=== PATIENT | female | born 1940 | race Caucasian/White ===

== ENCOUNTER 2017-04-15 11:17 | Outpatient (CLI) ==
[2014-12-30 22:52] VITALS: BMI 25.4
== END 2017-04-15 11:18 | disposition home or self-care (01) ==
LOC: RAD 11:17
PROVIDERS: ATTEND Internal Medicine
DX: Z12.31 Encounter for screening mammogram for malignant neoplasm of breast (principal)
CPT/HCPCS: 77067

== ENCOUNTER 2017-06-10 10:35 | Outpatient (CLI) | payer OTHER ==
[2014-12-30 22:52] VITALS: BMI 25.4
--- NOTE | 2017-06-10 12:27 | DI ---
EXAM: Right elbow, three views, 06/10/2017 HISTORY: Elbow pain COMPARISON: None. FINDINGS / IMPRESSION: Moderate chronic osteoarthritic degenerative change. There is prominent oste ophyte formation. Normal anatomic alignment is maintained. There is evidence of fracture or disloca tion. No joint effusion No acute osseous abnormality.
== END 2017-06-10 10:36 | disposition home or self-care (01) ==
LOC: RAD 10:35
PROVIDERS: ATTEND Internal Medicine
DX: M25.521 Pain in right elbow (principal); W19.XXXA Unspecified fall, initial encounter

== ENCOUNTER 2017-12-11 09:32 | Inpatient (IN) | payer OTHER ==
[2017-12-11] MEDS ORDERED: VISTARIL INJ IM PRN (09:47)
[2017-12-11] MEDS ORDERED: NITROSTAT SL PRN (09:47)
[2017-12-11] MEDS ORDERED: ATROPINE SULFATE PFS IVP PRN (09:47)
[2017-12-11] MEDS ORDERED: MORPHINE 4 MG/ML VIAL IVP PRN (09:47)
[2017-12-11 10:14] VITALS: BMI 25.9
[2017-12-11] MEDS: DEXTROSE 5%-1/2NS IV SOLUTION 1,000 ML IV SCH ×2 (10:16→22:39)
[2017-12-11] MEDS: SOLU-CORTEF 250 MG IVP SCH ×4 (10:22→23:28)
[2017-12-11] MEDS: ROCEPHIN 1 GM in SODIUM CHLORIDE 50 ML IV SCH (10:22)
[2017-12-11] MEDS: MUCINEX PO SCH ×2 (10:23→20:16)
[2017-12-11] MEDS: XOPENEX 1.25 MG NEB SCH ×3 (11:28→22:10)
--- NOTE | 2017-12-11 12:03 | DI ---
EXAM: Single view the chest. History: Short of breath Comparison: Chest radiograph 12/30/2014 Findings: Heart size is normal. No focal consolidation. No appreciable pleural fluid and no pneumo thorax. No acute osseous abnormalities. Impression: No acute cardiopulmonary process
[2017-12-11] MEDS: PULMICORT 0.5 MG/2 ML NEB SCH (17:37)
[2017-12-11] MEDS: PRAVACHOL PO SCH (20:16)
[2017-12-11] MEDS: ULTRAM PO SCH (20:17)
[2017-12-11] MEDS: SINGULAIR PO SCH (20:17)
[2017-12-11] MEDS ORDERED: PRAVACHOL PO SCH (21:00)
[2017-12-11] MEDS ORDERED: GABAPENTIN 1200 MG PO SCH (21:00)
[2017-12-11] MEDS ORDERED: NEURONTIN PO SCH (21:00)
[2017-12-12] MEDS: TYLENOL PO PRN (03:38)
[2017-12-12] MEDS: PULMICORT 0.5 MG/2 ML NEB SCH ×2 (05:06→18:01)
[2017-12-12] MEDS: XOPENEX 1.25 MG NEB SCH ×4 (05:06→22:20)
[2017-12-12] MEDS: SYNTHROID PO SCH (05:41)
[2017-12-12] MEDS: SOLU-CORTEF 250 MG IVP SCH ×4 (06:38→23:32)
[2017-12-12] MEDS: ROCEPHIN 1 GM in SODIUM CHLORIDE 50 ML IV SCH (08:31)
[2017-12-12] MEDS: NON-FORMULARY MEDICATION (Tiotropium Br/Olodaterol Hcl [Stiolto Respimat Inhal Spray] 2 PU IH SCH (08:33)
[2017-12-12] MEDS: HYDROCHLOROTHIAZIDE PO SCH (08:34)
[2017-12-12] MEDS: ASPIRIN EC PO SCH (08:35)
[2017-12-12] MEDS: ZESTRIL PO SCH (08:35)
[2017-12-12] MEDS: MUCINEX PO SCH ×2 (08:35→20:46)
[2017-12-12] MEDS: XANAX PO PRN (08:43)
[2017-12-12] MEDS ORDERED: CYMBALTA PO SCH (09:00)
[2017-12-12] MEDS ORDERED: CALAN SR PO SCH (09:00)
[2017-12-12] MEDS ORDERED: [UNRECOGNIZED DRUG - OTHER] IN SCH (09:00)
[2017-12-12] MEDS: DEXTROSE 5%-1/2NS IV SOLUTION 1,000 ML IV SCH ×2 (11:29→22:44)
[2017-12-12] MEDS: SINGULAIR PO SCH (20:47)
[2017-12-12] MEDS: ULTRAM PO SCH (20:47)
[2017-12-12] MEDS: PRAVACHOL PO SCH (20:48)
[2017-12-12] MEDS ORDERED: NEURONTIN PO SCH (21:00)
[2017-12-13] MEDS: XOPENEX 1.25 MG NEB SCH ×4 (05:07→22:10)
[2017-12-13] MEDS: PULMICORT 0.5 MG/2 ML NEB SCH ×2 (05:07→17:56)
[2017-12-13] MEDS: SYNTHROID PO SCH (06:04)
[2017-12-13] MEDS: SOLU-CORTEF 250 MG IVP SCH ×3 (06:06→17:14)
[2017-12-13] MEDS: ASPIRIN EC PO SCH (10:39)
[2017-12-13] MEDS: HYDROCHLOROTHIAZIDE PO SCH (10:39)
[2017-12-13] MEDS: ZESTRIL PO SCH (10:40)
[2017-12-13] MEDS: MUCINEX PO SCH ×2 (10:40→21:46)
[2017-12-13] MEDS: ROCEPHIN 1 GM in SODIUM CHLORIDE 50 ML IV SCH (10:40)
[2017-12-13] MEDS: VERAPAMIL HCL 240 MG PO SCH (10:42)
[2017-12-13] MEDS: NON-FORMULARY MEDICATION (Duloxetine Hcl [Cymbalta] 60 MG) PO SCH (10:43)
[2017-12-13] MEDS: NON-FORMULARY MEDICATION (Tiotropium Br/Olodaterol Hcl [Stiolto Respimat Inhal Spray] 2 PU IH SCH (10:43)
[2017-12-13] MEDS: XANAX PO PRN (11:56)
[2017-12-13] MEDS: DEXTROSE 5%-1/2NS IV SOLUTION 1,000 ML IV SCH (11:57)
[2017-12-13] MEDS: TYLENOL PO PRN (12:25)
[2017-12-13] MEDS ORDERED: XANAX PO SCH (21:00)
[2017-12-13] MEDS ORDERED: NEURONTIN PO SCH (21:00)
[2017-12-13] MEDS: SINGULAIR PO SCH (21:47)
[2017-12-13] MEDS: ULTRAM PO SCH (21:47)
[2017-12-13] MEDS: PRAVACHOL PO SCH (21:47)
[2017-12-14] MEDS: SOLU-CORTEF 250 MG IVP SCH ×2 (00:23→05:54)
[2017-12-14] MEDS: PULMICORT 0.5 MG/2 ML NEB SCH (04:50)
[2017-12-14] MEDS: XOPENEX 1.25 MG NEB SCH (04:50)
[2017-12-14] MEDS: SYNTHROID PO SCH (05:43)
[2017-12-14] MEDS ORDERED: K-DUR PO STA ×2 (08:25→09:51)
--- NOTE | 2017-12-14 09:41 | CM.DICTOOL ---
ADMISSION: 12/11/17 09:32 DISCHARGE: 12/14/17 FINAL DIAGNOSIS ACUTE BRONCHITIS/COPD BRONCHIAL ASTHMA HYPOKALEMIA HISTORY OF: S/P CATARACT SURGERY 2017 DYSLIPIDEMIA HYPERTENSION S/P CHOLECYSTECTOMY KIDNEY STONES DEPRESSION ANXIETY HYPOTHYROID LAST VITALS Temp Pulse Resp BP Pulse Ox 98.1 F 69 20 119/63 98 12/14/17 05:34 12/14/17 05:34 12/14/17 05:34 12/14/17 05:34 12/14/17 05:34 TAKE THESE MEDICATIONS AT HOME Acetaminophen (Tylenol) 650 mg PO Q4H PRN PRN Reason: Headache Last Admin: 12/13/17 12:25 Dose: 650 mg Alprazolam (Xanax) 0.5 mg PO BID PRN PRN Reason: anxiety restlessness Last Admin: 12/13/17 11:56 Dose: 0.5 mg Gabapentin (Neurontin) 600 mg PO BID [facility] Last Admin: 12/13/17 21:46 Dose: 600 mg Hydrochlorothiazide (Hydrochlorothiazide) 25 mg PO DAILY [facility] Last Admin: 12/13/17 10:39 Dose: 25 mg Levothyroxine Sodium (Synthroid) 88 mcg PO QDAC [facility] Last Admin: 12/14/17 05:43 Dose: 88 mcg Lisinopril (Zestril) 20 mg PO DAILY [facility] Last Admin: 12/13/17 10:40 Dose: 20 mg Montelukast Sodium (Singulair) 10 mg PO BEDTIME [facility] Last Admin: 12/13/17 21:47 Dose: 10 mg Non-Formulary Medication (Verapamil Hcl [Calan Sr]) 240 mg PO DAILY [facility] Last Admin: 12/13/17 10:42 Dose: 240 mg Non-Formulary Medication (Duloxetine Hcl [Cymbalta]) 60 mg PO DAILY [facility] Last Admin: 12/13/17 10:43 Dose: 60 mg Non-Formulary Medication (Tiotropium Br/Olodaterol Hcl [Stiolto Respimat Inhal [place]]) 2 puff IH DAILY [facility] Last Admin: 12/13/17 10:43 Dose: 2 puff Pravastatin Sodium (Pravachol) 40 mg PO BEDTIME [facility] Last Admin: 12/13/17 21:47 Dose: 40 mg Tramadol HCl (Ultram) 50 mg PO BEDTIME [facility] Last Admin: 12/13/17 21:47 Dose: 50 mg ALLERGIES No Known Allergies Allergy (Verified 12/30/14 19:53) DISCONTINUED MEDICATIONS NONE NEW MEDICATIONS: 1. PREDNISONE 10MG TAKE 1 TABLET 3 TIMES A DAY FOR 3 DAYS THEN 1 TABLET 2 TIMES A DAY FOR 3 DAYS, THEN 1 TABLET DAILY FOR 3 DAYS AND THEN 1/2 TABLET DAILY FOR 3 DAYS. 2. KEFLEX 500MG TAKE 1 CAPSULE 2 TIMES A DAY FOR 7 DAY. 3. K-DUR 40MEQ TAKE 1 TABLET THIS EVENING, THEN 2 TIMES A DAY TOMORROW AND THEN 1/2 TABLET ON THURSDAY. NEW PRESCRIPTIONS: NEW MEDICATIONS: 1. PREDNISONE 10MG TAKE 1 TABLET 3 TIMES A DAY FOR 3 DAYS THEN 1 TABLET 2 TIMES A DAY FOR 3 DAYS, THEN 1 TABLET DAILY FOR 3 DAYS AND THEN 1/2 TABLET DAILY FOR 3 DAYS. TAKE WITH FOOD. 2. KEFLEX 500MG TAKE 1 CAPSULE 2 TIMES A DAY FOR 7 DAY. TAKE UNTIL ALL GONE 3. K-DUR 40MEQ TAKE 1 TABLET THIS EVENING, THEN 2 TIMES A DAY TOMORROW AND THEN 1/2 TABLET ON THURSDAY. SMOKING: N/A AVOID SECOND HAND SMOKE DISEASE SPECIFIC EDUCATION: COPD MEDICATIONS - STEROIDS, ABX AVOID HEAT ACTIVITY FOLLOW UP APPOINTMENT LAB REVIEW: 12/14/17 04:15 12/14/17 04:15 12/14/17 04:15: Sodium 143, Potassium 2.8 L, Chloride 103, Carbon Dioxide 29, Anion Gap 13.8, BUN 22 H, Creatinine 0.91, Estimated GFR (MDRD) 60.00, BUN/ Creatinine Ratio 24.17, Glucose 155 H, Calcium 9.1, Total Bilirubin 0.3, AST 10 L, ALT 16, Alkaline Phosphatase 44 L, Total Protein 5.8, Albumin 3.1 L, Globulin 2.7, Albumin/Globulin Ratio 1.15 12/14/17 04:15: WBC 8.45, RBC 3.93 L, Hgb 11.6 L, Hct 34.3 L, MCV 87.3, MCH 29.5 , MCHC 33.8, RDW Coeff of [place] 13.1, Plt Count 237, Immature Gran % (Auto) 1.1, Neut % (Auto) 80.3, Lymph % (Auto) 15.1, [place] % (Auto) 3.4, Eos % (Auto) 0.0, Baso % (Auto) 0.1, Immature Gran # (Auto) 0.1, Neut # (Auto) 6.8, Lymph # (Auto ) 1.3, [place] # (Auto) 0.3 L, Eos # (Auto) 0.0, Baso # (Auto) 0.0 12/13/17 13:00: Puncture Site R brach, O2 Saturation 94.0 L, ABG pH 7.495 H, ABG pCO2 39.5, ABG pO2 63.0 L, ABG HCO3 30.4 H, ABG Total CO2 32 H, ABG Base Excess 7 H, Kb Test +, FiO2 % 21.0 PLAN: DISCHARGE HOME TODAY 12/14/17 CONTINUE HOME MEDICATIONS PER NURSING SHEET. NEW MEDICATIONS: 1. PREDNISONE 10MG TAKE 1 TABLET 3 TIMES A DAY FOR 3 DAYS THEN 1 TABLET 2 TIMES A DAY FOR 3 DAYS, THEN 1 TABLET DAILY FOR 3 DAYS AND THEN 1/2 TABLET DAILY FOR 3 DAYS. TAKE WITH FOOD. 2. KEFLEX 500MG TAKE 1 CAPSULE 2 TIMES A DAY FOR 7 DAY. TAKE UNTIL ALL GONE. 3. K-DUR 40MEQ TAKE 1 TABLET THIS EVENING, THEN 2 TIMES A DAY TOMORROW AND THEN 1/2 TABLET ON THURSDAY. DIET TOLERATED ACTIVITY GRADUALLY RESUME ACTIVITY. REST FREQUENTLY. AVOID HEAT. FOLLOW UP WITH DR. FREDERICK ON ThursdayNovember AT 1030 AM. IF UNABLE TO KEEP APPOINTMENT, PLEASE CALL TO RESCHEDULE. [phone]. PATIENT IS A DO NOT INTUBATE - CPR ONLY. ALERT AND ORIENTED X 4. SEEN BY DR. FREDERICK THIS AM. NEW ORDERS FOR DISCHARGE AND RX RECEIVED. PATIENT AGREEABLE WITH DISCHARGE. APPETITE IS GOOD. VITAL SIGNS ARE STABLE. HAS BEEN AFEBRILE. POX 98% ON O2 AT 2L/C. HEART TONES ARE REGULAR. REFUSED TELEMETRY MONITORING. NO C/O PAIN OR DISCOMFORT. LUNGS CLEAR WITH DIMINISHED BREATH SOUNDS. CONTINUES WITH DYSPNEA WITH ACTIVITY. HAS NON- PRODUCTIVE COUGH. ABDOMEN IS SOFT, NON-TENDER WITH BOWEL SOUNDS POSITIVE IN ALL 4 QUADS. PEDAL PULSES POSITIVE WITHOUT EDEMA. HAS SALINE LOCK IN RIGHT FOREARM SITE IS CLEAR. IS UP AD-SEAN. NO ACUTE DISTRESS NOTED. DR. TESS FREDERICK MD Willian VILLEDA APRN
[2017-12-14] MEDS: MUCINEX PO SCH (10:10)
[2017-12-14] MEDS: ASPIRIN EC PO SCH (10:10)
[2017-12-14] MEDS: ZESTRIL PO SCH (10:10)
[2017-12-14 10:11] VITALS: BP 136/80; TEMP 97.6
[2017-12-14] MEDS: HYDROCHLOROTHIAZIDE PO SCH (10:11)
[2017-12-14] MEDS: VERAPAMIL HCL 240 MG PO SCH (10:11)
[2017-12-14] MEDS: NON-FORMULARY MEDICATION (Duloxetine Hcl [Cymbalta] 60 MG) PO SCH (10:11)
[2017-12-14] MEDS: NON-FORMULARY MEDICATION (Tiotropium Br/Olodaterol Hcl [Stiolto Respimat Inhal Spray] 2 PU IH SCH (10:13)
[2017-12-14] MEDS: ROCEPHIN 1 GM in SODIUM CHLORIDE 50 ML IV SCH (10:21)
--- NOTE | 2017-12-14 13:45 | HP ---
DATE OF SERVICE: 12/11/17 HISTORY OF PRESENT ILLNESS: This is a 77-year-old female with coughing times several days, feeling very tired even with 02. Shortness of breath on exertion. No symptoms of CAD/no PND/ no orthopnea. PAST MEDICAL HISTORY: COPD Bronchial asthma Left sciatica Dyslipidemia History of kidney stone MENSTRUAL HISTORY: Mammogram 04/14 [facility] PAST SURGICAL HISTORY: TKR - bilateral Melanoma times two Colonoscopy 12/11, Dr. Mares Gallbladder REVIEW OF SYSTEMS: CONSTITUTIONAL: Positive for fatigue. No fever. HEENT: No sinus drainage, no sore throat. RESPIRATORY: Cough. No hemoptysis. CARDIOVASCULAR: Positive for shortness of breath. No atypical chest pain for coronary artery disease. No angina, CHF symptoms, palpitations. GASTROINTESTINAL: No melena or abdominal pain. No GERD. GENITOURINARY: No hematuria, no polyuria. CONVEYOR FEEDER OFFBEARER: No blackout, no dizziness, no headache, no double vision. MUSCULOSKELETAL: Osteoarthritis pain. ENDOCRINE: Weight loss of 4 lbs. SKIN: Warm and dry, no rash. PSYCHIATRIC: Not anxious, no depression, no suicidal thoughts, no homicidal thoughts. SOCIAL HISTORY: , nonsmoker. Three children. Positive for alcohol use. FAMILY HISTORY: Father and mother . Two brothers. No sisters. MEDICATIONS: (Home) Synthroid 88 mcg p.o. daily Cymbalta 60 mg p.o. daily Neurontin 1,200 mg two at h.s. Xanax 0.5 mg p.o. b.i.d. p.r.n. Pravachol 40 mg p.o. bedtime Lisinopril/Hydrochlorothiazide one tab p.o. daily Verapamil (Calan SR) 240 mg p.o. daily (a.m.) Singulair 10 mg p.o. daily Tramadol (Ultram) 50 mg p.o. bedtime Stiolto Respimat 2 puff IH daily a.m. Antivert 25 mg one p.r.n. ALLERGIES: CODEINE, ERYTHROMYCIN PHYSICAL EXAMINATION: V/S: Pulse 90, BP 130/60, respiratory rate 15/min, 02 sat 95% on room air, height 5'2", weight 142.2, BMI 26. GENERAL APPEARANCE: Oriented times three. HEENT: Normal. NECK: No JVP, no bruits. RESPIRATORY: Decreased breath sounds. Lungs are clear. CARDIOVASCULAR: S1, S2, no S3, no murmurs. No cyanosis, clubbing. No ascites. GI/ABDOMEN: No tenderness. Bowel sounds are active. EXTREMITIES: No edema, pulses +1, equal. CONVEYOR FEEDER OFFBEARER: Deep tendon reflexes, sensory, motor and gait all normal. RECTAL/PELVIC: Dr. Mares 12/11. Pelvic: Refused. Mammogram 04/14 [facility]. ASSESSMENT: 1. ACUTE BRONCHITIS 2. EXACERBATION OF COPD 3. COPD/COR PULMONALE (4x) 4. BRONCHIAL ASTHMA 5. LEFT SCIATICA 6. HYPERGLYCEMIA 7. BILATERAL TKR 8. HYPERTENSION 9. DYSLIPIDEMIA 10. HISTORY OF KIDNEY STONE 11. OSTEOARTHRITIS, RIGHT ELBOW PLAN: 1. Admit regular. 2. Routine telemetry orders. 3. Diet - Regular. 4. Daily CBC, CMP 5. Solu-Cortef 125 mg IV now and q.6hr 6. Xopenex q.6hr (nebs) 7. Pulmicort nebs b.i.d. 8. 1000 cc's D5 1/2 NS 12 hourly 9. Mucinex one tablet p.o. b.i.d. 10. Continue all home medications 11. Rocephin 1 gm IV p.o. now and 24 hours 12. Sputum for C & S Gram Stain 13. ABGs now 14. Oxygen 2L/cannula/min TIME SPENT: More than 70 minutes. MTDD
--- NOTE | 2017-12-16 13:45 | PN ---
DATE OF SERVICE: 12/12/17 SUBJECTIVE: The patient was hospitalized with respiratory distress, respiratory failure and mild hypercarbia with pCO2 15 with borderline low pH with high carb. The patient had wheezing with very poor air entry. The patient condition has improved remarkably. She is feeling better. She is up and about and is talking full sentences and several of them without interruption. Condition is improved with steroids, antibiotics and NEBS treatment and oxygen. REVIEW OF SYSTEMS: CONSTITUTIONAL: No night sweats. No fatigue, malaise, lethargy. No fever or chills. HEENT: Eyes: No visual changes. No eye pain. No eye discharge. ENT: No runny nose. No epistaxis. No sinus pain. No sore throat. No odynophagia. No congestion. RESPIRATORY: No cough, no congestion. No hemoptysis. No shortness of breath. CARDIOVASCULAR: No angina symptoms. No CHF symptoms. No atypical chest pain for CAD. No palpitations. No orthopnea. GASTROINTESTINAL: No abdominal pain. No nausea or vomiting. No diarrhea or constipation. No hematemesis. No hematochezia. GENITOURINARY: No urgency. No frequency. No dysuria. No hematuria. No obstructive symptoms. No discharge. No pain. No significant abnormal bleeding. MUSCULOSKELETAL: No musculoskeletal pain; no joint swelling. NEUROLOGICAL: No headache. No neck pain. No syncope. No seizures. No dizziness. PSYCHIATRIC: Not anxious. No depression. No suicidal thoughts. No homicidal thoughts. SKIN: No rash. No lesions. No wounds. ENDOCRINE: No unexplained weight loss. No weight gain. HEMATOLOGIC/LYMPHATIC: No anemia. No purpura. No petechiae. No prolonged or excessive bleeding. No palpable lymph nodes. PHYSICAL EXAMINATION: HEENT: Head normocephalic, atraumatic. Eyes: Extraocular muscles are intact. Pupils are equal, round and reactive to light and accommodation. Ears: No lesions. Nose appeared normal. Throat: No exudate or erythema. NECK: Supple. No JVD, no carotid bruit. No lymphadenopathy or thyromegaly. LUNGS: Clear to auscultation. Percussion note normal. Chest symmetrical. HEART: S1, S2, no S3. No murmurs. No cyanosis or clubbing. No ascites. Pulses: Dorsalis pedis and posterior tibial pulses +1 to +2 both sides. ABDOMEN: Soft. Nontender. Bowel sounds active. No CVA tenderness. No mass felt. EXTREMITIES: No edema. Full range of motion of all extremities, equal. NEUROLOGIC: No focal deficit. Cranial nerves II through XII are grossly intact. No headache, no double vision or headache. SKIN: Not dry. Intact. Turgor - normal. LYMPHATIC: No palpable lymph nodes/no lymphedema. MUSCULOSKELETAL: Normal joints with no swelling. Muscle tone is normal. ASSESSMENT: 1. Respiratory distress 2. Respiratory failure 3. Mild hypercarbia PLAN: 1. Continue steroids 2. Antibiotics 3. NEBS treatment 4. Pulmonary rehab advised and discussed in detail. CONDITION: Stable. TIME SPENT: More than 30 minutes. Plan and coordination of the patient's care discussed in the presence of nurse. SERGIO
--- NOTE | 2017-12-16 13:50 | PN ---
DATE OF SERVICE: 12/13/17 SUBJECTIVE: The patient is up and about walking and doing well. She wants to go home. She has decreased breath sounds but very good air entry. REVIEW OF SYSTEMS: CONSTITUTIONAL: No night sweats. No fatigue, malaise, lethargy. No fever or chills. HEENT: Eyes: No visual changes. No eye pain. No eye discharge. ENT: No runny nose. No epistaxis. No sinus pain. No sore throat. No odynophagia. No congestion. RESPIRATORY: No cough, no congestion. No hemoptysis. No shortness of breath. CARDIOVASCULAR: No angina symptoms. No CHF symptoms. No atypical chest pain for CAD. No palpitations. No orthopnea. GASTROINTESTINAL: No abdominal pain. No nausea or vomiting. No diarrhea or constipation. No hematemesis. No hematochezia. GENITOURINARY: No urgency. No frequency. No dysuria. No hematuria. No obstructive symptoms. No discharge. No pain. No significant abnormal bleeding. MUSCULOSKELETAL: No musculoskeletal pain; no joint swelling. NEUROLOGICAL: No headache. No neck pain. No syncope. No seizures. No dizziness. PSYCHIATRIC: Not anxious. No depression. No suicidal thoughts. No homicidal thoughts. SKIN: No rash. No lesions. No wounds. ENDOCRINE: No unexplained weight loss. No weight gain. HEMATOLOGIC/LYMPHATIC: No anemia. No purpura. No petechiae. No prolonged or excessive bleeding. No palpable lymph nodes. PHYSICAL EXAMINATION: HEENT: Head normocephalic, atraumatic. Eyes: Extraocular muscles are intact. Pupils are equal, round and reactive to light and accommodation. Ears: No lesions. Nose appeared normal. Throat: No exudate or erythema. NECK: Supple. No JVD, no carotid bruit. No lymphadenopathy or thyromegaly. LUNGS: Clear to auscultation. Percussion note normal. Chest symmetrical. HEART: S1, S2, no S3. No murmurs. No cyanosis or clubbing. No ascites. Pulses: Dorsalis pedis and posterior tibial pulses +1 to +2 both sides. ABDOMEN: Soft. Nontender. Bowel sounds active. No CVA tenderness. No mass felt. EXTREMITIES: No edema. Full range of motion of all extremities, equal. NEUROLOGIC: No focal deficit. Cranial nerves II through XII are grossly intact. No headache, no double vision or headache. SKIN: Not dry. Intact. Turgor - normal. LYMPHATIC: No palpable lymph nodes/no lymphedema. MUSCULOSKELETAL: Normal joints with no swelling. Muscle tone is normal. ASSESSMENT: 1. Acute bronchial asthma, improving with steroids, NEBS treatment and antibiotics. PLAN: 1. Again pulmonary rehab discussed with the patient 2. Atrial blood gasses on room air also 3. PFT today 4. Side effects of steroids including avascular necrosis of the femoral head, cataracts, osteoporosis etc discussed with the patient in detail. 5. She works outside and works with the pain. Advised to avoid all allergens. CONDITION: Improving. TIME SPENT: More than 30 minutes. Plan and coordination of the patient's care discussed in the presence of nurse. SERGIO
--- NOTE | 2017-12-16 14:48 | PN ---
DATE OF SERVICE: 12/14/17 DISCHARGE NOTE SUBJECTIVE: The patient was seen and examined with Nurse Practitioner. She is feeling a lot better. During the hospital stay the patient was treated with steroids, IV antibiotics, NEBS treatment and IV fluids. PHYSICAL EXAMINATION: HEENT: Head normocephalic, atraumatic. Eyes: Extraocular muscles are intact. Pupils are equal, round and reactive to light and accommodation. Ears: No lesions. Nose appeared normal. Throat: No exudate or erythema. NECK: Supple. No JVD, no carotid bruit. No lymphadenopathy or thyromegaly. LUNGS:Decreased breath sounds but clear to auscultation, good air entry and no cough. Percussion note normal. Chest symmetrical. HEART: S1, S2, no S3. No murmurs. No cyanosis or clubbing. No ascites. Pulses: Dorsalis pedis and posterior tibial pulses +1 to +2 both sides. ABDOMEN: Soft. Nontender. Bowel sounds active. No CVA tenderness. No mass felt. EXTREMITIES: No edema. Full range of motion of all extremities, equal. NEUROLOGIC: No focal deficit. Cranial nerves II through XII are grossly intact. No headache, no double vision or headache. SKIN: Not dry. Intact. Turgor - normal. LYMPHATIC: No palpable lymph nodes/no lymphedema. MUSCULOSKELETAL: Normal joints with no swelling. Muscle tone is normal. PLAN: 1. Explained about steroid side effects including avascular necrosis of the femoral heads, cataract and osteoporosis. 2. Advised bone density test 3. The patient is be discharged on Keflex and steroid tapering dose. 4. The patient has hypokalemia, today the patient will be given 120meq Potassium 80 of them will be given in the hospital and 40 she is supposed to take in the evening. Tomorrow she is going to take 80 and then she will be taking 20. 5. We are going to check her as an outpatient on morning and will check Potassium again. CONDITION: Stable. Improved TIME SPENT: More than 30 minutes. Plan and coordination of the patient's care discussed in the presence of nurse. SERGIO
--- NOTE | 2017-12-17 10:57 | PN ---
CODING FOR BILLING 12/11/17 LEVEL 5 12/12/17 INTERMEDIATE 12/13/17 INTERMEDIATE 12/14/17 DISCHARGE MTDD
--- NOTE | 2017-12-17 11:02 | DS ---
DATE OF SERVICE: 12/14/17 FINAL DIAGNOSIS: 1. Acute bronchitis/COPD 2. Bronchial asthma 3. Hypokalemia 4. History of status post Cataract surgery 2016 5. Dyslipidemia 6. Hypertension 7. Status post cholecystectomy 8. Kidney stones 9. Depression 10.Anxiety 11.Hypothyroidism LAST VITALS: Temperature 98.1, pulse 69, respiratory rate 20, blood pressure 119/63 and pulse ox 98%. DISCHARGE INSTRUCTIONS: Discharge home today. Continue home medications per nursing sheet. Followup with Dr. Ontiveros on December 17 at 10:30am. Patient is a DO NOT INTUBATE- CPR only. MEDICATIONS AT DISCHARGE: Tylenol 650mg PO Q 4 hours PRN Xanax 0.5mg PO twice a day PRN Neurontin 600mg PO twice a day Hydrochlorothiazide 25mg PO daily Synthroid 88mcg PO QDAC Zestril 20mg PO daily Singulair 10mg PO bedtime Verapamil 240mg PO daily Cymbalta 60mg PO daily Stiolto Respimat 2 puffs daily Pravachol 40mgt PO bedtime Ultram 50mg PO bedtime ALLERGIES: No known allergies NEW PRESCRIPTIONS: Prednisone 10mg take one tablet three times a day for 3 days then one tablet two times a day for 3 days, then one tablet daily for 3 days then 1/2 tablet daily for 3 days. Take with food. Keflex 500mg take one capsule two times a day for 7 days. Take until all gone K-Dur 40meq take one tablet this evening, then two times a day tomorrow and then 1/2 tablet on Thursday. DIET INSTRUCTIONS: As tolerated ACTIVITY: Gradually resume activity, Rest frequently. Avoid heat. SMOKING: N/A Avoid second hand smoke DISEASE SPECIFIC EDUCATION: COPD MEDICATIONS-Steroids, ABX Avoid heat Activity Followup appointment HOSPITAL COURSE: 77 year old white female with history of severe COPD. She presented to the office with worsening shortness of breath and productive cough. Her oxygen saturation was low and she was mild respiratory distress. Her oxygen saturation showed 92% in the office. She was directly admitted, this was on 2 liters of oxygen. ABG showed compensated respiratory. On examination she had very little air movement to no air movement. She was not able to wheeze. Again she was visible short of breath despite her oxygen. Chest x-ray was done which showed no acute process, no pneumonia just changes associated with severe COPD and acute bronchitis. She was started on normal saline at 75cc an hour. Solu-Cortef 125mg IV Q 8 hours as well as Xopenex NEB treatment Q 6 hours. Over the course of several days with IV steroids and NEBS treatments. Her breathing improved. She had already been doing nebulizer treatments and PO Prednisone and oxygen at home and again she was still in mild respiratory distress. Of the course of several days with IV steroids we also put her on IV Rocephin once daily her condition steadily improved. Repeat ABG's yesterday morning showed significant improvement, CO2 level was down. She did develop some hypokalemia likely due to hemodilution and IV fluids. Today her Potassium is 2.8. We will send her home with 40meq of Potassium twice a day today and tomorrow and then daily until we see her on . We will recheck the CMP in the office. She is discharged in stable condition today. She has been up and about with her oxygen on. She has been instructed to stay inside and continue her NEBS treatments at least 4 times a day. She will go home on Keflex as well as Prednisone 20mg three times a day for the next 2 days then twice a day for 3 days and then daily. We will see her in the office on . TIME SPENT: More than 60 minutes. SERGIO
== END 2017-12-14 11:15 | disposition home or self-care (01) | DRG 202 ==
LOC: MEDSURG A 09:32
PROVIDERS: ADMIT Internal Medicine; ATTEND Internal Medicine
DX: J20.9 Acute bronchitis, unspecified (principal); J96.92 Respiratory failure, unspecified with hypercapnia; J44.1 Chronic obstructive pulmonary disease with (acute) exacerbation; J44.0 Chronic obstructive pulmonary disease with (acute) lower respiratory infection; E87.6 Hypokalemia; J45.998 Other asthma; E78.5 Hyperlipidemia, unspecified; I10 Essential (primary) hypertension; F41.8 Other specified anxiety disorders; E03.9 Hypothyroidism, unspecified; Z87.442 Personal history of urinary calculi; R73.9 Hyperglycemia, unspecified; M54.32 Sciatica, left side; M19.021 Primary osteoarthritis, right elbow; R06.03 Acute respiratory distress
CPT/HCPCS: 36415; 80053; 81001; 82550; 82803; 84484; 85025; 93005; 93010; 94640

== ENCOUNTER 2018-04-15 07:54 | Outpatient (CLI) ==
--- NOTE | 2018-04-16 09:52 | MAMMO ---
EXAM: Digital screening mammogram with tomosynthesis HISTORY: Screening COMPARISON: 04/15/2017 FINDINGS: Digital MLO and CC views of the right and left breast were performed. Tomosynthesis was performed. Computer aided detection utilized. There are scattered fibroglandular densities. There is no evidence for mass, asymmetry, distortion, or suspicious calcifications in either breast. IMPRESSION: 1. No evidence of malignancy in the right or left breast. 2. Annual screening mammogram is recommended in one year. BIRADS category 1, negative examination
== END 2018-04-15 07:55 | disposition home or self-care (01) ==
LOC: RAD 07:54
PROVIDERS: ATTEND Internal Medicine
DX: Z12.31 Encounter for screening mammogram for malignant neoplasm of breast (principal)
CPT/HCPCS: 77067

== ENCOUNTER 2018-11-06 08:27 | Emergency (ER) | payer OTHER ==
[2018-11-06 08:41] VITALS: BP 147/82; TEMP 96.7; BMI 28.5
[2018-11-06] MEDS ORDERED: MORPHINE 4 MG/ML SYRINGE IM STA ×2 (08:58→09:48)
[2018-11-06] MEDS ORDERED: ZOFRAN 4 MG/2 ML IM STA (08:58)
--- NOTE | 2018-11-06 09:24 | CT ---
EXAM: CT of the lumbar spine. HISTORY: Back pain. Right sided sciatica. COMPARISON: 12/02/2012 TECHNIQUE: Contiguous axial images at 3 mm intervals were obtained through the lumbar spine. Sagitt al and coronal reformats were reviewed. No contrast. FINDINGS: There are 5 lumbar type vertebral bodies. There is curvature spine to the left measuring 8 degrees. There is anterolisthesis of four L5, measuring up to 6.7 mm. This is increased in compari son to the prior study. There is no pars defect. The vertebral heights are well maintained. There are no acute or healing fractures. Bone mineralization is normal. There are no lytic or blastic les ions. The soft tissues are unremarkable. There is no retroperitoneal fluid collection. The aorta i s calcified.. Segmental analysis: L1-2: Disc narrowing. No spinal canal or neural foraminal narrowing. L2-3: Disc narrowing. Post osteophytes. No spinal canal or neural foraminal narrowing.. L3-4: Disc narrowing. Facet hypertrophy. Minimal bilateral neural foramen narrowing.. L4-5: Disc narrowing. Large broad-based disc bulge. Facet hypertrophy. Bilateral neural foraminal narrowing and spinal canal narrowing.. L5-S1: Disc narrowing. Facet hypertrophy. Mild bilateral neural foraminal narrowing. IMPRESSION: 1. No acute fractures. 2. Degenerative disc disease and degenerative joint disease, most pronounced at L4-5. There is bila teral neural foraminal narrowing and spinal canal narrowing. Anterolisthesis of L4 on L5 is seen at this level as well. This is increased in comparison to the prior study.
[2018-11-06] MEDS ORDERED: VALIUM PO STA (09:48)
[2018-11-06] MEDS ORDERED: TORADOL IM STA (09:48)
--- NOTE | 2018-11-06 09:55 | ED.PDOC ---
General ED Provider: Dr. VENESSA PERES Chief Complaint: Back Pain Stated Complaint: low back pain after a car travel Time Seen by Physician: 08:33 Information Source: Patient Exam Limitations: No limitations Primary Care Provider: TESS FREDERICK Nursing and Triage Documentation Reviewed and Agree: Yes Does patient meet sepsis criteria?: No System Inflammatory Response Syndrome: Not Applicable Sepsis Protocol: For patient's 13 years and over: Temp is 96.8 and below OR 101 and greater Pulse >90 BPM Resp >20/minute Acutely Altered Mental Status Are patient's symptoms suggestive of a new infection, such as: -Pneumonia -Skin, Soft Tissue -Endocarditis -UTI -Bone, Joint Infection -Implantable Device -Acute Abdominal Infection -Wound Infection -Meningitis -Blood Stream Catheter Infection -Unknown Musculoskeletal Complaint Exam - Back Pain Complaint/Exam Mechanism of Injury: Reports: No known trauma Onset/Duration: 1 day Symptoms Are: Still present Timing: Constant Episodes Lasting: Hours Initial Severity: Moderate Current Severity: Moderate Location: Reports: Discrete (lumbar ) Character: Reports: Aching, Spasmodic Aggravating: Reports: Movements, Lifting, Bending, Walking Alleviating: Reports: Rest Associated Signs and Symptoms: Reports: Flank pain (right). Denies: Swelling, Redness, Bruising, Fever, Weakness, Numbness, Tingling, Abdominal pain, Bladder incontinence, Bowel incontinence, Weight loss, Pain with weight bearing TAD Risk Factors: Reports: Hypertension AAA Risk Factors: Reports: Hypertension Cauda Equina Risk Factors: Reports: None Epidural Abcess Risk Factors: Reports: None Related Surgical History: Reports: None Focal Tenderness: No Paraspinal Muscle Tenderness: Yes Paraspinal Muscle Spasm: Yes Scoliosis: No Lordosis: No Kyphosis: No SLR Test: Right Positive Hip Motion Testing Pain: Right Negative, Left Negative Focal Weakness: Present: None Focal Sensory Loss: Present: None Gait: Present: Normal Differential Diagnoses: Strain, Sprain Review of Systems - Review Of Systems Constitutional: Reports: No symptoms Eyes: Reports: No symptoms Ears, Nose, Mouth, Throat: Reports: No symptoms Respiratory: Reports: No symptoms Cardiac: Reports: No symptoms GI: Reports: No symptoms : Reports: No symptoms Musculoskeletal: Reports: Back pain Skin: Reports: No symptoms Neurological: Reports: No symptoms Endocrine: Reports: No symptoms Hematologic/Lymphatic: Reports: No symptoms All Other Systems: Reviewed and Negative Past Medical History - Past Medical History Previously Healthy: No Endocrine: Reports: Hypothyroid Cardiovascular: Reports: Hypertension Respiratory: Reports: None Hematological: Reports: None Gastrointestinal: Reports: GERD Genitourinary: Reports: None Neuro/Psych: Reports: Anxiety, Depression Musculoskeletal: Reports: None Cancer: Reports: None Last Menstrual Period: unknown - Surgical History General Surgical History: Reports: Orthopedic (Bilateral knee replacement) - Family History Family History: Reports: None - Social History Smoking Status: Former smoker Hx Substance Use: No Alcohol Screening: None Physical Exam - Physical Exam Appearance: Well-appearing, No pain distress, Well-nourished Eyes: SANDI, EOMI, Conjunctiva clear ENT: Ears normal, Nose normal, Oropharynx normal Respiratory: Airway patent, Breath sounds clear, Breath sounds equal, Respirations nonlabored Cardiovascular: RRR, Pulses normal, No rub, No murmur GI/: Soft, Nontender, No masses, Bowel sounds normal, No Organomegaly Musculoskeletal: Limited ROM (lumbar) Skin: Warm, Dry, Normal color Neurological: Sensation intact, Motor intact, Reflexes intact, Cranial nerves intact, Alert, Oriented Psychiatric: Affect appropriate, Mood appropriate Interpretation - Radiology Interpretation Radiology Interpretation By: Radiologist Radiology Results: No acute changes Critical Care Note - Critical Care Note Total Time (mins): 0 Course - Course Orders, Labs, Meds: Orders Category Date Time Status Diazepam [Valium] MEDS 11/06/18 09:48 Stat 5 mg PO ONCE STA Ketorolac Tromethamine [Toradol] MEDS 11/06/18 09:48 Stat 30 mg IM ONCE STA Morphine Sulfate [Morphine 4 mg/ml Syringe] MEDS 11/06/18 08:58 Stat 4 mg IM ONCE STA Morphine Sulfate [Morphine 4 mg/ml Syringe] MEDS 11/06/18 09:48 Stat 4 mg IM ONCE STA Ondansetron HCl/Pf [Zofran 4 mg/2 ml] MEDS 11/06/18 08:58 Stat 4 mg IM ONCE STA CT LUMBAR SPINE W/O CONTRAST Stat RADS 11/06/18 08:58 Ordered Medications Discontinued Medications Generic Name Dose Route Start Last Admin Trade Name Freq PRN Reason Stop Dose Admin Diazepam 5 mg 11/06/18 09:48 Valium PO 11/06/18 09:49 ONCE STA Ketorolac Tromethamine 30 mg 11/06/18 09:48 Toradol IM 11/06/18 09:49 ONCE STA Morphine Sulfate 4 mg 11/06/18 08:58 11/06/18 09:14 Morphine 4 Mg/Ml Syringe IM 11/06/18 08:59 4 mg ONCE STA Administration Morphine Sulfate 4 mg 11/06/18 09:48 Morphine 4 Mg/Ml Syringe IM 11/06/18 09:49 ONCE STA Ondansetron HCl 4 mg 11/06/18 08:58 11/06/18 09:16 Zofran 4 Mg/2 Ml IM 11/06/18 08:59 4 mg ONCE STA Administration Vital Signs: Temp Pulse Resp BP Pulse Ox 11/06/18 08:28 96.7 F L 82 20 147/82 H 94 L Departure - Departure Time of Disposition: 09:54 Disposition: HOME SELF-CARE Discharge Problem: Lumbar back pain Instructions: Acute Low Back Pain (ED), Back Pain (ED) Condition: Good Pt referred to PMD for follow-up: Yes IPMP verified?: No Additional Instructions: Please call your Family Physician as soon as possible to schedule a follow-up appointment. Allergies/Adverse Reactions: Allergies codeine Adverse Reaction (Mild, Verified 11/06/18 08:41) Unknown erythromycin base Adverse Reaction (Mild, Verified 11/06/18 08:41) Vomiting Home Medications: Ambulatory Orders Alprazolam [Xanax] 0.5 mg PO BID PRN 11/28/14 Duloxetine HCl [Cymbalta] 60 mg PO DAILY 11/28/14 Lisinopril/Hydrochlorothiazide [Lisinopril-Hctz 20-25 mg Tab] 1 tab PO DAILY 08/13 Montelukast Sodium [Singulair] 10 mg PO DAILY 11/28/14 Pravastatin Sodium [Pravachol] 40 mg PO EVERY OTHER DAY 11/28/14 Verapamil HCl [Calan Sr] 240 mg PO DAILY 11/28/14 Tiotropium Br/Olodaterol HCl [Stiolto Respimat Inhal Healy] 2 puff IH DAILY PRN 12/11/17 Tramadol HCl [Ultram] 50 mg PO BEDTIME PRN 12/11/17 Gabapentin [Neurontin] 1,200 mg PO BEDTIME 06/02/18 Levothyroxine Sodium [Synthroid] 100 mcg PO DAILY 06/02/18 Meclizine HCl [Antivert] 25 mg PO BID PRN 06/02/18 Pantoprazole Sodium [Protonix] 40 mg PO DAILY 06/02/18 Prednisone 20 mg PO DIRECTED PRN 11/06/18
== END 2018-11-06 10:47 | disposition home or self-care (01) ==
LOC: ED 08:27
DX: M54.5 Low back pain (principal); I10 Essential (primary) hypertension; E03.9 Hypothyroidism, unspecified; Z79.899 Other long term (current) drug therapy
CPT/HCPCS: 96372; 99283

== ENCOUNTER 2018-11-10 12:21 | Outpatient (CLI) ==
--- NOTE | 2018-11-10 13:16 | US ---
EXAM: ULTRASOUND LOWER EXTREMITY VENOUS DOPPLER EXAM HISTORY: Leg pain. FINDINGS: Right lower extremity venous Doppler exam. Real time sherman-scale, Doppler spectral analysi s and color-flow Doppler imaging performed. The veins targeted for evaluation include the common fem oral, greater saphenous, profundus, femoral, popliteal, peroneal, anterior tibial and posterior tibia l. The evaluated veins demonstrated normal spontaneous flow and compression without evidence of th rombosis. IMPRESSION: No venous thrombosis identified within the areas evaluated.
== END 2018-11-10 12:22 | disposition home or self-care (01) ==
LOC: RAD 12:21
PROVIDERS: ATTEND Internal Medicine
DX: M79.604 Pain in right leg (principal)

== ENCOUNTER 2019-05-30 14:59 | Inpatient (IN) ==
[2019-05-30 15:26] VITALS: BMI 26.3
[2019-05-30] MEDS ORDERED: NITROSTAT SL PRN (15:30)
[2019-05-30] MEDS ORDERED: TYLENOL PO PRN (15:30)
[2019-05-30] MEDS ORDERED: ATROPINE SULFATE PFS IVP PRN (15:30)
[2019-05-30] MEDS ORDERED: VISTARIL INJ IM PRN (15:30)
[2019-05-30] MEDS ORDERED: ULTRAM PO PRN (15:43)
[2019-05-30] MEDS ORDERED: ANTIVERT PO PRN (15:43)
[2019-05-30] MEDS ORDERED: PROAIR HFA IH PRN (15:43)
[2019-05-30] MEDS: SODIUM CHLORIDE 1,000 ML IV SCH (15:44)
[2019-05-30] MEDS ORDERED: SOLU-MEDROL 125 MG IVP SCH (16:00)
[2019-05-30] MEDS: ROCEPHIN 1 GM/50 ML D5W 1 GM/50 ML BAG IV SCH (16:23)
[2019-05-30] MEDS: SOLU-CORTEF 250 MG IVP SCH ×2 (16:23→21:32)
--- NOTE | 2019-05-30 16:37 | DI ---
EXAM: Chest two views HISTORY: Cough COMPARISON: 06/02/2018 TECHNIQUE: Two views of the chest were performed FINDINGS: The lungs are clear. There is no pleural effusion or pneumothorax. The heart is normal i n size. The mediastinal contour is normal, noting atherosclerosis. There are no acute abnormalities of the bones. IMPRESSION: No acute cardiopulmonary process.
[2019-05-30] MEDS: XOPENEX 1.25 MG NEB SCH ×2 (16:50→23:40)
[2019-05-30] MEDS: PULMICORT 1 MG/2 ML NEB SCH (16:50)
[2019-05-30] MEDS: ZITHROMAX 500 MG in SODIUM CHLORIDE 250 ML IV SCH (17:14)
[2019-05-30] MEDS: CALAN SR PO SCH (21:31)
[2019-05-30] MEDS: NEURONTIN PO SCH (21:31)
[2019-05-30] MEDS: PRAVACHOL PO SCH (21:32)
[2019-05-31] MEDS: XOPENEX 1.25 MG NEB SCH ×4 (05:05→23:05)
[2019-05-31] MEDS: PULMICORT 1 MG/2 ML NEB SCH ×2 (05:05→16:50)
[2019-05-31] MEDS: PROTONIX PO SCH (05:42)
[2019-05-31] MEDS: SYNTHROID PO SCH (05:42)
[2019-05-31] MEDS: SOLU-CORTEF 250 MG IVP SCH ×3 (05:42→17:22)
--- NOTE | 2019-05-31 07:44 | PN ---
DATE OF SERVICE: 05/30/19 SUBJECTIVE: The patient was seen and examined in the office and was hospitalized with acute bronchitis. She is going to be on steroids, NEBS treatment and antibiotics. The patient was seen with the Nurse Practitioner. CONDITION: STABLE TIME SPENT: More than 30 minutes. Plan and coordination of the patient's care discussed in the presence of nurse. SERGIO
[2019-05-31] MEDS: SODIUM CHLORIDE 1,000 ML IV SCH (08:00)
[2019-05-31] MEDS: ZITHROMAX 500 MG in SODIUM CHLORIDE 250 ML IV SCH (08:42)
[2019-05-31] MEDS: ROCEPHIN 1 GM/50 ML D5W 1 GM/50 ML BAG IV SCH (08:42)
[2019-05-31] MEDS: SINGULAIR PO SCH (08:43)
[2019-05-31] MEDS: ZESTRIL PO SCH (08:43)
[2019-05-31] MEDS: CYMBALTA PO SCH (08:44)
[2019-05-31] MEDS: ASPIRIN EC PO SCH (08:44)
[2019-05-31] MEDS: HYDROCHLOROTHIAZIDE PO SCH (08:44)
--- NOTE | 2019-05-31 08:53 | PCM.PROG ---
Attending Provider: ATTENDING PROVIDER: Dr. TESS FREDERICK This patient is seen with Mary Merritt, Nurse Practitioner. DATE OF SERVICE: 05/31/19 SUBJECTIVE: This 79 year old /WHITE F was hospitalized 05/30/19. The patient is resting comfortably. She is still with considerable amount of wheezing and shortness of breath with any type of exertion. REVIEW OF SYSTEMS: CONSTITUTIONAL: No night sweats. No fatigue, malaise, lethargy. No fever or chills. HEENT: Eyes: No visual changes. No eye pain. No eye discharge. ENT: No runny nose. No epistaxis. No sinus pain. No odynophagia. No congestion. RESPIRATORY: Positive for cough and shortness of breath. No congestion. No he moptysis. CARDIOVASCULAR: No angina symptoms. No CHF symptoms. No atypical chest pain for CAD. No palpitations. No orthopnea.. GASTROINTESTINAL: No abdominal pain. No nausea or vomiting. No diarrhea or constipation. No hematemesis. No hematochezia. GENITOURINARY: No urgency. No frequency. No dysuria. No hematuria. No obstructive symptoms. No discharge. No pain. No significant abnormal bleeding. MUSCULOSKELETAL: No musculoskeletal pain; no joint swelling. NEUROLOGICAL: Awake, alert, oriented to time, place and person. No headache. No neck pain. No syncope. No seizures. No dizziness. PSYCHIATRIC: Not anxious. No depression. No suicidal thoughts. No homicidal thoughts. SKIN: No rash. No lesions. No wounds. ENDOCRINE: No unexplained weight loss. No weight gain. HEMATOLOGIC/LYMPHATIC: No anemia. No purpura. No petechiae. No prolonged or excessive bleeding. No palpable lymph nodes. PHYSICAL EXAMINATION: GENERAL: The patient is awake, alert and oriented, lying/sitting in bed in no distress. VITAL SIGNS: Temperature 97.8 F, Pulse 54, Respiratory Rate 20, BP 107/59, Pulse Ox 99% HEENT: Head normocephalic, atraumatic. Eyes: Extraocular muscles are intact. Pupils are equal, round and reactive to light and accommodation. Ears: No lesions. Nose appeared normal. Throat: No exudate or erythema. NECK: Supple. No JVD, no carotid bruit. No lymphadenopathy or thyromegaly. LUNGS: Diminished breath sounds with bilateral inspiratory and expiratory wheezing and rhonchi. Percussion note normal. Chest symmetrical. HEART: S1, S2, no S3. No murmurs. No cyanosis or clubbing. No ascites. Pulses: Dorsalis pedis and posterior tibial pulses +1 to +2 both sides. ABDOMEN: Soft. Non-tender. Bowel sounds active. No CVA tenderness. No mass felt. EXTREMITIES: No edema. Full range of motion of all extremities, equal. NEUROLOGIC: No focal deficit. Cranial nerves II through XII are grossly intact. No headache, no double vision or headache. SKIN: Not dry. Intact. Turgor-normal. LYMPHATIC: No palpable lymph nodes/no lymphedema. MUSCULOSKELETAL: Normal joints with no swelling. Muscle tone is normal. LAB REVIEW: 05/31/19 04:59 05/31/19 04:59 05/31/19 04:59: Sodium 139.9, Potassium 3.91, Chloride 98.3, Carbon Dioxide 37.8 H, Anion Gap 7.71, BUN 19.7 H, Creatinine 0.80, Estimated GFR (MDRD) 70.00, BUN/Creatinine Ratio 24.62, Glucose 162.9 H D, Calcium 9.26, Total Bilirubin 0.40, AST 17.1, ALT 18.9, Alkaline Phosphatase 67.7, Total Protein 7.24, Albumin 4.05, Globulin 3.19, Albumin/Globulin Ratio 1.26 05/31/19 04:59: WBC 9.75, RBC 4.47, Hgb 12.6, Hct 40.0, MCV 89.5, MCH 28.2, MCHC 31.5 L, RDW Coeff of [place] 12.5, Plt Count 272, Immature Gran % (Auto) 0.8, Neut % (Auto) 79.7, Lymph % (Auto) 16.0, [place] % (Auto) 3.3, Eos % (Auto) 0.0, Baso % (Auto) 0.2, Immature Gran # (Auto) 0.1, Neut # (Auto) 7.8 H, Lymph # (Auto) 1.6, [place] # (Auto) 0.3 L, Eos # (Auto) 0.0, Baso # (Auto) 0.0 05/30/19 15:55: Sodium 138.9, Potassium 3.41 L, Chloride 95.2 L, Carbon Dioxide 38.2 H, Anion Gap 8.91, BUN 20.4 H, Creatinine 0.84, Estimated GFR (MDRD) 66.00, BUN/Creatinine Ratio 24.28, Glucose 87.9, Calcium 9.47, Total Bilirubin 0.53, AST 22.8, ALT 20.9, Alkaline Phosphatase 79.3, Total Protein 7.74, Albumin 4.37, Globulin 3.37, Albumin/Globulin Ratio 1.29 05/30/19 15:55: WBC 14.50 H, RBC 4.66, Hgb 13.2, Hct 42.4, MCV 91.0, MCH 28.3, MCHC 31.1 L, RDW Coeff of [place] 12.9, Plt Count 274, Immature Gran % (Auto) 0.6, Neut % (Auto) 57.7, Lymph % (Auto) 32.7, [place] % (Auto) 7.9, Eos % (Auto) 0.8, Ba so % (Auto) 0.3, Immature Gran # (Auto) 0.1, Neut # (Auto) 8.4 H, Lymph # (Auto) 4.7 H, [place] # (Auto) 1.1, Eos # (Auto) 0.1, Baso # (Auto) 0.0 ASSESSMENT: Please see below. 1. SHORTNESS OF BREATH. 2. ACUTE PNEUMONITIS. 3. ACUTE COPD EXACERBATION. 4. COPD. PLAN: 1. Increase Solu-Cortef to q.6hr. Plan and coordination of the patient's care discussed in the presence of Creeler and nurse. CONDITION: Stable SCRIBED BY: MENG GOEL [employer] Processing Supervisor scribed while in presence of service performed by Dr. Frederick/Mary Merritt APRN on 05/31/19 ([id number])
[2019-05-31] MEDS ORDERED: NON-FORMULARY MEDICATION (Tiotropium-Olodaterol [Stiolto Respimat] 2 PUFF) IH SCH (09:00)
[2019-05-31] MEDS ORDERED: LISINOPRIL HYDROCHLOROTHIAZIDE PO SCH (09:00)
[2019-05-31] MEDS: PRAVACHOL PO SCH (20:18)
[2019-05-31] MEDS: NEURONTIN PO SCH (20:18)
[2019-05-31] MEDS: CALAN SR PO SCH (20:18)
[2019-05-31] MEDS: XANAX PO PRN (22:57)
[2019-06-01] MEDS: SODIUM CHLORIDE 1,000 ML IV SCH ×2 (00:07→02:23)
[2019-06-01] MEDS: PULMICORT 1 MG/2 ML NEB SCH ×2 (04:50→17:46)
[2019-06-01] MEDS: XOPENEX 1.25 MG NEB SCH ×4 (04:50→23:01)
[2019-06-01] MEDS: PROTONIX PO SCH (05:52)
[2019-06-01] MEDS: SOLU-CORTEF 250 MG IVP SCH ×5 (05:55→23:59)
[2019-06-01] MEDS: SYNTHROID PO SCH (05:55)
[2019-06-01] MEDS ORDERED: K-DUR PO STA (08:28)
--- NOTE | 2019-06-01 08:41 | PCM.PROG ---
Attending Provider: ATTENDING PROVIDER: Dr. TESS FREDERICK This patient is seen with Mary Merritt, Nurse Practitioner. DATE OF SERVICE: 06/01/19 SUBJECTIVE: This 79 year old /WHITE F was hospitalized 05/30/19. The patient is sitting in bed resting comfortably. She had an episode of extreme shortness of breath yesterday without oxygen. She feels like coughing is worse. REVIEW OF SYSTEMS: CONSTITUTIONAL: No night sweats. No fatigue, malaise, lethargy. No fever or chil ls. HEENT: Eyes: No visual changes. No eye pain. No eye discharge. ENT: No runny nose. No epistaxis. No sinus pain. No odynophagia. No congestion. RESPIRATORY: Positive for cough, shortness of breath and wheezing. No hemoptysis. CARDIOVASCULAR: No angina symptoms. No CHF symptoms. No atypical chest pain for CAD. No palpitations. No orthopnea.. GASTROINTESTINAL: No abdominal pain. No nausea or vomiting. No diarrhea or constipation. No hematemesis. No hematochezia. GENITOURINARY: No urgency. No frequency. No dysuria. No hematuria. No obstructive symptoms. No discharge. No pain. No significant abnormal bleeding. MUSCULOSKELETAL: No musculoskeletal pain; no joint swelling. NEUROLOGICAL: Awake, alert, oriented to time, place and person. No headache. No neck pain. No syncope. No seizures. No dizziness. PSYCHIATRIC: Not anxious. No depression. No suicidal thoughts. No homicidal thoughts. SKIN: No rash. No lesions. No wounds. ENDOCRINE: No unexplained weight loss. No weight gain. HEMATOLOGIC/LYMPHATIC: No anemia. No purpura. No petechiae. No prolonged or excessive bleeding. No palpable lymph nodes. PHYSICAL EXAMINATION: GENERAL: The patient is awake, alert and oriented, lying/sitting in bed in no distress. VITAL SIGNS: Temperature 97.7 F, Pulse 70, Respiratory Rate 20, BP 109/63, Pulse Ox 100% HEENT: Head normocephalic, atraumatic. Eyes: Extraocular muscles are intact. Pupils are equal, round and reactive to light and accommodation. Ears: No le sions. Nose appeared normal. Throat: No exudate or erythema. NECK: Supple. No JVD, no carotid bruit. No lymphadenopathy or thyromegaly. LUNGS: Severely diminished breath sounds with bilateral inspiratory and expiratory wheezing with rhonchi on the right. Clear to auscultation. Percussion note normal. Chest symmetrical. HEART: S1, S2, no S3. No murmurs. No cyanosis or clubbing. No ascites. Pulses: Dorsalis pedis and posterior tibial pulses +1 to +2 both sides. ABDOMEN: Soft. Non-tender. Bowel sounds active. No CVA tenderness. No mass felt. EXTREMITIES: No edema. Full range of motion of all extremities, equal. NEUROLOGIC: No focal deficit. Cranial nerves II through XII are grossly intact. No headache, no double vision or headache. SKIN: Not dry. Intact. Turgor-normal. LYMPHATIC: No palpable lymph nodes/no lymphedema. MUSCULOSKELETAL: Normal joints with no swelling. Muscle tone is normal. LAB REVIEW: 06/01/19 05:17 06/01/19 05:17 06/01/19 05:17: Sodium 141.1, Potassium 3.26 L, Chloride 101.7, Carbon Dioxide 33.4 H, Anion Gap 9.26, BUN 23.3 H, Creatinine 0.78, Estimated GFR (MDRD) 72.00, BUN/Creatinine Ratio 29.87, Glucose 171.3 H, Calcium 9.06, Total Bilirubin 0.34, AST 19.1, ALT 18.1, Alkaline Phosphatase 60.4, Total Protein 6.85, Albumin 3.83, Globulin 3.02, Albumin/Globulin Ratio 1.26 06/01/19 05:17: WBC 12.97 H, RBC 4.26, Hgb 12.1, Hct 37.9, MCV 89.0, MCH 28.4, MCHC 31.9, RDW Coeff of [place] 12.6, Plt Count 259, Immature Gran % (Auto) 3.6, Neut % (Auto) 81.1, Lymph % (Auto) 12.1, [place] % (Auto) 2.8, Eos % (Auto) 0.0, Baso % (Auto) 0.4, Immature Gran # (Auto) 0.5, Neut # (Auto) 10.5 H, Lymph # (Auto) 1.6, [place] # (Auto) 0.4, Eos # (Auto) 0.0, Baso # (Auto) 0.1 05/31/19 11:34: Urine Color Yellow, Urine Clarity Clear, Urine pH 6.5, Ur Specific [place] 1.020, Urine Protein Negative, Urine Glucose (UA) 2+, Urine Ketones Negative, Urine Blood 1+, Urine Nitrite Negative, Urine Bilirubin Negative, Urine Urobilinogen 0.2, Ur Leukocyte Esterase Negative, Urine Microsc opic RBC 2-5, Ur Squamous Epith Cells Not present, Urine Bacteria Trace ASSESSMENT: Please see below. 1. SHORTNESS OF BREATH. 2. ACUTE PNEUMONITIS. 3. HYPOKALEMIA SECONDARY TO HEMODILUTION. 4. ACUTE COPD EXACERBATION. 5. COPD. PLAN: 1. 40 mEq potassium times one dose. 2. Stop IV fluids. 3. CT of chest with and without contrast. 4. Tussinex 1-2 teaspoon b.i.d. Plan and coordination of the patient's care discussed in the presence of Recovery Coach and nurse. CONDITION: Stable SCRIBED BY: MENG GOEL Engineer Sergeant scribed while in presence of service performed by Dr. Frederick/Mary Merritt APRN on 06/01/19 ([id number])
[2019-06-01] MEDS ORDERED: TUSSIONEX PO SCH ×2 (09:00)
[2019-06-01] MEDS: ROCEPHIN 1 GM/50 ML D5W 1 GM/50 ML BAG IV SCH (09:24)
[2019-06-01] MEDS: ZITHROMAX 500 MG in SODIUM CHLORIDE 250 ML IV SCH (09:24)
[2019-06-01] MEDS: ZESTRIL PO SCH (09:25)
[2019-06-01] MEDS: CYMBALTA PO SCH (09:25)
[2019-06-01] MEDS: ASPIRIN EC PO SCH (09:26)
[2019-06-01] MEDS: SINGULAIR PO SCH (09:26)
[2019-06-01] MEDS: HYDROCHLOROTHIAZIDE PO SCH (09:26)
[2019-06-01] MEDS: TUSSIONEX PO SCH ×2 (09:37→20:23)
--- NOTE | 2019-06-01 10:39 | PN ---
DATE OF SERVICE: 06/01/19 SUBJECTIVE: The patient was seen and examined with the Nurse Practitioner. Her condition is improving some. Last night she had some difficulty with wheezing. The patient is going to be continued on steroids, NEB and antibiotics. Pulmicort is going to be added. This morning she feeling better, appetites has improved. She is able to talk sentences without stopping. CONDITION: Stable. TIME SPENT: More than 30 minutes. Plan and coordination of the patient's care discussed in the presence of nurse. SERGIO
[2019-06-01] MEDS: MUCOMYST 20% NEB NEB SCH ×2 (11:00→23:01)
--- NOTE | 2019-06-01 11:08 | PN ---
DATE OF SERVICE: 05/31/19 SUBJECTIVE: The patient was seen and examined with the Nurse Practitioner. The patient's condition seems to have improved. Still has wheezing but she is able to talk and complete the sentences. REVIEW OF SYSTEMS: CONSTITUTIONAL: No night sweats. No fatigue, malaise, lethargy. No fever or chills. HEENT: Eyes: No visual changes. No eye pain. No eye discharge. ENT: No runny nose. No epistaxis. No sinus pain. No sore throat. No odynophagia. No congestion. RESPIRATORY: Cough with congestion. No hemoptysis. No shortness of breath. CARDIOVASCULAR: No angina symptoms. No CHF symptoms. No atypical chest pain for CAD. No palpitations. No PND. No orthopnea. GASTROINTESTINAL: No abdominal pain. No nausea or vomiting. No diarrhea or constipation. No hematemesis. No hematochezia. GENITOURINARY: No urgency. No frequency. No dysuria. No hematuria. No obstructive symptoms. No discharge. No pain. No significant abnormal bleeding. MUSCULOSKELETAL: No musculoskeletal pain; no joint swelling. NEUROLOGICAL: No headache. No neck pain. No syncope. No seizures. No dizziness. PSYCHIATRIC: Not anxious. No depression. No suicidal thoughts. No homicidal thoughts. SKIN: No rash. No lesions. No wounds. ENDOCRINE: No unexplained weight loss. No weight gain. HEMATOLOGIC/LYMPHATIC: No anemia. No purpura. No petechiae. No prolonged or excessive bleeding. No palpable lymph nodes. PHYSICAL EXAMINATION: HEENT: Head normocephalic, atraumatic. Eyes: Extraocular muscles are intact. Pupils are equal, round and reactive to light and accommodation. Ears: No lesions. Nose appeared normal. Throat: No exudate or erythema. NECK: Supple. No JVD, no carotid bruit. No lymphadenopathy or thyromegaly. LUNGS: Decreased breath sounds with mild wheeze. Clear to auscultation. Percussion note normal. Chest symmetrical. HEART: S1, S2, no S3. No murmurs. No cyanosis or clubbing. No ascites. Pulses: Dorsalis pedis and posterior tibial pulses +1 to +2 bilaterally. ABDOMEN: Soft. Nontender. Bowel sounds active. No CVA tenderness. No mass felt. EXTREMITIES: No edema. Full range of motion of all extremities, equal. NEUROLOGIC: No focal deficit. Cranial nerves II through XII are grossly intact. No headache, no double vision or headache. SKIN: Not dry. Intact. Turgor - normal. LYMPHATIC: No palpable lymph nodes/no lymphedema. MUSCULOSKELETAL: Normal joints with no swelling. Muscle tone is normal. ASSESSMENT: 1. Acute asthmatic bronchitis, resolving with NEBS treatment, steroids and antibiotics. TIME SPENT: More than 30 minutes. Plan and coordination of the patient's care discussed in the presence of nurse. SERGIO
--- NOTE | 2019-06-01 15:18 | CT ---
EXAM: CT of the chest without and with IV contrast HISTORY: Acute bronchitis, acute chronic obstructive pulmonary disease exacerbation, shortness of linda ath COMPARISON: 05/30/2019 chest x-ray TECHNIQUE: Axial CT of the chest without and with IV contrast. Sagittal and coronal reformats were o btained. FINDINGS: Mild centrilobular emphysematous changes are identified. A probable fissural lymph node is seen in t he region of the right minor fissure on axial noncontrast image 35 measuring 0.3 cm. A few calcified granulomas are seen. Minimal left lower lobe focal linear opacity is seen. Minimal right lower lob e dependent atelectasis is noted. No focal consolidation, pleural effusion or pneumothorax is seen. Heart size is normal. Atherosclerotic calcifications are present including coronary arteries. No me diastinal or hilar lymphadenopathy is seen. Mild to moderate multilevel thoracic degenerative disc disease is seen. IMPRESSION: Mild emphysematous changes. Minimal left lower lobe linear opacity could represent atelectasis or inflammation. 3 mm right lung probable fissural lymph node versus less likely pulmonary nodule. Follow-up CT in 12 months could be considered to document stability. Atherosclerosis including coronary arteries. Evidence of prior granulomatous infection.
[2019-06-01] MEDS: NEURONTIN PO SCH (20:23)
[2019-06-01] MEDS: XANAX PO PRN (20:24)
[2019-06-01] MEDS: PRAVACHOL PO SCH (20:24)
[2019-06-01] MEDS: CALAN SR PO SCH (20:24)
[2019-06-02] MEDS: XOPENEX 1.25 MG NEB SCH ×4 (05:10→22:49)
[2019-06-02] MEDS: PULMICORT 1 MG/2 ML NEB SCH ×2 (05:10→17:35)
[2019-06-02] MEDS: SOLU-CORTEF 250 MG IVP SCH ×3 (05:39→17:48)
[2019-06-02] MEDS: SYNTHROID PO SCH (05:39)
[2019-06-02] MEDS: PROTONIX PO SCH (05:39)
--- NOTE | 2019-06-02 08:29 | PCM.PROG ---
Attending Provider: ATTENDING PROVIDER: Dr. TESS FREDERICK This patient is seen with Mary Merritt, Nurse Practitioner. DATE OF SERVICE: 06/02/19 SUBJECTIVE: This 79 year old /WHITE F was hospitalized 05/30/19. The patient is resting comfortably. Wheezing has slightly improved. The patient said that the addition of Mucomyst had helped. Still short of breath with exertion. REVIEW OF SYSTEMS: CONSTITUTIONAL: No night sweats. No fatigue, malaise, lethargy. No fever or c hills. Weakness. HEENT: Eyes: No visual changes. No eye pain. No eye discharge. ENT: No runny nose. No epistaxis. No sinus pain. No odynophagia. No congestion. RESPIRATORY: Cough, no congestion. No hemoptysis. Shortness of breath. CARDIOVASCULAR: No angina symptoms. No CHF symptoms. No atypical chest pain for CAD. No palpitations. No orthopnea.. GASTROINTESTINAL: No abdominal pain. No nausea or vomiting. No diarrhea or constipation. No hematemesis. No hematochezia. GENITOURINARY: No urgency. No frequency. No dysuria. No hematuria. No obstructive symptoms. No discharge. No pain. No significant abnormal bleeding. MUSCULOSKELETAL: No musculoskeletal pain; no joint swelling. NEUROLOGICAL: Awake, alert, oriented to time, place and person. No headache. No neck pain. No syncope. No seizures. No dizziness. PSYCHIATRIC: Not anxious. No depression. No suicidal thoughts. No homicidal thoughts. SKIN: No rash. No lesions. No wounds. ENDOCRINE: No unexplained weight loss. No weight gain. HEMATOLOGIC/LYMPHATIC: No anemia. No purpura. No petechiae. No prolonged or excessive bleeding. No palpable lymph nodes. PHYSICAL EXAMINATION: GENERAL: The patient is awake, alert and oriented, lying in bed in no distress. VITAL SIGNS: Temperature 98.7 F, Pulse 61, Respiratory Rate 22, BP 128/65, Pulse Ox 100% HEENT: Head normocephalic, atraumatic. Eyes: Extraocular muscles are intact. Pupils are equal, round and reactive to light and accommodation. Ears: No lesions. Nose appeared normal. Throat: No exudate or erythema. NECK: Supple. No JVD, no carotid bruit. No lymphadenopathy or thyromegaly. LUNGS: Diminished breath sounds. Bilateral expiratory wheezing. Clear to auscultation. Percussion note normal. Chest symmetrical. HEART: S1, S2, no S3. No murmurs. No cyanosis or clubbing. No ascites. Pulses: Dorsalis pedis and posterior tibial pulses +1 to +2 both sides. ABDOMEN: Soft. Non-tender. Bowel sounds active. No CVA tenderness. No mass felt. EXTREMITIES: No edema. Full range of motion of all extremities, equal. NEUROLOGIC: No focal deficit. Cranial nerves II through XII are grossly intact. No headache, no double vision or headache. SKIN: Not dry. Intact. Turgor-normal. LYMPHATIC: No palpable lymph nodes/no lymphedema. MUSCULOSKELETAL: Normal joints with no swelling. Muscle tone is normal. LAB REVIEW: 06/02/19 04:40 06/02/19 04:40 06/02/19 04:40: Sodium 142.2, Potassium 3.21 L, Chloride 101.7, Carbon Dioxide 35.3 H, Anion Gap 8.41, BUN 24.6 H, Creatinine 0.74, Estimated GFR (MDRD) 76.00, BUN/Creatinine Ratio 33.24, Glucose 187.6 H, Calcium 9.06, Total Bilirubin 0.31, AST 17.3, ALT 17.9, Alkaline Phosphatase 56.5, Total Protein 6.98, Albumin 3.82, Globulin 3.16, Albumin/Globulin Ratio 1.20 06/02/19 04:40: WBC 13.57 H, RBC 4.28, Hgb 11.9 L, Hct 38.3, MCV 89.5, MCH 27.8, MCHC 31.1 L, RDW Coeff of Flaquito 12.9, Plt Count 273, Immature Gran % (Auto) 4.2, Neut % (Auto) 81.2, Lymph % (Auto) 11.2, [place] % (Auto) 3.1, Eos % (Auto) 0.0, Baso % (Auto) 0.3, Immature Gran # (Auto) 0.6, Neut # (Auto) 11.0 H, Lymph # (Auto) 1.5, [place] # (Auto) 0.4, Eos # (Auto) 0.0, Baso # (Auto) 0.0 ASSESSMENT: Please see below. 1. SHORTNESS OF BREATH. 2. ACUTE PNEUMONITIS. 3. HYPOKALEMIA SECONDARY TO HEMODILUTION. 4. ACUTE COPD EXACERBATION. 5. COPD. PLAN: 1. 40mg BID Potassium today 2. Continue IV steroids. Plan and coordination of the patient's care discussed in the presence of Roving Inspector and nurse. SCRIBED BY: Zack GRIFFIN scribed while in presence of service performed by Dr. Frederick/Mary Merritt APRN on 06/02/19 ([id number])
[2019-06-02] MEDS: ROCEPHIN 1 GM/50 ML D5W 1 GM/50 ML BAG IV SCH (08:50)
[2019-06-02] MEDS: TUSSIONEX PO SCH ×2 (08:54→20:31)
[2019-06-02] MEDS: ASPIRIN EC PO SCH (08:55)
[2019-06-02] MEDS: HYDROCHLOROTHIAZIDE PO SCH (08:55)
[2019-06-02] MEDS: K-DUR PO SCH ×2 (08:55→20:30)
[2019-06-02] MEDS: CYMBALTA PO SCH (08:56)
[2019-06-02] MEDS: SINGULAIR PO SCH (08:56)
[2019-06-02] MEDS: ZESTRIL PO SCH (08:56)
--- NOTE | 2019-06-02 10:49 | HP ---
DATE OF SERVICE: 04/30/19 HISTORY OF PRESENT ILLNESS: 79-year-old White/ female presented with cough and congestion. She is short of breath and cannot walk to restroom. She had Decadron on Thursday and has been on Keflex and Prednisone times 7 days. PAST MEDICAL HISTORY: Right elbow osteoarthritis Chronic bronchitis COPD - Dr. Garay Bronchial asthma Left sciatica Hyperglycemia Bilateral TKR Hypertension Dyslipidemia History of kidney stone Osteoarthritis Hypokalemia MENSTRUAL HISTORY: 26 years ago PAST SURGICAL HISTORY: Gallbladder Skin cancer both arms Thyroidectomy Bilateral total knee REVIEW OF SYSTEMS: CONSTITUTIONAL: Positive for fatigue. No fever. HEENT: Sinus drainage. No sore throat. RESPIRATORY: Positive for cough. No hemoptysis. CARDIOVASCULAR: Pleuritic chest pain. Shortness of breath. No angina, CHF symptoms, or palpitations. GASTROINTESTINAL: No melena or abdominal pain. No GERD. GENITOURINARY: No hematuria, no prostatism, no polyuria. SORTER/ASSAY TECH: No blackout, no dizziness, no headache, no double vision. MUSCULOSKELETAL: Positive for osteoarthritic pain. No joint swelling. ENDOCRINE: No weight loss, no weight gain. SKIN: Not dry, no rash. PSYCHIATRIC: Not anxious, no depression, no suicidal thoughts, no homicidal thoughts. SOCIAL HISTORY: Nonsmoker. . No alcohol use. FAMILY HISTORY: Father - TIA. Mother - colon cancer. Brother(s)- two - pancreatic cancer, mesothelioma. No sisters. MEDICATIONS: (Current Home) Duloxetine (Cymbalta) 60 mg p.o. daily Alprazolam (Xanax) 0.5 mg p.o. b.i.d. p.r.n. Pravastatin 40 mg p.o. bedtime Lisinopril-Hydrochlorothiazide 20-25 mg one tab p.o. daily Verapamil (Calan SR) 240 mg p.o. bedtime Montelukast 10 mg p.o. daily Tramadol 50 mg p.o. bedtime p.r.n. Tiotropium-olodaterol (Stiolto Respimat) two puff inhalation daily p.r.n. Levothyroxine (Synthroid) 100 mcg p.o. daily Gabapentin 1,200 mg p.o. bedtime Meclizine 25 mg p.o. b.i.d. p.r.n. Pantoprazole (Protonix) 40 mg p.o. daily Albuterol Two puff INH b.i.d. p.r.n. ALLERGIES: CODEINE, ERYTHROMYCIN BASE PHYSICAL EXAMINATION: V/S: Pulse 66, BP 118/64, temperature 97.9, 02 sat 99%. Height 5'2", BMI 26.4, weight 144.4. GENERAL APPEARANCE: Oriented times three. HEENT: Yellow-green sputum. NECK: No JVP, no bruits. RESPIRATORY: Lungs have bilateral inspiratory and expiratory wheeze. Bilateral rhonchi. CARDIOVASCULAR: S1, S2, no S3, no murmur. No cyanosis, clubbing. No ascites. GI/ABDOMEN: No tenderness. Bowel sounds are active. EXTREMITIES: No edema, pulses +1, equal. SORTER/ASSAY TECH: Deep tendon reflexes, sensory, motor and gait all normal. RECTAL/PELVIC: Colonoscopy Dr. Mares 12/11. Pelvic: Advised yearly. Mammogram 04-19-19. ASSESSMENT: 1. SHORTNESS OF BREATH. 2. ACUTE BRONCHITIS (ASTHMATIC). 3. ACUTE COPD EXACERBATION. 4. DYSLIPIDEMIA. 5. ACUTE ASTHMATIC BRONCHITIS. 6. SCIATIC PAIN (RIGHT). 7. RIGHT ELBOW OSTEOARTHRITIS. 8. CHRONIC BRONCHITIS. 9. COPD - DR. GARAY. 10. HYPERGLYCEMIA. 11. BILATERAL TKR. 12. HYPERTENSION. PLAN: 1. Routine telemetry orders, no cardiac markers. 2. CBC/CMP now and daily. 3. Sputum culture. 4. 02 @ 1-2L/NC. 5. Chest x-ray. 6. Rocephin 1 gm IV daily times 5 days. 7. Zithromax 500 mg IV daily times three days. 8. Solu-Cortef 125 mg IV q.8hr. 9. Xopenex nebs 1.25 mg q.6hr MANN. 10. Pulmicort neb 1 mg b.i.d. MANN. 11. NS IV 75 cc/hr. 12. Regular diet. 13. Continue home medications. TIME SPENT: More than 70 minutes. MTDD
[2019-06-02] MEDS: MUCOMYST 20% NEB NEB SCH ×2 (11:03→22:49)
[2019-06-02] MEDS: NEURONTIN PO SCH (20:30)
[2019-06-02] MEDS: CALAN SR PO SCH (20:30)
[2019-06-02] MEDS: XANAX PO PRN (20:31)
[2019-06-02] MEDS: PRAVACHOL PO SCH (20:31)
[2019-06-03] MEDS: SOLU-CORTEF 250 MG IVP SCH ×4 (00:04→17:02)
[2019-06-03] MEDS: XOPENEX 1.25 MG NEB SCH ×4 (05:13→23:15)
[2019-06-03] MEDS: PULMICORT 1 MG/2 ML NEB SCH ×2 (05:13→16:55)
[2019-06-03] MEDS: PROTONIX PO SCH (05:41)
[2019-06-03] MEDS: SYNTHROID PO SCH (05:41)
[2019-06-03] MEDS: SINGULAIR PO SCH (08:32)
[2019-06-03] MEDS: CYMBALTA PO SCH (08:32)
[2019-06-03] MEDS: HYDROCHLOROTHIAZIDE PO SCH (08:32)
[2019-06-03] MEDS: TUSSIONEX PO SCH ×2 (08:33→20:30)
[2019-06-03] MEDS: ROCEPHIN 1 GM/50 ML D5W 1 GM/50 ML BAG IV SCH (08:33)
[2019-06-03] MEDS: ZESTRIL PO SCH (08:33)
[2019-06-03] MEDS: ASPIRIN EC PO SCH (08:33)
[2019-06-03] MEDS: MUCOMYST 20% NEB NEB SCH ×2 (11:05→23:15)
[2019-06-03] MEDS: NEURONTIN PO SCH (20:31)
[2019-06-03] MEDS: PRAVACHOL PO SCH (20:31)
[2019-06-03] MEDS: CALAN SR PO SCH (20:31)
[2019-06-03] MEDS: XANAX PO PRN (20:31)
[2019-06-04] MEDS: PULMICORT 1 MG/2 ML NEB SCH ×2 (04:50→16:54)
[2019-06-04] MEDS: XOPENEX 1.25 MG NEB SCH ×2 (04:50→11:15)
[2019-06-04] MEDS: KEFLEX PO SCH ×3 (05:32→20:17)
[2019-06-04] MEDS: SYNTHROID PO SCH (05:32)
[2019-06-04] MEDS: PROTONIX PO SCH (05:33)
[2019-06-04] MEDS: PREDNISONE PO SCH (08:08)
[2019-06-04] MEDS: HYDROCHLOROTHIAZIDE PO SCH (08:09)
[2019-06-04] MEDS: CYMBALTA PO SCH (08:09)
[2019-06-04] MEDS: COZAAR PO SCH (08:09)
[2019-06-04] MEDS: ASPIRIN EC PO SCH (08:09)
[2019-06-04] MEDS: SINGULAIR PO SCH (08:09)
[2019-06-04] MEDS: TUSSIONEX PO SCH ×2 (08:10→20:17)
[2019-06-04] MEDS: MUCOMYST 20% NEB NEB SCH ×2 (11:15→23:05)
[2019-06-04] MEDS ORDERED: LASIX IVP STA (12:38)
[2019-06-04] MEDS: K-DUR PO SCH (16:37)
[2019-06-04] MEDS: DUONEB NEB SCH ×2 (16:54→23:05)
[2019-06-04] MEDS: NEURONTIN PO SCH (20:17)
[2019-06-04] MEDS: CALAN SR PO SCH (20:17)
[2019-06-04] MEDS: PRAVACHOL PO SCH (20:18)
[2019-06-04] MEDS: XANAX PO PRN (20:18)
[2019-06-05] MEDS: DUONEB NEB SCH ×4 (04:55→23:00)
[2019-06-05] MEDS: PULMICORT 1 MG/2 ML NEB SCH ×2 (04:55→17:00)
[2019-06-05] MEDS: PROTONIX PO SCH (05:35)
[2019-06-05] MEDS: SYNTHROID PO SCH (05:35)
[2019-06-05] MEDS: KEFLEX PO SCH ×3 (05:35→20:37)
[2019-06-05] MEDS: CYMBALTA PO SCH (08:41)
[2019-06-05] MEDS: K-DUR PO SCH ×3 (08:41→16:34)
[2019-06-05] MEDS: COZAAR PO SCH (08:41)
[2019-06-05] MEDS: TUSSIONEX PO SCH ×2 (08:41→20:36)
[2019-06-05] MEDS: PREDNISONE PO SCH (08:41)
[2019-06-05] MEDS: HYDROCHLOROTHIAZIDE PO SCH (08:42)
[2019-06-05] MEDS: SINGULAIR PO SCH (08:42)
[2019-06-05] MEDS: ASPIRIN EC PO SCH (08:42)
[2019-06-05] MEDS: MUCOMYST 20% NEB NEB SCH ×2 (11:00→23:00)
[2019-06-05] MEDS: PRAVACHOL PO SCH (20:36)
[2019-06-05] MEDS: XANAX PO PRN (20:36)
[2019-06-05] MEDS: NEURONTIN PO SCH (20:36)
[2019-06-05] MEDS: CALAN SR PO SCH (20:37)
[2019-06-06 04:03] VITALS: BP 136/79; TEMP 97.7
[2019-06-06] MEDS: DUONEB NEB SCH ×2 (05:05→11:39)
[2019-06-06] MEDS: PULMICORT 1 MG/2 ML NEB SCH (05:05)
[2019-06-06] MEDS: KEFLEX PO SCH ×2 (05:35→13:28)
[2019-06-06] MEDS: PROTONIX PO SCH (05:36)
[2019-06-06] MEDS: SYNTHROID PO SCH (05:36)
[2019-06-06] MEDS: TUSSIONEX PO SCH (08:58)
[2019-06-06] MEDS: HYDROCHLOROTHIAZIDE PO SCH (08:58)
[2019-06-06] MEDS: PREDNISONE PO SCH (08:58)
[2019-06-06] MEDS: COZAAR PO SCH (08:59)
[2019-06-06] MEDS: ASPIRIN EC PO SCH (08:59)
[2019-06-06] MEDS: SINGULAIR PO SCH (08:59)
[2019-06-06] MEDS: CYMBALTA PO SCH (09:00)
[2019-06-06] MEDS: K-DUR PO SCH ×3 (09:00→13:29)
--- NOTE | 2019-06-06 09:02 | PCM.PROG ---
Attending Provider: ATTENDING PROVIDER: Dr. TESS ONTIVEROS This patient is seen with Mary Merritt, Nurse Practitioner. DATE OF SERVICE: 06/06/19 SUBJECTIVE: This 79 year old /WHITE F was hospitalized 05/30/19. The patient is resting comfortably. Still short of breath with exertion but significantly improved and ready to go home. REVIEW OF SYSTEMS: CONSTITUTIONAL: No night sweats. No fatigue, malaise, lethargy. No fever or chills. HEENT: Eyes: No visual changes. No eye pain. No eye discharge. ENT: No runny nose. No epistaxis. No sinus pain. No odynophagia. No congestion. RESPIRATORY: Cough, no congestion. No hemoptysis. Shortness of breath. CARDIOVASCULAR: No angina symptoms. No CHF symptoms. No atypical chest pain for CAD. No palpitations. No orthopnea.. GASTROINTESTINAL: No abdominal pain. No nausea or vomiting. No diarrhea or constipation. No hematemesis. No hematochezia. GENITOURINARY: No urgency. No frequency. No dysuria. No hematuria. No obstructive symptoms. No discharge. No pain. No significant abnormal bleeding. MUSCULOSKELETAL: No musculoskeletal pain; no joint swelling. NEUROLOGICAL: Awake, alert, oriented to time, place and person. No headache. No neck pain. No syncope. No seizures. No dizziness. PSYCHIATRIC: Not anxious. No depression. No suicidal thoughts. No homicidal thoughts. SKIN: No rash. No lesions. No wounds. ENDOCRINE: No unexplained weight loss. No weight gain. HEMATOLOGIC/LYMPHATIC: No anemia. No purpura. No petechiae. No prolonged or excessive bleeding. No palpable lymph nodes. PHYSICAL EXAMINATION: GENERAL: The patient is awake, alert and oriented, lying in bed in no distress. VITAL SIGNS: Temperature 97.7 F, Pulse 72, Respiratory Rate 22, BP 136/79, Pulse Ox 96% HEENT: Head normocephalic, atraumatic. Eyes: Extraocular muscles are intact. Pupils are equal, round and reactive to light and accommodation. Ears: No lesions. Nose appeared normal. Throat: No exudate or erythema. NECK: Supple. No JVD, no carotid bruit. No lymphadenopathy or thyromegaly. LUNGS: Diminished breath sounds with improved bilateral expiratory wheezing. Clear to auscultation. Percussion note normal. Chest symmetrical. HEART: S1, S2, no S3. No murmurs. No cyanosis or clubbing. No ascites. Pul ses: Dorsalis pedis and posterior tibial pulses +1 to +2 both sides. ABDOMEN: Soft. Non-tender. Bowel sounds active. No CVA tenderness. No mass felt. EXTREMITIES: No edema. Full range of motion of all extremities, equal. NEUROLOGIC: No focal deficit. Cranial nerves II through XII are grossly intact. No headache, no double vision or headache. SKIN: Not dry. Intact. Turgor-normal. LYMPHATIC: No palpable lymph nodes/no lymphedema. MUSCULOSKELETAL: Normal joints with no swelling. Muscle tone is normal. LAB REVIEW: 06/06/19 04:55 06/06/19 04:55 06/06/19 04:55: Sodium 139.3, Potassium 3.56, Chloride 97.2 L, Carbon Dioxide 39.0 H, Anion Gap 6.66, BUN 30.4 H, Creatinine 0.80, Estimated GFR (MDRD) 70.00, BUN/Creatinine Ratio 38.00, Glucose 118.3 H, Calcium 8.71, Total Bilirubin 0.33, AST 15.8, ALT 19.2, Alkaline Phosphatase 55.2, Total Protein 6.16 L, Albumin 3.55, Globulin 2.61, Albumin/Globulin Ratio 1.36 06/06/19 04:55: WBC 15.57 H, RBC 4.29, Hgb 12.3, Hct 38.4, MCV 89.5, MCH 28.7, MCHC 32.0, RDW Coeff of Flaquito 12.8, Plt Count 248, Immature Gran % (Auto) 4.4, Neut % (Auto) 65.7, Lymph % (Auto) 22.7, [place] % (Auto) 6.4, Eos % (Auto) 0.3, Baso % (Auto) 0.5, Immature Gran # (Auto) 0.7, Neut # (Auto) 10.2 H, Lymph # (Auto) 3.5 H, [place] # (Auto) 1.0, Eos # (Auto) 0.1, Baso # (Auto) 0.1 06/05/19 10:46: Puncture Site Rbrach, O2 Saturation 31.0 L, ABG pH 7.425, ABG pCO2 57.9 H, ABG pO2 20.0 L*, ABG HCO3 39.7 H, ABG Total CO2 41 H, ABG Base Excess 15 H, O2 Delivery Device Nc, Oxygen Liter Flow 2.00 ASSESSMENT: Please see below. 1. SHORTNESS OF BREATH. 2. ACUTE PNEUMONITIS. 3. HYPOKALEMIA SECONDARY TO HEMODILUTION. 4. ACUTE COPD EXACERBATION. 5. COPD. PLAN: 1. Discharge home 2. Continue DUO NEBS Q 6 hours 3. Pulmicort at night 4. Continue Mucomyst 20% BID 5. Prednisone 10mg three tablets daily for next 3 days, two tablets daily for three days and then daily for 3 days. 6. Keflex 500mg TID for 5 days 7. Keep scheduled appointment with Dr. Fagan 8. Stay inside 9. Continue O2dc home Plan and coordination of the patient's care discussed in the presence of Box Truck Washer and nurse. SCRIBED BY: GOPAL [place] Credit Assistant scribed while in presence of service performed by Dr. Ontiveros/Mary Merritt APRN on 06/06/19 ([id number])
[2019-06-06] MEDS: MUCOMYST 20% NEB NEB SCH (11:38)
--- NOTE | 2019-06-06 12:59 | CM.DICTOOL ---
ADMISSION: 05/30/19 14:59 DISCHARGE: JUNE 06, 2019 DATE OF SERVICE: 06/06/19 FINAL DIAGNOSIS SHORTNESS OF BREATH ACUTE PNEUMONITIS HYPOKALEMIA SECONDARY TO HEMODILUTION ACUTE COPD EXACERBATION COPD HX: DYSLIPIDEMIA ACUTE ASTHMATIC BRONCHITIS RT SCIATICA RT ELBOW OA CHRONIC BRONCHITIS COPD BRONCHIAL ASTHMA HYPERGLYCEMIA HTN KIDNEY STONE SURGICAL HX: CHOLECYSTECTOMY THYROIDECTOMY BILATERAL TKR SKIN CA ARM LAST VITALS Temp Pulse Resp BP Pulse Ox 97.7 F 72 22 136/79 99 06/06/19 04:02 06/06/19 04:02 06/06/19 04:02 06/06/19 04:02 06/06/19 10:00 TAKE THESE MEDICATIONS AT HOME Albuterol Sulfate (Proair Hfa) 2 puff IH BID PRN PRN Reason: Wheezing Alprazolam (Xanax) 0.5 mg PO BID PRN PRN Reason: Anxiety Last Admin: 06/05/19 20:36 Dose: 0.5 mg Duloxetine HCl (Cymbalta) 60 mg PO DAILY [facility] Last Admin: 06/06/19 09:00 Dose: 60 mg Gabapentin (Neurontin) 1,200 mg PO BEDTIME [facility] Last Admin: 06/05/19 20:36 Dose: 1,200 mg Hydrochlorothiazide (Hydrochlorothiazide) 25 mg PO DAILY [facility] Last Admin: 06/06/19 08:58 Dose: 25 mg Levothyroxine Sodium (Synthroid) 100 mcg PO QDAC [facility] Last Admin: 06/06/19 05:36 Dose: 100 mcg Losartan Potassium (Cozaar) 50 mg PO DAILY [facility] Last Admin: 06/06/19 08:59 Dose: 50 mg Meclizine HCl (Antivert) 25 mg PO BID PRN PRN Reason: Dizziness Montelukast Sodium (Singulair) 10 mg PO DAILY [facility] Last Admin: 06/06/19 08:59 Dose: 10 mg Pantoprazole Sodium (Protonix) 40 mg PO QDAC [facility] Last Admin: 06/06/19 05:36 Dose: 40 mg Potassium Chloride (K-Dur) 20 meq PO TIDWM [facility] Last Admin: 06/06/19 09:00 Dose: 20 meq Pravastatin Sodium (Pravachol) 40 mg PO BEDTIME [facility] Last Admin: 06/05/19 20:36 Dose: 40 mg Tramadol HCl (Ultram) 50 mg PO BEDTIME PRN PRN Reason: Pain Verapamil HCl (Calan Sr) 240 mg PO BEDTIME MANN Last Admin: 06/05/19 20:37 Dose: 240 mg Documented by: MUCOMYST 20% NEBULIZER 200 MG EVERY 12 HOURS DUONEB 3 ML EVERY 6 HOURS PULMICORT 1 MG/2 ML PER NEBULIZER AT BEDTIME, USE UNTIL MD STATES TO STOP KEFLEX 500 MG PO EVERY 8 HOURS X 5 DAYS PREDNISONE 10 MG PO 3 TABS DAILY X 3 DAYS, 2 TABS DAILY X 3 DAYS, 1 TAB DAILY X 3 DAYS THEN DISCONTINUE ALLERGIES codeine Adverse Reaction (Mild, Verified 11/06/18 08:41) Unknown erythromycin base Adverse Reaction (Mild, Verified 11/06/18 08:41) Vomiting DISCONTINUED MEDICATIONS ALBUTEROL NEBULIZER NEW PRESCRIPTIONS: MUCOMYST 20% NEBULIZER 200 MG EVERY 12 HOURS DUONEB 3 ML EVERY 6 HOURS PULMICORT 1 MG/2 ML PER NEBULIZER AT BEDTIME, USE UNTIL MD STATES TO STOP KEFLEX 500 MG PO EVERY 8 HOURS X 5 DAYS PREDNISONE 10 MG PO 3 TABS DAILY X 3 DAYS, 2 TABS DAILY X 3 DAYS, 1 TAB DAILY X 3 DAYS THEN DISCONTINUE SMOKING: NON-APPLICABLE DISEASE SPECIFIC EDUCATION: SHORTNESS OF BREATH PNEUMONITIS HYPOKALEMIA COPD LAB REVIEW: 06/06/19 04:55 06/06/19 04:55 06/06/19 04:55: Sodium 139.3, Potassium 3.56, Chloride 97.2 L, Carbon Dioxide 39.0 H, Anion Gap 6.66, BUN 30.4 H, Creatinine 0.80, Estimated GFR (MDRD) 70.00, BUN/Creatinine Ratio 38.00, Glucose 118.3 H, Calcium 8.71, Total Bilirubin 0.33, AST 15.8, ALT 19.2, Alkaline Phosphatase 55.2, Total Protein 6.16 L, Albumin 3.55, Globulin 2.61, Albumin/Globulin Ratio 1.36 06/06/19 04:55: WBC 15.57 H, RBC 4.29, Hgb 12.3, Hct 38.4, MCV 89.5, MCH 28.7, MCHC 32.0, RDW Coeff of Flaquito 12.8, Plt Count 248, Immature Gran % (Auto) 4.4, Neut % (Auto) 65.7, Lymph % (Auto) 22.7, [place] % (Auto) 6.4, Eos % (Auto) 0.3, Baso % (Auto) 0.5, Immature Gran # (Auto) 0.7, Neut # (Auto) 10.2 H, Lymph # (Auto) 3.5 H, [place] # (Auto) 1.0, Eos # (Auto) 0.1, Baso # (Auto) 0.1 PLAN: DISCHARGE HOME DIET: REGULAR ACTIVITY: NO STRENIOUS ACTIVITY, FREQUENT REST PERIODS. STAY IN DOORS MUCH POSSIBLE UNTIL RELEASED PER MD. USE OXYGEN 2 L/M PER N/C CONTINUOS, WITH ACTIVITY AND WHEN RESTED CONTINUE KEFLEX AND PREDNISONE UNTIL COMPLETED. TAKE PREDNISONE WITH FOOD CONTINUE PULMICORT NEBS AT BEDTIME UNTIL MD STATES TO STOP AVOID PUBLIC AREAS AND CROWDS. WEIGH DAILY AND REPORT 2-3 LB GAINS IN 24 HOUR PERIOD AND/OR 5-7 LBS IN A WEEK CODE STATUS: DO NOT RESUSCITATE FOLLOW UP WITH DR. FREDERICK/ KYLE[facility] VILLED[facility] 830 AM PFT RESULTS PENDING 2 -D ECHO RESULTS PENDING MRS. PIRES IS ALERT AND ORIENTED X 4. TALKATIVE, HOWEVER HAS DYSPNEA WITH MINIMAL EXERTION, EVEN WHEN TALKING. AUDIBLE UPPER RESP WHEEZING AND LUNGS WITH RHONCHI AND COURSENESS. MRS. PIRES VERBALIZES FEELING BETTER AND WANTS TO GO HOME. VERBALIZES THAT SHE WILL TAKE THINGS EASY AND REST FREQUENTLY. ORAL INTAKE IS FAIR AND MEAL INTAKE 50- 100%. UP TOLERATED.NO ACUTE DISTRESS. PLEASANT AND VERY TALKATIVE. MD KYLEE LUKE APRN
--- NOTE | 2019-06-07 13:18 | ECHO2D ---
Date of Exam: 06/06/19 Ordering Physician: DR. TESS FREDERICK Room #: 120 Reason for Echo: SOA WITH EXERTION, HTN, CHRONIC RESPIRATORY FAILURE M-Mode Normal Adult Results LV Dimensions Normal Adult Results AoV Opening excursions >1.6 >1.6 LVEDD-base- 3.5-5.8 3.9 Ao root dimensions 2.0-3.7 3.0 LVESD-base- 3.1-4.6 L. Atrium dimensions 1.9-3.8 4.1 Post. Wall thickness 0.8-1.1 1.0 IV septum (thickness) 0.7-1.2 1.0 Post. Wall excursion 0.72-1.3 NORMAL Septal motion NORMAL Systolic motion R. Ventricular cavity 1.5-2.0 4.3 LVEF 60% 60% Paradoxical septal wall motion NORMAL 2-D : 2-D M Mode Echocardiogram was performed using apical four chamber and left parasternal long and short axis views. Mitral, tricuspid and aortic valves appear to be normal. Contractility of the left ventricle seems to be normal, so is the cavity size. Left atrial cavity size and aortic root appear to be normal. There is no pericardial effusion. There is no thrombus noted in the left ventricle or left atrial cavity. No mitral valve prolapse noted. RIGHT VENTRICLE CAVITY ENLARGEMENT--SUBCOSTAL APPROACH USED M-MODE: MV: NORMAL AV: NORMAL TV: NORMAL PV: CHAMBER SIZE: ENLARGED RIGHT VENTRICLE CAVITY WALL MOTION: NORMAL PERICARDIUM: NORMAL INTERPRETATION: 1. ENLARGED RIGHT VENTRICLE CAVITY 2. NORMAL VALVES 3. NORMAL LEFT VENTRICULAR CONTRACTILITY 4. DIFFICULT ECHO BECAUSE OF COPD MTDD
--- NOTE | 2019-06-10 10:00 | PN ---
DATE OF SERVICE: 06/03/19 SUBJECTIVE: 79-year-old white female hospitalized with acute asthmatic bronchitis. The patient's condition seems to be improving but again the patient had a bad night last night with more wheezing. This morning she is able to talk sentences but still has more congestion with cough. REVIEW OF SYSTEMS: CONSTITUTIONAL: No night sweats. No fatigue, malaise, lethargy. No fever or chills. HEENT: Eyes: No visual changes. No eye pain. No eye discharge. ENT: No runny nose. No epistaxis. No sinus pain. No sore throat. No odynophagia. No congestion. RESPIRATORY: Congestion with cough. No hemoptysis. No shortness of breath. CARDIOVASCULAR: No angina symptoms. No CHF symptoms. No atypical chest pain for CAD. No palpitations. No PND. No orthopnea. GASTROINTESTINAL: Appetite is normal. No abdominal pain. No nausea or vomiting. No diarrhea or constipation. No hematemesis. No hematochezia. GENITOURINARY: No urgency. No frequency. No dysuria. No hematuria. No obstructive symptoms. No discharge. No pain. No significant abnormal bleeding. MUSCULOSKELETAL: No musculoskeletal pain; no joint swelling. NEUROLOGICAL: No headache. No neck pain. No syncope. No seizures. No dizziness. PSYCHIATRIC: Not anxious. No depression. No suicidal thoughts. No homicidal thoughts. SKIN: No rash. No lesions. No wounds. ENDOCRINE: No unexplained weight loss. No weight gain. HEMATOLOGIC/LYMPHATIC: No anemia. No purpura. No petechiae. No prolonged or excessive bleeding. No palpable lymph nodes. PHYSICAL EXAMINATION: VITAL SIGNS: Temperature 98.4, pulse 65, respiratory rate 20, blood pressure 115/68, pulse ox 98% on 2L. HEENT: Head normocephalic, atraumatic. Eyes: Extraocular muscles are intact. Pupils are equal, round and reactive to light and accommodation. Ears: No lesions. Nose appeared normal. Throat: No exudate or erythema. NECK: Supple. No JVD, no carotid bruit. No lymphadenopathy or thyromegaly. LUNGS: Decreased breath sounds with mild wheeze. Percussion note normal. Chest symmetrical. HEART: S1, S2, no S3. No murmurs. No cyanosis or clubbing. No ascites. Pulses: Dorsalis pedis and posterior tibial pulses +1 to +2 bilaterally. ABDOMEN: Soft. Nontender. Bowel sounds active. No CVA tenderness. No mass felt. EXTREMITIES: No edema. Full range of motion of all extremities, equal. NEUROLOGIC: No focal deficit. Cranial nerves II through XII are grossly intact. No headache, no double vision or headache. SKIN: Not dry. Intact. Turgor - normal. LYMPHATIC: No palpable lymph nodes/no lymphedema. MUSCULOSKELETAL: Normal joints with no swelling. Muscle tone is normal. LABS: Hemoglobin 12.3, hematocrit 38, WBC 15,000, normal differential. Creatinine 0.7, BUN 24, potassium 3.6, glucose 218. ASSESSMENT: 1. ACUTE ASTHMATIC BRONCHITIS SEEMS TO BE IMPROVING SLOWLY. 2. CARDIOVASCULAR STATUS STABLE. NO EVIDENCE OF FLUID RETENTION. 3. HYPERGLYCEMIA NOTED BECAUSE OF STEROIDS. PLAN: 1. Discontinue IV steroids, put her on Prednisone 30 mg p.o. daily. 2. Discontinue IV antibiotics. The patient's sputum didn't grow out any organisms. 3. The patient was treated with antibiotics prior to her hospitalization. CONDITION: Stable; still needs to be improved prior to discharge. TIME SPENT: More than 30 minutes. Plan and coordination of the patient's care discussed in the presence of nurse. SERGIO
--- NOTE | 2019-06-10 10:40 | DS ---
DATE OF SERVICE: 06/06/19 FINAL DIAGNOSIS: 1. SHORTNESS OF BREATH 2. ACUTE PNEUMONITIS 3. HYPOKALEMIA SECONDARY TO HEMODILUTION 4. ACUTE COPD EXACERBATION 5. COPD 6. DYSLIPIDEMIA 7. ACUTE ASTHMATIC BRONCHITIS 8. RT SCIATICA 9. RT ELBOW OA 10. CHRONIC BRONCHITIS 11. COPD 12. BRONCHIAL ASTHMA 13. HYPERGLYCEMIA 14. HYPERTENSION 15. KIDNEY STONE 16. CHOLECYSTECTOMY 17. THYROIDECTOMY 18. BILATERAL TKR 19. SKIN CA ARM LAST VITALS: Temp Pulse Resp BP Pulse Ox 97.7 F 72 22 136/79 99 06/06/19 04:02 06/06/19 04:02 06/06/19 04:02 06/06/19 04:02 06/06/19 10:00 DISCHARGE INSTRUCTIONS: DISCHARGE HOME. CONTINUE KEFLEX AND PREDNISONE UNTIL COMPLETED. TAKE PREDNISONE WITH FOOD. CONTINUE PULMICORT NEBS AT BEDTIME UNTIL MD STATES TO STOP. AVOID PUBLIC AREAS AND CROWDS. WEIGH DAILY AND REPORT 2-3 LB GAINS IN 24 HOUR PERIOD AND/OR 5-7 LBS IN A WEEK. CODE STATUS: DO NOT RESUSCITATE. FOLLOW UP WITH DR. FREDERICK/ KYLEE VILLEDA APRN IN THE OFFICE ON JUNE 13, 2019 @ 830 AM. PFT RESULTS PENDING. 2 -D ECHO RESULTS PENDING. TAKE THESE MEDICATIONS AT HOME: Albuterol Sulfate (Proair Hfa) 2 puff IH BID PRN PRN Reason: Wheezing Alprazolam (Xanax) 0.5 mg PO BID PRN PRN Reason: Anxiety Last Admin: 06/05/19 20:36 Dose: 0.5 mg Duloxetine HCl (Cymbalta) 60 mg PO DAILY [facility] Last Admin: 06/06/19 09:00 Dose: 60 mg Gabapentin (Neurontin) 1,200 mg PO BEDTIME MANN Last Admin: 06/05/19 20:36 Dose: 1,200 mg Hydrochlorothiazide (Hydrochlorothiazide) 25 mg PO DAILY [facility] Last Admin: 06/06/19 08:58 Dose: 25 mg Levothyroxine Sodium (Synthroid) 100 mcg PO QDAC [facility] Last Admin: 06/06/19 05:36 Dose: 100 mcg Losartan Potassium (Cozaar) 50 mg PO DAILY [facility] Last Admin: 06/06/19 08:59 Dose: 50 mg Meclizine HCl (Antivert) 25 mg PO BID PRN PRN Reason: Dizziness Montelukast Sodium (Singulair) 10 mg PO DAILY [facility] Last Admin: 06/06/19 08:59 Dose: 10 mg Pantoprazole Sodium (Protonix) 40 mg PO QDAC [facility] Last Admin: 06/06/19 05:36 Dose: 40 mg Potassium Chloride (K-Dur) 20 meq PO TIDWM [facility] Last Admin: 06/06/19 09:00 Dose: 20 meq Pravastatin Sodium (Pravachol) 40 mg PO BEDTIME [facility] Last Admin: 06/05/19 20:36 Dose: 40 mg Tramadol HCl (Ultram) 50 mg PO BEDTIME PRN PRN Reason: Pain Verapamil HCl (Calan Sr) 240 mg PO BEDTIME [facility] Last Admin: 06/05/19 20:37 Dose: 240 mg Documented by: MUCOMYST 20% NEBULIZER 200 MG EVERY 12 HOURS DUONEB 3 ML EVERY 6 HOURS PULMICORT 1 MG/2 ML PER NEBULIZER AT BEDTIME, USE UNTIL MD STATES TO STOP KEFLEX 500 MG PO EVERY 8 HOURS X 5 DAYS PREDNISONE 10 MG PO 3 TABS DAILY X 3 DAYS, 2 TABS DAILY X 3 DAYS, 1 TAB DAILY X 3 DAYS THEN DISCONTINUE ALLERGIES: codeine Adverse Reaction (Mild, Verified 11/06/18 08:41) erythromycin base Adverse Reaction (Mild, Verified 11/06/18 08:41) DISCONTINUED MEDICATIONS: ALBUTEROL NEBULIZER NEW PRESCRIPTIONS: MUCOMYST 20% NEBULIZER 200 MG EVERY 12 HOURS DUONEB 3 ML EVERY 6 HOURS PULMICORT 1 MG/2 ML PER NEBULIZER AT BEDTIME, USE UNTIL MD STATES TO STOP KEFLEX 500 MG PO EVERY 8 HOURS X 5 DAYS PREDNISONE 10 MG PO 3 TABS DAILY X 3 DAYS, 2 TABS DAILY X 3 DAYS, 1 TAB DAILY X 3 DAYS THEN DISCONTINUE SMOKING: NON-APPLICABLE DISEASE SPECIFIC EDUCATION: SHORTNESS OF BREATH PNEUMONITIS HYPOKALEMIA COPD DIET: REGULAR ACTIVITY: NO STRENIOUS ACTIVITY, FREQUENT REST PERIODS. STAY IN DOORS MUCH POSSIBLE UNTIL RELEASED PER MD. USE OXYGEN 2 L/M PER N/C CONTINUOS, WITH ACTIVITY AND WHEN RESTED HOSPITAL COURSE: This is a white female a direct admit from our office on 05/30/19 with shortness of breath, COPD exacerbation and acute pneumonitis. Chest x-ray was normal. CT of the chest showed underling severe COPD. She did experience some hypokalemia approximately 24-36 hours after admission secondary to hemodilution. She was placed on Solu-Cortef 125 Q 6 hours as well as Xopenex and Pulmicort NEBS. We added Mucomyst on the third day and it did not seem to be drying her secretions. She was also started on Rocephin 1 gram IV daily. She does have some element of CO2 retention however seems to be very well compensated. Over the course of several days she has slowly began to improved. 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 Fagan on a regular basis. She also has underlining asthma which contributes to her shortness of breath with exertion. She has been up and about walking around is 99% on oxygen at 2 liters. She has been walking around the hospital which is a significant improvement. She was getting very winded just going to the bathroom at one point so she has slowly improved. She will be discharged home with Mucomyst NEBS to do twice a day, DUO NEBS to do every 6 hours PRN and Pulmicort NEB 1mg to do at night along with Prednisone 30mg daily for 3 days and 20mg daily for 3 days and then 10mg daily for 3 days with a slow wean. She had an echo done today by Dr. Frederick, slight increase in left atrial cavity, ejection fraction was normal. PFT showed moderate COPD. We will discharge her in stable condition and followup with her in the office next week. TIME SPENT: More than 60 minutes. MTDD
--- NOTE | 2019-06-10 11:37 | PN ---
DATE OF SERVICE: 06/04/19 SUBJECTIVE: 79-year-old white female hospitalized with acute asthmatic bronchitis, some COPD exacerbation. The patient's condition seems to have stabilized with little improvement. She is talking full sentences. She says that she is somewhat better. Wheezing is less than yesterday according to the . The patient's condition had improved and I talked to the cardiopulmonary department on the phone. REVIEW OF SYSTEMS: CONSTITUTIONAL: No night sweats. No fatigue, malaise, lethargy. No fever or chills. HEENT: Eyes: No visual changes. No eye pain. No eye discharge. ENT: No runny nose. No epistaxis. No sinus pain. No sore throat. No odynophagia. No congestion. RESPIRATORY: No cough, no congestion. No hemoptysis. Mild shortness of breath on exertion. The patient had walked nearly 150 feet this morning with shortness of breath. CARDIOVASCULAR: No angina symptoms. No CHF symptoms. No atypical chest pain for CAD. No palpitations. No PND. No orthopnea. GASTROINTESTINAL: No abdominal pain. No nausea or vomiting. No diarrhea or constipation. No hematemesis. No hematochezia. GENITOURINARY: No urgency. No frequency. No dysuria. No hematuria. No obstructive symptoms. No discharge. No pain. No significant abnormal bleeding. MUSCULOSKELETAL: No musculoskeletal pain; no joint swelling. NEUROLOGICAL: No headache. No neck pain. No syncope. No seizures. No dizziness. PSYCHIATRIC: Not anxious. No depression. No suicidal thoughts. No homicidal thoughts. SKIN: No rash. No lesions. No wounds. ENDOCRINE: No unexplained weight loss. No weight gain. HEMATOLOGIC/LYMPHATIC: No anemia. No purpura. No petechiae. No prolonged or excessive bleeding. No palpable lymph nodes. PHYSICAL EXAMINATION: VITAL SIGNS: Temperature 98.3, pulse 60, respiratory rate 18, BP 130/70, pulse ox 100% on 2L. HEENT: Head normocephalic, atraumatic. Eyes: Extraocular muscles are intact. Pupils are equal, round and reactive to light and accommodation. Ears: No lesions. Nose appeared normal. Throat: No exudate or erythema. NECK: Supple. No JVD, no carotid bruit. No lymphadenopathy or thyromegaly. LUNGS: Decreased breath sounds with expiratory wheeze. Percussion note normal. Chest symmetrical. HEART: S1, S2, no S3. No murmurs. No cyanosis or clubbing. No ascites. Pulses: Dorsalis pedis and posterior tibial pulses +1 to +2 bilaterally. ABDOMEN: Soft. Nontender. Bowel sounds active. No CVA tenderness. No mass felt. EXTREMITIES: No pedal edema. Full range of motion of all extremities, equal. NEUROLOGIC: No focal deficit. Cranial nerves II through XII are grossly intact. No headache, no double vision or headache. SKIN: Not dry. Intact. Turgor - normal. LYMPHATIC: No palpable lymph nodes/no lymphedema. MUSCULOSKELETAL: Normal joints with no swelling. Muscle tone is normal. LABS: Hemoglobin 12.4, hematocrit 38, WBC 18,000, normal differential. Creatinine 0.7, BUN 24, potassium 2.8. ASSESSMENT: 1. ACUTE ASTHMATIC BRONCHITIS SEEMS TO BE RESOLVING VERY SLOWLY. 2. RESPIRATORY ACIDOSIS WHICH IS COMPENSATED WITH PH OF 7.43, P02 OF 75, PC02 57. THE PATIENT HAS C02 OF 40. THE PATIENT HAS COMPENSATED RESPIRATORY ACIDOSIS. 3. HYPOKALEMIA. PLAN: 1. Change nebs from discontinuation of Xopenex and put her on Duonebs. 2. IV Lasix for possible some fluid retention. 3. The patient is already on p.o. antibiotics and steroids. The patient's sputum is sherman to clear color now. 4. The patient may end up on 1L of high flow oxygen to open up her alveoli if the condition stabilizes and doesn't improve by tomorrow. 5. The patient now is in no distress. Appetite is acceptable. TIME SPENT: More than 30 minutes. Plan and coordination of the patient's care discussed in the presence of nurse. SERGIO
--- NOTE | 2019-06-15 13:29 | PN ---
DATE OF SERVICE: 06/05/19 SUBJECTIVE: 79 year old white female hospitalized with acute asthmatic bronchitis. The patient's condition definitely has improved. She is more stable and less anxious. She is talking sentences without stopping. REVIEW OF SYSTEMS: CONSTITUTIONAL: No night sweats. No fatigue, malaise, lethargy. No fever or chills. HEENT: Eyes: No visual changes. No eye pain. No eye discharge. ENT: No runny nose. No epistaxis. No sinus pain. No sore throat. No odynophagia. No congestion. RESPIRATORY: No cough, no congestion. No hemoptysis. Shortness of breath on exertion. No wheezing audible without stethoscope. CARDIOVASCULAR: No angina symptoms. No CHF symptoms. No atypical chest pain for CAD. No palpitations. No PND. No orthopnea. GASTROINTESTINAL: No abdominal pain. No nausea or vomiting. No diarrhea or constipation. No hematemesis. No hematochezia. GENITOURINARY: No urgency. No frequency. No dysuria. No hematuria. No obstructive symptoms. No discharge. No pain. No significant abnormal bleeding. MUSCULOSKELETAL: No musculoskeletal pain; no joint swelling. NEUROLOGICAL: No headache. No neck pain. No syncope. No seizures. No dizziness. PSYCHIATRIC: Not anxious. No depression. No suicidal thoughts. No homicidal thoughts. SKIN: No rash. No lesions. No wounds. ENDOCRINE: No unexplained weight loss. No weight gain. HEMATOLOGIC/LYMPHATIC: No anemia. No purpura. No petechiae. No prolonged or excessive bleeding. No palpable lymph nodes. PHYSICAL EXAMINATION: VITAL SIGNS: Temperature 97.8, pulse 59, respiratory rate 18, blood pressure 140/68 and pulse ox 99% with 2 liters. HEENT: Head normocephalic, atraumatic. Eyes: Extraocular muscles are intact. Pupils are equal, round and reactive to light and accommodation. Ears: No lesions. Nose appeared normal. Throat: No exudate or erythema. NECK: Supple. No JVD, no carotid bruit. No lymphadenopathy or thyromegaly. LUNGS: Decreased breaths. Mild expiratory wheeze. Percussion note normal. Chest symmetrical. HEART: S1, S2, no S3. No murmurs. No cyanosis or clubbing. No ascites. Pulses: Dorsalis pedis and posterior tibial pulses +1 to +2 bilaterally. ABDOMEN: Soft. Nontender. Bowel sounds active. No CVA tenderness. No mass felt. EXTREMITIES: No edema. Full range of motion of all extremities, equal. NEUROLOGIC: No focal deficit. Cranial nerves II through XII are grossly intact. No headache, no double vision or headache. SKIN: Not dry. Intact. Turgor - normal. LYMPHATIC: No palpable lymph nodes/no lymphedema. MUSCULOSKELETAL: Normal joints with no swelling. Muscle tone is normal. LABS: Hgb 11.9, hct 37, WBC 15,000 normal differential, creatinine 0.7, BUN 26, potassium 3.1. Glucose 129 ASSESSMENT: 1. Acute asthmatic bronchitis seems to be resolving slowly. The patient is clinically a lot better. Appetite seems to be improving. 2. Hypokalemia seems to be somewhat better with Potassium of 3.1. She is on K- Dur 20meq QID PLAN: 1. We will monitor CBC and CMP daily 2. The patient likely to be discharged tomorrow. 3. DUO NEBS were started instead of Xopenex seems to be helping more 4. The patient's BNP was 305, we will do echocardiogram to evaluate LV function and RV function tomorrow. TIME SPENT: More than 30 minutes. Plan and coordination of the patient's care discussed in the presence of nurse. SERGIO
--- NOTE | 2019-06-15 13:31 | PN ---
DATE OF SERVICE: 06/06/19 SUBJECTIVE: The patient was seen and examined with the Nurse Practitioner. The patient's condition has improved. She is going to be discharged home on steroids, antibiotics, NEBS treatment and she is also advised to join Pulmonary Rehab which she declined. Echo showed normal LV contractility and enlarged RV cavity. The patient is going to be seen by Dr. Fagan. CONDITION: Stable TIME SPENT: More than 30 minutes. Plan and coordination of the patient's care discussed in the presence of nurse. SERGIO
--- NOTE | 2019-06-15 13:32 | PN ---
05/30/19: Level 5 05/31/19: Intermediate 06/01/19: Intermediate 06/02/19: Intermediate 06/03/19: Intermediate 06/04/19: Intermediate 06/05/19: Intermediate 06/06/19: D as in discharge MTDD
== END 2019-06-06 14:10 | disposition home or self-care (01) | DRG 194 ==
LOC: MEDSURG B 14:59
PROVIDERS: ADMIT Internal Medicine; ATTEND Internal Medicine
DX: E78.5 Hyperlipidemia, unspecified; J44.0 Chronic obstructive pulmonary disease with (acute) lower respiratory infection; R73.9 Hyperglycemia, unspecified; E87.6 Hypokalemia; J18.9 Pneumonia, unspecified organism; I10 Essential (primary) hypertension; J42 Unspecified chronic bronchitis; J44.1 Chronic obstructive pulmonary disease with (acute) exacerbation; M54.41 Lumbago with sciatica, right side

== ENCOUNTER 2020-01-17 19:35 | Inpatient (IN) ==
[2020-01-17] MEDS ORDERED: COMBIVENT RESPIMAT INHALER IH STA (19:46)
[2020-01-17] MEDS ORDERED: SOLU-MEDROL 125 MG IVP STA (19:46)
--- NOTE | 2020-01-17 19:52 | ED.PDOC ---
General ED Provider: Dr. DONNA FRIAS Chief Complaint: Shortness of Air Stated Complaint: comes to the Er with complaints of chills mild fever with Rigors. Went to a 9 days ago. Also complains of abdominal pain. was seen by PCP and diagnosed with a UTi and started on Macrobid. Has a history of Renal stones. Time Seen by Physician: 19:51 Mode of Arrival: Wheelchair Information Source: Patient Primary Care Provider: TESS FREDERICK Nursing and Triage Documentation Reviewed and Agree: Yes Does patient meet sepsis criteria?: Yes If yes, has appropriate treatment been initiated?: Yes System Inflammatory Response Syndrome: Temp 101F or Greater Sepsis Protocol: For patient's 13 years and over: Temp is 96.8 and below OR 101 and greater Pulse >90 BPM Resp >20/minute Acutely Altered Mental Status Are patient's symptoms suggestive of a new infection, such as: -Pneumonia -Skin, Soft Tissue -Endocarditis -UTI -Bone, Joint Infection -Implantable Device -Acute Abdominal Infection -Wound Infection -Meningitis -Blood Stream Catheter Infection -Unknown Review of Systems Review Of Systems Constitutional: Reports Fever (102 F @ home ) Eyes: Reports No symptoms Ears, Nose, Mouth, Throat: Reports No symptoms Respiratory: Reports Cough (some sputum production) and Short of air (more than Usual ) GI: Reports No symptoms : Reports No symptoms Musculoskeletal: Reports No symptoms Skin: Reports No symptoms Neurological: Reports Anxiety Endocrine: Reports No symptoms All Other Systems: Reviewed and Negative [facility] Medical History (Updated 01/17/20 @ 20:58 by DONNA FRIAS MD) Asthma Bronchitis COPD (chronic obstructive pulmonary disease) Dyslipidemia H/O knee surgery History of appendectomy History of cholecystectomy Hypertension Laryngitis, acute Melanocarcinoma Osteoarthritis Oxygen dependent Sciatic leg pain Family History (Updated 05/30/19 @ 15:21 by TAMY WATSON, RN) Mother Cancer Brother Cancer FATHER Stroke Social History (Updated 07/22/19 @ 15:28 by JACKELYN ARMENTA) Smoking and tobacco status: Former smoker Second hand smoke exposure: No Substance use type: does not use Marni/yarsanism: PENTECOSTALISM Female Reproductive History Menstrual Hx Hysterectomy: No Hx Tubal Ligation: No Physical Exam Physical Exam Appearance: Reports Ill-appearing Ill-appearing: Severe Eyes: Reports Conjunctiva clear Respiratory: Reports Breath sounds diminished and Wheezes Cardiovascular: Reports RRR and Pulses normal Musculoskeletal: Reports Normal strength and ROM intact Skin: Reports Warm and Dry Neurological: Reports Motor intact, Alert and Oriented Psychiatric: Reports Anxious Interpretation Radiology Interpretation Radiology Interpretation By: Radiologist Radiology Results: No acute changes Exam Interpreted: CT Scan (chest ct ) Radiology Interpretation By: Radiologist Radiology Results: Positive (3 mm calculus near right UVJ, Mild admacent fat stranding on the right renal pelvis suggesting inflamation) Exam Interpreted: CT Scan (Abdomen ) Filler Wiper Rate: Normal Rhythm: Sinus Ectopy: None EKG Interpretation Time of EKG #1: 20:38 Rate: Normal Rhythm: Sinus Ectopy: None [place]: NL ST Segment: Normal Interpretation: Normal EKG Critical Care Note Critical Care Note Total Time (mins): 45 Course Course Hematology/Chemistry: 01/17/20 20:13 01/17/20 20:13 Orders, Labs, Meds: Lab Review 01/17/20 01/17/20 01/17/20 19:50 20:13 20:13 WBC 8.50 RBC 4.09 L Hgb 12.0 Hct 36.6 L MCV 89.5 MCH 29.3 MCHC 32.8 RDW Coeff of Flaquito 12.4 Plt Count 234 Neutrophils % (Manual) 88.0 H Lymphocytes % (Manual) 5.0 L Monocytes % (Manual) 6.0 Eosinophils % (Manual) 1.0 Anisocytosis Not present Sodium 134.5 Potassium 3.84 Chloride 95.1 L Carbon Dioxide 32.1 H Anion Gap 11.14 BUN 19.7 H Creatinine 1.27 Estimated GFR (MDRD) 41.00 BUN/Creatinine Ratio 15.51 Glucose 128.8 H Lactic Acid Calcium 10.07 Total Bilirubin 0.41 AST 23.8 ALT 18.0 Alkaline Phosphatase 67.3 Total Protein 7.17 Albumin 4.24 Globulin 2.93 Albumin/Globulin Ratio 1.44 Procalcitonin Urine Color Yellow Urine Clarity Cloudy Urine pH 6.0 Ur Specific Vergas 1.020 Urine Protein 1+ H Urine Glucose (UA) Negative Urine Ketones Negative Urine Blood 3+ H Urine Nitrite Negative Urine Bilirubin Negative Urine Urobilinogen 1.0 H Ur Leukocyte Esterase 1+ H Urine Microscopic RBC 50-100 Urine Microscopic WBC 2-5 Ur Squamous Epith Cells 2-5 SARS-CoV-2 RNA (RT-PCR) 01/17/20 01/17/20 01/17/20 20:13 20:13 20:30 WBC RBC Hgb Hct MCV MCH MCHC RDW Coeff of [place] Plt Count Neutrophils % (Manual) Lymphocytes % (Manual) Monocytes % (Manual) Eosinophils % (Manual) Anisocytosis Sodium Potassium Chloride Carbon Dioxide Anion Gap BUN Creatinine Estimated GFR (MDRD) BUN/Creatinine Ratio Glucose Lactic Acid 1.27 Calcium Total Bilirubin AST ALT Alkaline Phosphatase Total Protein Albumin Globulin Albumin/Globulin Ratio Procalcitonin 0.06 Urine Color Urine Clarity Urine pH Ur Specific [place]as Urine Protein Urine Glucose (UA) Urine Ketones Urine Blood Urine Nitrite Urine Bilirubin Urine Urobilinogen Ur Leukocyte Esterase Urine Microscopic RBC Urine Microscopic WBC Ur Squamous Epith Cells SARS-CoV-2 RNA (RT-PCR) Orders Category Date Time Status ABG DRAW REQUEST Stat CARDIO 01/17/20 19:42 Ordered EKG-(ED ONLY) Stat CARDIO 01/17/20 19:46 Ordered METERED DOSE INHALATION Routine CARDIO 01/17/20 20:24 Ordered ED APPLY O2 .ONCE EMERGENCY 01/17/20 19:40 Active ED DIFFUSION OPERATOR APPLIED .ONCE EMERGENCY 01/17/20 19:40 Active ED IV/MEDIPORT/POWERPORT .ONCE EMERGENCY 01/17/20 19:40 Active ED VITAL SIGNS Q1HR EMERGENCY 01/17/20 19:40 Active ABG Stat LAB 01/17/20 19:42 Ordered BLOOD CULTURE (ED ONLY) Stat LAB 01/17/20 20:13 Received CBC W/ AUTO DIFF Stat LAB 01/17/20 20:13 Completed COMPREHENSIVE METABOLIC PANEL Stat LAB 01/17/20 20:13 Completed COVID19, PCR IDPH Stat LAB 01/17/20 Ordered FERRITIN Stat LAB 01/17/20 Ordered LACTIC ACID Stat LAB 01/17/20 20:13 Completed MANUAL DIFFERENTIAL Stat LAB 01/17/20 20:13 Completed PROCALCITONIN Stat LAB 01/17/20 20:13 Received URINALYSIS C & S IF INDICATED Stat LAB 01/17/20 19:50 Completed 0.9 % Sodium Chloride [Saline Flush] MEDS 01/17/20 19:39 Active 1 syr IVF PRN PRN Acetaminophen [Tylenol] MEDS 01/17/20 20:33 Discontinued 325 mg .ROUTE .STK-MED ONE Acetaminophen [Tylenol] MEDS 01/17/20 20:26 Discontinued 650 mg PO ONCE STA Albuterol Inhaler(with Spacer) [Ventolin Hfa (Per Puff- MEDS 01/17/20 20:23 Discontinued with Spacer)] 2 puff IH ONCE STA Ipratropium Inhaler(Spacer) [Atrovent Hfa Inhaler (Per MEDS 01/17/20 20:23 Discontinued Puff-with Spacer)] 2 puff IH ONCE STA Methylprednisolone Sod Succ/Pf [Solu-Medrol 125 mg] MEDS 01/17/20 19:46 Discontinued 125 [address]P ONCE [address] ABD/PEL WO RENAL STONE PROT Stat RADS 01/17/20 19:[address] CHEST W/O CONTRAST Stat RADS 01/17/20 19:39 Taken Medications Generic Name Dose Route Start Last Admin Trade Name Freq PRN Reason Stop Dose Admin Sodium Chloride 1 syr 01/17/20 19:39 Saline Flush IVF PRN PRN To flush IV Discontinued Medications Generic Name Dose Route Start Last Admin Trade Name Freq PRN Reason Stop Dose Admin Acetaminophen 650 mg 01/17/20 20:26 Tylenol PO 01/17/20 20:27 ONCE STA Albuterol Sulfate 2 puff 01/17/20 20:23 Ventolin Hfa (Per Puff-With Spacer) IH 01/17/20 20:24 ONCE STA Ipratropium [place] 2 puff 01/17/20 20:23 Atrovent Hfa Inhaler (Per Puff-With Spacer) IH 01/17/20 20:24 ONCE STA Methylprednisolone Sodium Succinate 125 mg 01/17/20 19:46 Solu-Medrol 125 Mg IVP 01/17/20 19:47 ONCE STA Vital Signs: Temp Pulse Resp BP Pulse Ox 01/17/20 19:36 102.0 F H 95 H 18 150/63 H 98 Discharge Plan Discharge Patient Disposition: ADMITTED INPATIENT Discharge Problem: Acute pyelonephritis, Bilateral renal stones, COPD exacerbation, Shortness of breath Prescriptions: No Action alprazolam [Xanax] 0.5 MG tablet 0.5 mg PO BID PRN (Reason: anxiety/restlessness) RF: 0 lisinopril-hydrochlorothiazide 1 EACH tablet 1 tab PO DAILY RF: 0 verapamil [Calan SR] 240 MG tablet extended release 240 mg PO BEDTIME RF: 0 montelukast [Singulair] 10 MG tablet 10 mg PO DAILY RF: 0 pravastatin 20 MG tablet 40 mg PO BEDTIME RF: 0 duloxetine [Cymbalta] 60 MG capsule,delayed release(DR/EC) 60 mg PO DAILY RF: 0 tramadol [Ultram] 50 MG tablet 50 mg PO BEDTIME PRN (Reason: arthritis pain) RF: 0 Stiolto Respimat 4 GM mist 2 puff inhalation DAILY PRN (Reason: SOA) RF: 0 nitrofurantoin monohyd/m-cryst [Macrobid] 100 mg Capsule 100 mg PO BID RF: 0 gabapentin [Neurontin] 600 MG tablet 1,200 mg PO BEDTIME RF: 0 levothyroxine [Synthroid] 100 MCG tablet 100 mcg PO DAILY RF: 0 meclizine 25 MG tablet 25 mg PO BID PRN (Reason: Dizziness) RF: 0 pantoprazole [Protonix] 40 MG tablet,delayed release (DR/EC) 40 mg PO DAILY RF: 0 albuterol sulfate [ProAir HFA] 90 mcg/actuation Hfa Aerosol Inhaler 2 puff INHALATION BID PRN (Reason: Wheezing) RF: 0 ipratropium-albuterol 0.5 mg-3 mg(2.5 mg base)/3 mL Solution For Nebulization 3 ml INHALATION Q6H Qty: 30 RF: 0 budesonide [Pulmicort] 1 mg/2 mL Suspension For Nebulization 1 mg INHALATION BEDTIME Qty: 30 RF: 0 prednisone 10 mg Tablet 10 mg PO DAILY Qty: 100 RF: 0 acetylcysteine 200 mg/mL (20 %) Solution 1 ml INHALATION Q12HR Qty: 60 RF: 0 hydrocodone-chlorpheniramine 10-8 mg/5 mL suspension,extended rel 12 hr 5 ml PO Q12H PRN (Reason: Pain) RF: 0 acetylcysteine 200 mg/mL (20 %) solution 1 ml IH ONCE RF: 0 alprazolam [Xanax] 0.5 mg tablet 0.5 mg PO QDAY RF: 0 diclofenac sodium 75 mg tablet,delayed release (DR/EC) 75 mg PO ONCE RF: 0 levothyroxine [Synthroid] 100 mcg tablet 100 mcg PO QDAY RF: 0 lisinopril-hydrochlorothiazide 20-25 mg tablet 1 tab PO QDAY RF: 0 ED Provider: DONNA FRIAS Condition: Stable
[2020-01-17 20:15] LABS: HEMATOCRIT 36.6 % (37.0-47.0)
[2020-01-17] MEDS ORDERED: ATROVENT HFA INHALER (PER PUFF-WITH SPACER) IH STA (20:23)
[2020-01-17] MEDS ORDERED: VENTOLIN HFA (PER PUFF-WITH SPACER) IH STA (20:23)
[2020-01-17] MEDS ORDERED: TYLENOL PO STA (20:26)
[2020-01-17] MEDS ORDERED: TYLENOL ONE (20:33)
--- NOTE | 2020-01-17 20:34 | CT ---
EXAM: Noncontrast CT of the abdomen and pelvis HISTORY: Flank pain with history of stones COMPARISON: None available TECHNIQUE: Axial noncontrast CT of the abdomen and pelvis with sagittal and coronal reformats. FINDINGS: A calculus is seen within the right renal pelvis measuring 1.1 x 1.7 x 1.1 cm. There is mild right h ydronephrosis. Mild fat stranding is seen adjacent to the right renal collecting system. A 0.3 cm c alcification is seen near the right UVJ which appears to be within the bladder. No left renal calcul i are identified. There is a left UVJ calculus measuring 0.3 cm. No left hydroureter or hydronephro sis is seen. There is a right lower lobe nodular density measuring 2.1 cm. Noncontrast technique limits evaluation of abdominal viscera. The unenhanced liver appears unremarka ble. The gallbladder has been removed. Splenic calcified granulomas are noted. The unenhanced adre nals and right kidney appear unremarkable. There are a few coarse pancreatic calcifications which ca n be seen with chronic pancreatitis. The stomach is underdistended. No abnormal bowel dilation is seen. Mild to moderate colonic stool i s noted. The cecum is located within the mid lower abdomen suggesting mobile cecum. The appendix is not abnormally enlarged. Calcified atherosclerotic plaque of the aorta and some of its branches is seen. No free air or free fluid is identified. Degenerative changes of the spine are noted. IMPRESSION: 1.1 x 1.7 x 1.1 cm right renal pelvis calculus with mild hydronephrosis. Mild adjacent fat stranding suggesting inflammation. 3 mm calculus near the right UVJ which appears to be in the bladder. 3 mm left UVJ calculus without hydroureter or hydronephrosis. 2.1 cm right lower lobe nodular density, not well evaluated due to motion artifact. Although this co uld represent atelectasis or consolidation, a pulmonary nodule cannot be excluded and follow-up CT in 3 months is recommended. Other chronic and incidental findings as described above.
--- NOTE | 2020-01-17 20:46 | CT ---
EXAM: CT chest without intravenous contrast 01/17/2020. Sagittal and coronal reformatted images obt ained HISTORY: Shortness of breath. Fever COMPARISON: 06/01/2019 FINDINGS: The heart size appears within normal limits. There is no pericardial effusion. Pulmonary hyperinflation consistent with emphysematous change. Right lower lobe atelectasis. The le ft lung appears well aerated. No pleural effusion. No pneumothorax Limited views of the upper abdomen shows surgical changes of cholecystectomy. Partially visualized s tone at the level of the right renal pelvis. No acute osseous abnormality IMPRESSION: 1. Right lower lobe atelectasis. 2. No acute superimposed cardiopulmonary process within the limitation of a noncontrast enhanced exa mination. 3. Partially visualized stone at the level of the right renal pelvis. Mild dilatation of the visual ized portion of the renal pelvis. Further imaging of the abdomen and pelvis may be obtained as clini lai indicated.
[2020-01-17] MEDS ORDERED: ROCEPHIN 1 GM/50 ML D5W 1 GM/50 ML BAG IV STA (21:24)
[2020-01-17] MEDS ORDERED: ZOFRAN 4 MG/2 ML IVP PRN (21:26)
[2020-01-17] MEDS ORDERED: MORPHINE 2 MG/ML SYRINGE IVP STA (21:26)
[2020-01-17] MEDS ORDERED: ZOFRAN 4 MG/2 ML IVP STA (21:26)
[2020-01-17] MEDS ORDERED: TUSSIONEX PO PRN (21:34)
[2020-01-17] MEDS ORDERED: ANTIVERT PO PRN (21:34)
[2020-01-17] MEDS ORDERED: PROAIR HFA (SINGLE PATIENT USE) IH SCH (22:00)
[2020-01-17] MEDS ORDERED: ATROVENT HFA INHALER (SINGLE PATIENT USE) IH SCH (22:00)
[2020-01-17] MEDS ORDERED: XANAX PO SCH (22:00)
[2020-01-17] MEDS ORDERED: SYNTHROID PO SCH (22:00)
[2020-01-17 22:28] VITALS: BMI 31.6
[2020-01-17] MEDS: SODIUM CHLORIDE 1,000 ML IV SCH (22:37)
[2020-01-17] MEDS ORDERED: MYLANTA SUSP PO STA (23:03)
[2020-01-17] MEDS ORDERED: AZACTAM ONE (23:15)
[2020-01-17] MEDS: AZACTAM 1 GM in SODIUM CHLORIDE 50 ML IV SCH (23:23)
[2020-01-18] MEDS ORDERED: ATROVENT HFA INHALER (PER PUFF-WITH SPACER) IH SCH
[2020-01-18] MEDS: SOLU-CORTEF 250 MG IVP SCH ×4 (00:33→17:41)
[2020-01-18] MEDS: VENTOLIN HFA (PER PUFF-WITH SPACER) IH SCH ×4 (04:27→20:16)
[2020-01-18] MEDS: XANAX PO PRN ×2 (05:52→22:28)
[2020-01-18] MEDS: SYNTHROID PO SCH (05:52)
[2020-01-18] MEDS ORDERED: PROTONIX PO SCH (06:30)
[2020-01-18] MEDS ORDERED: DICLOFENAC SODIUM PO SCH (08:30)
[2020-01-18] MEDS: HYDROCHLOROTHIAZIDE PO SCH (08:56)
[2020-01-18] MEDS: SINGULAIR PO SCH (08:56)
[2020-01-18] MEDS: ZESTRIL PO SCH (08:56)
[2020-01-18] MEDS: AZACTAM 1 GM in SODIUM CHLORIDE 50 ML IV SCH ×2 (08:56→22:28)
[2020-01-18] MEDS: LOVENOX SUBCUT SCH (08:57)
[2020-01-18] MEDS ORDERED: LISINOPRIL HYDROCHLOROTHIAZIDE PO SCH (09:00)
[2020-01-18] MEDS: ATROVENT HFA INHALER (PER PUFF-WITH SPACER) IH SCH ×3 (09:40→20:16)
[2020-01-18] MEDS: SODIUM CHLORIDE 1,000 ML IV SCH (12:36)
[2020-01-18] MEDS: CYMBALTA PO SCH (17:42)
[2020-01-18] MEDS: PROTONIX PO SCH (17:42)
[2020-01-18] MEDS: HUMULIN R SUBCUT PRN ×2 (17:42→21:16)
[2020-01-18] MEDS: SYMBICORT 160-4.5 MCG INHALER IH SCH (21:14)
[2020-01-18] MEDS: PRAVACHOL PO SCH (21:15)
[2020-01-18] MEDS: NEURONTIN PO SCH (21:15)
[2020-01-18] MEDS: CALAN SR PO SCH (21:15)
[2020-01-18] MEDS: ROCEPHIN 1 GM/50 ML D5W 1 GM/50 ML BAG IV SCH (21:16)
[2020-01-19] MEDS: SOLU-CORTEF 250 MG IVP SCH ×2 (00:18→05:58)
[2020-01-19] MEDS: ULTRAM PO PRN ×2 (00:22→20:33)
[2020-01-19] MEDS: VENTOLIN HFA (PER PUFF-WITH SPACER) IH SCH ×4 (05:05→20:02)
[2020-01-19 05:16] LABS: HEMATOCRIT 34.8 % (37.0-47.0)
[2020-01-19] MEDS: PROTONIX PO SCH ×2 (05:59→16:52)
[2020-01-19] MEDS: SYNTHROID PO SCH (05:59)
[2020-01-19] MEDS: HUMULIN R SUBCUT PRN ×4 (05:59→20:34)
[2020-01-19] MEDS: XANAX PO PRN (06:07)
[2020-01-19] MEDS: ATROVENT HFA INHALER (PER PUFF-WITH SPACER) IH SCH ×4 (07:31→20:01)
[2020-01-19] MEDS: AZACTAM 1 GM in SODIUM CHLORIDE 50 ML IV SCH ×2 (09:12→20:33)
[2020-01-19] MEDS: HYDROCHLOROTHIAZIDE PO SCH (09:12)
[2020-01-19] MEDS: SODIUM CHLORIDE 1,000 ML IV SCH (09:12)
[2020-01-19] MEDS: LOVENOX SUBCUT SCH (09:12)
[2020-01-19] MEDS: SINGULAIR PO SCH (09:12)
[2020-01-19] MEDS: ZESTRIL PO SCH (09:13)
[2020-01-19] MEDS: CYMBALTA PO SCH (09:13)
[2020-01-19] MEDS: FLOMAX PO SCH (09:13)
[2020-01-19] MEDS: SYMBICORT 160-4.5 MCG INHALER IH SCH ×2 (09:21→20:32)
[2020-01-19] MEDS: SOLU-CORTEF 100 MG IVP SCH ×2 (12:14→20:33)
[2020-01-19] MEDS ORDERED: SOLU-CORTEF 250 MG IVP SCH (13:00)
[2020-01-19] MEDS: PRAVACHOL PO SCH (20:33)
[2020-01-19] MEDS: CALAN SR PO SCH (20:33)
[2020-01-19] MEDS: NEURONTIN PO SCH (20:34)
[2020-01-19] MEDS: ROCEPHIN 1 GM/50 ML D5W 1 GM/50 ML BAG IV SCH (21:29)
[2020-01-20] MEDS: SODIUM CHLORIDE 1,000 ML IV SCH (03:39)
[2020-01-20] MEDS: VENTOLIN HFA (PER PUFF-WITH SPACER) IH SCH ×4 (04:31→19:59)
[2020-01-20] MEDS: ATROVENT HFA INHALER (PER PUFF-WITH SPACER) IH SCH ×4 (04:32→20:00)
[2020-01-20] MEDS: SOLU-CORTEF 100 MG IVP SCH ×3 (05:51→20:49)
[2020-01-20] MEDS: PROTONIX PO SCH ×2 (05:51→17:17)
[2020-01-20] MEDS: SYNTHROID PO SCH (05:51)
[2020-01-20] MEDS: XANAX PO PRN (05:51)
[2020-01-20 05:56] LABS: HEMATOCRIT 32.2 % (37.0-47.0)
[2020-01-20] MEDS: HUMULIN R SUBCUT PRN ×4 (06:22→20:50)
[2020-01-20] MEDS ORDERED: K-DUR PO SCH (08:30)
--- NOTE | 2020-01-20 08:32 | HP ---
DATE OF SERVICE: 01/17/20 HISTORY OF PRESENT ILLNESS: 79-year-old white female who presented to our office on Thursday. She walked in with a urine sample and stated she had had some burning and irritation. Urine was nitrite positive along with multiple leuks, blood and very dark. She was placed on Macrobid 100 b.i.d. for 7 days. Temperature was 98.8 in our office. She stated she had had no fever or chills at home. She was not nauseated. She did state to me that she had some right lower quadrant pain. She said that she has a history of constipation. We had set her up for an outpatient CT scan to be done on Thursday and I instructed her if any fever, nausea or vomiting began or worsening pain that she was to go to the emergency room. On the day of admission, she presented to the emergency room with fever, worsening shortness of breath, generalized weakness and abdominal pain. 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 Weakness. No night sweats. No fatigue, malaise, lethargy. No chills. HEENT: Eyes: No visual changes. No eye pain. No eye discharge. ENT: No runny nose. No epistaxis. No sinus pain. No sore throat. No odynophagia. No ear pain. No congestion. RESPIRATORY: Cough. Shortness of breath as usual. No congestion. No hemoptysis. CARDIOVASCULAR: No angina symptoms. No CHF symptoms. No atypical chest pain for CAD. No palpitations. No PND. No orthopnea. GASTROINTESTINAL: No abdominal pain. No nausea or vomiting. No diarrhea or constipation. No hematemesis. No hematochezia. GENITOURINARY: Positive for dysuria, urinary frequency. MUSCULOSKELETAL: No musculoskeletal pain. No joint swelling. No arthritis. NEUROLOGICAL: No headache. No neck pain. No syncope. No seizures. No dizziness. PSYCHIATRIC: Not anxious. No depression. No suicidal thoughts. No homicidal thoughts. SKIN: No rash. No lesions. No wounds. ENDOCRINE: No unexplained weight loss. No weight gain. HEMATOLOGIC/LYMPHATIC: No anemia. No purpura. No petechiae. No prolonged or excessive bleeding. No palpable lymph nodes. PERSONAL/FAMILY/SOCIAL HISTORY: She lives at home with her . She is a former smoker. No alcohol or ilicit drug use. MEDICATIONS: Duloxetine 60 mg p.o. daily Alprazolam 0.5 mg p.o. b.i.d. p.r.n. Pravastatin 40 mg p.o. bedtime Verapamil 240 mg p.o. bedtime Montelukast 10 mg p.o. daily Tramadol 50 mg p.o. bedtime p.r.n. Stiolto Respimat two puff INH daily daily p.r.n. Gabapentin 1,200 mg p.o. bedtime Meclizine 25 mg p.o. b.i.d. p.r.n. Pantoprazole 40 mg p.o. daily Albuterol Sulfate two puff INH b.i.d. p.r.n. Budesonide 1 mg INH bedtime #30 ml Prednisone 10 mg p.o. daily Acetylcysteine 200 mg/mL INH q.12hr Ipratropium-Albuterol 0.5 mg - 3 mg 3 mL INH q.6h Hydrocodone 10 mg -Chlorpheniramine 8 mg/5 mL oral susp extended release 12 hr, 5 mL p.o. q.12h p.r.n. Levothyroxine 100 mcg p.o. q.day Diclofenac 75 mg p.o. q.day Lisinopril 20 mg-Hydrochlorothiazide 25 mg one tab p.o. q.day Nitrofurantoin Monohyd/m-cryst (Macrobid) 100 mg p.o. b.i.d. ALLERGIES: CODEINE, ERYTHROMYCIN PHYSICAL EXAMINATION: VITAL SIGNS: Temperature 102, heart rate 95, respirations 18, blood pressure 150/63, pulse ox 98%. HEENT: Head normocephalic, atraumatic. Eyes: Extraocular muscles are intact. Pupils are equal, round and reactive to light and accommodation. Ears: No lesions. Nose appeared normal. Throat: No exudate or erythema. NECK: Supple. No JVD, no carotid bruit. No lymphadenopathy or thyromegaly. LUNGS: Diminished breath sounds bilaterally with expiratory bilateral wheezes. Percussion note normal. Chest symmetrical. HEART: S1, S2, no S3. No murmur. No cyanosis or clubbing. No ascites. Pulses: Dorsalis pedis and posterior tibial pulses +1 to +2 bilaterally. ABDOMEN: Right flank pain. Mild suprapubic tenderness. Bowel sounds active. No CVA tenderness. No mass felt. EXTREMITIES: No edema. Full range of motion of all extremities, equal. NEUROLOGIC: No focal deficit. Cranial nerves II through XII are grossly intact. No headache, no double vision or headache. SKIN: Not dry. Intact. Turgor - normal. LYMPHATIC: No palpable lymph nodes/no lymphedema. MUSCULOSKELETAL: Normal joints with no swelling. Muscle tone is normal. LABS/IMAGING: White count 8.5, hemoglobin 12, hematocrit 36.6, platelets 234. Sodium 134, potassium 3.8, BUN 19, creatinine 1.27, glucose 128. AST 23, ALT 18. Urine pH 6.0, 1+ protein, negative glucose, negative ketones, 3+ blood, negative nitrites, 1+ leuks, 2 to 5 microscopic, lactic acid 1.27, procalcitonin 0.06. Covid test was done in the emergency room, results are still pending. CT of the chest shows right lower lobe atelectasis, no superimposed cardiopulmonary process. Partially visualized stone at the level of the right renal pelvis, mild dilatation of the visualized portion of the pelvis. CT of the abdomen and pelvis showed that she had a 1.1 x 1.7 x 1.1 cm right renal pelvis calculus with mild hydronephrosis with mild adajcent fat stranding suggesting inflammation. 3 mm calculus near the right UVJ which appears to be in the bladder 3 mm left UVJ calculus without hydroureter or hydronephrosis. 2.1 cm right lower lobe nodular density which is not well evaluated although this could represent atelectasis. ASSESSMENT: 1. ACUTE PYELONEPHRITIS, BILATERAL NEPHROLITHIASIS 2. COPD WITH ACUTE EXACERBATION 3. SHORTNESS OF BREATH 4. HYPERTENSION PLAN: 1. We will admit. 2. Routine telemetry orders. 3. CBC, CMP daily. 4. Oxygen at 1 to 3L nasal cannula as needed. 5. Regular diet. 6. NS IV at 75 cc/hr. 7. Continue home medications. 8. Start Rocephin 1 gm IV daily along with Azactam IV q.12hr. 9. Urine for culture and sensitivity. 10. Reading 5/325 p.o. b.i.d. for pain. 11. Start Solu-Cortef 125 mg IV q.6hr. 12. Ventolin inhaler 1 to 2 puffs q.4hr p.r.n. 13. Symbicort 160/4.5 two puffs b.i.d. 14. Hold Diclofenac. 15. Again Covid test is pending. The patient is to be in isolation until Covid test results return. I do believe fever is likely due to pyelonephritis and not Covid. She has no known Covid exposure. 16. Will follow closely. TIME SPENT: More than 70 minutes. MTDD
--- NOTE | 2020-01-20 08:46 | PN ---
DATE OF SERVICE: 01/19/20 SUBJECTIVE: The patient has been afebrile. She has had no nausea or vomiting. She is stilling weak. Breathing seems to be a little better. She has been able to eat some. Covid test is still pending. She is still in isolation. Urine culture is still pending as well. She states her pain is better. She has had to take some pain medicine. Slight dysuria but it has improved. The patient states that her urine is still very dark and has some sediment when she goes to the bathroom. REVIEW OF SYSTEMS: CONSTITUTIONAL: Weakness. No night sweats. No fatigue, malaise, lethargy. No fever or chills. HEENT: Eyes: No visual changes. No eye pain. No eye discharge. ENT: No runny nose. No epistaxis. No sinus pain. No sore throat. No odynophagia. No congestion. RESPIRATORY: Shortness of breath. No cough, no congestion. No hemoptysis. CARDIOVASCULAR: No angina symptoms. No CHF symptoms. No atypical chest pain for CAD. No palpitations. No PND. No orthopnea. GASTROINTESTINAL: No abdominal pain. No nausea or vomiting. No diarrhea or constipation. No hematemesis. No hematochezia. GENITOURINARY: Dysuria. No urgency. No frequency. No hematuria. No obstructive symptoms. No discharge. No pain. No significant abnormal bleeding. MUSCULOSKELETAL: No musculoskeletal pain; no joint swelling. NEUROLOGICAL: No headache. No neck pain. No syncope. No seizures. No dizziness. PSYCHIATRIC: Not anxious. No depression. No suicidal thoughts. No homicidal thoughts. SKIN: No rash. No lesions. No wounds. ENDOCRINE: No unexplained weight loss. No weight gain. HEMATOLOGIC/LYMPHATIC: No anemia. No purpura. No petechiae. No prolonged or excessive bleeding. No palpable lymph nodes. PHYSICAL EXAMINATION: HEENT: Head normocephalic, atraumatic. Eyes: Extraocular muscles are intact. Pupils are equal, round and reactive to light and accommodation. Ears: No lesions. Nose appeared normal. Throat: No exudate or erythema. NECK: Supple. No JVD, no carotid bruit. No lymphadenopathy or thyromegaly. LUNGS: Diminished breath sounds with faint expiratory wheezes bilaterally. Percussion note normal. Chest symmetrical. HEART: S1, S2, no S3. No murmurs. No cyanosis or clubbing. No ascites. Pulses: Dorsalis pedis and posterior tibial pulses +1 to +2 bilaterally. ABDOMEN: Soft. Nontender. Bowel sounds active. Jerome mild right CVA tenderness. No mass felt. EXTREMITIES: No edema. Full range of motion of all extremities, equal. NEUROLOGIC: No focal deficit. Cranial nerves II through XII are grossly intact. No headache, no double vision or headache. SKIN: Not dry. Intact. Turgor - normal. LYMPHATIC: No palpable lymph nodes/no lymphedema. MUSCULOSKELETAL: Normal joints with no swelling. Muscle tone is normal. ASSESSMENT: 1. Acute right pyelonephritis. 2. Bilateral renal stones likely moving. 3. COPD exacerbation - improving. 4. Shortness of breath - improved. 5. Hypertension. PLAN: 1. Restart IV fluids as kidney function has slightly increased, creatinine 1.38 and BUN increased by about 18 points so will restart NS at 75 cc/hr. 2. Will start on Flomax 0.4 mg p.o. daily. 3. Continue IV antibiotics. 4. Will monitor urine output. 5. Also her Diclofenac should also be on hold. Since her breathing has improved, will decrease the Solu-Cortef to 100 mg IV q.8. TIME SPENT: More than 30 minutes. Plan and coordination of the patient's care discussed in the presence of nurse. SERGIO
[2020-01-20] MEDS: PYRIDIUM PO SCH ×3 (08:49→20:49)
[2020-01-20] MEDS: FLOMAX PO SCH (08:50)
[2020-01-20] MEDS: CYMBALTA PO SCH (08:50)
[2020-01-20] MEDS: ZESTRIL PO SCH (08:50)
[2020-01-20] MEDS: SINGULAIR PO SCH (08:50)
[2020-01-20] MEDS: HYDROCHLOROTHIAZIDE PO SCH (08:51)
[2020-01-20] MEDS ORDERED: K-DUR PO STA (08:52)
[2020-01-20] MEDS: LOVENOX SUBCUT SCH (08:57)
[2020-01-20] MEDS: SYMBICORT 160-4.5 MCG INHALER IH SCH ×2 (08:59→20:52)
[2020-01-20] MEDS: AZACTAM 1 GM in SODIUM CHLORIDE 50 ML IV SCH ×2 (09:00→20:50)
--- NOTE | 2020-01-20 10:29 | PCM.PROG ---
Attending Provider: ATTENDING PROVIDER: Dr. TESS FREDERICK DATE OF SERVICE: 01/20/20 SUBJECTIVE: This 79 year old /WHITE F was hospitalized 01/17/20 with acute pyelonephritis. The patient had fever and chills. The patient's COVID test is still pending. Condition has improved. REVIEW OF SYSTEMS: CONSTITUTIONAL: No night sweats. No fatigue, malaise, lethargy. No fever or chills. HEENT: Eyes: No visual changes. No eye pain. No eye discharge. ENT: No runny nose. No epistaxis. No sinus pain. No odynophagia. No congestion. RESPIRATORY: No cough, no congestion. No hemoptysis. No shortness of breath. CARDIOVASCULAR: No angina symptoms. No CHF symptoms. No atypical chest pain for CAD. No palpitations. No orthopnea.. GASTROINTESTINAL: No abdominal pain. No nausea or vomiting. No diarrhea or constipation. No hematemesis. No hematochezia. GENITOURINARY: No urgency. No frequency. No dysuria. No hematuria. No obstructive symptoms. No discharge. No pain. No significant abnormal bleeding. MUSCULOSKELETAL: No musculoskeletal pain; no joint swelling. NEUROLOGICAL: Awake, alert, oriented to time, place and person. No headache. No neck pain. No syncope. No seizures. No dizziness. PSYCHIATRIC: Not anxious. No depression. No suicidal thoughts. No homicidal thoughts. SKIN: No rash. No lesions. No wounds. ENDOCRINE: No unexplained weight loss. No weight gain. HEMATOLOGIC/LYMPHATIC: No anemia. No purpura. No petechiae. No prolonged or excessive bleeding. No palpable lymph nodes. PHYSICAL EXAMINATION: GENERAL: The patient is awake, alert and oriented, lying in bed in no distress. VITAL SIGNS: Temperature 97.8 F, Pulse 71, Respiratory Rate 16, BP 117/60, Pulse Ox 99% HEENT: Head normocephalic, atraumatic. Eyes: Extraocular muscles are intact. Pupils are equal, round and reactive to light and accommodation. Ears: No lesions. Nose appeared normal. Throat: No exudate or erythema. NECK: Supple. No JVD, no carotid bruit. No lymphadenopathy or thyromegaly. LUNGS: Decreased breath sounds. Clear to auscultation. Percussion note normal. Chest symmetrical. HEART: S1, S2, no S3. No murmurs. No cyanosis or clubbing. No ascites. Pulses: Dorsalis pedis and posterior tibial pulses +1 to +2 both sides. ABDOMEN: Soft. Non-tender. Bowel sounds active. No CVA tenderness. No mass felt. EXTREMITIES: No edema. Full range of motion of all extremities, equal. NEUROLOGIC: No focal deficit. Cranial nerves II through XII are grossly intact. No headache, no double vision or headache. SKIN: Warm and dry. Intact. Turgor-normal. LYMPHATIC: No palpable lymph nodes/no lymphedema. MUSCULOSKELETAL: Normal joints with no swelling. Muscle tone is normal. LAB REVIEW: 01/20/20 05:40 01/20/20 05:40 01/20/20 05:40: Sodium 139.5, Potassium 3.19 L, Chloride 101.8, Carbon Dioxide 3 5.1 H, Anion Gap 5.79, BUN 33.1 H, Creatinine 1.07, Estimated GFR (MDRD) 50.00, BUN/Creatinine Ratio 30.93, Glucose 173.3 H, Calcium 8.98, Total Bilirubin 0.12 L, AST 19.8, ALT 16.7, Alkaline Phosphatase 46.8 L, Total Protein 5.89 L, Albumin 3.39 L, Globulin 2.50, Albumin/Globulin Ratio 1.35 01/20/20 05:40: WBC 8.70, RBC 3.53 L, Hgb 10.3 L, Hct 32.2 L, MCV 91.2, MCH 29.2, MCHC 32.0, RDW Coeff of [place] 12.7, Plt Count 232, Immature Gran % (Auto) 0.8, Neut % (Auto) 79.6 H, Lymph % (Auto) 14.3, [place] % (Auto) 5.2, Eos % (Auto) 0.0, Baso % (Auto) 0.1, Neut # (Auto) 6.9, Lymph # (Auto) 1.2, [place] # (Auto) 0.5, Eos # (Auto) 0.0, Baso # (Auto) 0.0, Immature Gran # (Auto) 0.1 01/19/20 10:25: Urine Color Yellow, Urine Clarity Cloudy, Urine pH 6.0, Ur Specific [place] 1.025, Urine Protein Trace H, Urine Glucose (UA) Negative, Urine Ketones Negative, Urine Blood 3+ H, Urine Nitrite Negative, Urine Bilirubin Negative, Urine Urobilinogen 0.2, Ur Leukocyte Esterase Negative, Urine Microscopic RBC 50-100, Ur Squamous Epith Cells 2-5 ASSESSMENT: Please see below. 1. Acute Pyelonephritis under control with IV Rocephin and Azactam 2. Kidney stones, one in the bladder and one in the kidney right side 3. Hypokalemia treated with potassium supplements 4. Acute Asthmatic bronchitis with steroids 5. COVID pending 6. Hyperglycemia from steroids being covered with Accu-checks and sliding scale. PLAN: 1. Cardiovascular status stable 2. No evidence of fluid retention Plan and coordination of the patient's care discussed in the presence of Retail Commission Sales Associate and nurse. CONDITION: STABLE SCRIBED BY: Zack GRIFFIN scribed while in presence of service performed by Dr. TESS FREDERICK on 01/20/20 ([id number])
--- NOTE | 2020-01-20 11:07 | PN ---
DATE OF SERVICE: 01/19/2020 SUBJECTIVE: 79 year old white female hospitalized with acute pyelonephritis, renal stone and renal insufficiency, asthmatic bronchitis. The patient's condition has improved. She is on Rocephin, Azactam and steroids. COVID test still pending. The patient was seen and examined with Nurse Practitioner. PHYSICAL EXAMINATION: HEENT: Head normocephalic, atraumatic. Eyes: Extraocular muscles are intact. Pupils are equal, round and reactive to light and accommodation. Ears: No lesions. Nose appeared normal. Throat: No exudate or erythema. NECK: Supple. No JVD, no carotid bruit. No lymphadenopathy or thyromegaly. LUNGS: Clear to auscultation. Percussion note normal. Chest symmetrical. HEART: S1, S2, no S3. No murmurs. No cyanosis or clubbing. No ascites. Pulses: Dorsalis pedis and posterior tibial pulses +1 to +2 bilaterally. ABDOMEN: Soft. Nontender. Bowel sounds active. No CVA tenderness. No mass felt. EXTREMITIES: No edema. Full range of motion of all extremities, equal. NEUROLOGIC: No focal deficit. Cranial nerves II through XII are grossly intact. No headache, no double vision or headache. SKIN: Not dry. Intact. Turgor - normal. LYMPHATIC: No palpable lymph nodes/no lymphedema. MUSCULOSKELETAL: Normal joints with no swelling. Muscle tone is normal. PLAN: 1. Continue the same treatment. TIME SPENT: More than 30 minutes. Plan and coordination of the patient's care discussed in the presence of nurse. SERGIO
--- NOTE | 2020-01-20 11:15 | PN ---
% DATE OF SERVICE: 01/18/2020 SUBJECTIVE: 79 year old white female hospitalized with acute pyelonephritis, renal stone, cough and congestion with bronchitis. The patient has improved remarkably. COVID is pending so she is in isolation. REVIEW OF SYSTEMS: CONSTITUTIONAL: No night sweats. No fatigue, malaise, lethargy. No fever or chills. HEENT: Eyes: No visual changes. No eye pain. No eye discharge. ENT: No runny nose. No epistaxis. No sinus pain. No sore throat. No odynophagia. No congestion. RESPIRATORY: No cough, no congestion. No hemoptysis. No shortness of breath. CARDIOVASCULAR: No angina symptoms. No CHF symptoms. No atypical chest pain for CAD. No palpitations. No PND. No orthopnea. GASTROINTESTINAL: No abdominal pain. No nausea or vomiting. No diarrhea or constipation. No hematemesis. No hematochezia. GENITOURINARY: No urgency. No frequency. No dysuria. No hematuria. No obstructive symptoms. No discharge. No pain. No significant abnormal bleeding. MUSCULOSKELETAL: No musculoskeletal pain; no joint swelling. NEUROLOGICAL: No headache. No neck pain. No syncope. No seizures. No dizziness. PSYCHIATRIC: Not anxious. No depression. No suicidal thoughts. No homicidal thoughts. SKIN: No rash. No lesions. No wounds. ENDOCRINE: No unexplained weight loss. No weight gain. HEMATOLOGIC/LYMPHATIC: No anemia. No purpura. No petechiae. No prolonged or excessive bleeding. No palpable lymph nodes. PHYSICAL EXAMINATION: VITAL SIGNS: Temperature 97.7, pulse 83, respiratory rate 16, blood pressure 125/70 and pulse ox 99% with 2 liters. HEENT: Head normocephalic, atraumatic. Eyes: Extraocular muscles are intact. Pupils are equal, round and reactive to light and accommodation. Ears: No lesions. Nose appeared normal. Throat: No exudate or erythema. NECK: Supple. No JVD, no carotid bruit. No lymphadenopathy or thyromegaly. LUNGS: Decreased breath sounds. Good air entry. Clear to auscultation. Percussion note normal. Chest symmetrical. HEART: S1, S2, no S3. No murmurs. No cyanosis or clubbing. No ascites. Pulses: Dorsalis pedis and posterior tibial pulses +1 to +2 bilaterally. ABDOMEN: Soft. Nontender. Bowel sounds active. No CVA tenderness. No mass felt. EXTREMITIES: No edema. Full range of motion of all extremities, equal. NEUROLOGIC: No focal deficit. Cranial nerves II through XII are grossly intact. No headache, no double vision or headache. SKIN: Not dry. Intact. Turgor - normal. LYMPHATIC: No palpable lymph nodes/no lymphedema. MUSCULOSKELETAL: Normal joints with no swelling. Muscle tone is normal. LABS: Hgb 12.1, hct 37, WBC 5,000 normal differential, creatinine 1.2, BUN 20, potassium 3.8, GFR 40cc per minute. ASSESSMENT: 1. Acute pyelonephritis seems to be under control with IV antibiotics 2. COPD with asthmatic bronchitis, under control 3. Kidney stones doesn't seem to be symptomatic now PLAN: 1. Continue Rocephin and Azactam 2. COVID test pending 3. Continue steroids 4. Continue to monitor accu-checks with coverage CONDITION: Stable. TIME SPENT: More than 30 minutes. Plan and coordination of the patient's care discussed in the presence of nurse. SERGIO
[2020-01-20] MEDS: K-DUR PO SCH ×2 (12:00→17:17)
[2020-01-20] MEDS: NEURONTIN PO SCH (20:49)
[2020-01-20] MEDS: PRAVACHOL PO SCH (20:49)
[2020-01-20] MEDS: CALAN SR PO SCH (20:50)
[2020-01-20] MEDS: ULTRAM PO PRN (20:50)
[2020-01-20] MEDS: ROCEPHIN 1 GM/50 ML D5W 1 GM/50 ML BAG IV SCH (21:48)
[2020-01-21] MEDS: SODIUM CHLORIDE 1,000 ML IV SCH (03:03)
[2020-01-21] MEDS: VENTOLIN HFA (PER PUFF-WITH SPACER) IH SCH ×4 (04:38→20:44)
[2020-01-21] MEDS: ATROVENT HFA INHALER (PER PUFF-WITH SPACER) IH SCH ×4 (04:38→20:45)
[2020-01-21 05:11] LABS: HEMATOCRIT 31.2 % (37.0-47.0)
[2020-01-21] MEDS: XANAX PO PRN (05:37)
[2020-01-21] MEDS: SOLU-CORTEF 100 MG IVP SCH ×2 (05:37→13:13)
[2020-01-21] MEDS: PROTONIX PO SCH ×2 (05:37→17:10)
[2020-01-21] MEDS: SYNTHROID PO SCH (05:37)
[2020-01-21] MEDS: HUMULIN R SUBCUT PRN ×3 (06:17→21:13)
[2020-01-21] MEDS: CYMBALTA PO SCH (09:26)
[2020-01-21] MEDS: FLOMAX PO SCH (09:27)
[2020-01-21] MEDS: K-DUR PO SCH ×3 (09:27→17:10)
[2020-01-21] MEDS: SINGULAIR PO SCH (09:27)
[2020-01-21] MEDS: PYRIDIUM PO SCH ×3 (09:27→21:14)
[2020-01-21] MEDS: ZESTRIL PO SCH (09:28)
[2020-01-21] MEDS: HYDROCHLOROTHIAZIDE PO SCH (09:29)
[2020-01-21] MEDS: AZACTAM 1 GM in SODIUM CHLORIDE 50 ML IV SCH ×2 (09:29→22:43)
[2020-01-21] MEDS: SYMBICORT 160-4.5 MCG INHALER IH SCH ×2 (09:30→21:16)
[2020-01-21] MEDS: LOVENOX SUBCUT SCH (09:31)
[2020-01-21] MEDS: PREDNISONE PO SCH (12:32)
[2020-01-21] MEDS: ROCEPHIN 1 GM/50 ML D5W 1 GM/50 ML BAG IV SCH (21:13)
[2020-01-21] MEDS: NEURONTIN PO SCH (21:14)
[2020-01-21] MEDS: PRAVACHOL PO SCH (21:15)
[2020-01-21] MEDS: CALAN SR PO SCH (21:15)
[2020-01-22 04:42] LABS: HEMATOCRIT 33.2 % (37.0-47.0)
[2020-01-22] MEDS: VENTOLIN HFA (PER PUFF-WITH SPACER) IH SCH ×2 (05:48→09:53)
[2020-01-22] MEDS: ATROVENT HFA INHALER (PER PUFF-WITH SPACER) IH SCH ×2 (05:49→09:55)
[2020-01-22 05:50] VITALS: BP 136/83; TEMP 97.8
[2020-01-22] MEDS: SYNTHROID PO SCH (05:57)
[2020-01-22] MEDS: PROTONIX PO SCH (05:58)
[2020-01-22] MEDS: XANAX PO PRN (06:01)
[2020-01-22] MEDS: HUMULIN R SUBCUT PRN ×2 (06:04→11:29)
[2020-01-22] MEDS: K-DUR PO SCH ×2 (08:48→12:11)
[2020-01-22] MEDS: SYMBICORT 160-4.5 MCG INHALER IH SCH (08:48)
[2020-01-22] MEDS: CYMBALTA PO SCH (08:49)
[2020-01-22] MEDS: FLOMAX PO SCH (08:49)
[2020-01-22] MEDS: PREDNISONE PO SCH (08:49)
[2020-01-22] MEDS: ZESTRIL PO SCH (08:49)
[2020-01-22] MEDS: LOVENOX SUBCUT SCH (08:50)
[2020-01-22] MEDS: AZACTAM 1 GM in SODIUM CHLORIDE 50 ML IV SCH (08:50)
[2020-01-22] MEDS: HYDROCHLOROTHIAZIDE PO SCH (08:50)
[2020-01-22] MEDS: SINGULAIR PO SCH (08:53)
--- NOTE | 2020-01-23 11:42 | PN ---
DATE OF SERVICE: 01/22/2020 DISCHARGE NOTE SUBJECTIVE: 79 year old white female hospitalized on 01/17/2020 with acute pyelonephritis also right uteric colic along with asthmatic bronchitis. Pyelonephritis and acute asthmatic bronchitis both have resolved. Treated with Rocephin and Azactam. The Uteric colic has subsided. The patient has still stone in one of the kidneys, right sided. The patient's overall status has improved remarkably. REVIEW OF SYSTEMS: CONSTITUTIONAL: No night sweats. No fatigue, malaise, lethargy. No fever or chills. HEENT: Eyes: No visual changes. No eye pain. No eye discharge. ENT: No runny nose. No epistaxis. No sinus pain. No sore throat. No odynophagia. No congestion. RESPIRATORY: No cough, no congestion. No hemoptysis. MIld shortness of breath as usual with exertion. CARDIOVASCULAR: No angina symptoms. No CHF symptoms. No atypical chest pain for CAD. No palpitations. No PND. No orthopnea. GASTROINTESTINAL: No abdominal pain. No flank pain. No nausea or vomiting. No diarrhea or constipation. No hematemesis. No hematochezia. Appetite has improved. GENITOURINARY: No urgency. No frequency. No dysuria. No hematuria. No obstructive symptoms. No discharge. No pain. No significant abnormal bleeding. MUSCULOSKELETAL: No musculoskeletal pain; no joint swelling. NEUROLOGICAL: No headache. No neck pain. No syncope. No seizures. No dizziness. PSYCHIATRIC: Not anxious. No depression. No suicidal thoughts. No homicidal thoughts. SKIN: No rash. No lesions. No wounds. ENDOCRINE: No unexplained weight loss. No weight gain. HEMATOLOGIC/LYMPHATIC: No anemia. No purpura. No petechiae. No prolonged or excessive bleeding. No palpable lymph nodes. PHYSICAL EXAMINATION: VITAL SIGNS: Temperature 97.8, pulse 60, respiratory rate 16, blood rpessure 136/80 and pulse ox 99% on 2 liters. HEENT: Head normocephalic, atraumatic. Eyes: Extraocular muscles are intact. Pupils are equal, round and reactive to light and accommodation. Ears: No lesions. Nose appeared normal. Throat: No exudate or erythema. NECK: Supple. No JVD, no carotid bruit. No lymphadenopathy or thyromegaly. LUNGS: Decreased breath sounds but clear to auscultation. Percussion note normal. Chest symmetrical. HEART: S1, S2, no S3. No murmurs. No cyanosis or clubbing. No ascites. Pulses: Dorsalis pedis and posterior tibial pulses +1 to +2 bilaterally. ABDOMEN: Soft. Nontender. Bowel sounds active. No CVA tenderness. No mass felt. EXTREMITIES: No edema. Full range of motion of all extremities, equal. NEUROLOGIC: No focal deficit. Cranial nerves II through XII are grossly intact. No headache, no double vision or headache. SKIN: Not dry. Intact. Turgor - normal. LYMPHATIC: No palpable lymph nodes/no lymphedema. MUSCULOSKELETAL: Normal joints with no swelling. Muscle tone is normal. LABS: Hgb 10.9, hct 33, WBC 7,500 normal differential, creatinine 0.9, BUN 31, potassium 4.4 ASSESSMENT: 1. Acute pyelonephritis seems to have resolved 2. Uteric colic right sided has resolved 3. Acute asthmatic bronchitis has resolved PLAN: 1. The patient is being followed by Dr. Fagan earlier I mentioned it. The patient was followed Dr. Jarrett that was wrong. The patient hasn't been given any Prednisone either by me or by pulmonary physician on regular basis. 2. She is going to be discharged on 5 more days of Antibiotics and steroids. 3. Diclofenac discussed with chronic kidney disease coming from non-steroidal anti-inflammatory and possibility of peptic ulcer disease 4. In the medication list is was mentioned that the patient has Prednisone 10mg 100 tablet on 06/06/2019 which was questioned and the patient states that she does not have more than 10 at a time given by Nurse Practitioner from my office. It could be error by someone who entered this in the computer for [facility]. In any case the patient's condition is stable. Up and about and she is going to be seen back in 7 days. 2DM Mode echo was done on 01/22/2020 which showed enlarged RV cavity and enlarged LA cavity otherwise normal LV contractility and normal valves. CONDITION: Stable. TIME SPENT: More than 30 minutes. Plan and coordination of the patient's care discussed in the presence of nurse. SERGIO
--- NOTE | 2020-01-23 14:45 | PN ---
%.DATE OF SERVICE: 01/21/2020 SUBJECTIVE: 79 year old white female hospitalized with acute pyelonephritis and acute asthmatic bronchitis. Both of the conditions have practically resolved. The patient is afebrile and feeling a lot better. Her COVID test was negative. REVIEW OF SYSTEMS: CONSTITUTIONAL: No night sweats. No fatigue, malaise, lethargy. No fever or chills. HEENT: Eyes: No visual changes. No eye pain. No eye discharge. ENT: No runny nose. No epistaxis. No sinus pain. No sore throat. No odynophagia. No congestion. RESPIRATORY: No cough, no congestion. No hemoptysis. No shortness of breath. CARDIOVASCULAR: No angina symptoms. No CHF symptoms. No atypical chest pain for CAD. No palpitations. No PND. No orthopnea. GASTROINTESTINAL: No abdominal pain. No nausea or vomiting. No diarrhea or constipation. No hematemesis. No hematochezia. GENITOURINARY: No urgency. No frequency. No dysuria. No hematuria. No obstructive symptoms. No discharge. No pain. No significant abnormal bleeding. MUSCULOSKELETAL: No musculoskeletal pain; no joint swelling. NEUROLOGICAL: No headache. No neck pain. No syncope. No seizures. No dizziness. PSYCHIATRIC: Not anxious. No depression. No suicidal thoughts. No homicidal thoughts. SKIN: No rash. No lesions. No wounds. ENDOCRINE: No unexplained weight loss. No weight gain. HEMATOLOGIC/LYMPHATIC: No anemia. No purpura. No petechiae. No prolonged or excessive bleeding. No palpable lymph nodes. PHYSICAL EXAMINATION: VITAL SIGNS: Temperature 98.3, pulse 68, respiratory rate 16, blood pressure 125/68 and pulse ox 9 HEENT: Head normocephalic, atraumatic. Eyes: Extraocular muscles are intact. Pupils are equal, round and reactive to light and accommodation. Ears: No lesions. Nose appeared normal. Throat: No exudate or erythema. NECK: Supple. No JVD, no carotid bruit. No lymphadenopathy or thyromegaly. LUNGS: Decreased breath sounds but clear with mild wheeze. Percussion note normal. Chest symmetrical. HEART: S1, S2, no S3. No murmurs. No cyanosis or clubbing. No ascites. Pulses: Dorsalis pedis and posterior tibial pulses +1 to +2 bilaterally. ABDOMEN: Soft. Nontender. Bowel sounds active. No CVA tenderness. No mass felt. EXTREMITIES: No edema. Full range of motion of all extremities, equal. NEUROLOGIC: No focal deficit. Cranial nerves II through XII are grossly intact. No headache, no double vision or headache. SKIN: Not dry. Intact. Turgor - normal. LYMPHATIC: No palpable lymph nodes/no lymphedema. MUSCULOSKELETAL: Normal joints with no swelling. Muscle tone is normal. LABS: Hgb 10, hct 31, WBC 6,700 normal differential, creatinine 1, BUN 31, potassium 3.5. ASSESSMENT: 1. Acute pyelonephritis, right sided seems to have resolved 2. Nephrolithiasis stable 3. Acute asthmatic bronchitis, resolved 4. Chronic bronchial asthma 5. Hypertension 6. Dyslipidemia 7. Hypothyroidism PLAN: 1. Continue steroids, antibiotics 2. COVID negative 3. Advised pulmonary rehab, declined. Discussed in detail 4. Continue the rest of the medications 5. Maybe discharged tomorrow. CONDITION: Stable, improved TIME SPENT: More than 30 minutes. Plan and coordination of the patient's care discussed in the presence of nurse. SERGIO
--- NOTE | 2020-01-24 08:15 | ECHO2D ---
Date of Exam: 01/22/2020 Ordering Physician: DR. TESS FREDERICK Room #: [id number] Reason for Echo: SOB, RESPIRATORY FAILURE, SEVERE COPD M-Mode Normal Adult Results LV Dimensions Normal Adult Results AoV Opening excursions >1.6 >1.6 LVEDD-base- 3.5-5.8 4.5 Ao root dimensions 2.0-3.7 3.3 LVESD-base- 3.1-4.6 L. Atrium dimensions 1.9-3.8 4.2 Post. Wall thickness 0.8-1.1 0.9 IV septum (thickness) 0.7-1.2 1.9 Post. Wall excursion 0.72-1.3 NORMAL Septal motion NORMAL Systolic motion R. Ventricular cavity 1.5-2.0 3.5 LVEF 60% 68% Paradoxical septal wall motion NORMAL 2-D : 2-D M Mode Echocardiogram was performed using apical four chamber and left parasternal long and short axis views. Mitral, tricuspid and aortic valves appear to be normal. Contractility of the left ventricle seems to be normal, so is the cavity size. ENLARGED LEFT ATRIAL CAVITY. Aortic root appears to be normal. ENLARGED RIGHT VENTRICLE. There is no pericardial effusion. There is no thrombus noted in the left ventricle or left atrial cavity. No mitral valve prolapse noted. M-MODE: MV: NORMAL AV: NORMAL TV: NORMAL PV: NORMAL CHAMBER SIZE: ENLARGED RIGHT VENTRICLE AND LEFT ATRIAL CAVITIES WALL MOTION: NORMAL PERICARDIUM: NORMAL INTERPRETATION: 1. ENLARGED LEFT ATRIAL AND RIGHT VENTRICLE CAVITIES 2. NORMAL VALVES 3. NORMAL LEFT VENTRICULAR CONTRACTILITY 4. DIFFICULT STUDY MTDD
--- NOTE | 2020-01-24 09:01 | PN ---
DATE OF SERVICE: 01/17/20 SUBJECTIVE: The patient was seen and examined in the emergency room. The patient was brought to the emergency room with fever of 102 for a couple of days. The patient is being treated with Macrobid for urinary tract infection. The patient's urine is abnormal. CT scan of the abdomen showed stone has already been through and in the bladder now. The patient had right lower quadrant pain, also in the right pelvis of the kidney seems to be inflamed. The patient's fever is coming very likely from acute pyelonephritis. The patient will be treated with Rocephin and Azactam. The patient is mildly short of breath, rule out Covid. She has chronic bronchitis and will check her for Covid. The patient's CT scan of the chest is practically negative. Blood gases are acceptable with mild c02 retention, pc02 52, p02 62, pH with 89% saturation. The patient will be treated also with steroids. Creatinine 1.2, BUN 18. Will give slow IV hydration. For pain will give 2 mg Morphine Sulfate q.4hr. I talked to the patient and she is oriented to time, place and person, not at all in distress. The was in the room. Covid swab was done. CONDITION: Stable. TIME SPENT: More than 30 minutes. Plan and coordination of the patient's care discussed in the presence of nurse. SERGIO
--- NOTE | 2020-01-24 13:23 | PN ---
DATE OF SERVICE: 01/23/2020 SUBJECTIVE: 2DM Mode echo was done on 01/22/2020 which showed enlarged RV cavity and enlarged LA cavity otherwise normal LV contractility and normal valves. TIME SPENT: More than 30 minutes. Plan and coordination of the patient's care discussed in the presence of nurse. SERGIO
--- NOTE | 2020-01-25 10:24 | DS ---
DATE OF SERVICE: 01/22/2020 FINAL DIAGNOSIS: 1. Acute pyelonephritis, right sided 2. Nephrolithiasis, right 3. Asthmatic bronchitis 4. Severe chronic lung disease with asthma followed by Dr. Eason 5. Dyslipidemia 6. Right sciatica 7. Right elbow arthritis 8. Hyperglycemia mainly with steroids treatments 9. 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 Advised to continue her home medications. Instructed to come back in 7 days for followup. Followup with Dr. Jarrett. 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 The patient is steroid dependant. MEDICATIONS AT DISCHARGE: Xanax Cymbalta Singulair Pravastatin Calan Stiolto Tramadol Gabapentin Pantoprazole Albuterol inhalations Pulmicort Ipratropium-albuterol NEBS Prednisone Hydrocodone Diclofenac three days a week Levothyroxine Lisinopril-Hydrochlorothiazide Nitrofurantoin NEW PRESCRIPTIONS: Keflex 500mg PO TID for 7 days Prednisone two tablets daily for 5 days after that go back on 10mg DIET INSTRUCTIONS: Resume as tolerated ACTIVITY: Resume as tolerated HOSPITAL COURSE: 79 year old white female came to the emergency room with multiple complaints of cough, shortness of breath, right sided pain right lower quadrant along with fever and chills. The patient had acute pyelonephritis right sided with right nephrolithiasis. The patient dropped her ureteric stone into the bladder and the other one is still in the right pelvis of the kidney. The patient was treated with Rocephin and Azactam. Her condition improved. Her asthma also resolved with IV steroids and antibiotics. The patient's COVID test was negative which was done during the stay in the hospital. At the time of discharge the patient's condition was stable. She was up and about in no distress. Sugar was running high which was covered with accu-checks with sliding scale. Hyperglycemia with steroid treatment especially IV. The patient's prognosis guarded. She is strongly advised to followup with Dr. Jarrett. Advised pulmonary rehab which she declined. She is supposed to have an echo before discharge. CONDITION: Stable. TIME SPENT: More than 60 minutes. [facility]
--- NOTE | 2020-01-25 10:25 | PN ---
01/17/2020: Level 5 01/18/2020: Extensive 01/19/2020: Intermediate 01/20/2020: Intermediate 01/21/2020: Intermediate 01/22/2020: D as in discharge MTDD
== END 2020-01-22 12:35 | disposition home or self-care (01) | DRG 191 ==
LOC: ED 19:35 → SCU 21:34
PROVIDERS: ADMIT Internal Medicine; ATTEND Internal Medicine
DX: Z79.899 Other long term (current) drug therapy; E03.9 Hypothyroidism, unspecified; N20.0 Calculus of kidney; R73.9 Hyperglycemia, unspecified; R53.1 Weakness; T38.0X5A Adverse effect of glucocorticoids and synthetic analogues, initial encounter; Z87.442 Personal history of urinary calculi; Z99.81 Dependence on supplemental oxygen; R06.02 Shortness of breath; J45.901 Unspecified asthma with (acute) exacerbation; M15.0 Primary generalized (osteo)arthritis; G62.9 Polyneuropathy, unspecified; M54.31 Sciatica, right side; Z51.81 Encounter for therapeutic drug level monitoring; I10 Essential (primary) hypertension; E87.6 Hypokalemia; J44.1 Chronic obstructive pulmonary disease with (acute) exacerbation; Z03.818 Encounter for observation for suspected exposure to other biological agents ruled out; E78.5 Hyperlipidemia, unspecified; I27.81 Cor pulmonale (chronic); N10 Acute pyelonephritis

== ENCOUNTER 2021-07-26 10:19 | Inpatient (IN) ==
[2021-07-26 10:35] LABS: BORDETELLA PARAPERTUSSIS (PCR) NOT DETECTED (NOT DETECT); BORDETELLA PERTUSSIS (PCR) NOT DETECTED (NOT DETECT); CHLAMYDIA PNEUMONIAE (PCR) NOT DETECTED (NOT DETECT); CORONAVIRUS 229E (PCR) NOT DETECTED (NOT DETECT); CORONAVIRUS HKU1 (PCR) NOT DETECTED (NOT DETECT); CORONAVIRUS NL63 (PCR) NOT DETECTED (NOT DETECT); CORONAVIRUS OC43 (PCR) NOT DETECTED (NOT DETECT); HUMAN METAPNEUMOVIRUS (PCR) NOT DETECTED (NOT DETECT); HUMAN RHINOVIRUS/ENTEROV (PCR) NOT DETECTED (NOT DETECT); INFLUENZA B (PCR) NOT DETECTED (NOT DETECT); MYCOPLASMA PNEUMONIAE (PCR) NOT DETECTED (NOT DETECT); PARAINFLUENZA VIRUS 1 (PCR) NOT DETECTED (NOT DETECT); PARAINFLUENZA VIRUS 2 (PCR) NOT DETECTED (NOT DETECT); PARAINFLUENZA VIRUS 3 (PCR) NOT DETECTED (NOT DETECT); PARAINFLUENZA VIRUS 4 (PCR) NOT DETECTED (NOT DETECT); RESPIRATORY SYNCYTIAL V (PCR) NOT DETECTED (NOT DETECT); SARS_COV_2 (PCR) NOT DETECTED (NOT DETECT)
[2021-07-26 11:23] LABS: ADENOVIRUS (PCR) NOT DETECTED (NOT DETECT)
[2021-07-26] MEDS ORDERED: NITROSTAT SL PRN (13:14)
[2021-07-26] MEDS ORDERED: TYLENOL PO PRN (13:14)
[2021-07-26] MEDS ORDERED: ATROPINE SULFATE PFS IVP PRN (13:14)
[2021-07-26] MEDS ORDERED: LASIX IVP ONE (13:20)
[2021-07-26 13:23] LABS: ABG O2 HGB 95.4 % (95-100); ABG PH 7.43 (7.35-7.45); BEecf 12.2 (-2.0-3.0); COHb 2.4 (0.5-1.5); HCO3 36.5 (21-28); MetHb 0.9 (0-1.5); TCO2 38.2 (19-24); tHb 11.5 g/dl (11.7-17.4)
[2021-07-26 13:36] LABS: BASOPHILS # (AUTO) 0.1 K/uL (0-0.2); BASOPHILS % (AUTO) 0.9 % (0.0-3.0); EOSINOPHILS # (AUTO) 0.4 K/ul (0.0-0.7); EOSINOPHILS % (AUTO) 5.1 % (0.0-7.0); HEMATOCRIT 36.5 % (37.0-47.0); HEMOGLOBIN 11.7 g/dl (12.0-16.0); IMMATURE GRANULOCYTE % (AUTO) 0.2 % (0.0-5.0); LYMPHOCYTES # (AUTO) 2.8 K/uL (0.60-3.4); LYMPHOCYTES % (AUTO) 34.1 (10.0-50.0); MEAN CORPUSCULAR HEMOGLOBIN 28.8 pg (27.0-31.0); MEAN CORPUSCULAR HGB CONC 32.1 (31.8-35.4); MEAN CORPUSCULAR VOLUME 89.9 fl (81.0-99.0); MONOCYTES # (AUTO) 0.6 K/uL (0.4-2.0); MONOCYTES % (AUTO) 6.8 (0-10); NEUTROPHILS # (AUTO) 4.3 K/ul (2.0-6.9); NEUTROPHILS % (AUTO) 52.9 % (42.2-75.2); PLATELET COUNT 260 10^3/uL (140-440); RDW COEFFICIENT OF VARIATION 13.8 % (11.6-14.8); RED BLOOD COUNT 4.06 10^6/ul (4.20-5.40); WHITE BLOOD COUNT 8.19 K/ul (4.6-10.2)
[2021-07-26 13:51] VITALS: BMI 29.9
[2021-07-26 13:53] LABS: ALBUMIN 4.63 g/dL (3.5-5.0); ALKALINE PHOSPHATASE 64.3 U/L (53-141); ASPARTATE AMINO TRANSFERASE 24.8 U/L (14-36); BILIRUBIN,TOTAL 0.52 mg/dL (0.2-1.3); BLOOD UREA NITROGEN 22.2 mg/dL (7-17); CALCIUM 9.71 mg/dL (8.4-10.2); CARBON DIOXIDE 38.3 mmol/L (22-30.0); CHLORIDE 97.8 mmol/L (98-107); CREATINE KINASE 79.8 U/L (30-135); GLUCOSE 161.7 mg/dL (74-106); POTASSIUM 3.71 mmol/L (3.5-5.1); SODIUM 140.8 mmol/L (134.5-145)
[2021-07-26] MEDS: DUONEB NEB SCH ×2 (13:56→21:01)
[2021-07-26 14:32] LABS: TROPONIN I < 0.012 ng/ml (0.0000-0.120)
[2021-07-26] MEDS: ROCEPHIN 1 GM/50 ML D5W 1 GM/50 ML BAG IV SCH (15:06)
[2021-07-26] MEDS: DOXYCYCLINE HYCLATE PO SCH ×2 (15:07→20:31)
[2021-07-26] MEDS: SOLU-CORTEF 250 MG IVP SCH ×2 (15:11→20:31)
--- NOTE | 2021-07-26 15:25 | DI ---
EXAM: One-view chest HISTORY: Cough, shortness of breath TECHNIQUE: Single frontal view the chest was obtained. FINDINGS: The heart is normal size. Lungs are clear. The pulmonary vasculature appears normal. Th e costophrenic angles are sharp. The osseous structures are normal. IMPRESSION: No active cardiopulmonary disease.
[2021-07-26] MEDS ORDERED: VENTOLIN HFA (PER PUFF-WITH SPACER) IH PRN (15:54)
[2021-07-26 16:12] LABS: BILIRUBIN,URINE Negative (NEGATIVE); CLARITY,URINE Clear (CLEAR); COLOR,URINE Yellow (YELLOW); GLUCOSE, URINE (UA) Negative (NEGATIVE); KETONES,URINE Negative (NEGATIVE); LEUKOCYTE ESTERASE ,URINE Negative (NEGATIVE); NITRITE,URINE Negative (NEGATIVE); PH,URINE 6.5 (5-9); PROTEIN,URINE Negative (NEGATIVE); URINE, BLOOD Negative (NEGATIVE); UROBILINOGEN,URINE 0.2 (0.2)
[2021-07-26] MEDS: NEURONTIN PO SCH (20:30)
[2021-07-26] MEDS: PRAVACHOL PO SCH (20:30)
[2021-07-26] MEDS: ULTRAM PO SCH (20:31)
[2021-07-26] MEDS: SINGULAIR PO SCH (20:31)
[2021-07-26 21:37] LABS: CREATINE KINASE 74.1 U/L (30-135)
[2021-07-26 21:54] LABS: TROPONIN I < 0.012 ng/ml (0.0000-0.120)
[2021-07-27] MEDS: DUONEB NEB SCH ×4 (04:50→19:40)
[2021-07-27 05:34] LABS: BASOPHILS # (AUTO) 0.1 K/uL (0-0.2); BASOPHILS % (AUTO) 0.6 % (0.0-3.0); HEMATOCRIT 36.9 % (37.0-47.0); HEMOGLOBIN 11.8 g/dl (12.0-16.0); IMMATURE GRANULOCYTE # (AUTO) 0.1 (0.0-1.0); IMMATURE GRANULOCYTE % (AUTO) 0.6 % (0.0-5.0); LYMPHOCYTES # (AUTO) 1.2 K/uL (0.60-3.4); LYMPHOCYTES % (AUTO) 13.2 (10.0-50.0); MEAN CORPUSCULAR HEMOGLOBIN 28.5 pg (27.0-31.0); MEAN CORPUSCULAR VOLUME 89.1 fl (81.0-99.0); MONOCYTES # (AUTO) 0.3 K/uL (0.4-2.0); MONOCYTES % (AUTO) 3.7 (0-10); NEUTROPHILS # (AUTO) 7.4 K/ul (2.0-6.9); NEUTROPHILS % (AUTO) 81.9 % (42.2-75.2); PLATELET COUNT 267 10^3/uL (140-440); RDW COEFFICIENT OF VARIATION 13.8 % (11.6-14.8); RED BLOOD COUNT 4.14 10^6/ul (4.20-5.40); WHITE BLOOD COUNT 9.03 K/ul (4.6-10.2)
[2021-07-27] MEDS: PROTONIX PO SCH (05:40)
[2021-07-27] MEDS: SYNTHROID PO SCH (05:40)
[2021-07-27 05:51] LABS: ALANINE AMINOTRANSFERASE 20.7 U/L (0-35); ALBUMIN 4.77 g/dL (3.5-5.0); ALKALINE PHOSPHATASE 60.1 U/L (53-141); ASPARTATE AMINO TRANSFERASE 22.2 U/L (14-36); BILIRUBIN,TOTAL 0.44 mg/dL (0.2-1.3); CALCIUM 10.23 mg/dL (8.4-10.2); CARBON DIOXIDE 35.8 mmol/L (22-30.0); CHLORIDE 96.8 mmol/L (98-107); CREATININE 1.35 mg/dL (0.60-1.30); POTASSIUM 3.92 mmol/L (3.5-5.1); SODIUM 139.7 mmol/L (134.5-145); TOTAL PROTEIN 7.43 g/dL (6.3-8.2)
[2021-07-27] MEDS: DOXYCYCLINE HYCLATE PO SCH ×2 (08:54→20:31)
[2021-07-27] MEDS: ZESTRIL PO SCH (08:55)
[2021-07-27] MEDS: NON-FORMULARY MEDICATION (Tiotropium-Olodaterol [Stiolto Respimat] 4 GM mist) IH SCH (08:55)
[2021-07-27] MEDS: CALAN SR PO SCH (08:55)
[2021-07-27] MEDS: CYMBALTA PO SCH (08:55)
[2021-07-27] MEDS: HYDROCHLOROTHIAZIDE PO SCH (08:55)
[2021-07-27] MEDS: ANTIVERT PO SCH (08:55)
[2021-07-27] MEDS: ROCEPHIN 1 GM/50 ML D5W 1 GM/50 ML BAG IV SCH (08:56)
[2021-07-27] MEDS ORDERED: LISINOPRIL HYDROCHLOROTHIAZIDE PO SCH (09:00)
[2021-07-27] MEDS: SOLU-CORTEF 250 MG IVP SCH ×2 (09:25→20:29)
[2021-07-27] MEDS: NEURONTIN PO SCH (20:30)
[2021-07-27] MEDS: PRAVACHOL PO SCH (20:30)
[2021-07-27] MEDS: SINGULAIR PO SCH (20:31)
[2021-07-27] MEDS: ULTRAM PO SCH (20:31)
[2021-07-27] MEDS: XANAX PO PRN (22:41)
[2021-07-28] MEDS: DUONEB NEB SCH ×4 (04:55→19:45)
[2021-07-28 05:37] LABS: BASOPHILS % (AUTO) 0.3 % (0.0-3.0); EOSINOPHILS % (AUTO) 0.1 % (0.0-7.0); IMMATURE GRANULOCYTE # (AUTO) 0.1 (0.0-1.0); IMMATURE GRANULOCYTE % (AUTO) 0.7 % (0.0-5.0); LYMPHOCYTES # (AUTO) 1.5 K/uL (0.60-3.4); LYMPHOCYTES % (AUTO) 16.2 (10.0-50.0); MEAN CORPUSCULAR HEMOGLOBIN 29.1 pg (27.0-31.0); MEAN CORPUSCULAR HGB CONC 32.4 (31.8-35.4); MEAN CORPUSCULAR VOLUME 89.9 fl (81.0-99.0); MONOCYTES # (AUTO) 0.4 K/uL (0.4-2.0); MONOCYTES % (AUTO) 4.3 (0-10); NEUTROPHILS # (AUTO) 7.3 K/ul (2.0-6.9); NEUTROPHILS % (AUTO) 78.4 % (42.2-75.2); PLATELET COUNT 258 10^3/uL (140-440); RDW COEFFICIENT OF VARIATION 14.4 % (11.6-14.8); RED BLOOD COUNT 3.78 10^6/ul (4.20-5.40); WHITE BLOOD COUNT 9.34 K/ul (4.6-10.2)
[2021-07-28 05:53] LABS: ALANINE AMINOTRANSFERASE 18.5 U/L (0-35); ALBUMIN 4.26 g/dL (3.5-5.0); ALKALINE PHOSPHATASE 51.9 U/L (53-141); ASPARTATE AMINO TRANSFERASE 19.8 U/L (14-36); BILIRUBIN,TOTAL 0.36 mg/dL (0.2-1.3); CALCIUM 9.98 mg/dL (8.4-10.2); CARBON DIOXIDE 36.3 mmol/L (22-30.0); CHLORIDE 99.8 mmol/L (98-107); CREATININE 1.33 mg/dL (0.60-1.30); POTASSIUM 3.79 mmol/L (3.5-5.1); SODIUM 140.1 mmol/L (134.5-145); TOTAL PROTEIN 6.77 g/dL (6.3-8.2)
[2021-07-28] MEDS: PROTONIX PO SCH (06:01)
[2021-07-28] MEDS: SYNTHROID PO SCH (06:01)
[2021-07-28] MEDS: CYMBALTA PO SCH (08:42)
[2021-07-28] MEDS: DOXYCYCLINE HYCLATE PO SCH ×2 (08:42→20:45)
[2021-07-28] MEDS: ANTIVERT PO SCH (08:42)
[2021-07-28] MEDS: CALAN SR PO SCH (08:42)
[2021-07-28] MEDS: HYDROCHLOROTHIAZIDE PO SCH (08:42)
[2021-07-28] MEDS: ROCEPHIN 1 GM/50 ML D5W 1 GM/50 ML BAG IV SCH (08:43)
[2021-07-28] MEDS: NON-FORMULARY MEDICATION (Tiotropium-Olodaterol [Stiolto Respimat] 4 GM mist) IH SCH (08:43)
[2021-07-28] MEDS: ZESTRIL PO SCH (08:43)
[2021-07-28] MEDS: SOLU-CORTEF 250 MG IVP SCH ×2 (09:02→20:45)
[2021-07-28] MEDS ORDERED: TUSSIONEX PO STA (18:20)
[2021-07-28] MEDS ORDERED: TUSSIONEX PO PRN (18:20)
[2021-07-28] MEDS: PRAVACHOL PO SCH (20:44)
[2021-07-28] MEDS: ULTRAM PO SCH (20:44)
[2021-07-28] MEDS: NEURONTIN PO SCH (20:45)
[2021-07-28] MEDS: XANAX PO PRN (20:45)
[2021-07-28] MEDS: SINGULAIR PO SCH (20:45)
[2021-07-29] MEDS: DUONEB NEB SCH ×4 (04:50→19:15)
[2021-07-29] MEDS: SYNTHROID PO SCH (05:44)
[2021-07-29] MEDS: PROTONIX PO SCH (05:44)
[2021-07-29 05:52] LABS: BASOPHILS # (AUTO) 0.1 K/uL (0-0.2); BASOPHILS % (AUTO) 0.6 % (0.0-3.0); EOSINOPHILS % (AUTO) 0.1 % (0.0-7.0); HEMATOCRIT 32.3 % (37.0-47.0); HEMOGLOBIN 10.5 g/dl (12.0-16.0); IMMATURE GRANULOCYTE # (AUTO) 0.1 (0.0-1.0); LYMPHOCYTES # (AUTO) 1.7 K/uL (0.60-3.4); LYMPHOCYTES % (AUTO) 19.2 (10.0-50.0); MEAN CORPUSCULAR HEMOGLOBIN 29.6 pg (27.0-31.0); MEAN CORPUSCULAR HGB CONC 32.5 (31.8-35.4); MONOCYTES # (AUTO) 0.4 K/uL (0.4-2.0); MONOCYTES % (AUTO) 4.1 (0-10); NEUTROPHILS # (AUTO) 6.4 K/ul (2.0-6.9); PLATELET COUNT 248 10^3/uL (140-440); RDW COEFFICIENT OF VARIATION 14.2 % (11.6-14.8); RED BLOOD COUNT 3.55 10^6/ul (4.20-5.40); WHITE BLOOD COUNT 8.59 K/ul (4.6-10.2)
[2021-07-29 06:00] LABS: ALANINE AMINOTRANSFERASE 18.5 U/L (0-35); ALBUMIN 4.39 g/dL (3.5-5.0); ALKALINE PHOSPHATASE 51.1 U/L (53-141); ASPARTATE AMINO TRANSFERASE 23.6 U/L (14-36); BILIRUBIN,TOTAL 0.35 mg/dL (0.2-1.3); BLOOD UREA NITROGEN 28.7 mg/dL (7-17); CALCIUM 9.95 mg/dL (8.4-10.2); CHLORIDE 97.4 mmol/L (98-107); CREATININE 1.24 mg/dL (0.60-1.30); GLUCOSE 211.1 mg/dL (74-106); POTASSIUM 3.6 mmol/L (3.5-5.1); TOTAL PROTEIN 6.64 g/dL (6.3-8.2)
--- NOTE | 2021-07-29 09:06 | PCM.PROG ---
Attending Provider: ATTENDING PROVIDER: Dr. TESS FREDERICK This patient is seen with Mary Merritt, Nurse Practitioner. DATE OF SERVICE: 07/29/21 SUBJECTIVE: This 81 year old /WHITE F was hospitalized 07/26/21. The patient is still with shortness of breath and reports feeling a little better. REVIEW OF SYSTEMS: CONSTITUTIONAL: No night sweats. No fatigue, malaise, lethargy. No fever or chills. Weakness. HEENT: Eyes: No visual changes. No eye pain. No eye discharge. ENT: No runny nose. No epistaxis. No sinus pain. No odynophagia. No congestion. RESPIRATORY: Cough, no congestion. No hemoptysis. Shortness of breath. CARDIOVASCULAR: No angina symptoms. No CHF symptoms. No atypical chest pain for CAD. No palpitations. No orthopnea.Wheezing. GASTROINTESTINAL: No abdominal pain. No nausea or vomiting. No diarrhea or constipation. No hematemesis. No hematochezia. GENITOURINARY: No urgency. No frequency. No dysuria. No hematuria. No obstructive symptoms. No discharge. No pain. No significant abnormal bleeding. MUSCULOSKELETAL: No musculoskeletal pain; no joint swelling. NEUROLOGICAL: Awake, alert, oriented to time, place and person. No headache. No neck pain. No syncope. No seizures. No dizziness. PSYCHIATRIC: Not anxious. No depression. No suicidal thoughts. No homicidal thoughts. SKIN: No rash. No lesions. No wounds. ENDOCRINE: No unexplained weight loss. No weight gain. HEMATOLOGIC/LYMPHATIC: No anemia. No purpura. No petechiae. No prolonged or e xcessive bleeding. No palpable lymph nodes. PHYSICAL EXAMINATION: GENERAL: The patient is awake, alert and oriented, sitting in bed in no distress. VITAL SIGNS: Temperature 98.0 F, Pulse 85, Respiratory Rate 18, BP 112/71, Pulse Ox 96% HEENT: Head normocephalic, atraumatic. Eyes: Extraocular muscles are intact. Pupils are equal, round and reactive to light and accommodation. Ears: No lesions. Nose appeared normal. Throat: No exudate or erythema. NECK: Supple. No JVD, no carotid bruit. No lymphadenopathy or thyromegaly. LUNGS: Diminished breath sounds. Clear to auscultation. Percussion note normal. Chest symmetrical. Bilateral wheezing. HEART: S1, S2, no S3. No murmurs. No cyanosis or clubbing. No ascites. Pulses: Dorsalis pedis and posterior tibial pulses +1 to +2 both sides. ABDOMEN: Soft. Non-tender. Bowel sounds active. No CVA tenderness. No mass felt. EXTREMITIES: No edema. Full range of motion of all extremities, equal. NEUROLOGIC: No focal deficit. Cranial nerves II through XII are grossly intact. No headache. No double vision. SKIN: Not dry. Intact. Turgor-normal. LYMPHATIC: No palpable lymph nodes/no lymphedema. MUSCULOSKELETAL: Normal joints with no swelling. Muscle tone is normal. LAB REVIEW: 07/29/21 05:12 07/29/21 05:12 07/29/21 05:12: Sodium 139.0, Potassium 3.60, Chloride 97.4 L, Carbon Dioxide 36.0 H, Anion Gap 9.20, BUN 28.7 H, Creatinine 1.24, Estimated GFR (MDRD) 42.00, BUN/Creatinine Ratio 23.14, Glucose 211.1 H, Calcium 9.95, Total Bilirubin 0.35, AST 23.6, ALT 18.5, Alkaline Phosphatase 51.1 L, Total Protein 6.64, Albumin 4.39, Globulin 2.25, Albumin/Globulin Ratio 1.95 07/29/21 05:12: WBC 8.59, RBC 3.55 L, Hgb 10.5 L, Hct 32.3 L, MCV 91.0, MCH 29.6, MCHC 32.5, RDW Coeff of [place] 14.2, Plt Count 248, Immature Gran % (Auto) 1.0, Neut % (Auto) 75.0, Lymph % (Auto) 19.2, [place] % (Auto) 4.1, Eos % (Auto) 0.1, Baso % (Auto) 0.6, Neut # (Auto) 6.4, Lymph # (Auto) 1.7, Mer[place]ether # (Auto) 0.4, Eos # (Auto) 0.0, Baso # (Auto) 0.1, Immature Gran # (Auto) 0.1 ASSESSMENT: Please see below. 1. Acute COPD exacerbation 2. Asthmatic bronchitis 2. Chronic respiratory failure PLAN: 1. Increased Solu-Cortef 125mg Q 8 hours 2. continues NEBS Plan and coordination of the patient's care discussed in the presence of Pot[employer] Packaging Machine Operator and nurse. SCRIBED BY: GOPAL [employer]ye Bath Operator scribed while in presence of service performed by Dr. Frederick/Mary Merritt APRN on 07/29/21 ([id number])
[2021-07-29] MEDS: CALAN SR PO SCH (09:34)
[2021-07-29] MEDS: ANTIVERT PO SCH (09:35)
[2021-07-29] MEDS: ROCEPHIN 1 GM/50 ML D5W 1 GM/50 ML BAG IV SCH (09:35)
[2021-07-29] MEDS: HYDROCHLOROTHIAZIDE PO SCH (09:35)
[2021-07-29] MEDS: DOXYCYCLINE HYCLATE PO SCH ×2 (09:35→20:43)
[2021-07-29] MEDS: ZESTRIL PO SCH (09:35)
[2021-07-29] MEDS: CYMBALTA PO SCH (09:35)
[2021-07-29] MEDS: NON-FORMULARY MEDICATION (Tiotropium-Olodaterol [Stiolto Respimat] 4 GM mist) IH SCH (09:36)
[2021-07-29] MEDS: SOLU-CORTEF 250 MG IVP SCH ×3 (10:36→21:08)
--- NOTE | 2021-07-29 12:48 | HP ---
DATE OF SERVICE: 07/26/21 REASON FOR HOSPITALIZATION/HISTORY OF PRESENT ILLNESS: The patient complains of shortness of breath with little exertion with cough. The patient had Levaquin and statins times 4 weeks, no change. No symptoms of CHF/CAD. Reviewed all medications. PAST MEDICAL HISTORY: Bronchial asthma COPD Left sciatica Dyslipidemia Hypertension History of kidney stone PAST SURGICAL HISTORY: Total knee replacement bilateral Melanoma times two Colonoscopy 12/11 Dr. Mares Gallbladder REVIEW OF SYSTEMS: CONSTITUTIONAL: No fever, Fatigue. HEENT: No sinus drainage, no sore throat. RESPIRATORY: Cough, no congestion. CARDIOVASCULAR: No atypical chest pain for coronary artery disease. No angina, CHF symptoms, palpitations. Shortness of breath. GASTROINTESTINAL: No melena or abdominal pain. No GERD. GENITOURINARY: No hematuria, no prostatism, no polyuria. CREAM BEATER: No blackout, no dizziness, no headache, no double vision. MUSCULOSKELETAL: Osteoarthritis pain, no joint swelling. ENDOCRINE: No weight loss, Weight gain of 5 pounds. SKIN: Not dry, no rash. PSYCHIATRIC: Not anxious, no depression, no suicidal thoughts, no homicidal thoughts. SOCIAL HISTORY: Marital Status: . Alcohol Usage: No. Tobacco Usage: No. FAMILY HISTORY: Father Mother Brother 2 MEDICATIONS: Albuterol 0.63/3ml PRN Neurontin 600mg PO Xanax 0.5mg BID Synthroid 100mcg daily Tramadol 50mg Pravachol 40mg at HS Singulair 10mg daily HS Lisinopril HCTZ 20/25 daily Cymbalta 60mg daily Verapamil 240mg AM Proair inhaler 2 puffs BID Stiolto two puffs WAM Meclizine daily 25mg Tylenol 650mg PRN Protonix 40mg QAM ALLERGIES: Codeine Erythromycin PHYSICAL EXAMINATION: V/S: Pulse 88, blood pressure 112/58, Temperature 98.4, O2 97% patient on O2 2 liters nasal canula. BMI 30.2, height 5'2 and weight 165.2. GENERAL APPEARANCE: Oriented times three. HEENT: Normal. NECK: No JVP, no bruits. RESPIRATORY: Decreased breath sounds. CARDIOVASCULAR: S1, S2, no S3, no murmur. No cyanosis, clubbing. No ascites. GI/ABDOMEN: No tenderness. Bowel sounds are active. EXTREMITIES: edema, pulses +1, equal. CREAM BEATER: Deep tendon reflexes, sensory, motor and gait all normal. RECTAL: Colonoscopy Dr. Mares 01/04/2021 /PELVIC: Advised yearly. Mammogram 04/16 [facility]. ASSESSMENT: 1. Acute asthmatic bronchitis 2. Chronic respiratory failure 3. COPD, Dr. Fagan on oxygen 4. Status post right hydronephrosis 5. Cor Pulmonale 6. Dyslipidemia 7. Status post right sciatica 8. Chronic kidney disease stage 2-3 9. Bilateral total knee replacement 10.Hypertension 11.Right renal pelvis staghorn calculus status post surgery, right 12.Nephrolithotomy 02/16 13.Bilateral total knee replacement 14.History of nephrolithiasis 15.History of pyelonephritis 16.Hypothyroidism PLAN: 1. Routine telemetry orders- Fully Vaccinated 2. Continue all medications 3. Oxygen 2 liters cannula 4. 1gram Rocephin now and Q 24 hours 5. DUO NEBS QID 6. T4 and TSH 7. ABG now with oxygen 8. Lasix 20mg IV today 9. Echocardiogram 10.Elevate legs 11.Solu-Cortef 125mg IV now and 12 hourly 12.Sputum for culture and sensitivity 13.Doxycycline 100mg PO BID 14.Admit TIME SPENT: More than 70 minutes. MTDD
--- NOTE | 2021-07-29 13:35 | ECHO2D ---
Date of Exam: 07/27/2021 Ordering Physician: DR. TESS FREDERICK Room #: [id number] Reason for Echo: SOB, HX CORPULMONALE M-Mode Normal Adult Results LV Dimensions Normal Adult Results AoV Opening excursions >1.6 >1.6 LVEDD-base- 3.5-5.8 4.0 Ao root dimensions 2.0-3.7 3.1 LVESD-base- 3.1-4.6 L. Atrium dimensions 1.9-3.8 3.9 Post. Wall thickness 0.8-1.1 0.9 IV septum (thickness) 0.7-1.2 0.9 Post. Wall excursion 0.72-1.3 NORMAL Septal motion NORMAL Systolic motion R. Ventricular cavity 1.5-2.0 4.0 LVEF 60% 71% Paradoxical septal wall motion 2-D : 2-D M Mode Echocardiogram was performed using apical four chamber and left parasternal long and short axis views. Mitral, tricuspid and aortic valves appear to be normal. HYPERDYNAMIC SEPTAL WALL. ENLARGED LEFT ATRIAL CAVITY Aortic root appears to be normal. There is no pericardial effusion. There is no thrombus noted in the left ventricle or left atrial cavity. M-MODE: MV: NORMAL AV: NORMAL TV: NORMAL PV: CHAMBER SIZE: ENLARGED RIGHT VENTRICLE CAVITY WALL MOTION: NORMAL PERICARDIUM: NORMAL INTERPRETATION: 1. NORMAL LEFT VENTRICLE SIZE AND CONTRACTILITY 2. ENLARGED RIGHT VENTRICLE SIZE AND HYPERDYNAMIC RIGHT VENTRICLE 3. NORMAL VALVES MTDD
[2021-07-29] MEDS: PRAVACHOL PO SCH (20:43)
[2021-07-29] MEDS: ULTRAM PO SCH (20:43)
[2021-07-29] MEDS: NEURONTIN PO SCH (20:43)
[2021-07-29] MEDS: XANAX PO PRN (20:52)
[2021-07-29] MEDS: SINGULAIR PO SCH (20:52)
[2021-07-29 21:15] VITALS: TEMP 97.9
[2021-07-30] MEDS: DUONEB NEB SCH ×2 (04:50→10:15)
[2021-07-30 05:10] LABS: BASOPHILS % (AUTO) 0.2 % (0.0-3.0); EOSINOPHILS % (AUTO) 0.1 % (0.0-7.0); HEMATOCRIT 33.3 % (37.0-47.0); HEMOGLOBIN 10.9 g/dl (12.0-16.0); IMMATURE GRANULOCYTE # (AUTO) 0.1 (0.0-1.0); IMMATURE GRANULOCYTE % (AUTO) 1.5 % (0.0-5.0); LYMPHOCYTES # (AUTO) 1.5 K/uL (0.60-3.4); LYMPHOCYTES % (AUTO) 15.3 (10.0-50.0); MEAN CORPUSCULAR HEMOGLOBIN 29.7 pg (27.0-31.0); MEAN CORPUSCULAR HGB CONC 32.7 (31.8-35.4); MEAN CORPUSCULAR VOLUME 90.7 fl (81.0-99.0); MONOCYTES # (AUTO) 0.4 K/uL (0.4-2.0); MONOCYTES % (AUTO) 4.6 (0-10); NEUTROPHILS # (AUTO) 7.5 K/ul (2.0-6.9); NEUTROPHILS % (AUTO) 78.3 % (42.2-75.2); PLATELET COUNT 249 10^3/uL (140-440); RDW COEFFICIENT OF VARIATION 14.2 % (11.6-14.8); RED BLOOD COUNT 3.67 10^6/ul (4.20-5.40); WHITE BLOOD COUNT 9.55 K/ul (4.6-10.2)
[2021-07-30 05:21] VITALS: BP 127/82
[2021-07-30 05:22] LABS: ALANINE AMINOTRANSFERASE 19.6 U/L (0-35); ALBUMIN 4.21 g/dL (3.5-5.0); ALKALINE PHOSPHATASE 53.7 U/L (53-141); ASPARTATE AMINO TRANSFERASE 20.4 U/L (14-36); BILIRUBIN,TOTAL 0.34 mg/dL (0.2-1.3); CALCIUM 9.78 mg/dL (8.4-10.2); CARBON DIOXIDE 36.8 mmol/L (22-30.0); CHLORIDE 98.9 mmol/L (98-107); CREATININE 1.4 mg/dL (0.60-1.30); GLUCOSE 218.9 mg/dL (74-106); POTASSIUM 3.35 mmol/L (3.5-5.1); SODIUM 140.4 mmol/L (134.5-145); TOTAL PROTEIN 6.55 g/dL (6.3-8.2)
[2021-07-30] MEDS: SYNTHROID PO SCH (05:51)
[2021-07-30] MEDS: PROTONIX PO SCH (05:51)
[2021-07-30] MEDS: SOLU-CORTEF 250 MG IVP SCH ×2 (05:52→12:03)
--- NOTE | 2021-07-30 08:43 | PCM.PROG ---
Attending Provider: ATTENDING PROVIDER: Dr. TESS ONTIVEROS This patient is seen with Mary Merritt, Nurse Practitioner. DATE OF SERVICE: 07/30/21 SUBJECTIVE: This 81 year old /WHITE F was hospitalized 07/26/21. Shortness of breath has improved. She is ready to discharge home today. Eating well. REVIEW OF SYSTEMS: CONSTITUTIONAL: No night sweats. No fatigue, malaise, lethargy. No fever or chills. HEENT: Eyes: No visual changes. No eye pain. No eye discharge. ENT: No runny nose. No epistaxis. No sinus pain. No odynophagia. No congestion. RESPIRATORY: Cough, no congestion. No hemoptysis. Shortness of breath. Wheezing. CARDIOVASCULAR: No angina symptoms. No CHF symptoms. No atypical chest pain for CAD. No palpitations. No orthopnea.. GASTROINTESTINAL: No abdominal pain. No nausea or vomiting. No diarrhea or constipation. No hematemesis. No hematochezia. GENITOURINARY: No urgency. No frequency. No dysuria. No hematuria. No obstructive symptoms. No discharge. No pain. No significant abnormal bleeding. MUSCULOSKELETAL: No musculoskeletal pain; no joint swelling. NEUROLOGICAL: Awake, alert, oriented to time, place and person. No headache. No neck pain. No syncope. No seizures. No dizziness. PSYCHIATRIC: Not anxious. No depression. No suicidal thoughts. No homicidal thoughts. SKIN: No rash. No lesions. No wounds. ENDOCRINE: No unexplained weight loss. No weight gain. HEMATOLOGIC/LYMPHATIC: No anemia. No purpura. No petechiae. No prolonged or excessive bleeding. No palpable lymph nodes. PHYSICAL EXAMINATION: GENERAL: The patient is awake, alert and oriented, sitting in bed in no distress. VITAL SIGNS: Temperature 97.9 F, Pulse 87, Respiratory Rate 18, BP 127/82, Pulse Ox 98% HEENT: Head normocephalic, atraumatic. Eyes: Extraocular muscles are intact. Pupils are equal, round and reactive to light and accommodation. Ears: No lesions. Nose appeared normal. Throat: No exudate or erythema. NECK: Supple. No JVD, no carotid bruit. No lymphadenopathy or thyromegaly. LUNGS: Diminished breath sounds. Bilateral expiratory wheezing. Clear to auscultation. Percussion note normal. Chest symmetrical. HEART: S1, S2, no S3. No murmurs. No cyanosis or clubbing. No ascites. Pulses: Dorsalis pedis and posterior tibial pulses +1 to +2 both sides. ABDOMEN: Soft. Non-tender. Bowel sounds active. No CVA tenderness. No mass felt. EXTREMITIES: No edema. Full range of motion of all extremities, equal. NEUROLOGIC: No focal deficit. Cranial nerves II through XII are grossly intact. No headache. No double vision. SKIN: Not dry. Intact. Turgor-normal. LYMPHATIC: No palpable lymph nodes/no lymphedema. MUSCULOSKELETAL: Normal joints with no swelling. Muscle tone is normal. LAB REVIEW: 07/30/21 04:46 07/30/21 04:46 07/30/21 04:46: Sodium 140.4, Potassium 3.35 L, Chloride 98.9, Carbon Dioxide 36.8 H, Anion Gap 8.05, BUN 31.0 H, Creatinine 1.40 H, Estimated GFR (MDRD) 36.00, BUN/Creatinine Ratio 22.14, Glucose 218.9 H, Calcium 9.78, Total Bilirubin 0.34, AST 20.4, ALT 19.6, Alkaline Phosphatase 53.7, Total Protein 6.55, Albumin 4.21, Globulin 2.34, Albumin/Globulin Ratio 1.79 07/30/21 04:46: WBC 9.55, RBC 3.67 L, Hgb 10.9 L, Hct 33.3 L, MCV 90.7, MCH 29.7, MCHC 32.7, RDW Coeff of [place] 14.2, Plt Count 249, Immature Gran % (Auto) 1.5, Neut % (Auto) 78.3 H, Lymph % (Auto) 15.3, Dixie % (Auto) 4.6, Eos % (Auto) 0.1, Baso % (Auto) 0.2, Neut # (Auto) 7.5 H, Lymph # (Auto) 1.5, Dixie # (Auto) 0.4, Eos # (Auto) 0.0, Baso # (Auto) 0.0, Immature Gran # (Auto) 0.1 ASSESSMENT: Please see below. 1. Chronic respiratory failure 2. Acute COPD exacerbation 3. Asthmatic bronchitis PLAN: 1. Prednisone 20mg TID times two days and BID times three days and daily for days. 2. Refill Albuterol NEBS 3. Discharge home 4. Omnicef 300mg BID for 7 days 5. Tussionex one teaspoon BID PRN 6. 40meq Potassium prior to discharge 7. The patient has followup with Dr. lyon later this month Plan and coordination of the patient's care discussed in the presence of Overweaver and nurse. SCRIBED BY: Zack GRIFFIN scribed while in presence of service performed by Dr. Ontiveros/Mary Merritt APRN on 07/30/21 ([id number])
[2021-07-30] MEDS ORDERED: K-DUR PO ONE (09:00)
[2021-07-30] MEDS: DOXYCYCLINE HYCLATE PO SCH (09:17)
[2021-07-30] MEDS: NON-FORMULARY MEDICATION (Tiotropium-Olodaterol [Stiolto Respimat] 4 GM mist) IH SCH (09:18)
[2021-07-30] MEDS: ZESTRIL PO SCH (09:18)
[2021-07-30] MEDS: CALAN SR PO SCH (09:18)
[2021-07-30] MEDS: HYDROCHLOROTHIAZIDE PO SCH (09:18)
[2021-07-30] MEDS: CYMBALTA PO SCH (09:18)
[2021-07-30] MEDS: ANTIVERT PO SCH (09:18)
[2021-07-30] MEDS ORDERED: ULTRAM PO SCH (21:00)
--- NOTE | 2021-07-31 09:54 | PN ---
DATE OF SERVICE: 07/29/21 SUBJECTIVE: The patient was seen and examined with the Nurse Practitioner. Her condition has improved. Breathing is somewhat better still has expiratory wheeze. The patient was put on Tussionex. She has tolerated it okay. TIME SPENT: More than 30 minutes. Plan and coordination of the patient's care discussed in the presence of nurse. SERGIO
--- NOTE | 2021-07-31 09:57 | PN ---
DATE OF SERVICE: 07/30/21 SUBJECTIVE: The patient was seen and examined with the Nurse Practitioner. The patient is stable. Her chronic respiratory failure is stable. She has chronic asthmatic bronchitis end stage. She is going to be discharged home on higher dose of steroids, tapering for 15 days. Side effects of steroids discussed including avascular necrosis of the hip bones. We will do PFT before discharge. The patient's discharge summary tool, medications reviewed. CONDITION: Stable PROGNOSIS: Not good TIME SPENT: More than 30 minutes. Plan and coordination of the patient's care discussed in the presence of nurse. SERGIO
--- NOTE | 2021-07-31 09:58 | PN ---
07/26/21: Level 5 07/27/21: Intermediate 07/28/21: Intermediate 07/29/21: Intermediate 07/30/21: D as in discharge MTDD
--- NOTE | 2021-07-31 11:38 | PN ---
DATE OF SERVICE: 07/27/21 SUBJECTIVE: 81 year old white female hospitalized with asthmatic bronchitis, chronic respiratory failure and COPD. She has noticed some improvement, still short of breath on minimal exertion. The is present in the room. REVIEW OF SYSTEMS: CONSTITUTIONAL: No night sweats. No fatigue, malaise, lethargy. No fever or chills. HEENT: Eyes: No visual changes. No eye pain. No eye discharge. ENT: No runny nose. No epistaxis. No sinus pain. No sore throat. No odynophagia. No congestion. RESPIRATORY: No cough, no congestion. No hemoptysis. Shortness of breath on minimal exertion. CARDIOVASCULAR: No angina symptoms. No CHF symptoms. No atypical chest pain for CAD. No palpitations. No PND. No orthopnea. GASTROINTESTINAL: No abdominal pain. No nausea or vomiting. No diarrhea or constipation. No hematemesis. No hematochezia. GENITOURINARY: No urgency. No frequency. No dysuria. No hematuria. No obstructive symptoms. No discharge. No pain. No significant abnormal bleeding. MUSCULOSKELETAL: No musculoskeletal pain; no joint swelling. NEUROLOGICAL: No headache. No neck pain. No syncope. No seizures. No dizziness. PSYCHIATRIC: Not anxious. No depression. No suicidal thoughts. No homicidal thoughts. SKIN: No rash. No lesions. No wounds. ENDOCRINE: No unexplained weight loss. No weight gain. HEMATOLOGIC/LYMPHATIC: No anemia. No purpura. No petechiae. No prolonged or excessive bleeding. No palpable lymph nodes. PHYSICAL EXAMINATION: VITAL SIGNS: Temperature 98, pulse 100, respiratory rate 18, blood pressure 124/76 and pulse ox 99% on 2 liters of oxygen per cannula per minute. HEENT: Head normocephalic, atraumatic. Eyes: Extraocular muscles are intact. Pupils are equal, round and reactive to light and accommodation. Ears: No lesions. Nose appeared normal. Throat: No exudate or erythema. NECK: Supple. No JVD, no carotid bruit. No lymphadenopathy or thyromegaly. LUNGS: Decreased breath sounds. Good air entry. Mild expiratory wheeze. Clear to auscultation. Percussion note normal. Chest symmetrical. HEART: S1, S2, no S3. No murmurs. No cyanosis or clubbing. No ascites. Pulses: Dorsalis pedis and posterior tibial pulses +1 to +2 bilaterally. ABDOMEN: Soft. Nontender. Bowel sounds active. No CVA tenderness. No mass felt. Decreased AP diameter of the chest more or less like a barrel chest from emphysema. EXTREMITIES: No edema. Full range of motion of all extremities, equal. NEUROLOGIC: No focal deficit. Cranial nerves II through XII are grossly intact. No headache. No double vision. SKIN: Not dry. Intact. Turgor - normal. LYMPHATIC: No palpable lymph nodes/no lymphedema. MUSCULOSKELETAL: Normal joints with no swelling. Muscle tone is normal. LABS: Hgb 11.8, hct 36, WBC 9,000 normal differential, creatinine 1.3, BUN 27, potassium 3.9. glucose 222 ASSESSMENT: 1. Respiratory failure 2. Acute asthmatic bronchitis 3. Hypothyroidism 4. Hypertension 5. Dyslipidemia 6. Generalized anxiety disorder 7. Neuropathy 8. Hyperglycemia from steroids PLAN: 1. Continue all the medication as before 2. Continue IV steroids Solu-Cortef 3. Continue Rocephin and Doxycycline 4. DUO NEBS to be continued 5. The patient had echocardiogram done which showed hyperdynamic right ventricle, normal LV contractility, enlarged RV cavity. Discussed with the patient that the contribution to heart and shortness of breath is minimal. Right ventricular cavity enlargement is from here severe chronic lung disease, chronic bronchitis and I told her that BMI of 30, if she loses 20-25 pounds that would help. Also pulmonary rehab should help. TIME SPENT: More than 30 minutes. Plan and coordination of the patient's care discussed in the presence of nurse. SERGIO
--- NOTE | 2021-07-31 11:51 | PN ---
DATE OF SERVICE: 07/28/21 SUBJECTIVE: 81 year old white female hospitalized with asthmatic bronchitis. The patient's condition is more or less stable with chronic respiratory failure. Still gets cough with congestion. Cough is nonproductive. in the room explained about the echo findings that were done yesterday with enlarged right ventricular cavity with right ventricular dysfunction based on lung disease. REVIEW OF SYSTEMS: CONSTITUTIONAL: No night sweats. No fatigue, malaise, lethargy. No fever or chills. HEENT: Eyes: No visual changes. No eye pain. No eye discharge. ENT: No runny nose. No epistaxis. No sinus pain. No sore throat. No odynophagia. No congestion. RESPIRATORY: No cough, no congestion. No hemoptysis. Shortness of breath on minimal exertion. CARDIOVASCULAR: No angina symptoms. No CHF symptoms. No atypical chest pain for CAD. No palpitations. No PND. No orthopnea. GASTROINTESTINAL: No abdominal pain. No nausea or vomiting. No diarrhea or constipation. No hematemesis. No hematochezia. GENITOURINARY: No urgency. No frequency. No dysuria. No hematuria. No obstructive symptoms. No discharge. No pain. No significant abnormal bleeding. MUSCULOSKELETAL: No musculoskeletal pain; no joint swelling. NEUROLOGICAL: No headache. No neck pain. No syncope. No seizures. No dizziness. PSYCHIATRIC: Not anxious. No depression. No suicidal thoughts. No homicidal thoughts. SKIN: No rash. No lesions. No wounds. ENDOCRINE: No unexplained weight loss. No weight gain. HEMATOLOGIC/LYMPHATIC: No anemia. No purpura. No petechiae. No prolonged or excessive bleeding. No palpable lymph nodes. PHYSICAL EXAMINATION: VITAL SIGNS: Temperature 98.7, pulse 96, respiratory rate 18, blood pressure 138/74 and pulse ox 97%. HEENT: Head normocephalic, atraumatic. Eyes: Extraocular muscles are intact. Pupils are equal, round and reactive to light and accommodation. Ears: No lesions. Nose appeared normal. Throat: No exudate or erythema. NECK: Supple. No JVD, no carotid bruit. No lymphadenopathy or thyromegaly. LUNGS: Decreased breath sounds with expiratory wheeze. Clear to auscultation. Percussion note normal. Chest symmetrical. HEART: S1, S2, no S3. No murmurs. No cyanosis or clubbing. No ascites. Pulses: Dorsalis pedis and posterior tibial pulses +1 to +2 bilaterally. ABDOMEN: Soft. Nontender. Bowel sounds active. No CVA tenderness. No mass felt. EXTREMITIES: No edema. Full range of motion of all extremities, equal. NEUROLOGIC: No focal deficit. Cranial nerves II through XII are grossly intact. No headache. No double vision. SKIN: Not dry. Intact. Turgor - normal. LYMPHATIC: No palpable lymph nodes/no lymphedema. MUSCULOSKELETAL: Normal joints with no swelling. Muscle tone is normal. LABS: Hgb 11, hct 34, WBC 9,300 normal differential, creatinine 1.3, BUN 28, potassium 3.7 ASSESSMENT: 1. Acute asthmatic bronchitis, improving very slowly PLAN: 1. Continue antibiotics, steroids and NEBS 2. Tussionex. The patient's codeine allergy she says is questionable. One time she had Flu along time ago and she was given Codeine and Azithromycin and the Flu didn't get better so listed Codeine as an allergy. She did not have any rash or any other problems happened with codeine. Put the patient on Daliresp. 3. Pulmonary rehab discussed with the patient. The patient is also being followed by pulmonary physician. CONDITION: Stable. TIME SPENT: More than 30 minutes. Plan and coordination of the patient's care discussed in the presence of nurse. SERGIO
--- NOTE | 2021-08-20 11:17 | DS ---
DATE OF SERVICE: 07/30/21 FINAL DIAGNOSIS: 1. Chronic respiratory failure 2. Acute COPD exacerbation 3. Asthmatic bronchitis DISCHARGE INSTRUCTIONS: Discharge home today. Followup to see Dr. Ontiveros/Mary Merritt APRN/Armida Luna APRN in office ThursdayAugust 06 at 10:30. MEDICATIONS AT DISCHARGE: Cymbalta 60mg PO QAM Xanax 0.5mg PO BID PRN Pravastatin 40mg PO BEDTIME Calan SE 340mg PO QAM Singulair 10mg PO BEDTIME Ultram 50mg PO BEDTIME Stiolto Respimat two puffs QAM Neurontin 1200mg PO BEDTIME Meclizine 25mg PO QAM Protonix 40mg PO QDAC ProAir 2 puffs inhalation BID PRN Levothyroxine 100mcg PO QDAC Lisinopril 20mg Hydrochlorothiazide 25mg one tablet PO QAM NEW PRESCRIPTIONS: Albuterol sulfate 2.5mg inhalation QID Cefdinir 300mg PO BID Hydrocodone-Chlorpheniramine 5ml PO Q 12 hours Prednisone 20mg PO Per PKG DISCONTINUED MEDICATIONS: Ipratropium Albuterol Albuterol Sulfate DIET INSTRUCTIONS: Resume your normal diet as tolerated. ACTIVITY: Please resume your normal activity as tolerated. Be sure to wear nasal oxygen cannula at home. HOSPITAL COURSE: 81 year old white female who presented to our office with shortness with little exertion and cough. She has had Levaquin and steroids at home with no change. Oxygen saturation is 97% in the office on 2 liters. She has chronic respiratory failure. She was admitted and placed on Rocephin 1 gram IV daily along with DUO NEBS QID and Sanna-Cortef 125mg IV Q 12 hours. Lasix 20mg IV was given. ABGs were drawn with oxygen. Over the course of the next couple of days her shortness of breath with slightly improve. She is followed by a deckhand engineer Dr. Fagan. She does have end stage COPD. Dr. Ontiveros performed an Echo which showed an enlarged left ventricle cavity, normal left ventricle size and hyperdynamic right ventricle all due to respiratory status. Chest x-ray was normal and showed no acute process likely pneumonia so this was an acute COPD exacerbation. Vital signs remained stable while she was here. ABGs were normal for her. She does have chronic CO2 retention. Again she did slightly improve with antibiotics and IV steroids. We will send her home on a high tapering dose on steroids. She will have Prednisone 20mg three times a day for 3 and then 20mg BID for three days and then daily for 3 days. She will start Omnicef 300mg BID for the next 7 days. She has an nebulizer machine at home which is to continue albuterol NEBS four times a day. She has Pulmicort at home which I have instructed her to do twice daily for the next couple weeks then she can go back down to once daily. We are going to give her some Tussionex 5ml at night. She has an appointment with Dr. Fagan within the next month, we told her that she needs to followup with him however I do believe that this is just an exacerbation of her chronic COPD which is unfortunately is not going to improve as time goes one. She understand this. We are discharging her in stable condition. We will followup with her next week. TIME SPENT: More than 60 minutes. SERGIO
== END 2021-07-30 12:15 | disposition home or self-care (01) | DRG 202 ==
LOC: LAB 10:19 → MEDSURG A 12:28
PROVIDERS: ADMIT Internal Medicine; ATTEND Internal Medicine
DX: F41.9 Anxiety disorder, unspecified; Z79.899 Other long term (current) drug therapy; J45.901 Unspecified asthma with (acute) exacerbation; E03.9 Hypothyroidism, unspecified; I10 Essential (primary) hypertension; J44.1 Chronic obstructive pulmonary disease with (acute) exacerbation; E78.5 Hyperlipidemia, unspecified; Z51.81 Encounter for therapeutic drug level monitoring; G62.9 Polyneuropathy, unspecified; J96.10 Chronic respiratory failure, unspecified whether with hypoxia or hypercapnia; I27.81 Cor pulmonale (chronic); Z20.822 Contact with and (suspected) exposure to COVID-19; Z99.81 Dependence on supplemental oxygen; R73.9 Hyperglycemia, unspecified; I51.7 Cardiomegaly

== ENCOUNTER 2021-10-07 09:44 | Inpatient (IN) ==
[2021-10-07] MEDS ORDERED: DUONEB NEB STA (09:52)
[2021-10-07] MEDS: SOLU-MEDROL 125 MG IVP STA ×2 (09:58→11:56)
[2021-10-07 10:05] LABS: BORDETELLA PARAPERTUSSIS (PCR) NOT DETECTED (NOT DETECT); BORDETELLA PERTUSSIS (PCR) NOT DETECTED (NOT DETECT); CHLAMYDIA PNEUMONIAE (PCR) NOT DETECTED (NOT DETECT); HUMAN RHINOVIRUS/ENTEROV (PCR) NOT DETECTED (NOT DETECT); INFLUENZA B (PCR) NOT DETECTED (NOT DETECT); MYCOPLASMA PNEUMONIAE (PCR) NOT DETECTED (NOT DETECT); PARAINFLUENZA VIRUS 1 (PCR) NOT DETECTED (NOT DETECT); PARAINFLUENZA VIRUS 2 (PCR) NOT DETECTED (NOT DETECT); PARAINFLUENZA VIRUS 3 (PCR) NOT DETECTED (NOT DETECT); PARAINFLUENZA VIRUS 4 (PCR) NOT DETECTED (NOT DETECT); RESPIRATORY SYNCYTIAL V (PCR) NOT DETECTED (NOT DETECT)
[2021-10-07 10:07] LABS: CORONAVIRUS 229E (PCR) NOT DETECTED (NOT DETECT); CORONAVIRUS HKU1 (PCR) NOT DETECTED (NOT DETECT); CORONAVIRUS NL63 (PCR) NOT DETECTED (NOT DETECT); CORONAVIRUS OC43 (PCR) NOT DETECTED (NOT DETECT); HUMAN METAPNEUMOVIRUS (PCR) NOT DETECTED (NOT DETECT); SARS_COV_2 (PCR) NOT DETECTED (NOT DETECT)
[2021-10-07 10:08] LABS: ABG O2 HGB 91.6 % (95-100); ABG PH 7.42 (7.35-7.45); BEecf 12.5 (-2.0-3.0); MetHb 1.3 (0-1.5); TCO2 38.7 (19-24); sO2 91.5 % (94-98); tHb 11.5 g/dl (11.7-17.4)
[2021-10-07 10:09] LABS: BASOPHILS % (AUTO) 0.3 % (0.0-3.0); EOSINOPHILS % (AUTO) 0.1 % (0.0-7.0); HEMATOCRIT 37.2 % (37.0-47.0); HEMOGLOBIN 11.9 g/dl (12.0-16.0); IMMATURE GRANULOCYTE # (AUTO) 0.1 (0.0-1.0); IMMATURE GRANULOCYTE % (AUTO) 0.6 % (0.0-5.0); LYMPHOCYTES # (AUTO) 1.2 K/uL (0.60-3.4); LYMPHOCYTES % (AUTO) 11.1 (10.0-50.0); MEAN CORPUSCULAR HEMOGLOBIN 29.2 pg (27.0-31.0); MEAN CORPUSCULAR VOLUME 91.2 fl (81.0-99.0); MONOCYTES % (AUTO) 9.6 (0-10); NEUTROPHILS # (AUTO) 8.1 K/ul (2.0-6.9); NEUTROPHILS % (AUTO) 78.3 % (42.2-75.2); PLATELET COUNT 247 10^3/uL (140-440); RDW COEFFICIENT OF VARIATION 12.7 % (11.6-14.8); RED BLOOD COUNT 4.08 10^6/ul (4.20-5.40); WHITE BLOOD COUNT 10.33 K/ul (4.6-10.2)
--- NOTE | 2021-10-07 10:23 | DI ---
EXAM: Chest one-view. HISTORY: Short of breath. COMPARISON: 07/26/2021 chest x-ray. FINDINGS: The lungs are clear. The cardiac silhouette is normal in size. There is no pulmonary ed adri present. There is no pleural effusion identified. There is no acute osseous abnormality. IMPRESSION: No acute cardiopulmonary process.
[2021-10-07 10:26] LABS: ALANINE AMINOTRANSFERASE 17.7 U/L (0-35); ALBUMIN 4.59 g/dL (3.5-5.0); ALKALINE PHOSPHATASE 78.2 U/L (53-141); ASPARTATE AMINO TRANSFERASE 28.7 U/L (14-36); BILIRUBIN,TOTAL 0.44 mg/dL (0.2-1.3); BLOOD UREA NITROGEN 16.6 mg/dL (7-17); CALCIUM 9.32 mg/dL (8.4-10.2); CARBON DIOXIDE 36.1 mmol/L (22-30.0); CHLORIDE 94.3 mmol/L (98-107); CREATININE 1.35 mg/dL (0.60-1.30); GLUCOSE 162.2 mg/dL (74-106); POTASSIUM 3.73 mmol/L (3.5-5.1); SODIUM 137.6 mmol/L (134.5-145); TOTAL PROTEIN 7.49 g/dL (6.3-8.2)
--- NOTE | 2021-10-07 10:51 | ED.PDOC ---
General <DONNA FRIAS MD - Last Filed: 10/09/21 09:09> ED Provider: Dr. DONNA FRIAS Chief Complaint: Respiratory Complaint Stated Complaint: patient is a 81 year old female who has a history of COPD comes to the ER with increased shortness of breath and hard to arouse by family. She is A DNR. Fell few weeks ago and had fractured ribs on the right chest and has been taking pain medications. Time Seen by Provider: 10/07/21 09:48 Mode of Arrival: Stretcher Information Source: Patient, Family and EMT Primary Care Provider: TESS FREDERICK Nursing and Triage Documentation Reviewed and Agree: Yes Does patient meet sepsis criteria?: No System Inflammatory Response Syndrome: Pulse >90 BPM and Resp >20/Minute Sepsis Protocol: For patient's 13 years and over: Temp is 96.8 and below OR 101 and greater Pulse >90 BPM Resp >20/minute Acutely Altered Mental Status Are patient's symptoms suggestive of a new infection, such as: -Pneumonia -Skin, Soft Tissue -Endocarditis -UTI -Bone, Joint Infection -Implantable Device -Acute Abdominal Infection -Wound Infection -Meningitis -Blood Stream Catheter Infection -Unknown Respiratory Complaint Exam <DONNA FRIAS MD - Last Filed: 10/09/21 09:09> Shortness of Air Complaint/Exam Onset/Duration: 1 day Symptoms Are: Still present Timing: Constant Initial Severity: Moderate Current Severity: Severe Review of Systems <DONNA FRIAS MD - Last Filed: 10/09/21 09:09> Review Of Systems Constitutional: Reports No symptoms Ears, Nose, Mouth, Throat: Reports No symptoms Respiratory: Reports Cough and Short of air Cardiac: Reports Chest pain (right chest wall area ) GI: Reports No symptoms : Reports No symptoms Musculoskeletal: Reports No symptoms Neurological: Reports Anxiety and Other (increased solmnolance ) All Other Systems: Reviewed and Negative PFSH <DONNA FRIAS MD - Last Filed: 10/09/21 09:09> Medical History Asthma Bronchitis COPD (chronic obstructive pulmonary disease) Dyslipidemia Hypertension Laryngitis, acute Melanocarcinoma Osteoarthritis Oxygen dependent Sciatic leg pain Family History Mother Cancer Brother Cancer FATHER Stroke Social History (Updated 10/07/21 @ 14:43 by DEV MORALES RN) Smoking and tobacco status: Former smoker Second hand smoke exposure: No Substance use type: does not use Marni/roman catholic: [employer] Surgical History H/O knee surgery History of appendectomy History of bilateral knee replacement History of cholecystectomy Female Reproductive History Menstrual Hx Hysterectomy: No Hx Tubal Ligation: No Physical Exam <DONNA FRIAS MD - Last Filed: 10/09/21 09:09> Physical Exam Appearance: Reports Ill-appearing Ill-appearing: Moderate Pain Distress: Mild Eyes: Reports SANDI, EOMI and Conjunctiva clear ENT: Reports Nose normal and Oropharynx normal Neck: Not Examined Respiratory: Reports Wheezes Cardiovascular: Reports Pulses normal, No rub and Tachycardia GI/: Reports Soft Musculoskeletal: Reports Normal strength, ROM intact and No edema Skin: Reports Warm and Dry Neurological: Reports Alert, Oriented and Other (occasionally takes long to answer questions. ) Psychiatric: Reports Anxious <CLEMENT MAX MD - Last Filed: 10/07/21 11:14> Radiology Interpretation Radiology Interpretation By: Radiologist Xray Comments: No acute cardiopulmonary change. EKG Interpretation Time of EKG #1: 09:57 Ectopy: None Interpretation: Sinus tachycardia with rate of 117bpm. 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 No acute changes Physician Notification <DONNA FRIAS MD - Last Filed: 10/09/21 09:09> Case Discussed Endorsed To/Discussed With: Briseida Time of Discussion: 11:03 Critical Care Note <DONNA FRIAS MD - Last Filed: 10/09/21 09:09> Critical Care Note Total Critical Care Time (mins): 45 Course <DONNA FRIAS MD - Last Filed: 10/09/21 09:09> Course Hematology/Chemistry: 10/09/21 04:50 10/09/21 04:50 Orders, Labs, Meds: Lab Review 10/07/21 10/07/21 10/07/21 10:00 10:03 10:03 WBC 10.33 H RBC 4.08 L Hgb 11.9 L Hct 37.2 MCV 91.2 MCH 29.2 MCHC 32.0 RDW Coeff of Flaquito 12.7 Plt Count 247 Immature Gran % (Auto) 0.6 Neut % (Auto) 78.3 H Lymph % (Auto) 11.1 Sevier % (Auto) 9.6 Eos % (Auto) 0.1 Baso % (Auto) 0.3 Neut # (Auto) 8.1 H Lymph # (Auto) 1.2 Sevier # (Auto) 1.0 Eos # (Auto) 0.0 Baso # (Auto) 0.0 Immature Gran # (Auto) 0.1 Puncture Site Base Excess O2 Saturation ABG pH ABG pCO2 ABG pO2 ABG HCO3 ABG Total CO2 Kb Test Hemoglobin Oxyhemoglobin Carboxyhemoglobin Total Hemoglobin O2 Delivery Device Oxygen Liter Flow FiO2 % Sodium 137.6 Potassium 3.73 Chloride 94.3 L Carbon Dioxide 36.1 H Anion Gap 10.93 BUN 16.6 Creatinine 1.35 H Estimated GFR (MDRD) 38.00 BUN/Creatinine Ratio 12.29 Glucose 162.2 H Lactic Acid Calcium 9.32 Total Bilirubin 0.44 AST 28.7 ALT 17.7 Alkaline Phosphatase 78.2 NT-Pro-B Natriuret Pep 283.000 Total Protein 7.49 Albumin 4.59 Globulin 2.90 Albumin/Globulin Ratio 1.58 Procalcitonin Adenovirus (PCR) Not detected B. pertussis DNA (PCR) Not detected B.parapertussis DNA PCR Not detected C. pneumoniae DNA (PCR) Not detected Coronavirus OC43 (PCR) Not detected Coronavirus HKU1 (PCR) Not detected Coronavirus 229E (PCR) Not detected Coronavirus NL63 (PCR) Not detected Human Metapneumovir PCR Not detected Influenza A (H3) PCR Detected H Influenza B (RT-PCR) Not detected M. pneumoniae (PCR) Not detected Parainfluenza 1 (PCR) Not detected Parainfluenza 2 (PCR) Not detected Parainfluenza 3 (PCR) Not detected Parainfluenza 4 (PCR) Not detected RSV (PCR) Not detected Entero/Rhino (PCR) Not detected SARS-CoV-2 (PCR) Not detected 10/07/21 10/07/21 10/07/21 10:03 10:03 10:04 WBC RBC Hgb Hct MCV MCH MCHC RDW Coeff of [place]quito Plt Count Immature Gran % (Auto) Neut % (Auto) Lymph % (Auto) Sevier % (Auto) Eos % (Auto) Baso % (Auto) Neut # (Auto) Lymph # (Auto) [place]vier # (Auto) Eos # (Auto) Baso # (Auto) Immature Gran # (Auto) Puncture Site Rbrach Base Excess 12.5 H O2 Saturation 91.5 L ABG pH 7.42 ABG pCO2 57.0 H ABG pO2 61.0 L ABG HCO3 37.0 H ABG Total CO2 38.7 H Kb Test + Hemoglobin 1.3 Oxyhemoglobin 91.6 L Carboxyhemoglobin 2.0 H Total Hemoglobin 11.5 L O2 Delivery Device Cannula Oxygen Liter Flow 4.00 FiO2 % Sodium Potassium Chloride Carbon Dioxide Anion Gap BUN Creatinine Estimated GFR (MDRD) BUN/Creatinine Ratio Glucose Lactic Acid 1.03 Calcium Total Bilirubin AST ALT Alkaline Phosphatase NT-Pro-B Natriuret Pep Total Protein Albumin Globulin Albumin/Globulin Ratio Procalcitonin 0.09 Adenovirus (PCR) B. pertussis DNA (PCR) B.parapertussis DNA PCR C. pneumoniae DNA (PCR) Coronavirus OC43 (PCR) Coronavirus HKU1 (PCR) Coronavirus 229E (PCR) Coronavirus NL63 (PCR) Human Metapneumovir PCR Influenza A (H3) PCR Influenza B (RT-PCR) M. pneumoniae (PCR) Parainfluenza 1 (PCR) Parainfluenza 2 (PCR) Parainfluenza 3 (PCR) Parainfluenza 4 (PCR) RSV (PCR) Entero/Rhino (PCR) SARS-CoV-2 (PCR) 10/07/21 11:27 WBC RBC Hgb Hct MCV MCH MCHC RDW Coeff of [place]quito Plt Count Immature Gran % (Auto) Neut % (Auto) Lymph % (Auto) Sevier % (Auto) Eos % (Auto) Baso % (Auto) Neut # (Auto) Lymph # (Auto) [place]vier # (Auto) Eos # (Auto) Baso # (Auto) Immature Gran # (Auto) Puncture Site Rrad Base Excess 12.1 H O2 Saturation 97.1 ABG pH 7.45 ABG pCO2 52.0 H ABG pO2 87.0 ABG HCO3 36.1 H ABG Total CO2 37.7 H Kb Test + Hemoglobin 1.0 Oxyhemoglobin 95.9 Carboxyhemoglobin 1.9 H Total Hemoglobin 11.2 L O2 Delivery Device Vapotherm Oxygen Liter Flow FiO2 % 40.0 Sodium Potassium Chloride Carbon Dioxide Anion Gap BUN Creatinine Estimated GFR (MDRD) BUN/Creatinine Ratio Glucose Lactic Acid Calcium Total Bilirubin AST ALT Alkaline Phosphatase NT-Pro-B Natriuret Pep Total Protein Albumin Globulin Albumin/Globulin Ratio Procalcitonin Adenovirus (PCR) B. pertussis DNA (PCR) B.parapertussis DNA PCR C. pneumoniae DNA (PCR) Coronavirus OC43 (PCR) Coronavirus HKU1 (PCR) Coronavirus 229E (PCR) Coronavirus NL63 (PCR) Human Metapneumovir PCR Influenza A (H3) PCR Influenza B (RT-PCR) M. pneumoniae (PCR) Parainfluenza 1 (PCR) Parainfluenza 2 (PCR) Parainfluenza 3 (PCR) Parainfluenza 4 (PCR) RSV (PCR) Entero/Rhino (PCR) SARS-CoV-2 (PCR) Orders Category Date Time Status ADMIT PATIENT INPATIENT .TO [facility] (MONITORED BED) ADMISSION 10/07/21 12:41 Active ABG DRAW REQUEST DAILY@0600 CARDIO 10/08/21 06:00 Completed ABG DRAW REQUEST DAILY@0600 CARDIO 10/09/21 06:00 Completed ABG DRAW REQUEST DAILY@0600 CARDIO 10/10/21 06:00 Ordered ABG DRAW REQUEST DAILY@0600 CARDIO 10/11/21 06:00 Ordered ABG DRAW REQUEST Stat CARDIO 10/07/21 09:51 Completed ABG DRAW REQUEST Stat CARD[facility] 10/07/21 11:30 Completed EKG-(ED ONLY) Stat CARDIO 10/07/21 09:52 Completed NEBULIZER TREATMENT Stat CARDIO 10/07/21 09:52 Completed VAPOTHERM Routine CARDIO 10/07/21 10:40 Active TELEMETRY MONITORING TELE CARE 10/07/21 12:42 Active ED APPLY O2 .ONCE EMERGENCY 10/07/21 09:50 Active ED DATA PROCESSING MANAGER APPLIED .ONCE EMERGENCY 10/07/21 09:50 Active ED VITAL SIGNS Q1HR EMERGENCY 10/07/21 09:50 Completed ABG COOX DAILY@0600 LAB 10/08/21 04:50 Completed ABG COOX DAILY@0600 LAB 10/09/21 05:25 Completed ABG COOX Stat LAB 10/07/21 10:04 Completed ARTERIAL BLOOD GAS [ABG COOX] Stat LAB 10/07/21 11:27 Completed BLOOD CULTURE (ED ONLY) Stat LAB 10/07/21 10:03 Results CBC W/ AUTO DIFF Stat LAB 10/07/21 10:03 Completed COMPREHENSIVE METABOLIC PANEL Stat LAB 10/07/21 10:03 Completed LACTIC ACID Stat LAB 10/07/21 10:03 Completed NT-PROBNP Stat LAB 10/07/21 10:03 Completed PROCALCITONIN Stat LAB 10/07/21 10:03 Completed RESPIRATORY PANEL 2.1 (PCR) Stat LAB 10/07/21 10:00 Completed Ipratropium/Albuterol Neb [Duoneb] MEDS 10/07/21 09:52 Discontinued 3 ml NEB ONCE STA Methylprednisolone Sod Succ/Pf [Solu-Medrol 125 mg] MEDS 10/07/21 09:52 Discontinued 125 mg IVP ONCE STA CHEST, 1V AP ONLY Stat RADS 10/07/21 09:50 Completed Medications Generic Name Dose Route Start Last Admin Trade Name Freq PRN Reason Stop Dose Admin Acetaminophen 650 mg 10/07/21 18:10 Acetaminophen 325 Mg Tablet PO Q4H PRN Headache Albuterol/Ipratropium 3 ml 10/07/21 14:00 10/09/21 05:30 Ipratropium/Albuterol Vial.Neb NEB 3 ml RTQID MANN Administration Alprazolam 0.5 mg 10/07/21 13:35 10/09/21 06:37 Alprazolam 0.5 Mg Tablet PO 0.5 mg BID PRN Administration Anxiety Atropine Sulfate 0.5 mg 10/07/21 18:10 Atropine Sulfate Inj 1 Mg/10 Ml Disp.Syrin IVP ONCE PRN Symptomatic Bradycardia Duloxetine HCl 60 mg 10/08/21 09:00 10/09/21 08:14 Duloxetine Hcl 30 Mg Capsule.Dr PO 60 mg QAM MANN Administration Gabapentin 1,200 mg 10/07/21 21:00 10/08/21 20:30 Gabapentin 300 Mg Capsule PO 1,200 mg BEDTIME MANN Administration Hydrochlorothiazide 12.5 mg 10/08/21 09:00 10/09/21 08:14 Hydrochlorothiazide 25 Mg Tablet PO 12.5 mg DAILY MANN Administration Azithromycin 500 mg/ Sodium 250 mls @ 125 mls/hr 10/07/21 14:00 10/09/21 08:13 Chloride IV 10/09/21 13:59 125 mls/hr DAILY MANN Administration Levothyroxine Sodium 100 mcg 10/08/21 06:30 10/09/21 05:34 Levothyroxine Sodium 100 Mcg Tablet PO 100 mcg QDAC MANN Administration Lisinopril 20 mg 10/08/21 09:00 10/09/21 08:16 Lisinopril 10 Mg Tablet PO 20 mg DAILY MANN Administration Meclizine HCl 25 mg 10/08/21 09:00 10/09/21 08:13 Meclizine Hcl 25 Mg Tablet PO 25 mg QAM MANN Administration Methylprednisolone Sodium Succinate 125 mg 10/07/21 21:00 10/09/21 05:36 Methylprednisolone Sod Succ/Pf 125 Mg/2 Ml Vial IVP 125 mg Q8HR MANN Administration Montelukast Sodium 10 mg 10/07/21 21:00 10/08/21 20:30 Montelukast Sodium 10 Mg Tablet PO 10 mg BEDTIME MANN Administration Nitroglycerin 0.4 mg 10/07/21 18:10 Nitroglycerin 0.4 Mg Tab.Subl SL Q5MIN X 3 DOSES PRN Chest Pain Oseltamivir Phosphate 30 mg 10/08/21 09:00 10/09/21 08:13 Oseltamivir Phosphate 30 Mg Cap PO 10/12/21 10:59 30 mg BID MANN Administration Pantoprazole Sodium 40 mg 10/08/21 06:30 10/09/21 05:34 Pantoprazole Sodium 40 Mg Tablet.Dr PO 40 mg QDAC MANN Administration Pravastatin Sodium 40 mg 10/07/21 21:00 10/08/21 20:29 Pravastatin Sodium 20 Mg Tablet PO 40 mg BEDTIME MANN Administration Roflumilast 500 mcg 10/08/21 09:00 10/09/21 08:13 Roflumilast 500 Mcg Tablet PO 500 mcg DAILY MANN Administration Sodium Chloride 1 syr 10/07/21 21:00 10/09/21 05:34 0.9% Sodium Chloride 10 Ml Disp.Syrin IVF 1 syr Q8HR MANN Administration Tramadol HCl 50 mg 10/07/21 21:00 10/08/21 20:30 Tramadol Hcl 50 Mg Tablet PO 50 mg BEDTIME MANN Administration Umeclidinium/Vilanterol 1 inh 10/08/21 09:00 10/09/21 08:17 Umeclidinium Brm/Vilanterol 1 Each Blst.W.Dev IH 1 inh DAILY MANN Administration Verapamil HCl 240 mg 10/08/21 09:00 10/09/21 08:13 Verapamil Hcl 120 Mg Tablet.Er PO 240 mg QAM MANN Administration Discontinued Medications Generic Name Dose Route Start Last Admin Trade Name Armin PRN Reason Stop Dose Admin Albuterol/Ipratropium 3 ml 10/07/21 09:52 10/07/21 10:06 Ipratropium/Albuterol Vial.Neb NEB 10/07/21 09:53 3 ml ONCE STA Administration Hydrochlorothiazide 25 mg 10/08/21 09:00 Hydrochlorothiazide 25 Mg Tablet PO DAILY MANN Methylprednisolone Sodium Succinate 125 mg 10/07/21 09:52 10/07/21 11:56 Methylprednisolone Sod Succ/Pf 125 Mg/2 Ml Vial IVP 10/07/21 09:53 Not Given ONCE STA Non-Formulary Medication 1 tab 10/08/21 09:00 Lisinopril-Hydrochlorothiazide PO QAM MANN Oseltamivir Phosphate 75 mg 10/07/21 21:00 10/07/21 20:12 Oseltamivir Phosphate 75 Mg Capsule PO 10/07/21 21:01 75 mg ONCE ONE Administration Vital Signs: Temp Pulse Resp BP Pulse Ox 10/07/21 12:52 100.9 F H 114 H 24 92 L 10/07/21 10:45 97 10/07/21 09:45 103.3 F H 118 H 36 H 146/78 H 97 <CLEMENT MAX MD - Last Filed: 10/07/21 11:14> Course Orders, Labs, Meds: Lab Review 10/07/21 10/07/21 10/07/21 10:00 10:03 10:03 WBC 10.33 H RBC 4.08 L Hgb 11.9 L Hct 37.2 MCV 91.2 MCH 29.2 MCHC 32.0 RDW Coeff of Flaquito 12.7 Plt Count 247 Immature Gran % (Auto) 0.6 Neut % (Auto) 78.3 H Lymph % (Auto) 11.1 [place]vier % (Auto) 9.6 Eos % (Auto) 0.1 Baso % (Auto) 0.3 Neut # (Auto) 8.1 H Lymph # (Auto) 1.2 [place]vier # (Auto) 1.0 Eos # (Auto) 0.0 Baso # (Auto) 0.0 Immature Gran # (Auto) 0.1 Puncture Site Base Excess O2 Saturation ABG pH ABG pCO2 ABG pO2 ABG HCO3 ABG Total CO2 Kb Test Hemoglobin Oxyhemoglobin Carboxyhemoglobin Total Hemoglobin O2 Delivery Device Oxygen Liter Flow FiO2 % Sodium 137.6 Potassium 3.73 Chloride 94.3 L Carbon Dioxide 36.1 H Anion Gap 10.93 BUN 16.6 Creatinine 1.35 H Estimated GFR (MDRD) 38.00 BUN/Creatinine Ratio 12.29 Glucose 162.2 H Lactic Acid Calcium 9.32 Total Bilirubin 0.44 AST 28.7 ALT 17.7 Alkaline Phosphatase 78.2 NT-Pro-B Natriuret Pep 283.000 Total Protein 7.49 Albumin 4.59 Globulin 2.90 Albumin/Globulin Ratio 1.58 Procalcitonin Adenovirus (PCR) Not detected B. pertussis DNA (PCR) Not detected B.parapertussis DNA PCR Not detected C. pneumoniae DNA (PCR) Not detected Coronavirus OC43 (PCR) Not detected Coronavirus HKU1 (PCR) Not detected Coronavirus 229E (PCR) Not detected Coronavirus NL63 (PCR) Not detected Human Metapneumovir PCR Not detected Influenza A (H3) PCR Detected H Influenza B (RT-PCR) Not detected M. pneumoniae (PCR) Not detected Parainfluenza 1 (PCR) Not detected Parainfluenza 2 (PCR) Not detected Parainfluenza 3 (PCR) Not detected Parainfluenza 4 (PCR) Not detected RSV (PCR) Not detected Entero/Rhino (PCR) Not detected SARS-CoV-2 (PCR) Not detected 10/07/21 10/07/21 10/07/21 10:03 10:03 10:04 WBC RBC Hgb Hct MCV MCH MCHC RDW Coeff of [place]quito Plt Count Immature Gran % (Auto) Neut % (Auto) Lymph % (Auto) [place]vier % (Auto) Eos % (Auto) Baso % (Auto) Neut # (Auto) Lymph # (Auto) [place] # (Auto) Eos # (Auto) Baso # (Auto) Immature Gran # (Auto) Puncture Site Rbrach Base Excess 12.5 H O2 Saturation 91.5 L ABG pH 7.42 ABG pCO2 57.0 H ABG pO2 61.0 L ABG HCO3 37.0 H ABG Total CO2 38.7 H Kb Test + Hemoglobin 1.3 Oxyhemoglobin 91.6 L Carboxyhemoglobin 2.0 H Total Hemoglobin 11.5 L O2 Delivery Device Cannula Oxygen Liter Flow 4.00 FiO2 % Sodium Potassium Chloride Carbon Dioxide Anion Gap BUN Creatinine Estimated GFR (MDRD) BUN/Creatinine Ratio Glucose Lactic Acid 1.03 Calcium Total Bilirubin AST ALT Alkaline Phosphatase NT-Pro-B Natriuret Pep Total Protein Albumin Globulin Albumin/Globulin Ratio Procalcitonin 0.09 Adenovirus (PCR) B. pertussis DNA (PCR) B.parapertussis DNA PCR C. pneumoniae DNA (PCR) Coronavirus OC43 (PCR) Coronavirus HKU1 (PCR) Coronavirus 229E (PCR) Coronavirus NL63 (PCR) Human Metapneumovir PCR Influenza A (H3) PCR Influenza B (RT-PCR) M. pneumoniae (PCR) Parainfluenza 1 (PCR) Parainfluenza 2 (PCR) Parainfluenza 3 (PCR) Parainfluenza 4 (PCR) RSV (PCR) Entero/Rhino (PCR) SARS-CoV-2 (PCR) 10/07/21 11:27 WBC RBC Hgb Hct MCV MCH MCHC RDW Coeff of [place]quito Plt Count Immature Gran % (Auto) Neut % (Auto) Lymph % (Auto) Sevier % (Auto) Eos % (Auto) Baso % (Auto) Neut # (Auto) Lymph # (Auto) [place] # (Auto) Eos # (Auto) Baso # (Auto) Immature Gran # (Auto) Puncture Site Rrad Base Excess 12.1 H O2 Saturation 97.1 ABG pH 7.45 ABG pCO2 52.0 H ABG pO2 87.0 ABG HCO3 36.1 H ABG Total CO2 37.7 H Kb Test + Hemoglobin 1.0 Oxyhemoglobin 95.9 Carboxyhemoglobin 1.9 H Total Hemoglobin 11.2 L O2 Delivery Device Vapotherm Oxygen Liter Flow FiO2 % 40.0 Sodium Potassium Chloride Carbon Dioxide Anion Gap BUN Creatinine Estimated GFR (MDRD) BUN/Creatinine Ratio Glucose Lactic Acid Calcium Total Bilirubin AST ALT Alkaline Phosphatase NT-Pro-B Natriuret Pep Total Protein Albumin Globulin Albumin/Globulin Ratio Procalcitonin Adenovirus (PCR) B. pertussis DNA (PCR) B.parapertussis DNA PCR C. pneumoniae DNA (PCR) Coronavirus OC43 (PCR) Coronavirus HKU1 (PCR) Coronavirus 229E (PCR) Coronavirus NL63 (PCR) Human Metapneumovir PCR Influenza A (H3) PCR Influenza B (RT-PCR) M. pneumoniae (PCR) Parainfluenza 1 (PCR) Parainfluenza 2 (PCR) Parainfluenza 3 (PCR) Parainfluenza 4 (PCR) RSV (PCR) Entero/Rhino (PCR) SARS-CoV-2 (PCR) Orders Category Date Time Status ADMIT PATIENT INPATIENT .TO [facility] (MONITORED BED) ADMISSION 10/07/21 12:41 Active ABG DRAW REQUEST DAILY@0600 CARDIO 10/08/21 06:00 Completed ABG DRAW REQUEST DAILY@0600 CARDIO 10/09/21 06:00 Completed ABG DRAW REQUEST DAILY@0600 CARDIO 10/10/21 06:00 Ordered ABG DRAW REQUEST DAILY@0600 CARDIO 10/11/21 06:00 Ordered ABG DRAW REQUEST Stat CARDIO 10/07/21 09:51 Completed ABG DRAW REQUEST Stat CARDIO 10/07/21 11:30 Completed EKG-(ED ONLY) Stat CARDIO 10/07/21 09:52 Completed NEBULIZER TREATMENT Stat CARDIO 10/07/21 09:52 Completed VAPOTHERM Routine CARDIO 10/07/21 10:40 Active TELEMETRY MONITORING TELE CARE 10/07/21 12:42 Active ED APPLY O2 .ONCE EMERGENCY 10/07/21 09:50 Active ED DATA PROCESSING MANAGER APPLIED .ONCE EMERGENCY 10/07/21 09:50 Active ED VITAL SIGNS Q1HR EMERGENCY 10/07/21 09:50 Completed ABG COOX DAILY@0600 LAB 10/08/21 04:50 Completed ABG COOX DAILY@0600 LAB 10/09/21 05:25 Completed ABG COOX Stat LAB 10/07/21 10:04 Completed ARTERIAL BLOOD GAS [ABG COOX] Stat LAB 10/07/21 11:27 Completed BLOOD CULTURE (ED ONLY) Stat LAB 10/07/21 10:03 Results CBC W/ AUTO DIFF Stat LAB 10/07/21 10:03 Completed COMPREHENSIVE METABOLIC PANEL Stat LAB 10/07/21 10:03 Completed LACTIC ACID Stat LAB 10/07/21 10:03 Completed NT-PROBNP Stat LAB 10/07/21 10:03 Completed PROCALCITONIN Stat LAB 10/07/21 10:03 Completed RESPIRATORY PANEL 2.1 (PCR) Stat LAB 10/07/21 10:00 Completed Ipratropium/Albuterol Neb [Duoneb] MEDS 10/07/21 09:52 Discontinued 3 ml NEB ONCE STA Methylprednisolone Sod Succ/Pf [Solu-Medrol 125 mg] MEDS 10/07/21 09:52 Discontinued 125 mg IVP ONCE STA CHEST, 1V AP ONLY Stat RADS 10/07/21 09:50 Completed Medications Generic Name Dose Route Start Last Admin Trade Name Armin PRN Reason Stop Dose Admin Acetaminophen 650 mg 10/07/21 18:10 Acetaminophen 325 Mg Tablet PO Q4H PRN Headache Albuterol/Ipratropium 3 ml 10/07/21 14:00 10/09/21 05:30 Ipratropium/Albuterol Vial.Neb NEB 3 ml RTQID MANN Administration Alprazolam 0.5 mg 10/07/21 13:35 10/09/21 06:37 Alprazolam 0.5 Mg Tablet PO 0.5 mg BID PRN Administration Anxiety Atropine Sulfate 0.5 mg 10/07/21 18:10 Atropine Sulfate Inj 1 Mg/10 Ml Disp.Syrin IVP ONCE PRN Symptomatic Bradycardia Duloxetine HCl 60 mg 10/08/21 09:00 10/09/21 08:14 Duloxetine Hcl 30 Mg Capsule. PO 60 mg QAM MANN Administration Gabapentin 1,200 mg 10/07/21 21:00 10/08/21 20:30 Gabapentin 300 Mg Capsule PO 1,200 mg BEDTIME MANN Administration Hydrochlorothiazide 12.5 mg 10/08/21 09:00 10/09/21 08:14 Hydrochlorothiazide 25 Mg Tablet PO 12.5 mg DAILY MANN Administration Azithromycin 500 mg/ Sodium 250 mls @ 125 mls/hr 10/07/21 14:00 10/09/21 08:13 Chloride IV 10/09/21 13:59 125 mls/hr DAILY MANN Administration Levothyroxine Sodium 100 mcg 10/08/21 06:30 10/09/21 05:34 Levothyroxine Sodium 100 Mcg Tablet PO 100 mcg QDAC MANN Administration Lisinopril 20 mg 10/08/21 09:00 10/09/21 08:16 Lisinopril 10 Mg Tablet PO 20 mg DAILY MANN Administration Meclizine HCl 25 mg 10/08/21 09:00 10/09/21 08:13 Meclizine Hcl 25 Mg Tablet PO 25 mg QAM MANN Administration Methylprednisolone Sodium Succinate 125 mg 10/07/21 21:00 10/09/21 05:36 Methylprednisolone Sod Succ/Pf 125 Mg/2 Ml Vial IVP 125 mg Q8HR MANN Administration Montelukast Sodium 10 mg 10/07/21 21:00 10/08/21 20:30 Montelukast Sodium 10 Mg Tablet PO 10 mg BEDTIME MANN Administration Nitroglycerin 0.4 mg 10/07/21 18:10 Nitroglycerin 0.4 Mg Tab.Subl SL Q5MIN X 3 DOSES PRN Chest Pain Oseltamivir Phosphate 30 mg 10/08/21 09:00 10/09/21 08:13 Oseltamivir Phosphate 30 Mg Cap PO 10/12/21 10:59 30 mg BID MANN Administration Pantoprazole Sodium 40 mg 10/08/21 06:30 10/09/21 05:34 Pantoprazole Sodium 40 Mg Tablet.Dr PO 40 mg QDAC MANN Administration Pravastatin Sodium 40 mg 10/07/21 21:00 10/08/21 20:29 Pravastatin Sodium 20 Mg Tablet PO 40 mg BEDTIME MANN Administration Roflumilast 500 mcg 10/08/21 09:00 10/09/21 08:13 Roflumilast 500 Mcg Tablet PO 500 mcg DAILY MANN Administration Sodium Chloride 1 syr 10/07/21 21:00 10/09/21 05:34 0.9% Sodium Chloride 10 Ml Disp.Syrin IVF 1 syr Q8HR MANN Administration Tramadol HCl 50 mg 10/07/21 21:00 10/08/21 20:30 Tramadol Hcl 50 Mg Tablet PO 50 mg BEDTIME MANN Administration Umeclidinium/Vilanterol 1 inh 10/08/21 09:00 10/09/21 08:17 Umeclidinium Brm/Vilanterol 1 Each Blst.W.Dev IH 1 inh DAILY MANN Administration Verapamil HCl 240 mg 10/08/21 09:00 10/09/21 08:13 Verapamil Hcl 120 Mg Tablet.Er PO 240 mg QAM MANN Administration Discontinued Medications Generic Name Dose Route Start Last Admin Trade Name Freq PRN Reason Stop Dose Admin Albuterol/Ipratropium 3 ml 10/07/21 09:52 10/07/21 10:06 Ipratropium/Albuterol Vial.Neb NEB 10/07/21 09:53 3 ml ONCE STA Administration Hydrochlorothiazide 25 mg 10/08/21 09:00 Hydrochlorothiazide 25 Mg Tablet PO DAILY MANN Methylprednisolone Sodium Succinate 125 mg 10/07/21 09:52 10/07/21 11:56 Methylprednisolone Sod Succ/Pf 125 Mg/2 Ml Vial IVP 10/07/21 09:53 Not Given ONCE STA Non-Formulary Medication 1 tab 10/08/21 09:00 Lisinopril-Hydrochlorothiazide PO QAM MANN Oseltamivir Phosphate 75 mg 10/07/21 21:00 10/07/21 20:12 Oseltamivir Phosphate 75 Mg Capsule PO 10/07/21 21:01 75 mg ONCE ONE Administration Vital Signs: Temp Pulse Resp BP Pulse Ox 10/07/21 12:52 100.9 F H 114 H 24 92 L 10/07/21 10:45 97 10/07/21 09:45 103.3 F H 118 H 36 H 146/78 H 97 Discharge Plan Discharge Patient Disposition: ADMITTED INPATIENT Discharge Problem: COPD exacerbation, Influenza A ED Provider: CLEMENT MAX Condition: Fair <DONNA FRIAS MD - Last Filed: 10/09/21 09:09> Physician Progress Note: []
[2021-10-07 10:58] LABS: ADENOVIRUS (PCR) NOT DETECTED (NOT DETECT); INFLUENZA A H3 (PCR) DETECTED (NOT DETECT)
[2021-10-07 11:52] LABS: ABG O2 HGB 95.9 % (95-100); ABG PH 7.45 (7.35-7.45); BEecf 12.1 (-2.0-3.0); COHb 1.9 (0.5-1.5); HCO3 36.1 (21-28); TCO2 37.7 (19-24); sO2 97.1 % (94-98); tHb 11.2 g/dl (11.7-17.4)
--- NOTE | 2021-10-07 13:46 | PCM ---
Chief Complaint Chief Complaint: increasing dyspnea History of Present Illness History of Present Illness: Patient with COPD and presents with increasing dyspnea. Denies fever, chills. Did suffer recent fall with several broken ribs. Denies productive cough, chest pain. Review of Systems Constitutional: Reports Weakness Eyes: Reports No symptoms Ears: Reports No symptoms Nose: Reports No symptoms Throat: Reports No symptoms Mouth: Reports No symptoms Respiratory: Reports Cough, Shortness of air and Other (chest wall pain) Cardiovascular: Reports No symptoms Gastrointestinal: Reports No symptoms Genitourinary: Reports No symptoms Neurological: Reports No symptoms Musculoskeletal: Reports No symptoms Skin: Reports No symptoms Immunology: Reports No symptoms Hematology: Reports No symptoms Endocrine: Reports No symptoms Psychiatric: Reports Depression and Anxiety Habits: Denies Tobacco use, Substance use, Alcohol use or Other Allergies Allergies Allergy/AdvReac Type Severity Reaction Status Date / Time codeine AdvReac Mild Unknown Verified 10/07/21 10:08 erythromycin base AdvReac Mild Vomiting Verified 10/07/21 10:08 PFSH Medical History Asthma Bronchitis COPD (chronic obstructive pulmonary disease) Dyslipidemia Hypertension Laryngitis, acute Melanocarcinoma Osteoarthritis Oxygen dependent Sciatic leg pain Surgical History H/O knee surgery History of appendectomy History of bilateral knee replacement History of cholecystectomy Family History Mother Cancer Brother Cancer FATHER Stroke Social History Smoking and tobacco status: Former smoker Second hand smoke exposure: No Substance use type: does not use Marni/voodoo: SIKH Medications Medications: Medications Generic Name Dose Route Start Last Admin Trade Name Freq PRN Reason Stop Dose Admin Albuterol/Ipratropium 3 ml 10/07/21 14:00 Ipratropium/Albuterol Vial.Neb NEB RTQID MANN Alprazolam 0.5 mg 10/07/21 13:35 Alprazolam 0.5 Mg Tablet PO BID PRN Anxiety Duloxetine HCl 60 mg 10/08/21 09:00 Duloxetine Hcl 30 Mg Capsule.Dr YVONNE PERRY MANN Gabapentin 1,200 mg 10/07/21 21:00 Gabapentin 300 Mg Capsule PO BEDTIME MANN Levothyroxine Sodium 100 mcg 10/08/21 06:30 Levothyroxine Sodium 100 Mcg Tablet PO QDAC [facility] Meclizine HCl 25 mg 10/08/21 09:00 Meclizine Hcl 25 Mg Tablet PO QAM [facility] Methylprednisolone Sodium Succinate 125 mg 10/07/21 21:00 Methylprednisolone Sod Succ/Pf 125 Mg/2 Ml Vial IVP Q8HR [facility] Montelukast Sodium 10 mg 10/07/21 21:00 Montelukast Sodium 10 Mg Tablet PO BEDTIME [facility] Non-Formulary Medication 2 puff 10/08/21 09:00 Tiotropium-Olodaterol [Stiolto Respimat] IH QAM [facility] Non-Formulary Medication 1 tab 10/08/21 09:00 Lisinopril-Hydrochlorothiazide PO QAM [facility] Pantoprazole Sodium 40 mg 10/08/21 06:30 Pantoprazole Sodium 40 Mg Tablet. PO QDAC [facility] Pravastatin Sodium 40 mg 10/07/21 21:00 Pravastatin Sodium 20 Mg Tablet PO BEDTIME MANN Verapamil HCl 240 mg 10/08/21 09:00 Verapamil Hcl 120 Mg Tablet.Er PO QAM [facility] Body Composition Height: 5 ft 1 in Weight: 76.6 kg Body Mass Index (BMI): 31.8 Vital Signs Temperature: 100.9 F Pulse Rate: 114 Respiratory Rate: 24 Blood Pressure: 146/78 O2 Sat by Pulse Oximetry: 92 Physical Examination Appearance: Reports Ill-appearing, No pain distress and Well-nourished Ill-appearing: Moderate Pain Distress: None Eyes: Reports SANDI, EOMI and Conjunctiva clear ENT: Reports Nose normal and Oropharynx normal Neck: Supple Respiratory: Reports Airway patent, Breath sounds clear, Breath sounds equal and Breath sounds diminished Cardiovascular: Reports RRR, No rub and No murmur GI/: Reports Soft, Nontender, No masses and Bowel sounds normal Musculoskeletal: Reports Normal strength, ROM intact and No edema Skin: Reports Warm, Dry and Normal color Neurological: Reports Sensation intact, Motor intact, Cranial nerves intact, Alert and Oriented Psychiatric: Reports Affect appropriate and Mood appropriate Lab/Tests/Diagnostic Imaging Lab/Tests/Diagnostic Imaging: Lab Review 10/07/21 10/07/21 10/07/21 10:00 10:03 10:03 WBC 10.33 H RBC 4.08 L Hgb 11.9 L Hct 37.2 MCV 91.2 MCH 29.2 MCHC 32.0 RDW Coeff of [place] 12.7 Plt Count 247 Immature Gran % (Auto) 0.6 Neut % (Auto) 78.3 H Lymph % (Auto) 11.1 [place] % (Auto) 9.6 Eos % (Auto) 0.1 Baso % (Auto) 0.3 Neut # (Auto) 8.1 H Lymph # (Auto) 1.2 [place] # (Auto) 1.0 Eos # (Auto) 0.0 Baso # (Auto) 0.0 Immature Gran # (Auto) 0.1 Puncture Site Base Excess O2 Saturation ABG pH ABG pCO2 ABG pO2 ABG HCO3 ABG Total CO2 Kb Test Hemoglobin Oxyhemoglobin Carboxyhemoglobin Total Hemoglobin O2 Delivery Device Oxygen Liter Flow FiO2 % Sodium 137.6 Potassium 3.73 Chloride 94.3 L Carbon Dioxide 36.1 H Anion Gap 10.93 BUN 16.6 Creatinine 1.35 H Estimated GFR (MDRD) 38.00 BUN/Creatinine Ratio 12.29 Glucose 162.2 H Lactic Acid Calcium 9.32 Total Bilirubin 0.44 AST 28.7 ALT 17.7 Alkaline Phosphatase 78.2 NT-Pro-B Natriuret Pep 283.000 Total Protein 7.49 Albumin 4.59 Globulin 2.90 Albumin/Globulin Ratio 1.58 Procalcitonin Adenovirus (PCR) Not detected B. pertussis DNA (PCR) Not detected B.parapertussis DNA PCR Not detected C. pneumoniae DNA (PCR) Not detected Coronavirus OC43 (PCR) Not detected Coronavirus HKU1 (PCR) Not detected Coronavirus 229E (PCR) Not detected Coronavirus NL63 (PCR) Not detected Human Metapneumovir PCR Not detected Influenza A (H3) PCR Detected H Influenza B (RT-PCR) Not detected M. pneumoniae (PCR) Not detected Parainfluenza 1 (PCR) Not detected Parainfluenza 2 (PCR) Not detected Parainfluenza 3 (PCR) Not detected Parainfluenza 4 (PCR) Not detected RSV (PCR) Not detected Entero/Rhino (PCR) Not detected SARS-CoV-2 (PCR) Not detected 10/07/21 10/07/21 10/07/21 10:03 10:03 10:04 WBC RBC Hgb Hct MCV MCH MCHC RDW Coeff of [place] Plt Count Immature Gran % (Auto) Neut % (Auto) Lymph % (Auto) [place] % (Auto) Eos % (Auto) Baso % (Auto) Neut # (Auto) Lymph # (Auto) [place] # (Auto) Eos # (Auto) Baso # (Auto) Immature Gran # (Auto) Puncture Site Rbrach Base Excess 12.5 H O2 Saturation 91.5 L ABG pH 7.42 ABG pCO2 57.0 H ABG pO2 61.0 L ABG HCO3 37.0 H ABG Total CO2 38.7 H Bk Test + Hemoglobin 1.3 Oxyhemoglobin 91.6 L Carboxyhemoglobin 2.0 H Total Hemoglobin 11.5 L O2 Delivery Device Cannula Oxygen Liter Flow 4.00 FiO2 % Sodium Potassium Chloride Carbon Dioxide Anion Gap BUN Creatinine Estimated GFR (MDRD) BUN/Creatinine Ratio Glucose Lactic Acid 1.03 Calcium Total Bilirubin AST ALT Alkaline Phosphatase NT-Pro-B Natriuret Pep Total Protein Albumin Globulin Albumin/Globulin Ratio Procalcitonin 0.09 Adenovirus (PCR) B. pertussis DNA (PCR) B.parapertussis DNA PCR C. pneumoniae DNA (PCR) Coronavirus OC43 (PCR) Coronavirus HKU1 (PCR) Coronavirus 229E (PCR) Coronavirus NL63 (PCR) Human Metapneumovir PCR Influenza A (H3) PCR Influenza B (RT-PCR) M. pneumoniae (PCR) Parainfluenza 1 (PCR) Parainfluenza 2 (PCR) Parainfluenza 3 (PCR) Parainfluenza 4 (PCR) RSV (PCR) Entero/Rhino (PCR) SARS-CoV-2 (PCR) 10/07/21 11:27 WBC RBC Hgb Hct MCV MCH MCHC RDW Coeff of [place] Plt Count Immature Gran % (Auto) Neut % (Auto) Lymph % (Auto) [place] % (Auto) Eos % (Auto) Baso % (Auto) Neut # (Auto) Lymph # (Auto) [place] # (Auto) Eos # (Auto) Baso # (Auto) Immature Gran # (Auto) Puncture Site Rrad Base Excess 12.1 H O2 Saturation 97.1 ABG pH 7.45 ABG pCO2 52.0 H ABG pO2 87.0 ABG HCO3 36.1 H ABG Total CO2 37.7 H Kb Test + Hemoglobin 1.0 Oxyhemoglobin 95.9 Carboxyhemoglobin 1.9 H Total Hemoglobin 11.2 L O2 Delivery Device Vapotherm Oxygen Liter Flow FiO2 % 40.0 Sodium Potassium Chloride Carbon Dioxide Anion Gap BUN Creatinine Estimated GFR (MDRD) BUN/Creatinine Ratio Glucose Lactic Acid Calcium Total Bilirubin AST ALT Alkaline Phosphatase NT-Pro-B Natriuret Pep Total Protein Albumin Globulin Albumin/Globulin Ratio Procalcitonin Adenovirus (PCR) B. pertussis DNA (PCR) B.parapertussis DNA PCR C. pneumoniae DNA (PCR) Coronavirus OC43 (PCR) Coronavirus HKU1 (PCR) Coronavirus 229E (PCR) Coronavirus NL63 (PCR) Human Metapneumovir PCR Influenza A (H3) PCR Influenza B (RT-PCR) M. pneumoniae (PCR) Parainfluenza 1 (PCR) Parainfluenza 2 (PCR) Parainfluenza 3 (PCR) Parainfluenza 4 (PCR) RSV (PCR) Entero/Rhino (PCR) SARS-CoV-2 (PCR) Orders Category Date Time Status ADMIT PATIENT INPATIENT .TO [facility] (MONITORED BED) ADMISSION 10/07/21 12:41 Active ADMIT PATIENT INPATIENT .TO [facility] (NON-MONITORED ADMISSION 10/07/21 13:26 Active BED) ADMIT PATIENT INPATIENT .TO [facility] (NON-MONITORED ADMISSION 10/07/21 13:26 Active BED) ABG DRAW REQUEST DAILY@0600 CARDIO 10/08/21 06:00 Ordered ABG DRAW REQUEST DAILY@0600 CARDIO 10/09/21 06:00 Ordered ABG DRAW REQUEST DAILY@0600 CARDIO 10/10/21 06:00 Ordered ABG DRAW REQUEST DAILY@0600 CARDIO 10/11/21 06:00 Ordered ABG DRAW REQUEST Stat CARDIO 10/07/21 09:51 Completed ABG DRAW REQUEST Stat CARDIO 10/07/21 11:30 Completed EKG-(ED ONLY) Stat CARDIO 10/07/21 09:52 Completed NEBULIZER TREATMENT Routine CARDIO 10/07/21 13:31 Ordered NEBULIZER TREATMENT Stat CARDIO 10/07/21 09:52 Completed OXYGEN Routine CARDIO 10/07/21 13:28 Ordered VAPOTHERM Routine CARDIO 10/07/21 10:40 Active ACTIVITY .Up With Assistance CARE 10/07/21 13:26 Active ACTIVITY .Up With Assistance CARE 10/07/21 13:26 Active INTAKE & OUTPUT Q8HR CARE 10/07/21 13:26 Active INTAKE & OUTPUT Q8HR CARE 10/07/21 13:30 Active IP: INSERT SALINE LOCK ONCE CARE 10/07/21 13:26 Active Notify RT of Treatment ONCE CARE 10/07/21 13:31 Active TELEMETRY MONITORING TELE CARE 10/07/21 12:42 Active VITAL SIGNS Q4HR CARE 10/07/21 13:26 Active VITAL SIGNS Q8HR CARE 10/07/21 13:26 Active VITAL SIGNS Q8HR CARE 10/07/21 13:30 Active REGULAR DIET DIETARY 10/07/21 Lunch Ordered REGULAR DIET DIETARY 10/07/21 Lunch Ordered ED APPLY O2 .ONCE EMERGENCY 10/07/21 09:50 Active ED FLUORESCENT SOLUTION MIXER APPLIED .ONCE EMERGENCY 10/07/21 09:50 Active ED VITAL SIGNS Q1HR EMERGENCY 10/07/21 09:50 Active ABG COOX DAILY@0600 LAB 10/08/21 06:00 Ordered ABG COOX DAILY@0600 LAB 10/09/21 06:00 Ordered ABG COOX Stat LAB 10/07/21 10:04 Completed ARTERIAL BLOOD GAS [ABG COOX] Stat LAB 10/07/21 11:27 Completed BLOOD CULTURE (ED ONLY) Stat LAB 10/07/21 10:03 Received CBC W/ AUTO DIFF DAILY@0600 LAB 10/08/21 06:00 Ordered CBC W/ AUTO DIFF DAILY@0600 LAB 10/09/21 06:00 Ordered CBC W/ AUTO DIFF Stat LAB 10/07/21 10:03 Completed COMPREHENSIVE METABOLIC PANEL DAILY@0600 LAB 10/08/21 06:00 Ordered COMPREHENSIVE METABOLIC PANEL DAILY@0600 LAB 10/09/21 06:00 Ordered COMPREHENSIVE METABOLIC PANEL Stat LAB 10/07/21 10:03 Completed LACTIC ACID Stat LAB 10/07/21 10:03 Completed NT-PROBNP Stat LAB 10/07/21 10:03 Completed PROCALCITONIN Stat LAB 10/07/21 10:03 Completed RESPIRATORY PANEL 2.1 (PCR) Stat LAB 10/07/21 10:00 Completed Alprazolam [Xanax] MEDS 10/07/21 13:35 Ordered 0.5 mg PO BID PRN Duloxetine HCl [Cymbalta] MEDS 10/08/21 09:00 Ordered 60 mg PO QAM Gabapentin [Neurontin] MEDS 10/07/21 21:00 Ordered 1,200 mg PO BEDTIME Ipratropium/Albuterol Neb [Duoneb] MEDS 10/07/21 09:52 Discontinued 3 ml NEB ONCE STA Ipratropium/Albuterol Neb [Duoneb] MEDS 10/07/21 14:00 Ordered 3 ml NEB RTQID Levothyroxine Sodium [Synthroid] MEDS 10/08/21 06:30 Ordered 100 mcg PO QDAC Meclizine HCl [Antivert] MEDS 10/08/21 09:00 Ordered 25 mg PO QAM Methylprednisolone Sod Succ/Pf [Solu-Medrol 125 mg] MEDS 10/07/21 09:52 Discontinued 125 mg IVP ONCE STA Methylprednisolone Sod Succ/Pf [Solu-Medrol 125 mg] MEDS 10/07/21 21:00 Ordered 125 mg IVP Q8HR Montelukast Sodium [Singulair] MEDS 10/07/21 21:00 Ordered 10 mg PO BEDTIME Pantoprazole Sodium [Protonix] MEDS 10/08/21 06:30 Ordered 40 mg PO QDAC Pravastatin Sodium [Pravachol] MEDS 10/07/21 21:00 Ordered 40 mg PO BEDTIME Verapamil HCl [Calan Sr] MEDS 10/08/21 09:00 Ordered 240 mg PO QAM lisinopril-hydrochlorothiazide MEDS 10/08/21 09:00 Ordered 1 tab PO QAM tiotropium-olodaterol [Stiolto Respimat] MEDS 10/08/21 09:00 Ordered 2 puff IH QAM RESUSCITATION STATUS Routine OTHERS 10/07/21 13:26 Ordered CHEST, 1V AP ONLY Stat RADS 10/07/21 09:50 Completed Medications Generic Name Dose Route Start Last Admin Trade Name Freq PRN Reason Stop Dose Admin Albuterol/Ipratropium 3 ml 10/07/21 14:00 Ipratropium/Albuterol Vial.Neb NEB RTQID MANN Alprazolam 0.5 mg 10/07/21 13:35 Alprazolam 0.5 Mg Tablet PO BID PRN Anxiety Duloxetine HCl 60 mg 10/08/21 09:00 Duloxetine Hcl 30 Mg Capsule. PO QAM MANN Gabapentin 1,200 mg 10/07/21 21:00 Gabapentin 300 Mg Capsule PO BEDTIME MANN Levothyroxine Sodium 100 mcg 10/08/21 06:30 Levothyroxine Sodium 100 Mcg Tablet PO QDAC MANN Meclizine HCl 25 mg 10/08/21 09:00 Meclizine Hcl 25 Mg Tablet PO QAM MANN Methylprednisolone Sodium Succinate 125 mg 10/07/21 21:00 Methylprednisolone Sod Succ/Pf 125 Mg/2 Ml Vial IVP Q8HR MANN Montelukast Sodium 10 mg 10/07/21 21:00 Montelukast Sodium 10 Mg Tablet PO BEDTIME MANN Non-Formulary Medication 2 puff 10/08/21 09:00 Tiotropium-Olodaterol [Stiolto Respimat] IH QAM [facility] Non-Formulary Medication 1 tab 10/08/21 09:00 Lisinopril-Hydrochlorothiazide PO QAM MANN Pantoprazole Sodium 40 mg 10/08/21 06:30 Pantoprazole Sodium 40 Mg Tablet. PO QDAC MANN Pravastatin Sodium 40 mg 10/07/21 21:00 Pravastatin Sodium 20 Mg Tablet PO BEDTIME MANN Verapamil HCl 240 mg 10/08/21 09:00 Verapamil Hcl 120 Mg Tablet.Er PO QAM MANN Discontinued Medications Generic Name Dose Route Start Last Admin Trade Name Freq PRN Reason Stop Dose Admin Albuterol/Ipratropium 3 ml 10/07/21 09:52 10/07/21 10:06 Ipratropium/Albuterol Vial.Neb NEB 10/07/21 09:53 3 ml ONCE STA Administration Methylprednisolone Sodium Succinate 125 mg 10/07/21 09:52 10/07/21 11:56 Methylprednisolone Sod Succ/Pf 125 Mg/2 Ml Vial IVP 10/07/21 09:53 Not Given ONCE STA Assessment (1) Influenza A: Status: Acute Code(s): J10.1 - Influenza due to other identified influenza virus with other respiratory manifestations SNOMED Code(s): 064741964 (2) COPD exacerbation: Status: Acute Code(s): J44.1 - Chronic obstructive pulmonary disease with (acute) exacerbation SNOMED Code(s): 313483256 Plan Plan: Patient to receive IV steroids, tamiflu and azithromycin. Continue present COPD medications and will be on vapotherm.
[2021-10-07 14:17] VITALS: BMI 31.4
[2021-10-07] MEDS: DUONEB NEB SCH ×2 (14:19→19:45)
[2021-10-07] MEDS: ZITHROMAX 500 MG in SODIUM CHLORIDE 250 ML IV SCH (15:11)
[2021-10-07] MEDS ORDERED: NITROSTAT SL PRN (18:10)
[2021-10-07] MEDS ORDERED: TYLENOL PO PRN (18:10)
[2021-10-07] MEDS ORDERED: ATROPINE SULFATE PFS IVP PRN (18:10)
[2021-10-07 18:53] LABS: BILIRUBIN,URINE Negative (NEGATIVE); CLARITY,URINE Clear (CLEAR); COLOR,URINE Yellow (YELLOW); GLUCOSE, URINE (UA) 1+ (NEGATIVE); KETONES,URINE Negative (NEGATIVE); LEUKOCYTE ESTERASE ,URINE Negative (NEGATIVE); NITRITE,URINE Negative (NEGATIVE); PROTEIN,URINE Trace (NEGATIVE); URINE, BLOOD Negative (NEGATIVE); UROBILINOGEN,URINE 0.2 (0.2)
[2021-10-07 19:00] LABS: CALCIUM OXALATE CRYSTALS,UR TRACE (NOT PRESENT); SQUAMOUS EPITHELIAL CELL,UR NOT PRESENT (0-5); URINE WBC, MICROSCOPIC 0-2 (0-2)
[2021-10-07 19:01] LABS: MUCUS,URINE TRACE (NOT PRESENT)
[2021-10-07] MEDS: ULTRAM PO SCH (20:11)
[2021-10-07] MEDS: NEURONTIN PO SCH (20:11)
[2021-10-07] MEDS: SINGULAIR PO SCH (20:12)
[2021-10-07] MEDS: PRAVACHOL PO SCH (20:12)
[2021-10-07] MEDS: SOLU-MEDROL 125 MG IVP SCH (20:15)
[2021-10-07] MEDS ORDERED: TAMIFLU PO ONE (21:00)
[2021-10-08] MEDS: SOLU-MEDROL 125 MG IVP SCH ×3 (04:44→20:43)
[2021-10-08] MEDS: DUONEB NEB SCH ×4 (04:50→20:07)
[2021-10-08 04:59] LABS: ABG O2 HGB 96.3 % (95-100); ABG PH 7.41 (7.35-7.45); BEecf 9.6 (-2.0-3.0); COHb 1.7 (0.5-1.5); HCO3 34.2 (21-28); TCO2 35.9 (19-24); sO2 97.5 % (94-98); tHb 11.1 g/dl (11.7-17.4)
[2021-10-08 05:31] LABS: HEMATOCRIT 36.5 % (37.0-47.0); HEMOGLOBIN 11.6 g/dl (12.0-16.0); IMMATURE GRANULOCYTE # (AUTO) 0.1 (0.0-1.0); IMMATURE GRANULOCYTE % (AUTO) 0.8 % (0.0-5.0); LYMPHOCYTES # (AUTO) 0.9 K/uL (0.60-3.4); LYMPHOCYTES % (AUTO) 10.3 (10.0-50.0); MEAN CORPUSCULAR HEMOGLOBIN 29.1 pg (27.0-31.0); MEAN CORPUSCULAR HGB CONC 31.8 (31.8-35.4); MEAN CORPUSCULAR VOLUME 91.5 fl (81.0-99.0); MONOCYTES # (AUTO) 0.3 K/uL (0.4-2.0); MONOCYTES % (AUTO) 3.1 (0-10); NEUTROPHILS # (AUTO) 7.1 K/ul (2.0-6.9); NEUTROPHILS % (AUTO) 85.8 % (42.2-75.2); PLATELET COUNT 265 10^3/uL (140-440); RDW COEFFICIENT OF VARIATION 12.7 % (11.6-14.8); RED BLOOD COUNT 3.99 10^6/ul (4.20-5.40); WHITE BLOOD COUNT 8.32 K/ul (4.6-10.2)
[2021-10-08] MEDS: SYNTHROID PO SCH (05:40)
[2021-10-08] MEDS: PROTONIX PO SCH (05:40)
[2021-10-08] MEDS: XANAX PO PRN ×2 (05:44→20:35)
[2021-10-08 05:48] LABS: ALANINE AMINOTRANSFERASE 21.8 U/L (0-35); ALBUMIN 4.59 g/dL (3.5-5.0); ASPARTATE AMINO TRANSFERASE 28.9 U/L (14-36); BILIRUBIN,TOTAL 0.34 mg/dL (0.2-1.3); BLOOD UREA NITROGEN 31.5 mg/dL (7-17); CALCIUM 9.61 mg/dL (8.4-10.2); CARBON DIOXIDE 34.2 mmol/L (22-30.0); CHLORIDE 94.9 mmol/L (98-107); CREATININE 1.47 mg/dL (0.60-1.30); GLUCOSE 255.9 mg/dL (74-106); POTASSIUM 3.8 mmol/L (3.5-5.1); SODIUM 137.5 mmol/L (134.5-145); TOTAL PROTEIN 7.44 g/dL (6.3-8.2)
--- NOTE | 2021-10-08 08:56 | PCM.PROG ---
Attending Provider: ATTENDING PROVIDER: Dr. TESS FREDERICK DATE OF SERVICE: 10/08/21 SUBJECTIVE: This 81 year old /WHITE F was hospitalized 10/07/21 with Influenza A, fever, chills, COPD and asthmatic exacerbation. The patient's condition has improved remarkably. She is talking and in no distress. Appetite seems to have improved. REVIEW OF SYSTEMS: CONSTITUTIONAL: No night sweats. No fatigue, malaise, lethargy. No fever or chills. HEENT: Eyes: No visual changes. No eye pain. No eye discharge. ENT: No runny nose. No epistaxis. No sinus pain. No odynophagia. No congestion. RESPIRATORY: No cough, no congestion. No hemoptysis. Shortness of breath with exertion. CARDIOVASCULAR: No angina symptoms. No CHF symptoms. No atypical chest pain for CAD. No palpitations. No orthopnea.. GASTROINTESTINAL: No abdominal pain. No nausea or vomiting. No diarrhea or constipation. No hematemesis. No hematochezia. GENITOURINARY: No urgency. No frequency. No dysuria. No hematuria. No obstructive symptoms. No discharge. No pain. No significant abnormal bleeding. MUSCULOSKELETAL: No musculoskeletal pain; no joint swelling. NEUROLOGICAL: Awake, alert, oriented to time, place and person. No headache. No neck pain. No syncope. No seizures. No dizziness. PSYCHIATRIC: Not anxious. No depression. No suicidal thoughts. No homicidal thoughts. SKIN: No rash. No lesions. No wounds. ENDOCRINE: No unexplained weight loss. No weight gain. HEMATOLOGIC/LYMPHATIC: No anemia. No purpura. No petechiae. No prolonged or excessive bleeding. No palpable lymph nodes. PHYSICAL EXAMINATION: GENERAL: The patient is awake, alert and oriented, lying in bed in no distress. VITAL SIGNS: Temperature 97.5 F, Pulse 76, Respiratory Rate 20, BP 133/81, Pulse Ox 98% HEENT: Head normocephalic, atraumatic. Eyes: Extraocular muscles are intact. Pupils are equal, round and reactive to light and accommodation. Ears: No lesions. Nose appeared normal. Throat: No exudate or erythema. NECK: Supple. No JVD, no carotid bruit. No lymphadenopathy or thyromegaly. LUNGS: Decreased breath sounds with good air entry. Clear to auscultation. Percussion note normal. Chest symmetrical. HEART: S1, S2, no S3. No murmurs. No cyanosis or clubbing. No ascites. Pulses: Dorsalis pedis and posterior tibial pulses +1 to +2 both sides. ABDOMEN: Soft. Non-tender. Bowel sounds active. No CVA tenderness. No mass felt. EXTREMITIES: No edema. Full range of motion of all extremities, equal. NEUROLOGIC: No focal deficit. Cranial nerves II through XII are grossly intact. No headache, no double vision or headache. Tremors. SKIN: Warm and dry. Intact. Turgor-normal. LYMPHATIC: No palpable lymph nodes/no lymphedema. MUSCULOSKELETAL: Normal joints with no swelling. Muscle tone is normal. LAB REVIEW: 10/08/21 04:49 10/08/21 04:49 10/08/21 04:50: Puncture Site Rbrach, Base Excess 9.6 H, O2 Saturation 97.5, ABG pH 7.41, ABG pCO2 54.0 H, ABG pO2 96.0, ABG HCO3 34.2 H, ABG Total CO2 35.9 H, Hemoglobin 1.0, Oxyhemoglobin 96.3, Carboxyhemoglobin 1.7 H, Total Hemoglobin 11.1 L, O2 Delivery Device Vapotherm, FiO2 % 40.0 10/08/21 04:49: Sodium 137.5, Potassium 3.80, Chloride 94.9 L, Carbon Dioxide 34.2 H, Anion Gap 12.20, BUN 31.5 H, Creatinine 1.47 H, Estimated GFR (MDRD) 34.00, BUN/Creatinine Ratio 21.42, Glucose 255.9 H D, Calcium 9.61, Total Bilirubin 0.34, AST 28.9, ALT 21.8, Alkaline Phosphatase 66.0, Total Protein 7.44, Albumin 4.59, Globulin 2.85, Albumin/Globulin Ratio 1.61 10/08/21 04:49: WBC 8.32, RBC 3.99 L, Hgb 11.6 L, Hct 36.5 L, MCV 91.5, MCH 29.1, MCHC 31.8, RDW Coeff of [place] 12.7, Plt Count 265, Immature Gran % (Auto) 0.8, Neut % (Auto) 85.8 H, Lymph % (Auto) 10.3, [place] % (Auto) 3.1, Eos % (Auto) 0.0, Baso % (Auto) 0.0, Neut # (Auto) 7.1 H, Lymph # (Auto) 0.9, [place] # (Auto) 0.3 L, Eos # (Auto) 0.0, Baso # (Auto) 0.0, Immature Gran # (Auto) 0.1 10/07/21 18:41: Urine Color Yellow, Urine Clarity Clear, Urine pH 7.0, Ur Specific [place] 1.020, Urine Protein Trace H, Urine Glucose (UA) 1+ H, Urine Ketones Negative, Urine Blood Negative, Urine Nitrite Negative, Urine Bilirubin Negative, Urine Urobilinogen 0.2, Ur Leukocyte Esterase Negative, Urine Microscopic RBC 2-5, Urine Microscopic WBC 0-2, Ur Squamous Epith Cells Not present, Calcium Oxalate Crystal Trace, Urine Mucus Trace 10/07/21 11:27: Puncture Site Rrad, Base Excess 12.1 H, O2 Saturation 97.1, ABG pH 7.45, ABG pCO2 52.0 H, ABG pO2 87.0, ABG HCO3 36.1 H, ABG Total CO2 37.7 H, Kb Test +, Hemoglobin 1.0, Oxyhemoglobin 95.9, Carboxyhemoglobin 1.9 H, Total Hemoglobin 11.2 L, O2 Delivery Device Vapotherm, FiO2 % 40.0 10/07/21 10:04: Puncture Site Rbrach, Base Excess 12.5 H, O2 Saturation 91.5 L, ABG pH 7.42, ABG pCO2 57.0 H, ABG pO2 61.0 L, ABG HCO3 37.0 H, ABG Total CO2 38.7 H, Kb Test +, Hemoglobin 1.3, Oxyhemoglobin 91.6 L, Carboxyhemoglobin 2.0 H, Total Hemoglobin 11.5 L, O2 Delivery Device Cannula, Oxygen Liter Flow 4.00 10/07/21 10:03: Lactic Acid 1.03 10/07/21 10:03: Procalcitonin 0.09 10/07/21 10:03: Sodium 137.6, Potassium 3.73, Chloride 94.3 L, Carbon Dioxide 36.1 H, Anion Gap 10.93, BUN 16.6, Creatinine 1.35 H, Estimated GFR (MDRD) 38.00, BUN/Creatinine Ratio 12.29, Glucose 162.2 H, Calcium 9.32, Total Bilirubin 0.44, AST 28.7, ALT 17.7, Alkaline Phosphatase 78.2, NT-Pro-B Natriuret Pep 283.000, Total Protein 7.49, Albumin 4.59, Globulin 2.90, Albumin/Globulin Ratio 1.58 10/07/21 10:03: WBC 10.33 H, RBC 4.08 L, Hgb 11.9 L, Hct 37.2, MCV 91.2, MCH 29.2, MCHC 32.0, RDW Coeff of [place] 12.7, Plt Count 247, Immature Gran % (Auto) 0.6, Neut % (Auto) 78.3 H, Lymph % (Auto) 11.1, [place] % (Auto) 9.6, Eos % (Auto) 0.1, Baso % (Auto) 0.3, Neut # (Auto) 8.1 H, Lymph # (Auto) 1.2, [place] # (Auto) 1.0, Eos # (Auto) 0.0, Baso # (Auto) 0.0, Immature Gran # (Auto) 0.1 10/07/21 10:00: Adenovirus (PCR) Not detected, B. pertussis DNA (PCR) Not dete cted, B.parapertussis DNA PCR Not detected, C. pneumoniae DNA (PCR) Not detected, Coronavirus OC43 (PCR) Not detected, Coronavirus HKU1 (PCR) Not detected, Coronavirus 229E (PCR) Not detected, Coronavirus NL63 (PCR) Not detected, Human Metapneumovir PCR Not detected, Influenza A (H3) PCR Detected H, Influenza B (RT-PCR) Not detected, M. pneumoniae (PCR) Not detected, Parai nfluenza 1 (PCR) Not detected, Parainfluenza 2 (PCR) Not detected, Parainfluenza 3 (PCR) Not detected, Parainfluenza 4 (PCR) Not detected, RSV (PCR) Not detected, Entero/Rhino (PCR) Not detected, SARS-CoV-2 (PCR) Not detected ASSESSMENT: Please see below. 1. Fever/chills/COPD exacerbation with history of asthma end stage PLAN: 1. Continue Vapotherm, steroids, antibiotics, NEBS and telemetry Plan and coordination of the patient's care discussed in the presence of Roofing Foreman and nurse. CONDITION: Stabilizing and not running any fever. The patient is a DNR. SCRIBED BY: Zack GRIFFIN scribed while in presence of service performed by Dr. TESS FREDERICK on 10/08/21 ([id number])
[2021-10-08] MEDS ORDERED: HYDROCHLOROTHIAZIDE PO SCH (09:00)
[2021-10-08] MEDS ORDERED: NON-FORMULARY MEDICATION (Tiotropium-Olodaterol [Stiolto Respimat] 4 GM mist) IH SCH (09:00)
[2021-10-08] MEDS ORDERED: LISINOPRIL HYDROCHLOROTHIAZIDE PO SCH (09:00)
[2021-10-08] MEDS: ANORO ELLIPTA 62.5-25 MCG INH IH SCH (09:05)
[2021-10-08] MEDS: ZITHROMAX 500 MG in SODIUM CHLORIDE 250 ML IV SCH (09:05)
[2021-10-08] MEDS: HYDROCHLOROTHIAZIDE PO SCH (09:07)
[2021-10-08] MEDS: CALAN SR PO SCH (09:08)
[2021-10-08] MEDS: TAMIFLU PO SCH ×2 (09:08→20:30)
[2021-10-08] MEDS: CYMBALTA PO SCH (09:08)
[2021-10-08] MEDS: ANTIVERT PO SCH (09:08)
[2021-10-08] MEDS: ZESTRIL PO SCH (09:09)
[2021-10-08] MEDS: DALIRESP PO SCH (09:25)
--- NOTE | 2021-10-08 13:44 | HP ---
DATE OF SERVICE: 10/07/21 REASON FOR HOSPITALIZATION: Patient's weakness and inability to get up. was present in the room HISTORY OF PRESENT ILLNESS: 81 year old female just discharged from the hospital after being hospitalized in July 26. She came to the emergency room with being fatigued, tired and short of breath. Influenza A is positive and she has flu type of symptoms with generalized weakness, shortness of breath, cough and congestion. The patient is on high flow oxygen at present time. Saturation is more than 94%. Feeling better. At the time she came in she was confused with inability to walk, talk but now she has perked up a couple of hours of high flow oxygen. She is going to be hospitalized. PAST MEDICAL HISTORY/PAST SURGICAL HISTORY: COPD exacerbation Chronic asthmatic bronchitic Respiratory failure COPD followed by Dr. 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 Fatigue and weakness. No fever or chills. HEENT: Eyes: No visual changes. No eye pain. No eye discharge. ENT: No runny nose. No epistaxis. No sinus pain. No sore throat. No odynophagia. No ear pain. No congestion. RESPIRATORY: Mild cough, no congestion. No hemoptysis. Shortness of breath on minimal exertion. CARDIOVASCULAR: No angina symptoms. No CHF symptoms. No atypical chest pain for CAD. No palpitations. No PND. No orthopnea. GASTROINTESTINAL: No abdominal pain. No nausea or vomiting. No diarrhea or constipation. No hematemesis. No hematochezia. Poor appetite. GENITOURINARY: No urgency. No frequency. No dysuria. No hematuria. No obstructive symptoms. No discharge. No pain. No significant abnormal bleeding. MUSCULOSKELETAL: No musculoskeletal pain. No joint swelling. No arthritis. NEUROLOGICAL: No headache. No neck pain. No syncope. No seizures. No dizziness. PSYCHIATRIC: Not anxious. No depression. No suicidal thoughts. No homicidal thoughts. SKIN: No rash. No lesions. No wounds. ENDOCRINE: No unexplained weight loss. No weight gain. HEMATOLOGIC/LYMPHATIC: No anemia. No purpura. No petechiae. No prolonged or excessive bleeding. No palpable lymph nodes. MEDICATIONS: Albuterol Neurontin Xanax Synthroid Tramadol Pravachol Singulair Lisinopril Cymbalta Verapamil ProAir HFA Pulmicort Daliresp ALLERGIES: Codeine Erythromycin base PHYSICAL EXAMINATION: GENERAL: The patient is oriented to time, place and person. VITAL SIGNS: Temperature 98, pulse 80, respiratory rate 17, blood pressure 140/70. HEENT: Head normocephalic, atraumatic. Eyes: Extraocular muscles are intact. Pupils are equal, round and reactive to light and accommodation. Ears: No lesions. Nose appeared normal. Throat: No exudate or erythema. NECK: Supple. No JVD, no carotid bruit. No lymphadenopathy or thyromegaly. LUNGS: Decreased breath sounds bilaterally with expiratory wheeze. Clear to auscultation. Percussion note normal. Chest symmetrical. HEART: S1, S2, no S3. No murmur. No cyanosis or clubbing. No ascites. Pulses: Dorsalis pedis and posterior tibial pulses +1 to +2 bilaterally. ABDOMEN: Soft. Nontender. Bowel sounds active. No CVA tenderness. No mass felt. EXTREMITIES: No edema. Full range of motion of all extremities, equal. NEUROLOGIC: No focal deficit. Cranial nerves II through XII are grossly intact. No headache, no double vision or headache. SKIN: Not dry. Intact. Turgor - normal. LYMPHATIC: No palpable lymph nodes/no lymphedema. MUSCULOSKELETAL: Normal joints with no swelling. Muscle tone is normal. LABS: Chest x-ray, congestive heart failure ASSESSMENT: 1. Asthmatic bronchitis 2. Influenza A with generalized symptoms 3. Chronic asthmatic bronchitis 4. Chronic respiratory failure 5. Cor Pulmonale 6. History of hydronephrosis right side 7. History of staghorn calculus 8. Hypertension 9. Bilateral total knee placement 10.Chronic kidney disease stage II 11.Right sciatic 12.Osteoporosis 13.Hypothyroidism 14.History of pyelonephritis 15.Dyslipidemia PLAN: 1. Steroids 2. Antibiotics 3. NEBS 4. IV fluids 5. High flow oxygen 6. Watch oximetry 7. Telemetry 8. The patient is DNR 9. The patient has 6-7 rib fracture on the right side and she is on medication because of that TIME SPENT: More than 70 minutes. [facility] [place]
[2021-10-08] MEDS: PRAVACHOL PO SCH (20:29)
[2021-10-08] MEDS: NEURONTIN PO SCH (20:30)
[2021-10-08] MEDS: ULTRAM PO SCH (20:30)
[2021-10-08] MEDS: SINGULAIR PO SCH (20:30)
[2021-10-09] MEDS: DUONEB NEB SCH ×4 (05:30→20:05)
[2021-10-09] MEDS: PROTONIX PO SCH (05:34)
[2021-10-09] MEDS: SYNTHROID PO SCH (05:34)
[2021-10-09] MEDS: SOLU-MEDROL 125 MG IVP SCH ×3 (05:36→22:35)
[2021-10-09 05:49] LABS: ABG PH 7.42 (7.35-7.45); BEecf 10.5 (-2.0-3.0); HCO3 32.4 (21-28)
[2021-10-09 05:50] LABS: COHb 2.9 (0.5-1.5); MetHb 1.1 (0-1.5); TCO2 33.9 (19-24); sO2 99.6 % (94-98); tHb 10.5 g/dl (11.7-17.4)
[2021-10-09 05:50] LABS: BASOPHILS % (AUTO) 0.1 % (0.0-3.0); HEMATOCRIT 31.6 % (37.0-47.0); HEMOGLOBIN 10.2 g/dl (12.0-16.0); IMMATURE GRANULOCYTE # (AUTO) 0.1 (0.0-1.0); IMMATURE GRANULOCYTE % (AUTO) 0.5 % (0.0-5.0); LYMPHOCYTES # (AUTO) 1.2 K/uL (0.60-3.4); LYMPHOCYTES % (AUTO) 7.9 (10.0-50.0); MEAN CORPUSCULAR HEMOGLOBIN 29.4 pg (27.0-31.0); MEAN CORPUSCULAR HGB CONC 32.3 (31.8-35.4); MEAN CORPUSCULAR VOLUME 91.1 fl (81.0-99.0); MONOCYTES # (AUTO) 0.6 K/uL (0.4-2.0); MONOCYTES % (AUTO) 3.7 (0-10); NEUTROPHILS # (AUTO) 12.9 K/ul (2.0-6.9); NEUTROPHILS % (AUTO) 87.8 % (42.2-75.2); PLATELET COUNT 261 10^3/uL (140-440); RDW COEFFICIENT OF VARIATION 12.7 % (11.6-14.8); RED BLOOD COUNT 3.47 10^6/ul (4.20-5.40); WHITE BLOOD COUNT 14.68 K/ul (4.6-10.2)
[2021-10-09 06:07] LABS: ALBUMIN 3.93 g/dL (3.5-5.0); ALKALINE PHOSPHATASE 53.9 U/L (53-141); ASPARTATE AMINO TRANSFERASE 29.5 U/L (14-36); BILIRUBIN,TOTAL 0.28 mg/dL (0.2-1.3); BLOOD UREA NITROGEN 40.2 mg/dL (7-17); CALCIUM 9.1 mg/dL (8.4-10.2); CARBON DIOXIDE 31.4 mmol/L (22-30.0); CHLORIDE 98.1 mmol/L (98-107); CREATININE 1.34 mg/dL (0.60-1.30); GLUCOSE 283.7 mg/dL (74-106); POTASSIUM 3.82 mmol/L (3.5-5.1); SODIUM 138.6 mmol/L (134.5-145); TOTAL PROTEIN 6.39 g/dL (6.3-8.2)
[2021-10-09] MEDS: XANAX PO PRN ×2 (06:37→22:19)
[2021-10-09] MEDS: ANTIVERT PO SCH (08:13)
[2021-10-09] MEDS: DALIRESP PO SCH (08:13)
[2021-10-09] MEDS: ZITHROMAX 500 MG in SODIUM CHLORIDE 250 ML IV SCH (08:13)
[2021-10-09] MEDS: CALAN SR PO SCH (08:13)
[2021-10-09] MEDS: TAMIFLU PO SCH ×2 (08:13→21:24)
[2021-10-09] MEDS: CYMBALTA PO SCH (08:14)
[2021-10-09] MEDS: HYDROCHLOROTHIAZIDE PO SCH (08:14)
[2021-10-09] MEDS: ZESTRIL PO SCH (08:16)
[2021-10-09] MEDS: ANORO ELLIPTA 62.5-25 MCG INH IH SCH (08:17)
[2021-10-09] MEDS: NEURONTIN PO SCH (21:24)
[2021-10-09] MEDS: SINGULAIR PO SCH (21:24)
[2021-10-09] MEDS: ULTRAM PO SCH (21:24)
[2021-10-09] MEDS: PRAVACHOL PO SCH (21:24)
[2021-10-10] MEDS: DUONEB NEB SCH ×4 (04:50→21:00)
[2021-10-10] MEDS: SOLU-MEDROL 125 MG IVP SCH (05:24)
[2021-10-10 05:40] LABS: BASOPHILS % (AUTO) 0.1 % (0.0-3.0); HEMATOCRIT 32.2 % (37.0-47.0); HEMOGLOBIN 10.5 g/dl (12.0-16.0); IMMATURE GRANULOCYTE # (AUTO) 0.1 (0.0-1.0); IMMATURE GRANULOCYTE % (AUTO) 1.2 % (0.0-5.0); LYMPHOCYTES # (AUTO) 0.9 K/uL (0.60-3.4); LYMPHOCYTES % (AUTO) 8.1 (10.0-50.0); MEAN CORPUSCULAR HEMOGLOBIN 29.6 pg (27.0-31.0); MEAN CORPUSCULAR HGB CONC 32.6 (31.8-35.4); MEAN CORPUSCULAR VOLUME 90.7 fl (81.0-99.0); MONOCYTES # (AUTO) 0.3 K/uL (0.4-2.0); MONOCYTES % (AUTO) 2.6 (0-10); NEUTROPHILS # (AUTO) 10.1 K/ul (2.0-6.9); PLATELET COUNT 250 10^3/uL (140-440); RDW COEFFICIENT OF VARIATION 12.6 % (11.6-14.8); RED BLOOD COUNT 3.55 10^6/ul (4.20-5.40); WHITE BLOOD COUNT 11.51 K/ul (4.6-10.2)
[2021-10-10 05:55] LABS: ALANINE AMINOTRANSFERASE 21.2 U/L (0-35); ALBUMIN 3.91 g/dL (3.5-5.0); ALKALINE PHOSPHATASE 53.3 U/L (53-141); ASPARTATE AMINO TRANSFERASE 26.1 U/L (14-36); BILIRUBIN,TOTAL 0.28 mg/dL (0.2-1.3); CALCIUM 9.1 mg/dL (8.4-10.2); CHLORIDE 98.5 mmol/L (98-107); CREATININE 1.29 mg/dL (0.60-1.30); GLUCOSE 322.9 mg/dL (74-106); POTASSIUM 4.21 mmol/L (3.5-5.1); SODIUM 140.3 mmol/L (134.5-145); TOTAL PROTEIN 6.33 g/dL (6.3-8.2)
[2021-10-10] MEDS: SYNTHROID PO SCH (06:04)
[2021-10-10] MEDS: PROTONIX PO SCH (06:04)
[2021-10-10 06:33] LABS: ABG PH 7.45 (7.35-7.45)
[2021-10-10 06:34] LABS: ABG O2 HGB 93.9 % (95-100); HCO3 34.1 (21-28); MetHb 1.1 (0-1.5); TCO2 35.6 (19-24); sO2 94.1 % (94-98); tHb 10.8 g/dl (11.7-17.4)
[2021-10-10 06:35] LABS: BEecf 10.1 (-2.0-3.0)
[2021-10-10] MEDS: HYDROCHLOROTHIAZIDE PO SCH (09:04)
[2021-10-10] MEDS: ZESTRIL PO SCH (09:05)
[2021-10-10] MEDS: TAMIFLU PO SCH ×2 (09:05→20:01)
[2021-10-10] MEDS: CYMBALTA PO SCH (09:05)
[2021-10-10] MEDS: DALIRESP PO SCH (09:05)
[2021-10-10] MEDS: ANORO ELLIPTA 62.5-25 MCG INH IH SCH (09:05)
[2021-10-10] MEDS: ANTIVERT PO SCH (09:05)
[2021-10-10] MEDS: CALAN SR PO SCH (09:05)
[2021-10-10] MEDS: PREDNISONE PO SCH (10:48)
[2021-10-10] MEDS: NEURONTIN PO SCH (20:00)
[2021-10-10] MEDS: SINGULAIR PO SCH (20:01)
[2021-10-10] MEDS: PRAVACHOL PO SCH (20:01)
[2021-10-10] MEDS: ULTRAM PO SCH (20:01)
[2021-10-10] MEDS: XANAX PO PRN (20:04)
[2021-10-11] MEDS: DUONEB NEB SCH ×2 (05:00→09:57)
[2021-10-11] MEDS: SYNTHROID PO SCH (05:43)
[2021-10-11] MEDS: PROTONIX PO SCH (05:43)
[2021-10-11 05:52] LABS: BASOPHILS % (AUTO) 0.5 % (0.0-3.0); HEMATOCRIT 31.8 % (37.0-47.0); IMMATURE GRANULOCYTE # (AUTO) 0.3 (0.0-1.0); LYMPHOCYTES % (AUTO) 11.6 (10.0-50.0); MEAN CORPUSCULAR HEMOGLOBIN 28.7 pg (27.0-31.0); MEAN CORPUSCULAR HGB CONC 31.4 (31.8-35.4); MEAN CORPUSCULAR VOLUME 91.1 fl (81.0-99.0); MONOCYTES # (AUTO) 0.4 K/uL (0.4-2.0); MONOCYTES % (AUTO) 5.1 (0-10); NEUTROPHILS # (AUTO) 6.6 K/ul (2.0-6.9); NEUTROPHILS % (AUTO) 79.8 % (42.2-75.2); PLATELET COUNT 245 10^3/uL (140-440); RDW COEFFICIENT OF VARIATION 12.7 % (11.6-14.8); RED BLOOD COUNT 3.49 10^6/ul (4.20-5.40); WHITE BLOOD COUNT 8.28 K/ul (4.6-10.2)
[2021-10-11 06:07] VITALS: BP 158/80; TEMP 97
[2021-10-11 06:09] LABS: ALANINE AMINOTRANSFERASE 23.8 U/L (0-35); ALBUMIN 3.81 g/dL (3.5-5.0); ASPARTATE AMINO TRANSFERASE 25.2 U/L (14-36); BILIRUBIN,TOTAL 0.32 mg/dL (0.2-1.3); BLOOD UREA NITROGEN 42.7 mg/dL (7-17); CALCIUM 9.09 mg/dL (8.4-10.2); CARBON DIOXIDE 37.1 mmol/L (22-30.0); CHLORIDE 96.8 mmol/L (98-107); CREATININE 1.29 mg/dL (0.60-1.30); GLUCOSE 321.7 mg/dL (74-106); POTASSIUM 3.76 mmol/L (3.5-5.1); TOTAL PROTEIN 6.29 g/dL (6.3-8.2)
[2021-10-11] MEDS: CALAN SR PO SCH (09:14)
[2021-10-11] MEDS: CYMBALTA PO SCH (09:14)
[2021-10-11] MEDS: ANTIVERT PO SCH (09:14)
[2021-10-11] MEDS: TAMIFLU PO SCH (09:14)
[2021-10-11] MEDS: DALIRESP PO SCH (09:14)
[2021-10-11] MEDS: PREDNISONE PO SCH (09:14)
[2021-10-11] MEDS: HYDROCHLOROTHIAZIDE PO SCH (09:15)
[2021-10-11] MEDS: ZESTRIL PO SCH (09:15)
[2021-10-11] MEDS: ANORO ELLIPTA 62.5-25 MCG INH IH SCH (09:16)
--- NOTE | 2021-10-16 09:57 | PN ---
DATE OF SERVICE: 10/09/21 SUBJECTIVE: 81 year old white female hospitalized with Influenza A, COPD exacerbation. Her condition has improved. Her respiratory status has improve remarkably. Her oxygen saturation on 2 liters is 95%. She is talking, she is able to get up now and going to the bathroom which she was never able to do it. is in the room. He is also impressed with her improvement. The patient was initially on Vapotherm which has been discontinued. REVIEW OF SYSTEMS: CONSTITUTIONAL: No night sweats. No fatigue, malaise, lethargy. No fever or chills. HEENT: Eyes: No visual changes. No eye pain. No eye discharge. ENT: No runny nose. No epistaxis. No sinus pain. No sore throat. No odynophagia. No congestion. RESPIRATORY: No cough, no congestion. No hemoptysis. No shortness of breath. CARDIOVASCULAR: No angina symptoms. No CHF symptoms. No atypical chest pain for CAD. No palpitations. No PND. No orthopnea. GASTROINTESTINAL: No abdominal pain. No nausea or vomiting. No diarrhea or constipation. No hematemesis. No hematochezia. Appetite seems to be improving but not up to par. GENITOURINARY: No urgency. No frequency. No dysuria. No hematuria. No obstructive symptoms. No discharge. No pain. No significant abnormal bleeding. MUSCULOSKELETAL: No musculoskeletal pain; no joint swelling. NEUROLOGICAL: No headache. No neck pain. No syncope. No seizures. No dizziness. PSYCHIATRIC: Not anxious. No depression. No suicidal thoughts. No homicidal thoughts. SKIN: No rash. No lesions. No wounds. ENDOCRINE: No unexplained weight loss. No weight gain. HEMATOLOGIC/LYMPHATIC: No anemia. No purpura. No petechiae. No prolonged or excessive bleeding. No palpable lymph nodes. PHYSICAL EXAMINATION: VITAL SIGNS: Temperature 97.6, pulse 77, respiratory rate 20, blood pressure 135/69 and pulse ox 99% HEENT: Head normocephalic, atraumatic. Eyes: Extraocular muscles are intact. Pupils are equal, round and reactive to light and accommodation. Ears: No lesions. Nose appeared normal. Throat: No exudate or erythema. NECK: Supple. No JVD, no carotid bruit. No lymphadenopathy or thyromegaly. LUNGS: Decreased breath sounds but clear to auscultation. Percussion note normal. Chest symmetrical. HEART: S1, S2, no S3. No murmurs. No cyanosis or clubbing. No ascites. Pulses: Dorsalis pedis and posterior tibial pulses +1 to +2 bilaterally. ABDOMEN: Soft. Nontender. Bowel sounds active. No CVA tenderness. No mass felt. EXTREMITIES: No edema. Full range of motion of all extremities, equal. NEUROLOGIC: No focal deficit. Cranial nerves II through XII are grossly intact. No headache. No double vision. SKIN: Not dry. Intact. Turgor - normal. LYMPHATIC: No palpable lymph nodes/no lymphedema. MUSCULOSKELETAL: Normal joints with no swelling. Muscle tone is normal. ASSESSMENT: 1. Acute exacerbation of COPD seems to be improving with Influenza A still has some fatigue. PLAN: 1. Today the blood gasses pO2 was 179 with pCO2 50 with pH of 7.42 with 99% saturation on 40% Vapotherm which was eventually discontinued and now she is on 2 liters with 95% saturation. 2. Breathing exercises discussed. TIME SPENT: More than 30 minutes. Plan and coordination of the patient's care discussed in the presence of nurse. SERGIO
--- NOTE | 2021-10-16 10:43 | PN ---
DATE OF SERVICE: 10/10/21 SUBJECTIVE: The patient was seen and examined this morning. Her condition has improved remarkably. Her oxygen saturation on 2 liters is 94%. The as usual is present in the room. REVIEW OF SYSTEMS: CONSTITUTIONAL: No night sweats. No fatigue, malaise, lethargy. No fever or chills. HEENT: Eyes: No visual changes. No eye pain. No eye discharge. ENT: No runny nose. No epistaxis. No sinus pain. No sore throat. No odynophagia. No congestion. RESPIRATORY: No cough, no congestion. No hemoptysis. No shortness of breath. CARDIOVASCULAR: No angina symptoms. No CHF symptoms. No atypical chest pain for CAD. No palpitations. No PND. No orthopnea. GASTROINTESTINAL: No abdominal pain. No nausea or vomiting. No diarrhea or constipation. No hematemesis. No hematochezia. Appetite has improved. GENITOURINARY: No urgency. No frequency. No dysuria. No hematuria. No obstructive symptoms. No discharge. No pain. No significant abnormal bleeding. MUSCULOSKELETAL: No musculoskeletal pain; no joint swelling. NEUROLOGICAL: No headache. No neck pain. No syncope. No seizures. No dizziness. PSYCHIATRIC: Not anxious. No depression. No suicidal thoughts. No homicidal thoughts. SKIN: No rash. No lesions. No wounds. ENDOCRINE: No unexplained weight loss. No weight gain. HEMATOLOGIC/LYMPHATIC: No anemia. No purpura. No petechiae. No prolonged or excessive bleeding. No palpable lymph nodes. PHYSICAL EXAMINATION: HEENT: Head normocephalic, atraumatic. Eyes: Extraocular muscles are intact. Pupils are equal, round and reactive to light and accommodation. Ears: No lesions. Nose appeared normal. Throat: No exudate or erythema. NECK: Supple. No JVD, no carotid bruit. No lymphadenopathy or thyromegaly. LUNGS: Good air entry with expiratory wheeze. Clear to auscultation. Percussion note normal. Chest symmetrical. HEART: S1, S2, no S3. No murmurs. No cyanosis or clubbing. No ascites. Pulses: Dorsalis pedis and posterior tibial pulses +1 bilaterally. ABDOMEN: Soft. Nontender. Bowel sounds active. No CVA tenderness. No mass felt. EXTREMITIES: No edema. Full range of motion of all extremities, equal. NEUROLOGIC: No focal deficit. Cranial nerves II through XII are grossly intact. No headache. No double vision. SKIN: Not dry. Intact. Turgor - normal. LYMPHATIC: No palpable lymph nodes/no lymphedema. MUSCULOSKELETAL: Normal joints with no swelling. Muscle tone is normal. ASSESSMENT: 1. Respiratory status has improved with history of Influenza A 2. Bronchitis seems to be under control 3. Chronic respiratory failure, stable PLAN: 1. Continue Antibiotics and Oxygen TIME SPENT: More than 30 minutes. Plan and coordination of the patient's care discussed in the presence of nurse. SERGIO
--- NOTE | 2021-10-22 09:26 | PN ---
DATE OF SERVICE: 10/11/21 SUBJECTIVE: 81 year old white female hospitalized with influenza A and COPD exacerbation. The patient's condition has improved remarkably. She is feeling better and wants to go home. REVIEW OF SYSTEMS: CONSTITUTIONAL: No night sweats. No fatigue, malaise, lethargy. No fever or chills. HEENT: Eyes: No visual changes. No eye pain. No eye discharge. ENT: No runny nose. No epistaxis. No sinus pain. No sore throat. No odynophagia. No congestion. RESPIRATORY: No cough, no congestion. No hemoptysis. No shortness of breath. CARDIOVASCULAR: No angina symptoms. No CHF symptoms. No atypical chest pain for CAD. No palpitations. No PND. No orthopnea. GASTROINTESTINAL: No abdominal pain. No nausea or vomiting. No diarrhea or constipation. No hematemesis. No hematochezia. GENITOURINARY: No urgency. No frequency. No dysuria. No hematuria. No obstructive symptoms. No discharge. No pain. No significant abnormal bleeding. MUSCULOSKELETAL: No musculoskeletal pain; no joint swelling. NEUROLOGICAL: No headache. No neck pain. No syncope. No seizures. No dizziness. PSYCHIATRIC: Not anxious. No depression. No suicidal thoughts. No homicidal thoughts. SKIN: No rash. No lesions. No wounds. ENDOCRINE: No unexplained weight loss. No weight gain. HEMATOLOGIC/LYMPHATIC: No anemia. No purpura. No petechiae. No prolonged or excessive bleeding. No palpable lymph nodes. PHYSICAL EXAMINATION: VITAL SIGNS: Temperature 97, pulse 70, respiratory rate 16, blood pressure 158/80 and pulse ox 96% HEENT: Head normocephalic, atraumatic. Eyes: Extraocular muscles are intact. Pupils are equal, round and reactive to light and accommodation. Ears: No lesions. Nose appeared normal. Throat: No exudate or erythema. NECK: Supple. No JVD, no carotid bruit. No lymphadenopathy or thyromegaly. LUNGS: Decreased breath sounds but clear to auscultation. Percussion note normal. Chest symmetrical. HEART: S1, S2, no S3. No murmurs. No cyanosis or clubbing. No ascites. Pulses: Dorsalis pedis and posterior tibial pulses +1 to +2 bilaterally. ABDOMEN: Soft. Nontender. Bowel sounds active. No CVA tenderness. No mass felt. EXTREMITIES: No edema. Full range of motion of all extremities, equal. NEUROLOGIC: No focal deficit. Cranial nerves II through XII are grossly intact. No headache. No double vision. SKIN: Not dry. Intact. Turgor - normal. LYMPHATIC: No palpable lymph nodes/no lymphedema. MUSCULOSKELETAL: Normal joints with no swelling. Muscle tone is normal. LABS: Hgb 10, hct 31, WBC 8,200 normal differential, creatinine 1.2, BUN 42, potassium 3.7 ASSESSMENT: 1. Acute exacerbation of COPD/Asthma seems to be under control 2. Endstage chronic lung disease PLAN: 1. Discharge the patient on Tamiflu 30mg twice a day for 2 days 2. Prednisone to be given 10mg BID for 5 day and then 10mg once a day for 5 days 3. Already has an appointment with Dr. Fagan in a few days 4. The patient is advised to continue rest of the medications as before 5. The patient is not having Daliresp at home because unable to afford it. 6. Breathing exercises discussed 7. Discussed pulmonary rehab. 8. The patient is to be seen in 5-7 days after discharge 9. The patient is to continue Cymbalta, Gabapentin, Hyzaar, Verapamil, inhalers, Pravastatin, and Pantoprazole CONDITION: Stable. TIME SPENT: More than 30 minutes. Plan and coordination of the patient's care discussed in the presence of nurseReal HILL
--- NOTE | 2021-10-22 11:17 | DS ---
DATE OF SERVICE: 10/11/21 FINAL DIAGNOSIS: 1. Asthmatic bronchitis exacerbation 2. Influenza A likely cause of exacerbation 3. Hyperglycemia from steroid use. 4. Bronchial asthma, chronic 5. Chronic respiratory failure from COPD/asthma 6. Hypertension 7. Hypothyroidism 8. Dyslipidemia 9. Generalized anxiety disorder 10.Chronic kidney disease 11.Chronic anemia CODE STATUS: DNR DISCHARGE INSTRUCTIONS: Discharge the patient home. See me back in 5-7 days on followup. MEDICATIONS AT DISCHARGE: Albuterol Neurontin Xanax Synthroid Tramadol Pravachol Singulair Lisinopril Cymbalta Verapamil ProAir HFA Pulmicort Daliresp NEW PRESCRIPTIONS: Tamiflu 30mg twice a day for 2 days Prednisone 10mg twice a day for 5 days and after that one a day for 5 days. DIET INSTRUCTIONS: Continue regular diet at home ACTIVITY: Gradually resume activity as tolerated. HOSPITAL COURSE: 81 year old white female hospitalized with 10/07/21 with asthmatic bronchitis exacerbation secondary to influenza A. She was put on Tamiflu, Zithromax 500mg PO given for 3 days, Steroids were used. The patient's condition improved on the second day with improvement in her mental status and strength. The patient at that time she was seen in the emergency room was somewhat confused, fatigued according to the she was unable to get up on her own. The patient has remarkable improvement within 24 hours. She required some Vapotherm for a couple of days. She was weaned off and at the time of discharge she was on 2 liters with oxygen saturation 94-96%. She was discharged home to be followed as an outpatient. Usually has hyperglycemia from steroid use. Her blood sugar will be monitored as an outpatient. She was advised to also continue to encourage drinking. CONDITION: Stable PROGNOSIS: Guarded. TIME SPENT: More than 60 minutes. MTDD
--- NOTE | 2021-10-22 11:17 | PN ---
10/07/21: Level 5 10/08/21: Intermediate 10/09/21: Intermediate 10/10/21: Intermediate 10/11/21: D as in discharge MTDD
== END 2021-10-11 12:52 | disposition home or self-care (01) | DRG 202 ==
LOC: ED 09:44 → MEDSURG A 12:58
PROVIDERS: ADMIT Internal Medicine; ATTEND Internal Medicine
DX: Z74.3 Need for continuous supervision; Z51.81 Encounter for therapeutic drug level monitoring; F41.1 Generalized anxiety disorder; J45.901 Unspecified asthma with (acute) exacerbation; N18.2 Chronic kidney disease, stage 2 (mild); R41.0 Disorientation, unspecified; E78.5 Hyperlipidemia, unspecified; J45.909 Unspecified asthma, uncomplicated; J96.10 Chronic respiratory failure, unspecified whether with hypoxia or hypercapnia; J44.1 Chronic obstructive pulmonary disease with (acute) exacerbation; D63.8 Anemia in other chronic diseases classified elsewhere; I27.81 Cor pulmonale (chronic); Z20.822 Contact with and (suspected) exposure to COVID-19; Z99.81 Dependence on supplemental oxygen; R26.9 Unspecified abnormalities of gait and mobility; Z79.899 Other long term (current) drug therapy; I10 Essential (primary) hypertension; E09.65 Drug or chemical induced diabetes mellitus with hyperglycemia; J10.1 Influenza due to other identified influenza virus with other respiratory manifestations; E03.9 Hypothyroidism, unspecified

== ENCOUNTER 2022-07-04 10:02 | Inpatient (IN) ==
[2022-07-04 10:55] LABS: SARS COV-2 RNA RAPID NAAT NEGATIVE (NEGATIVE)
[2022-07-04] MEDS ORDERED: ATROPINE SULFATE PFS IVP PRN (12:29)
[2022-07-04] MEDS ORDERED: NITROSTAT SL PRN (12:29)
[2022-07-04] MEDS ORDERED: TYLENOL PO PRN (12:29)
[2022-07-04 12:55] LABS: BASOPHILS % (AUTO) 0.2 % (0.0-3.0); EOSINOPHILS % (AUTO) 0.2 % (0.0-7.0); HEMATOCRIT 39.3 % (37.0-47.0); IMMATURE GRANULOCYTE % (AUTO) 0.4 % (0.0-5.0); LYMPHOCYTES # (AUTO) 0.8 K/uL (0.60-3.4); LYMPHOCYTES % (AUTO) 9.5 (10.0-50.0); MEAN CORPUSCULAR HEMOGLOBIN 28.6 pg (27.0-31.0); MEAN CORPUSCULAR HGB CONC 30.5 (31.8-35.4); MEAN CORPUSCULAR VOLUME 93.6 fl (81.0-99.0); MONOCYTES # (AUTO) 0.1 K/uL (0.4-2.0); MONOCYTES % (AUTO) 1.2 (0-10); NEUTROPHILS # (AUTO) 7.2 K/ul (2.0-6.9); NEUTROPHILS % (AUTO) 88.5 % (42.2-75.2); PLATELET COUNT 228 10^3/uL (140-440); WHITE BLOOD COUNT 8.17 K/ul (4.6-10.2)
[2022-07-04 13:08] LABS: ALANINE AMINOTRANSFERASE 14.3 U/L (0-35); ALBUMIN 4.44 g/dL (3.5-5.0); ALKALINE PHOSPHATASE 80.6 U/L (53-141); ASPARTATE AMINO TRANSFERASE 22.8 U/L (14-36); BILIRUBIN,TOTAL 0.43 mg/dL (0.2-1.3); BLOOD UREA NITROGEN 21.5 mg/dL (7-17); CALCIUM 9.98 mg/dL (8.4-10.2); CHLORIDE 95.6 mmol/L (98-107); CREATINE KINASE 50.2 U/L (30-135); CREATININE 1.18 mg/dL (0.60-1.30); GLUCOSE 128.6 mg/dL (74-106); POTASSIUM 4.01 mmol/L (3.5-5.1); TOTAL PROTEIN 7.65 g/dL (6.3-8.2)
[2022-07-04 13:09] LABS: ABG O2 HGB 95.8 % (95-100); BEecf 17.1 (-2.0-3.0); COHb 2.3 (0.5-1.5); MetHb 1.4 (0-1.5); TCO2 41.5 (19-24); sO2 99.1 % (94-98); tHb 13.1 g/dl (11.7-17.4)
[2022-07-04 13:11] LABS: ABG PH 7.52 (7.35-7.45)
[2022-07-04 13:21] VITALS: BMI 27.6
[2022-07-04 13:22] LABS: CARBON DIOXIDE 40.1 mmol/L (22-30.0); TROPONIN I < 0.012 ng/ml (0.0000-0.120)
[2022-07-04] MEDS: PULMICORT 0.5 MG/2 ML NEB SCH ×2 (13:30→19:45)
[2022-07-04] MEDS: DUONEB NEB SCH ×2 (14:02→19:45)
[2022-07-04] MEDS ORDERED: VENTOLIN HFA (PER PUFF-WITH SPACER) IH PRN (14:03)
--- NOTE | 2022-07-04 14:48 | DI ---
EXAM: Frontal view of the chest. HISTORY: Shortness of air. COMPARISON: Chest radiograph 10/07/2021. FINDINGS: Atherosclerotic calcifications of the aorta. Normal heart size. No acute consolidation. No visible pleural effusion or pneumothorax. Old healed right rib fractures noted. Multilevel spondylosis. IMPRESSION: No acute process.
[2022-07-04] MEDS: ZITHROMAX PO SCH (16:48)
[2022-07-04] MEDS: ROCEPHIN 1 GM/50 ML D5W 1 GM/50 ML BAG IV SCH (16:49)
[2022-07-04] MEDS: SOLU-CORTEF 250 MG IVP SCH (17:20)
[2022-07-04 17:52] LABS: BILIRUBIN,URINE Negative (NEGATIVE); CLARITY,URINE Clear (CLEAR); COLOR,URINE Yellow (YELLOW); GLUCOSE, URINE (UA) 1+ (NEGATIVE); KETONES,URINE 1+ (NEGATIVE); LEUKOCYTE ESTERASE ,URINE Trace (NEGATIVE); NITRITE,URINE Negative (NEGATIVE); PH,URINE 6.5 (5-9); PROTEIN,URINE Negative (NEGATIVE); URINE, BLOOD Trace-intact (NEGATIVE)
[2022-07-04 17:55] LABS: CALCIUM OXALATE CRYSTALS,UR 3+ (NOT PRESENT); RENAL EPITHELIAL CELLS,URINE 0-2 (NOT PRESENT); SQUAMOUS EPITHELIAL CELL,UR 0-2 (0-5)
[2022-07-04 20:47] LABS: CREATINE KINASE 40.6 U/L (30-135)
[2022-07-04 21:02] LABS: TROPONIN I < 0.012 ng/ml (0.0000-0.120)
[2022-07-04] MEDS: ULTRAM PO SCH (21:02)
[2022-07-04] MEDS: NEURONTIN PO SCH (21:02)
[2022-07-04] MEDS: XANAX PO SCH (21:03)
[2022-07-05] MEDS: SOLU-CORTEF 250 MG IVP SCH ×4 (00:27→17:26)
[2022-07-05 04:22] LABS: ABG O2 HGB 92.6 % (95-100); ABG PH 7.41 (7.35-7.45); BEecf 14.1 (-2.0-3.0); HCO3 38.7 (21-28); MetHb 1.3 (0-1.5); TCO2 40.6 (19-24); tHb 18.6 g/dl (11.7-17.4)
[2022-07-05] MEDS: DUONEB NEB SCH ×4 (04:30→19:52)
[2022-07-05] MEDS: PULMICORT 0.5 MG/2 ML NEB SCH ×2 (04:30→19:52)
[2022-07-05 05:29] LABS: BASOPHILS % (AUTO) 0.2 % (0.0-3.0); IMMATURE GRANULOCYTE % (AUTO) 0.5 % (0.0-5.0); LYMPHOCYTES % (AUTO) 16.3 (10.0-50.0); MEAN CORPUSCULAR HEMOGLOBIN 28.1 pg (27.0-31.0); MEAN CORPUSCULAR HGB CONC 30.8 (31.8-35.4); MEAN CORPUSCULAR VOLUME 91.3 fl (81.0-99.0); MONOCYTES # (AUTO) 0.1 K/uL (0.4-2.0); MONOCYTES % (AUTO) 1.9 (0-10); NEUTROPHILS # (AUTO) 5.2 K/ul (2.0-6.9); NEUTROPHILS % (AUTO) 81.1 % (42.2-75.2); PLATELET COUNT 244 10^3/uL (140-440); RDW COEFFICIENT OF VARIATION 12.9 % (11.6-14.8); RED BLOOD COUNT 4.27 10^6/ul (4.20-5.40); WHITE BLOOD COUNT 6.38 K/ul (4.6-10.2)
[2022-07-05] MEDS: PROTONIX PO SCH (05:38)
[2022-07-05] MEDS: SYNTHROID PO SCH (05:39)
[2022-07-05 05:40] LABS: ALANINE AMINOTRANSFERASE 17.8 U/L (0-35); ALBUMIN 4.49 g/dL (3.5-5.0); ALKALINE PHOSPHATASE 70.1 U/L (53-141); BILIRUBIN,TOTAL 0.36 mg/dL (0.2-1.3); CALCIUM 9.85 mg/dL (8.4-10.2); CARBON DIOXIDE 37.9 mmol/L (22-30.0); CHLORIDE 95.8 mmol/L (98-107); CREATININE 1.14 mg/dL (0.60-1.30); GLUCOSE 179.5 mg/dL (74-106); POTASSIUM 3.55 mmol/L (3.5-5.1); TOTAL PROTEIN 7.59 g/dL (6.3-8.2)
[2022-07-05] MEDS ORDERED: DALIRESP PO SCH (09:00)
[2022-07-05] MEDS ORDERED: NON-FORMULARY MEDICATION (Tiotropium-Olodaterol [Stiolto Respimat] 4 GM mist) IH SCH (09:00)
[2022-07-05] MEDS ORDERED: LISINOPRIL HYDROCHLOROTHIAZIDE PO SCH (09:00)
[2022-07-05] MEDS: XANAX PO SCH ×2 (10:09→20:14)
[2022-07-05] MEDS: SINGULAIR PO SCH (10:10)
[2022-07-05] MEDS: ROCEPHIN 1 GM/50 ML D5W 1 GM/50 ML BAG IV SCH (10:10)
[2022-07-05] MEDS: PRAVACHOL PO SCH (10:14)
[2022-07-05] MEDS: CYMBALTA PO SCH (10:14)
[2022-07-05] MEDS: HYDROCHLOROTHIAZIDE PO SCH (10:16)
[2022-07-05] MEDS: ZESTRIL PO SCH (10:17)
[2022-07-05] MEDS: CALAN SR PO SCH (10:18)
[2022-07-05] MEDS: ANTIVERT PO SCH (11:09)
[2022-07-05] MEDS: ZITHROMAX PO SCH (11:11)
[2022-07-05] MEDS: ANORO ELLIPTA 62.5-25 MCG INH IH SCH (13:34)
[2022-07-05] MEDS: K-DUR PO SCH ×2 (13:50→17:24)
[2022-07-05] MEDS: NEURONTIN PO SCH (20:14)
[2022-07-05] MEDS: DALIRESP PO SCH (20:14)
[2022-07-05] MEDS: ULTRAM PO SCH (20:14)
[2022-07-06] MEDS: SOLU-CORTEF 250 MG IVP SCH ×5 (01:09→23:58)
[2022-07-06] MEDS: DUONEB NEB SCH ×4 (04:30→20:40)
[2022-07-06] MEDS: PULMICORT 0.5 MG/2 ML NEB SCH ×2 (04:30→20:40)
[2022-07-06 04:41] LABS: ABG O2 HGB 95.5 % (95-100); ABG PH 7.46 (7.35-7.45); BEecf 13.9 (-2.0-3.0); HCO3 37.7 (21-28); MetHb 0.9 (0-1.5); TCO2 39.3 (19-24); sO2 96.4 % (94-98); tHb 11.9 g/dl (11.7-17.4)
[2022-07-06 05:27] LABS: BASOPHILS % (AUTO) 0.1 % (0.0-3.0); HEMATOCRIT 35.1 % (37.0-47.0); HEMOGLOBIN 10.9 g/dl (12.0-16.0); IMMATURE GRANULOCYTE # (AUTO) 0.1 (0.0-1.0); IMMATURE GRANULOCYTE % (AUTO) 0.5 % (0.0-5.0); LYMPHOCYTES # (AUTO) 1.1 K/uL (0.60-3.4); LYMPHOCYTES % (AUTO) 8.3 (10.0-50.0); MEAN CORPUSCULAR HEMOGLOBIN 28.5 pg (27.0-31.0); MEAN CORPUSCULAR HGB CONC 31.1 (31.8-35.4); MEAN CORPUSCULAR VOLUME 91.6 fl (81.0-99.0); MONOCYTES # (AUTO) 0.3 K/uL (0.4-2.0); MONOCYTES % (AUTO) 2.7 (0-10); NEUTROPHILS # (AUTO) 11.3 K/ul (2.0-6.9); NEUTROPHILS % (AUTO) 88.4 % (42.2-75.2); PLATELET COUNT 257 10^3/uL (140-440); RDW COEFFICIENT OF VARIATION 13.3 % (11.6-14.8); RED BLOOD COUNT 3.83 10^6/ul (4.20-5.40)
[2022-07-06 05:39] LABS: ALANINE AMINOTRANSFERASE 17.4 U/L (0-35); ALBUMIN 4.19 g/dL (3.5-5.0); ALKALINE PHOSPHATASE 58.8 U/L (53-141); ASPARTATE AMINO TRANSFERASE 18.4 U/L (14-36); BILIRUBIN,TOTAL 0.26 mg/dL (0.2-1.3); BLOOD UREA NITROGEN 42.3 mg/dL (7-17); CALCIUM 9.63 mg/dL (8.4-10.2); CARBON DIOXIDE 35.9 mmol/L (22-30.0); CHLORIDE 100.3 mmol/L (98-107); CREATININE 1.6 mg/dL (0.60-1.30); GLUCOSE 216.8 mg/dL (74-106); POTASSIUM 3.69 mmol/L (3.5-5.1); SODIUM 140.3 mmol/L (134.5-145)
[2022-07-06] MEDS: PROTONIX PO SCH (05:54)
[2022-07-06] MEDS: SYNTHROID PO SCH (06:00)
[2022-07-06] MEDS: CALAN SR PO SCH (08:57)
[2022-07-06] MEDS: ZITHROMAX PO SCH (08:58)
[2022-07-06] MEDS: PRAVACHOL PO SCH (08:58)
[2022-07-06] MEDS: ZESTRIL PO SCH (08:58)
[2022-07-06] MEDS: XANAX PO SCH ×2 (08:58→20:45)
[2022-07-06] MEDS: CYMBALTA PO SCH (08:58)
[2022-07-06] MEDS: K-DUR PO SCH ×2 (08:59→17:29)
[2022-07-06] MEDS: SINGULAIR PO SCH (08:59)
[2022-07-06] MEDS: ROCEPHIN 1 GM/50 ML D5W 1 GM/50 ML BAG IV SCH (08:59)
[2022-07-06] MEDS: HYDROCHLOROTHIAZIDE PO SCH (08:59)
[2022-07-06] MEDS: ANTIVERT PO SCH (08:59)
[2022-07-06] MEDS: ANORO ELLIPTA 62.5-25 MCG INH IH SCH (09:00)
[2022-07-06] MEDS: NEURONTIN PO SCH (20:45)
[2022-07-06] MEDS: DALIRESP PO SCH (20:46)
[2022-07-06] MEDS: ULTRAM PO SCH (20:46)
[2022-07-07 04:24] LABS: BASOPHILS % (AUTO) 0.2 % (0.0-3.0); HEMOGLOBIN 10.5 g/dl (12.0-16.0); IMMATURE GRANULOCYTE # (AUTO) 0.1 (0.0-1.0); IMMATURE GRANULOCYTE % (AUTO) 0.7 % (0.0-5.0); LYMPHOCYTES % (AUTO) 9.2 (10.0-50.0); MEAN CORPUSCULAR HEMOGLOBIN 28.8 pg (27.0-31.0); MEAN CORPUSCULAR VOLUME 95.9 fl (81.0-99.0); MONOCYTES # (AUTO) 0.4 K/uL (0.4-2.0); MONOCYTES % (AUTO) 3.2 (0-10); NEUTROPHILS # (AUTO) 9.6 K/ul (2.0-6.9); NEUTROPHILS % (AUTO) 86.7 % (42.2-75.2); PLATELET COUNT 263 10^3/uL (140-440); RED BLOOD COUNT 3.65 10^6/ul (4.20-5.40); WHITE BLOOD COUNT 11.09 K/ul (4.6-10.2)
[2022-07-07] MEDS: DUONEB NEB SCH ×4 (04:25→19:45)
[2022-07-07] MEDS: PULMICORT 0.5 MG/2 ML NEB SCH ×2 (04:25→19:45)
[2022-07-07 04:37] LABS: ALANINE AMINOTRANSFERASE 15.6 U/L (0-35); ALBUMIN 3.82 g/dL (3.5-5.0); ALKALINE PHOSPHATASE 53.9 U/L (53-141); ASPARTATE AMINO TRANSFERASE 16.7 U/L (14-36); BILIRUBIN,TOTAL 0.25 mg/dL (0.2-1.3); BLOOD UREA NITROGEN 46.1 mg/dL (7-17); CALCIUM 9.43 mg/dL (8.4-10.2); CARBON DIOXIDE 34.2 mmol/L (22-30.0); CHLORIDE 101.4 mmol/L (98-107); CREATININE 1.29 mg/dL (0.60-1.30); GLUCOSE 237.6 mg/dL (74-106); POTASSIUM 3.98 mmol/L (3.5-5.1); SODIUM 137.2 mmol/L (134.5-145); TOTAL PROTEIN 6.44 g/dL (6.3-8.2)
[2022-07-07] MEDS: SYNTHROID PO SCH (05:40)
[2022-07-07] MEDS: PROTONIX PO SCH (05:40)
[2022-07-07] MEDS: SOLU-CORTEF 250 MG IVP SCH ×3 (05:40→20:57)
[2022-07-07] MEDS ORDERED: SODIUM CHLORIDE 1,000 ML IV SCH (08:30)
[2022-07-07] MEDS: ANTIVERT PO SCH (09:29)
[2022-07-07] MEDS: PRAVACHOL PO SCH (09:29)
[2022-07-07] MEDS: XANAX PO SCH ×2 (09:29→20:30)
[2022-07-07] MEDS: K-DUR PO SCH ×2 (09:29→17:34)
[2022-07-07] MEDS: CYMBALTA PO SCH (09:29)
[2022-07-07] MEDS: HYDROCHLOROTHIAZIDE PO SCH (09:29)
[2022-07-07] MEDS: ZESTRIL PO SCH (09:29)
[2022-07-07] MEDS: SINGULAIR PO SCH (09:29)
[2022-07-07] MEDS: CALAN SR PO SCH (09:30)
[2022-07-07] MEDS: ROCEPHIN 1 GM/50 ML D5W 1 GM/50 ML BAG IV SCH (09:30)
[2022-07-07] MEDS: ANORO ELLIPTA 62.5-25 MCG INH IH SCH (09:31)
--- NOTE | 2022-07-07 09:48 | PCM.PROG ---
Attending Provider: ATTENDING PROVIDER: Dr. TESS FREDERICK MD This patient is seen with Mary Merritt, Nurse Practitioner. DATE OF SERVICE: 07/07/22 SUBJECTIVE: This 82 year old /WHITE F was hospitalized 07/04/22. The patient is improving. She has been eating well. She refuses telemetry. Vital signs have been stable. BUN slightly elevated. We will attempt to wean steroids today. REVIEW OF SYSTEMS: CONSTITUTIONAL: Weakness. No night sweats. No fatigue, malaise, lethargy. No fever or chills. HEENT: Eyes: No visual changes. No eye pain. No eye discharge. ENT: No runny nose. No epistaxis. No sinus pain. No odynophagia. No congestion. RESPIRATORY: Cough, shortness of breath with wheezing. No hemoptysis. CARDIOVASCULAR: No angina symptoms. No CHF symptoms. No atypical chest pain for CAD. No palpitations. No orthopnea.. GASTROINTESTINAL: No abdominal pain. No nausea or vomiting. No diarrhea or constipation. No hematemesis. No hematochezia. GENITOURINARY: No urgency. No frequency. No dysuria. No hematuria. No obstructive symptoms. No discharge. No pain. No significant abnormal bleeding. MUSCULOSKELETAL: No musculoskeletal pain; no joint swelling. NEUROLOGICAL: Awake, alert, oriented to time, place and person. No headache. No neck pain. No syncope. No seizures. No dizziness. PSYCHIATRIC: Not anxious. No depression. No suicidal thoughts. No homicidal thoughts. SKIN: No rash. No lesions. No wounds. ENDOCRINE: No unexplained weight loss. No weight gain. HEMATOLOGIC/LYMPHATIC: No anemia. No purpura. No petechiae. No prolonged or excessive bleeding. No palpable lymph nodes. PHYSICAL EXAMINATION: GENERAL: The patient is awake, alert and oriented, lying/sitting in bed in no distress. VITAL SIGNS: Temperature 97.8 F, Pulse 85, Respiratory Rate 20, BP 129/78, Pulse Ox 98% HEENT: Head normocephalic, atraumatic. Eyes: Extraocular muscles are intact. Pupils are equal, round and reactive to light and accommodation. Ears: No lesions. Nose appeared normal. Throat: No exudate or erythema. NECK: Supple. No JVD, no carotid bruit. No lymphadenopathy or thyromegaly. LUNGS: Bilateral inspiratory and expiratory wheezing. Percussion note normal. Chest symmetrical. HEART: S1, S2, no S3. No murmurs. No cyanosis or clubbing. No ascites. Pulses: Dorsalis pedis and posterior tibial pulses +1 to +2 both sides. ABDOMEN: Soft. Non-tender. Bowel sounds active. No CVA tenderness. No mass felt. EXTREMITIES: No edema. Full range of motion of all extremities, equal. NEUROLOGIC: No focal deficit. Cranial nerves II through XII are grossly intact. No headache. No double vision. SKIN: Not dry. Intact. Turgor-normal. LYMPHATIC: No palpable lymph nodes/no lymphedema. MUSCULOSKELETAL: Normal joints with no swelling. Muscle tone is normal. LAB REVIEW: 07/07/22 04:15 07/07/22 04:15 07/07/22 04:15: Sodium 137.2, Potassium 3.98, Chloride 101.4, Carbon Dioxide 34.2 H, Anion Gap 5.58, BUN 46.1 H, Creatinine 1.29, Estimated GFR (MDRD) 40.00, BUN/Creatinine Ratio 35.73, Glucose 237.6 H, Calcium 9.43, Total Bilirubin 0.25, AST 16.7, ALT 15.6, Alkaline Phosphatase 53.9, Total Protein 6.44, Albumin 3.82, Globulin 2.62, Albumin/Globulin Ratio 1.45 07/07/22 04:15: WBC 11.09 H, RBC 3.65 L, Hgb 10.5 L, Hct 35.0 L, MCV 95.9, MCH 28.8, MCHC 30.0 L, RDW Coeff of [place] 14.0, Plt Count 263, Immature Gran % (Auto) 0.7, Neut % (Auto) 86.7 H, Lymph % (Auto) 9.2 L, [place] % (Auto) 3.2, Eos % (Auto) 0.0, Baso % (Auto) 0.2, Neut # (Auto) 9.6 H, Lymph # (Auto) 1.0, [place] # (Auto) 0.4, Eos # (Auto) 0.0, Baso # (Auto) 0.0, Immature Gran # (Auto) 0.1 ASSESSMENT: Please see below. 1. Acute respiratory failure, underlying chronic respiratory failure. 2. Acute COPD exacerbation. PLAN: 1. Decrease Solu-Medrol to 125 mg q.12. 2. A1C. 3. Echocardiogram. 4. IV fluids 1 bag at 75 cc/hr. 5. CT scan today. Plan and coordination of the patient's care discussed in the presence of Pediatric Pathologist and nurse. CONDITION: Stable SCRIBED BY: Zakc VALVERDE scribed while in presence of service performed by Dr. Frederick/Mary Merritt APRN on 07/07/22 ([id number])
--- NOTE | 2022-07-07 10:48 | CT ---
EXAM: CT abdomen pelvis without and with intravenous contrast 07/07/2022. Sagittal and coronal refo rmatted images obtained HISTORY: Right flank pain COMPARISON: 08/16/2021 FINDINGS: Right basilar atelectasis. The liver shows no acute abnormality. Gallbladder has been removed The adrenal glands and left kidney show no acute abnormality. 6 mm diameter stone is present within the right renal pelvis. Stable dilatation of the right renal p adilene distal to the stone which was also described on CT performed 04/15/2022. No ureteral stone. S tone within the right renal pelvis could cause partial intermittent obstruction. The spleen and pancreas show no acute abnormality. There is no bowel obstruction. Unremarkable urinary bladder. No free air. No free fluid. Multilevel chronic degenerative disc disease. No acute osseous abnormality. IMPRESSION: 1. 6 mm diameter stone within the right renal pelvis appears similar to the prior study. There is s table dilatation of the right renal pelvis distal to the stone. Mild surrounding edema. Stone withi n the renal pelvis could potentially cause partial intermittent obstruction. 2. No hydronephrosis or ureteronephrosis. No ureteral stone. All CT scans are performed using dose optimization techniques as appropriate to the performed exam an d include at least one of the following: Automated exposure control, adjustment of the mA and/or kV according t o size, and the use of iterative reconstruction technique.
[2022-07-07] MEDS: MUCINEX PO SCH ×2 (11:43→20:30)
--- NOTE | 2022-07-07 15:17 | HP ---
DATE OF SERVICE: 07/04/22 REASON FOR HOSPITALIZATION/HISTORY OF PRESENT ILLNESS: 82-year-old female who walked in with shortness of breath and cough times 7 days worsening. She is oriented times three. Cough is dry. No fever/chills. Audible wheezing. No symptoms of CHF/CAD/Covid-19. PAST MEDICAL HISTORY: Hypertension Hypothyroidism CKD Anemia Chronic bronchial asthma Dyslipidemia PAST SURGICAL HISTORY: Kidney stones Gallbladder Appendix Melanoma right and left arm Meniscus surgery 2012 Two total knee replacements [id number] REVIEW OF SYSTEMS: CONSTITUTIONAL: Positive for fatigue. HEENT: Sinus drainage. No sore throat. RESPIRATORY: Cough. CARDIOVASCULAR: Shortness of breath. No atypical chest pain for coronary artery disease. No angina, CHF symptoms, palpitations. GASTROINTESTINAL: No melena or abdominal pain. No GERD. GENITOURINARY: No hematuria, no polyuria. MODEL BUILDER DISPLAY: Dizziness. No blackout, no headache, no double vision. MUSCULOSKELETAL: Osteoarthritis pain. No joint swelling. ENDOCRINE: No weight loss, no weight gain. SKIN: Not dry, no rash. PSYCHIATRIC: Not anxious, no depression, no suicidal thoughts, no homicidal thoughts. SOCIAL HISTORY: Marital Status: . Lives with . Three children. Alcohol Usage: No. Tobacco Usage: quit 26 years ago. FAMILY HISTORY: Father . Mother . One brother. MEDICATIONS: Neurontin 600 mg two night Lisinopril 20-25 mg daily Synthroid 100 mcg daily Singulair 10 mg p.o. q.a.m. Tramadol 50 mg daily p.o. bedtime Verapamil 240 mg daily Cymbalta 60 mg P.O. q.a.m. Xanax 0.5 mg p.o. b.i.d. Protonix 40 mg one daily Pravastatin 40 mg p.o. q.a.m. Antivert 25 mg daily Daliresp 600 mcg h.s. ALLERGIES: CODEINE, ERYTHROMYCIN BASE PHYSICAL EXAMINATION: V/S: Pulse 92, BP 178/88, temperature 98.1, 02 sat 88%, Weight 152.6, height 5'2", BMI 27.7. GENERAL APPEARANCE: Oriented times three. HEENT: Normal. NECK: No JVP, no bruits. RESPIRATORY: Lungs - mild wheeze. CARDIOVASCULAR: S1, S2, no S3, no murmur. No cyanosis, clubbing. No ascites. GI/ABDOMEN: No tenderness. Bowel sounds are active. EXTREMITIES: No edema, pulses +1, equal. MODEL BUILDER DISPLAY: Deep tendon reflexes, sensory, motor and gait all normal. RECTAL/PELVIC: Colonoscopy Dr. Mares 01/16. Mammogram 04/16 [facility]. ASSESSMENT: 1. ACUTE ASTHMATIC BRONCHITIS/PNEUMONITIS 2. COR PULMONALE 3. SEVERE COPD/ASTHMA 4. CHRONIC RESPIRATORY FAILURE 5. VACCINATED FOR COVID-19 6. HISTORY OF INFLUENZA A, 10/18 7. HYPERTENSION 8. HYPOTHYROIDISM 9. CHRONIC KIDNEY DISEASE STAGE 3 10. GENERALIZED ANXIETY DISORDER 11. CHRONIC ANEMIA 12. STAGHORN CALCULUS 13. BILATERAL TOTAL KNEE REPLACEMENT 14. HISTORY OF PYELONEPHRITIS 15. DNR PLAN: 1. Routine telemetry orders. 2. 2 cc Decadron IM given in the office. 3. Evaluate her for Vapotherm. 4. ABG STAT/continue all home medications. 5. Solu-Cortef 125 mg IV 6 hourly (no oral Prednisone) 6. ABG every a.m. 7. TSH, T4 8. Oxygen 2L/cannula/hr 9. Rocephin 1 gm IV PB 24 hourly 10. Zithromax 500 mg p.o. daily times 3 days 11. Nebs, Duonebs q.i.d., Pulmicort b.i.d. 12. Sputum for C & S 13. Blood culture times 2. 14. Pro-BNP 15. Septic workup. TIME SPENT: More than 70 minutes. MTDD
[2022-07-07] MEDS: DALIRESP PO SCH (20:30)
[2022-07-07] MEDS: ULTRAM PO SCH (20:31)
[2022-07-07] MEDS: NEURONTIN PO SCH (20:31)
[2022-07-08] MEDS: DUONEB NEB SCH ×4 (04:45→20:25)
[2022-07-08] MEDS: PULMICORT 0.5 MG/2 ML NEB SCH ×2 (04:45→20:25)
[2022-07-08 05:14] LABS: BASOPHILS % (AUTO) 0.3 % (0.0-3.0); HEMATOCRIT 34.9 % (37.0-47.0); HEMOGLOBIN 10.6 g/dl (12.0-16.0); IMMATURE GRANULOCYTE # (AUTO) 0.2 (0.0-1.0); IMMATURE GRANULOCYTE % (AUTO) 2.2 % (0.0-5.0); LYMPHOCYTES # (AUTO) 1.2 K/uL (0.60-3.4); LYMPHOCYTES % (AUTO) 12.6 (10.0-50.0); MEAN CORPUSCULAR HEMOGLOBIN 27.9 pg (27.0-31.0); MEAN CORPUSCULAR HGB CONC 30.4 (31.8-35.4); MEAN CORPUSCULAR VOLUME 91.8 fl (81.0-99.0); MONOCYTES # (AUTO) 0.4 K/uL (0.4-2.0); MONOCYTES % (AUTO) 4.5 (0-10); NEUTROPHILS # (AUTO) 7.5 K/ul (2.0-6.9); NEUTROPHILS % (AUTO) 80.4 % (42.2-75.2); PLATELET COUNT 249 10^3/uL (140-440); RDW COEFFICIENT OF VARIATION 13.8 % (11.6-14.8); WHITE BLOOD COUNT 9.29 K/ul (4.6-10.2)
[2022-07-08 05:30] LABS: ALANINE AMINOTRANSFERASE 16.6 U/L (0-35); ALBUMIN 3.68 g/dL (3.5-5.0); ALKALINE PHOSPHATASE 51.8 U/L (53-141); ASPARTATE AMINO TRANSFERASE 19.5 U/L (14-36); BILIRUBIN,TOTAL 0.3 mg/dL (0.2-1.3); BLOOD UREA NITROGEN 43.6 mg/dL (7-17); CALCIUM 9.05 mg/dL (8.4-10.2); CARBON DIOXIDE 32.1 mmol/L (22-30.0); CHLORIDE 105.2 mmol/L (98-107); CREATININE 1.2 mg/dL (0.60-1.30); GLUCOSE 246.8 mg/dL (74-106); POTASSIUM 3.9 mmol/L (3.5-5.1); SODIUM 139.5 mmol/L (134.5-145); TOTAL PROTEIN 6.12 g/dL (6.3-8.2)
[2022-07-08] MEDS: PROTONIX PO SCH (05:36)
[2022-07-08] MEDS: SYNTHROID PO SCH (05:36)
[2022-07-08] MEDS: CALAN SR PO SCH (08:58)
[2022-07-08] MEDS: HYDROCHLOROTHIAZIDE PO SCH (08:58)
[2022-07-08] MEDS: MUCINEX PO SCH ×2 (08:58→20:15)
[2022-07-08] MEDS: PRAVACHOL PO SCH (08:58)
[2022-07-08] MEDS: XANAX PO SCH ×2 (08:58→20:18)
[2022-07-08] MEDS: CYMBALTA PO SCH (08:58)
[2022-07-08] MEDS: K-DUR PO SCH ×2 (08:58→17:31)
[2022-07-08] MEDS: ZESTRIL PO SCH (08:58)
[2022-07-08] MEDS: SINGULAIR PO SCH (08:58)
[2022-07-08] MEDS: ANORO ELLIPTA 62.5-25 MCG INH IH SCH (08:59)
[2022-07-08] MEDS: ANTIVERT PO SCH (08:59)
[2022-07-08] MEDS: OMNICEF PO SCH ×2 (09:04→20:15)
[2022-07-08] MEDS: SOLU-CORTEF 250 MG IVP SCH ×2 (09:41→20:33)
--- NOTE | 2022-07-08 09:48 | PCM.PROG ---
Attending Provider: ATTENDING PROVIDER: Dr. TESS ONTIVEROS MD This patient is seen with Mary Merritt, Nurse Practitioner. DATE OF SERVICE: 07/08/22 SUBJECTIVE: This 82 year old /WHITE F was hospitalized 07/04/22. The patient is resting comfortably. She tolerated reduction in steroids. Shortness of breath slowly improving. She is encouraged to be up and about. She has been eating well. CT scan of the abdomen showed 6 mm stone right renal pelvis. She had previously seen Dr. Ware and will refer back to him. REVIEW OF SYSTEMS: CONSTITUTIONAL: No night sweats. No fatigue, malaise, lethargy. No fever or chills. HEENT: Eyes: No visual changes. No eye pain. No eye discharge. ENT: No runny nose. No epistaxis. No sinus pain. No odynophagia. No congestion. RESPIRATORY: Cough and shortness of breath. Wheezing. No hemoptysis. CARDIOVASCULAR: No angina symptoms. No CHF symptoms. No atypical chest pain for CAD. No palpitations. No orthopnea.. GASTROINTESTINAL: No abdominal pain. No nausea or vomiting. No diarrhea or constipation. No hematemesis. No hematochezia. GENITOURINARY: No urgency. No frequency. No dysuria. No hematuria. No obstructive symptoms. No discharge. No pain. No significant abnormal bleeding. MUSCULOSKELETAL: No musculoskeletal pain; no joint swelling. NEUROLOGICAL: Awake, alert, oriented to time, place and person. No headache. No neck pain. No syncope. No seizures. No dizziness. PSYCHIATRIC: Not anxious. No depression. No suicidal thoughts. No homicidal thoughts. SKIN: No rash. No lesions. No wounds. ENDOCRINE: No unexplained weight loss. No weight gain. HEMATOLOGIC/LYMPHATIC: No anemia. No purpura. No petechiae. No prolonged or exc essive bleeding. No palpable lymph nodes. PHYSICAL EXAMINATION: GENERAL: The patient is awake, alert and oriented, lying/sitting in bed in no distress. VITAL SIGNS: Temperature 97.5 F, Pulse 65, Respiratory Rate 20, BP 141/73, Pulse Ox 95% HEENT: Head normocephalic, atraumatic. Eyes: Extraocular muscles are intact. Pupils are equal, round and reactive to light and accommodation. Ears: No lesions. Nose appeared normal. Throat: No exudate or erythema. NECK: Supple. No JVD, no carotid bruit. No lymphadenopathy or thyromegaly. LUNGS: Diminished breath sounds improved with bilateral wheezing. Percussion note normal. Chest symmetrical. HEART: S1, S2, no S3. No murmurs. No cyanosis or clubbing. No ascites. Pulses: Dorsalis pedis and posterior tibial pulses +1 to +2 both sides. ABDOMEN: Soft. Intermittent right flank pain. Bowel sounds active. No CVA tenderness. No mass felt. EXTREMITIES: No edema. Full range of motion of all extremities, equal. NEUROLOGIC: No focal deficit. Cranial nerves II through XII are grossly intact. No headache. No double vision. SKIN: Not dry. Intact. Turgor-normal. LYMPHATIC: No palpable lymph nodes/no lymphedema. MUSCULOSKELETAL: Normal joints with no swelling. Muscle tone is normal. LAB REVIEW: 07/08/22 05:04 07/08/22 05:04 07/08/22 05:04: Sodium 139.5, Potassium 3.90, Chloride 105.2, Carbon Dioxide 32.1 H, Anion Gap 6.10, BUN 43.6 H, Creatinine 1.20, Estimated GFR (MDRD) 43.00, BUN/Creatinine Ratio 36.33, Glucose 246.8 H, Calcium 9.05, Total Bilirubin 0.30, AST 19.5, ALT 16.6, Alkaline Phosphatase 51.8 L, Total Protein 6.12 L, Albumin 3.68, Globulin 2.44, Albumin/Globulin Ratio 1.50 07/08/22 05:04: WBC 9.29, RBC 3.80 L, Hgb 10.6 L, Hct 34.9 L, MCV 91.8, MCH 27.9, MCHC 30.4 L, RDW Coeff of [place] 13.8, Plt Count 249, Immature Gran % (Auto) 2.2, Neut % (Auto) 80.4 H, Lymph % (Auto) 12.6, [place] % (Auto) 4.5, Eos % (Auto) 0.0, Baso % (Auto) 0.3, Neut # (Auto) 7.5 H, Lymph # (Auto) 1.2, [place] # (Auto) 0.4, Eos # (Auto) 0.0, Baso # (Auto) 0.0, Immature Gran # (Auto) 0.2 07/07/22 08:28: Hemoglobin A1c 6.56 H ASSESSMENT: Please see below. 1. Acute respiratory failure, underlying chronic respiratory failure. 2. Acute COPD exacerbation. 3. Right renal stone with surrounding edema PLAN: 1. Prednisone 20 mg t.i.d. starting tomorrow. 2. Last dose of Solu-Medrol tonight. 3. Omnicef 300 mg b.i.d. p.o. begin today. Plan and coordination of the patient's care discussed in the presence of Professor Of Kinesiology and nurse. CONDITION: Stable SCRIBED BY: MENG GOEL Truss Puller Helper scribed while in presence of service performed by Dr. Ontiveros/Mary Merritt APRN on 07/08/22 ([id number])
--- NOTE | 2022-07-08 10:13 | PN ---
DATE OF SERVICE: 07/05/22 SUBJECTIVE: 82-year-old white female hospitalized with acute asthmatic bronchitis and respiratory failure with hypoxemia. The patient's condition has improved. The is sitting in the room. The patient is talking constantly. REVIEW OF SYSTEMS: CONSTITUTIONAL: No night sweats. No fatigue, malaise, lethargy. No fever or chills. HEENT: Eyes: No visual changes. No eye pain. No eye discharge. ENT: No runny nose. No epistaxis. No sinus pain. No sore throat. No odynophagia. No congestion. RESPIRATORY: Mild cough. No hemoptysis. No shortness of breath. CARDIOVASCULAR: No angina symptoms. No CHF symptoms. No atypical chest pain for CAD. No palpitations. No PND. No orthopnea. GASTROINTESTINAL: Has some vague right flank pain which the patient has had for two to three months and wants it to be checked out because she has a history of renal stones on the right side. No nausea or vomiting. No hematemesis. No hematochezia. GENITOURINARY: No urgency. No frequency. No dysuria. No hematuria. No obstructive symptoms. No discharge. No pain. No significant abnormal bleeding. MUSCULOSKELETAL: No musculoskeletal pain; no joint swelling. NEUROLOGICAL: No headache. No neck pain. No syncope. No seizures. No dizziness. PSYCHIATRIC: Not anxious. No depression. No suicidal thoughts. No homicidal thoughts. SKIN: No rash. No lesions. No wounds. ENDOCRINE: No unexplained weight loss. No weight gain. HEMATOLOGIC/LYMPHATIC: No anemia. No purpura. No petechiae. No prolonged or excessive bleeding. No palpable lymph nodes. PHYSICAL EXAMINATION: VITAL SIGNS: Temperature 97.8, pulse 96, respiratory rate 18, blood pressure 107/67, pulse ox 97% on 2L. HEENT: Head normocephalic, atraumatic. Eyes: Extraocular muscles are intact. Pupils are equal, round and reactive to light and accommodation. Ears: No lesions. Nose appeared normal. Throat: No exudate or erythema. NECK: Supple. No JVD, no carotid bruit. No lymphadenopathy or thyromegaly. LUNGS: Mild expiratory wheeze. Percussion note normal. Chest symmetrical. HEART: S1, S2, no S3. No murmurs. No cyanosis or clubbing. No ascites. Pulses: Dorsalis pedis and posterior tibial pulses +1 to +2 bilaterally. ABDOMEN: Soft. Nontender. Bowel sounds active. No CVA tenderness. No mass felt. EXTREMITIES: Trace edema. Full range of motion of all extremities, equal. NEUROLOGIC: No focal deficit. Cranial nerves II through XII are grossly intact. No headache. No double vision. SKIN: Not dry. Intact. Turgor - normal. LYMPHATIC: No palpable lymph nodes/no lymphedema. MUSCULOSKELETAL: Normal joints with no swelling. Muscle tone is normal. LABS: Hemoglobin 12, hematocrit 39, WBC 6,300, normal differential. Creatinine 1.1, BUN 30, potassium 3.5. ASSESSMENT: 1. Asthmatic bronchitis with respiratory failure. 2. Hypokalemia. PLAN: 1. Will give K-tab 20 mEq twice a day. 2. Right flank pain, vague. Will do CT scan of the abdomen and pelvis on Thursday morning. 3. Continue steroids, nebs, antibiotics. CONDITION: Stable. TIME SPENT: More than 30 minutes. Plan and coordination of the patient's care discussed in the presence of nurse. SERGIO
[2022-07-08] MEDS: NEURONTIN PO SCH (20:15)
[2022-07-08] MEDS: DALIRESP PO SCH (20:15)
[2022-07-08] MEDS: ULTRAM PO SCH (20:16)
[2022-07-08] MEDS ORDERED: TORADOL IVP ONE (20:43)
[2022-07-09] MEDS: DUONEB NEB SCH ×4 (04:50→19:45)
[2022-07-09] MEDS: PULMICORT 0.5 MG/2 ML NEB SCH ×2 (04:50→19:45)
[2022-07-09 05:16] LABS: BASOPHILS % (AUTO) 0.5 % (0.0-3.0); HEMATOCRIT 35.7 % (37.0-47.0); IMMATURE GRANULOCYTE # (AUTO) 0.3 (0.0-1.0); LYMPHOCYTES # (AUTO) 1.6 K/uL (0.60-3.4); LYMPHOCYTES % (AUTO) 19.3 (10.0-50.0); MEAN CORPUSCULAR HEMOGLOBIN 28.3 pg (27.0-31.0); MEAN CORPUSCULAR HGB CONC 30.8 (31.8-35.4); MEAN CORPUSCULAR VOLUME 91.8 fl (81.0-99.0); MONOCYTES # (AUTO) 0.5 K/uL (0.4-2.0); MONOCYTES % (AUTO) 6.1 (0-10); NEUTROPHILS # (AUTO) 5.8 K/ul (2.0-6.9); NEUTROPHILS % (AUTO) 70.1 % (42.2-75.2); PLATELET COUNT 256 10^3/uL (140-440); RDW COEFFICIENT OF VARIATION 13.5 % (11.6-14.8); RED BLOOD COUNT 3.89 10^6/ul (4.20-5.40); WHITE BLOOD COUNT 8.24 K/ul (4.6-10.2)
[2022-07-09 05:30] LABS: ALBUMIN 3.74 g/dL (3.5-5.0); ALKALINE PHOSPHATASE 48.2 U/L (53-141); ASPARTATE AMINO TRANSFERASE 21.5 U/L (14-36); BILIRUBIN,TOTAL 0.34 mg/dL (0.2-1.3); CARBON DIOXIDE 35.9 mmol/L (22-30.0); CHLORIDE 101.8 mmol/L (98-107); CREATININE 1.13 mg/dL (0.60-1.30); GLUCOSE 216.4 mg/dL (74-106); POTASSIUM 3.62 mmol/L (3.5-5.1); SODIUM 139.9 mmol/L (134.5-145); TOTAL PROTEIN 6.25 g/dL (6.3-8.2)
[2022-07-09] MEDS: SYNTHROID PO SCH (05:32)
[2022-07-09] MEDS: PROTONIX PO SCH (05:32)
[2022-07-09] MEDS ORDERED: PREDNISONE PO SCH (08:30)
[2022-07-09] MEDS: OMNICEF PO SCH ×2 (09:08→20:17)
[2022-07-09] MEDS: MUCINEX PO SCH ×2 (09:08→20:17)
[2022-07-09] MEDS: PRAVACHOL PO SCH (09:08)
[2022-07-09] MEDS: HYDROCHLOROTHIAZIDE PO SCH (09:08)
[2022-07-09] MEDS: CYMBALTA PO SCH (09:08)
[2022-07-09] MEDS: CALAN SR PO SCH (09:08)
[2022-07-09] MEDS: K-DUR PO SCH ×2 (09:09→17:14)
[2022-07-09] MEDS: ZESTRIL PO SCH (09:09)
[2022-07-09] MEDS: XANAX PO SCH ×2 (09:09→20:18)
[2022-07-09] MEDS: ANTIVERT PO SCH (09:09)
[2022-07-09] MEDS: PREDNISONE PO SCH ×3 (09:09→17:14)
[2022-07-09] MEDS: SINGULAIR PO SCH (09:09)
[2022-07-09] MEDS: ANORO ELLIPTA 62.5-25 MCG INH IH SCH (09:10)
[2022-07-09] MEDS: NEURONTIN PO SCH (20:17)
[2022-07-09] MEDS: ULTRAM PO SCH (20:17)
[2022-07-09] MEDS: DALIRESP PO SCH (20:18)
[2022-07-10] MEDS: PULMICORT 0.5 MG/2 ML NEB SCH (04:55)
[2022-07-10] MEDS: DUONEB NEB SCH ×2 (04:55→09:23)
[2022-07-10 05:16] LABS: BASOPHILS # (AUTO) 0.1 K/uL (0-0.2); BASOPHILS % (AUTO) 0.6 % (0.0-3.0); HEMATOCRIT 35.8 % (37.0-47.0); HEMOGLOBIN 11.3 g/dl (12.0-16.0); IMMATURE GRANULOCYTE # (AUTO) 0.4 (0.0-1.0); IMMATURE GRANULOCYTE % (AUTO) 4.5 % (0.0-5.0); LYMPHOCYTES # (AUTO) 1.4 K/uL (0.60-3.4); LYMPHOCYTES % (AUTO) 17.8 (10.0-50.0); MEAN CORPUSCULAR HEMOGLOBIN 28.6 pg (27.0-31.0); MEAN CORPUSCULAR HGB CONC 31.6 (31.8-35.4); MEAN CORPUSCULAR VOLUME 90.6 fl (81.0-99.0); MONOCYTES # (AUTO) 0.5 K/uL (0.4-2.0); MONOCYTES % (AUTO) 6.4 (0-10); NEUTROPHILS # (AUTO) 5.7 K/ul (2.0-6.9); NEUTROPHILS % (AUTO) 70.7 % (42.2-75.2); PLATELET COUNT 275 10^3/uL (140-440); RDW COEFFICIENT OF VARIATION 13.3 % (11.6-14.8); RED BLOOD COUNT 3.95 10^6/ul (4.20-5.40)
[2022-07-10 05:26] VITALS: BP 165/87; TEMP 97
[2022-07-10 05:30] LABS: ALANINE AMINOTRANSFERASE 23.1 U/L (0-35); ALBUMIN 3.69 g/dL (3.5-5.0); ALKALINE PHOSPHATASE 49.6 U/L (53-141); ASPARTATE AMINO TRANSFERASE 22.9 U/L (14-36); BILIRUBIN,TOTAL 0.37 mg/dL (0.2-1.3); BLOOD UREA NITROGEN 39.1 mg/dL (7-17); CALCIUM 9.19 mg/dL (8.4-10.2); CARBON DIOXIDE 37.6 mmol/L (22-30.0); CHLORIDE 101.2 mmol/L (98-107); CREATININE 1.12 mg/dL (0.60-1.30); GLUCOSE 179.9 mg/dL (74-106); POTASSIUM 4.04 mmol/L (3.5-5.1); SODIUM 140.4 mmol/L (134.5-145); TOTAL PROTEIN 6.13 g/dL (6.3-8.2)
[2022-07-10] MEDS: PROTONIX PO SCH (05:41)
[2022-07-10] MEDS: SYNTHROID PO SCH (05:41)
[2022-07-10] MEDS: ANORO ELLIPTA 62.5-25 MCG INH IH SCH (09:50)
[2022-07-10] MEDS: XANAX PO SCH (09:50)
[2022-07-10] MEDS: HYDROCHLOROTHIAZIDE PO SCH (09:51)
[2022-07-10] MEDS: PRAVACHOL PO SCH (09:51)
[2022-07-10] MEDS: ZESTRIL PO SCH (09:51)
[2022-07-10] MEDS: SINGULAIR PO SCH (09:51)
[2022-07-10] MEDS: OMNICEF PO SCH (09:51)
[2022-07-10] MEDS: CYMBALTA PO SCH (09:51)
[2022-07-10] MEDS: PREDNISONE PO SCH (09:51)
[2022-07-10] MEDS: MUCINEX PO SCH (09:51)
[2022-07-10] MEDS: K-DUR PO SCH (09:51)
[2022-07-10] MEDS: CALAN SR PO SCH (09:51)
[2022-07-10] MEDS: ANTIVERT PO SCH (09:52)
--- NOTE | 2022-07-10 10:06 | PCM.PROG ---
Attending Provider: ATTENDING PROVIDER: Dr. TESS ONTIVEROS MD This patient is seen with Mary Merritt, Nurse Practitioner. DATE OF SERVICE: 07/10/22 SUBJECTIVE: This 82 year old /WHITE F was hospitalized 07/04/22. The patient is resting comfortably. She has been up and about walking around. She is transitioned to p.o. steroids and is doing well. She has a good appetite and is ready for discharge today. She has home oxygen and nebulizer. REVIEW OF SYSTEMS: CONSTITUTIONAL: No night sweats. No fatigue, malaise, lethargy. No fever or chills. HEENT: Eyes: No visual changes. No eye pain. No eye discharge. ENT: No runny nose. No epistaxis. No sinus pain. No odynophagia. No congestion. RESPIRATORY: Cough and shortness of breath. No hemoptysis. CARDIOVASCULAR: No angina symptoms. No CHF symptoms. No atypical chest pain for CAD. No palpitations. No orthopnea.. GASTROINTESTINAL: No abdominal pain. No nausea or vomiting. No diarrhea or constipation. No hematemesis. No hematochezia. GENITOURINARY: No urgency. No frequency. No dysuria. No hematuria. No obstruc tive symptoms. No discharge. No pain. No significant abnormal bleeding. MUSCULOSKELETAL: No musculoskeletal pain; no joint swelling. NEUROLOGICAL: Awake, alert, oriented to time, place and person. No headache. No neck pain. No syncope. No seizures. No dizziness. PSYCHIATRIC: Not anxious. No depression. No suicidal thoughts. No homicidal thoughts. SKIN: No rash. No lesions. No wounds. ENDOCRINE: No unexplained weight loss. No weight gain. HEMATOLOGIC/LYMPHATIC: No anemia. No purpura. No petechiae. No prolonged or excessive bleeding. No palpable lymph nodes. PHYSICAL EXAMINATION: GENERAL: The patient is awake, alert and oriented, lying/sitting in bed in no distress. VITAL SIGNS: Temperature 97.0 F, Pulse 61, Respiratory Rate 18, BP 165/87, Pulse Ox 98% HEENT: Head normocephalic, atraumatic. Eyes: Extraocular muscles are intact. Pupils are equal, round and reactive to light and accommodation. Ears: No lesions. Nose appeared normal. Throat: No exudate or erythema. NECK: Supple. No JVD, no carotid bruit. No lymphadenopathy or thyromegaly. LUNGS: Severely diminished bilateral breath sounds with faint expiratory wheezing on the right improved. Percussion note normal. Chest symmetrical. HEART: S1, S2, no S3. No murmurs. No cyanosis or clubbing. No ascites. Pulses: Dorsalis pedis and posterior tibial pulses +1 to +2 both sides. ABDOMEN: Intermittent right flank pain. Soft. Non-tender. Bowel sounds active. No CVA tenderness. No mass felt. EXTREMITIES: No edema. Full range of motion of all extremities, equal. NEUROLOGIC: No focal deficit. Cranial nerves II through XII are grossly intact. No headache. No double vision. SKIN: Not dry. Intact. Turgor-normal. LYMPHATIC: No palpable lymph nodes/no lymphedema. MUSCULOSKELETAL: Normal joints with no swelling. Muscle tone is normal. LAB REVIEW: 07/10/22 05:04 07/10/22 05:04 07/10/22 05:04: Sodium 140.4, Potassium 4.04, Chloride 101.2, Carbon Dioxide 3 7.6 H, Anion Gap 5.64, BUN 39.1 H, Creatinine 1.12, Estimated GFR (MDRD) 47.00, BUN/Creatinine Ratio 34.91, Glucose 179.9 H, Calcium 9.19, Total Bilirubin 0.37, AST 22.9, ALT 23.1, Alkaline Phosphatase 49.6 L, Total Protein 6.13 L, Albumin 3.69, Globulin 2.44, Albumin/Globulin Ratio 1.51 07/10/22 05:04: WBC 8.00, RBC 3.95 L, Hgb 11.3 L, Hct 35.8 L, MCV 90.6, MCH 28.6, MCHC 31.6 L, RDW Coeff of [place] 13.3, Plt Count 275, Immature Gran % (Auto) 4.5, Neut % (Auto) 70.7, Lymph % (Auto) 17.8, [place] % (Auto) 6.4, Eos % (Auto) 0.0, Baso % (Auto) 0.6, Neut # (Auto) 5.7, Lymph # (Auto) 1.4, [place] # (Auto) 0.5, Eos # (Auto) 0.0, Baso # (Auto) 0.1, Immature Gran # (Auto) 0.4 ASSESSMENT: Please see below. 1. Acute on chronic respiratory failure. 2. Acute asthmatic bronchitis. 3. COPD end-stage. 4. Hyperglycemia. 5. Right nephrolithiasis 6 mm with some surrounding edema. PLAN: 1. Discharge home. 2. Omnicef 300 mg b.i.d. times 4 days. 3. Prednisone 20 mg t.i.d. for 3 days, b.i.d. for 3 days then daily times 4 days. 4. She is to continue nebs and all other medications at home. Medications have been unchanged. 5. She has an appointment with Dr. Ware 07/15/22. She will followup in our office the week after. Plan and coordination of the patient's care discussed in the presence of Frame Welder Cargo Utility Trailers and nurse. CONDITION: Stable. SCRIBED BY: MENG GOEL Fire Protection Specialist scribed while in presence of service performed by Dr. Ontiveros/Mary Merritt APRN on 07/10/22 ([id number])
--- NOTE | 2022-07-10 11:11 | DS ---
DATE OF SERVICE: 07/10/22 FINAL DIAGNOSIS: 1. ACUTE ON CHRONIC RESPIRATORY FAILURE 2. ACUTE ASTHMATIC BRONCHITIS 3. COPD, END-STAGE 4. HYPERGLYCEMIA 5. RIGHT NEPHROLITHIASIS 6 MM WITH SOME SURROUNDING EDEMA DISCHARGE INSTRUCTIONS: Followup appointment in office one week after visit with Dr. Ware. MEDICATIONS AT DISCHARGE: Cymbalta 60 mg p.o. q.a.m. Xanax 0.5 mg p.o. b.i.d. Pravastatin 40 mg p.o. q.a.m. Calan SR 240 mg p.o. q.a.m. Singulair 10 mg p.o. q.a.m. Tramadol 50 mg p.o. bedtime Stiolto two puff INH q.a.m. Gabapentin 1,200 mg p.o. bedtime Meclizine 25 mg p.o. q. a.m. Protonix 40 mg p.o. q.d a.c. Albuterol two puff INH b.i.d. p.r.n. wheezing Levothyroxine 100 mcg p.o. q.d a.c. Lisinopril one tab p.o. q.a.m. Daliresp 500 mcg p.o. q.a.m. NEW PRESCRIPTIONS: Omnicef 300 mg b.i.d. times four days Prednisone t.i.d. 20 mg for three days b.i.d. for three days then daily times four days. Guaifenesin (mucinex) 600 mg p.o. b.i.d. DISCONTINUED MEDICATIONS: N/A DIET INSTRUCTIONS: Resume as tolerated ACTIVITY: Resume as tolerated, wear 02 consistently SMOKING: N/A DISEASE SPECIFIC EDUCATION: Medications Activity Diet Followup HOSPITAL COURSE: 82-year-old /white female, a direct admit from our office. Initially oxygen saturation was 84% on 4L. She has long history of end-stage COPD and chronic respiratory failure. Chest x-ray showed no pneumonia. She was placed on IV steroids and antibiotics. She has been having some intermittent right flank pain, has history of kidney stones. CT of abdomen revealed 6 mm right kidney stone with parapelvic edema. We have made appointment with Dr. Ware 07/15/22. She has been weaned from IV steroids and has tolerated this for past 48 hours. She has been up and about walking with no desaturation, 02 sat mid 90s on 3L. She will go home with Omnicef, tapering prednisone dose and continue with oxygen and neb treatments at home. Will see the week after appointment with Dr. Ware. She is to continue nebs and all other medications at home. Medications have been unchanged. TIME SPENT: More than 60 minutes. [facility]
--- NOTE | 2022-07-10 13:31 | PN ---
DATE OF SERVICE: 07/07/22 SUBJECTIVE: The patient is doing well, breathing better. Still mild wheezing. Still shortness of breath on minimal exertion but appetite has improved. She is able to speak full sentences most 3 to 4 minutes without stopping. The patient is ambulatory with help. Condition improving. Continue steroids, nebs and antibiotics. TIME SPENT: More than 30 minutes. Plan and coordination of the patient's care discussed in the presence of nurse. SERGIO
--- NOTE | 2022-07-10 13:34 | PN ---
DATE OF SERVICE: 07/08/22 SUBJECTIVE: The patient was seen and examined with the nurse practitioner. The patient's condition has improved. She is feeling better. She has less wheezing. Continue steroids. The side effects of steroids discussed with her in detail including diabetes, cataracts, avascular necrosis of femoral bones. There is no other choice but to be on steroids. She is steroid dependent more or less. She has continued wheezing with severe chronic lung disease with history of asthma. Condition: Stable. Cardiovascular status seems to be stable. The is present in the room. Likely day of discharge tomorrow. TIME SPENT: More than 30 minutes. Plan and coordination of the patient's care discussed in the presence of nurse. SERGIO
--- NOTE | 2022-07-10 13:43 | PN ---
DATE OF SERVICE: 07/09/22 SUBJECTIVE: 82-year-old white female hospitalized with severe asthmatic bronchitis with respiratory failure. The patient has history of chronic respiratory failure. The patient was unable to walk or even talk. The patient's condition has improved remarkably. She is still short of breath with minimal exertion on walking but otherwise she is able to talk. She isn't having any difficulty. REVIEW OF SYSTEMS: CONSTITUTIONAL: No night sweats. No fatigue, malaise, lethargy. No fever or chills. HEENT: Eyes: No visual changes. No eye pain. No eye discharge. ENT: No runny nose. No epistaxis. No sinus pain. No sore throat. No odynophagia. No congestion. RESPIRATORY: Mild cough. Shortness of breath on minimal exertion as usual. No hemoptysis. CARDIOVASCULAR: No angina symptoms. No CHF symptoms. No atypical chest pain for CAD. No palpitations. No PND. No orthopnea. GASTROINTESTINAL: No abdominal pain. No nausea or vomiting. No diarrhea or constipation. No hematemesis. No hematochezia. GENITOURINARY: No urgency. No frequency. No dysuria. No hematuria. No obstructive symptoms. No discharge. No pain. No significant abnormal bleeding. MUSCULOSKELETAL: No musculoskeletal pain; no joint swelling. NEUROLOGICAL: No headache. No neck pain. No syncope. No seizures. No dizziness. PSYCHIATRIC: Not anxious. No depression. No suicidal thoughts. No homicidal thoughts. SKIN: No rash. No lesions. No wounds. ENDOCRINE: No unexplained weight loss. No weight gain. HEMATOLOGIC/LYMPHATIC: No anemia. No purpura. No petechiae. No prolonged or excessive bleeding. No palpable lymph nodes. PHYSICAL EXAMINATION: VITAL SIGNS: Temperature 96.4, pulse 85, respiratory rate 18, blood pressure 153/75, pulse ox 93% on 2L. HEENT: Head normocephalic, atraumatic. Eyes: Extraocular muscles are intact. Pupils are equal, round and reactive to light and accommodation. Ears: No lesions. Nose appeared normal. Throat: No exudate or erythema. NECK: Supple. No JVD, no carotid bruit. No lymphadenopathy or thyromegaly. LUNGS: Expiratory wheeze, mild. Clear to auscultation. Percussion note normal. Chest symmetrical. HEART: S1, S2, no S3. No murmurs. No cyanosis or clubbing. No ascites. Pulses: Dorsalis pedis and posterior tibial pulses +1 to +2 bilaterally. ABDOMEN: Soft. Nontender. Bowel sounds active. No CVA tenderness. No mass felt. EXTREMITIES: No edema. Full range of motion of all extremities, equal. NEUROLOGIC: No focal deficit. Cranial nerves II through XII are grossly intact. No headache. No double vision. SKIN: Not dry. Intact. Turgor - normal. LYMPHATIC: No palpable lymph nodes/no lymphedema. MUSCULOSKELETAL: Normal joints with no swelling. Muscle tone is normal. LABS: Hemoglobin 11, hematocrit 35, WBC 8,200, normal differential. Creatinine 1.1, BUN 38, potassium 3.6, glucose 216. ASSESSMENT: 1. Acute asthmatic bronchitis with chronic respiratory failure seems to be getting under control. 2. Hyperglycemia likely from steroids. 3. Hypertension. PLAN: 1. Continue telemetry. 2. The patient's CT scan showed renal stone which is somewhat new. The patient has already been referred to Dr. Ware. She is to see him in 2 to 3 days. 3. The patient is to see me 5 days after discharge. The patient is very likely going to be discharged tomorrow. 4. Echo this morning showed normal LV contractility and enlarged RV cavity. Normal valves. Normal LV size and LV contractility. 5. The patient is to be continued on steroids, nebs. 6. Advised pulmonary rehab. The is present in the room. CONDITION: Stable. TIME SPENT: More than 30 minutes. Plan and coordination of the patient's care discussed in the presence of nurse. SERGIO
--- NOTE | 2022-07-11 08:23 | ECHO2D ---
Date of Exam: 07/09/2022 Ordering Physician: DR. TESS FREDERICK Room #: 105 Reason for Echo: SOB, HX CORPULMONALE / RESPIRATORY FAILURE M-Mode Normal Adult Results LV Dimensions Normal Adult Results AoV Opening excursions >1.6 >1.6 LVEDD-base- 3.5-5.8 4.0 Ao root dimensions 2.0-3.7 3.2 LVESD-base- 3.1-4.6 L. Atrium dimensions 1.9-3.8 3.9 Post. Wall thickness 0.8-1.1 1.0 IV septum (thickness) 0.7-1.2 1.0 Post. Wall excursion 0.72-1.3 NORMAL Septal motion NORMAL Systolic motion R. Ventricular cavity 1.5-2.0 4.0 LVEF 60% 63% Paradoxical septal wall motion NORMAL 2-D : 2-D M Mode Echocardiogram was performed using apical four chamber and left parasternal long and short axis views. Mitral, tricuspid and aortic valves appear to be normal. Contractility of the left ventricle seems to be normal, so is the cavity size. Left atrial cavity size and aortic root appear to be normal. There is no pericardial effusion. There is no thrombus noted in the left ventricle or left atrial cavity. ENLARGED RIGHT VENTRICLE CAVITY. M-MODE: MV: NORMAL AV: NORMAL TV: NORMAL PV: CHAMBER SIZE: ENLARGED RIGHT VENTRICLE CAVITY WALL MOTION: NORMAL PERICARDIUM: NORMAL INTERPRETATION: 1. NORMAL LEFT VENTRICLE SIZE AND LEFT VENTRICLE CONTRACTILITY 2. ENLARGED RIGHT VENTRICLE CAVITY 3. NORMAL VALVES UNCHANGED 2 "D" "M" MODE [facility]
--- NOTE | 2022-07-13 12:18 | PN ---
DATE OF SERVICE: 07/10/22 SUBJECTIVE: This is an 82 year old white female who was admitted with acute asthmatic bronchitis with audible wheezing without stethoscope on admission through the office. The patient's condition has improved. She is breathing better and talking better. Her appetite has improved. She still has mild wheeze when we auscultate her lungs. Her cardiovascular status is stable. She is going to be discharged home on antibiotics, steroids and nebs. REVIEW OF SYSTEMS: CONSTITUTIONAL: No night sweats. No fatigue, malaise, lethargy. No fever or chills. HEENT: Eyes: No visual changes. No eye pain. No eye discharge. ENT: No runny nose. No epistaxis. No sinus pain. No sore throat. No odynophagia. No congestion. RESPIRATORY: No cough, no congestion. No hemoptysis. No shortness of breath. CARDIOVASCULAR: No angina symptoms. No CHF symptoms. No atypical chest pain for CAD. No palpitations. No PND. No orthopnea. GASTROINTESTINAL: No abdominal pain. No nausea or vomiting. No diarrhea or constipation. No hematemesis. No hematochezia. GENITOURINARY: No urgency. No frequency. No dysuria. No hematuria. No obstructive symptoms. No discharge. No pain. No significant abnormal bleeding. MUSCULOSKELETAL: No musculoskeletal pain; no joint swelling. NEUROLOGICAL: No headache. No neck pain. No syncope. No seizures. No dizziness. PSYCHIATRIC: Not anxious. No depression. No suicidal thoughts. No homicidal thoughts. SKIN: No rash. No lesions. No wounds. ENDOCRINE: No unexplained weight loss. No weight gain. HEMATOLOGIC/LYMPHATIC: No anemia. No purpura. No petechiae. No prolonged or excessive bleeding. No palpable lymph nodes. PHYSICAL EXAMINATION: GENERAL: The patient isin no distress. HEENT: Head normocephalic, atraumatic. Eyes: Extraocular muscles are intact. Pupils are equal, round and reactive to light and accommodation. Ears: No lesions. Nose appeared normal. Throat: No exudate or erythema. NECK: Supple. No JVD, no carotid bruit. No lymphadenopathy or thyromegaly. LUNGS: Clear to auscultation. Percussion note normal. Chest symmetrical. HEART: S1, S2, no S3. No murmurs. No cyanosis or clubbing. No ascites. Pulses: Dorsalis pedis and posterior tibial pulses +1 to +2 bilaterally. ABDOMEN: Soft. Nontender. Bowel sounds active. No CVA tenderness. No mass felt. EXTREMITIES: No edema. Full range of motion of all extremities, equal. NEUROLOGIC: No focal deficit. Cranial nerves II through XII are grossly intact. No headache. No double vision. SKIN: Not dry. Intact. Turgor - normal. LYMPHATIC: No palpable lymph nodes/no lymphedema. MUSCULOSKELETAL: Normal joints with no swelling. Muscle tone is normal. . PLAN: She will go home on antibiotics, steroids and nebs. We will see her on the . Pulmonary rehab Prognosis: Guarded TIME SPENT: More than 30 minutes. Plan and coordination of the patient's care discussed in the presence of nurse. SERGIO
--- NOTE | 2022-07-13 12:21 | PN ---
07/04/22 LEVEL 5 07/05-07/09/22 intermediate 07/10/22 discharge MTDD
== END 2022-07-10 10:20 | disposition home or self-care (01) | DRG 202 ==
LOC: LAB 10:02 → MEDSURG A 11:39
PROVIDERS: ADMIT Internal Medicine; ATTEND Internal Medicine
DX: I27.81 Cor pulmonale (chronic); Z20.822 Contact with and (suspected) exposure to COVID-19; R73.9 Hyperglycemia, unspecified; N28.89 Other specified disorders of kidney and ureter; F41.9 Anxiety disorder, unspecified; J45.901 Unspecified asthma with (acute) exacerbation; N18.30 Chronic kidney disease, stage 3 unspecified; J44.9 Chronic obstructive pulmonary disease, unspecified; E03.9 Hypothyroidism, unspecified; E87.6 Hypokalemia; J96.20 Acute and chronic respiratory failure, unspecified whether with hypoxia or hypercapnia; Z51.81 Encounter for therapeutic drug level monitoring; D64.9 Anemia, unspecified; Z79.899 Other long term (current) drug therapy; Z66 Do not resuscitate; N20.0 Calculus of kidney; I12.9 Hypertensive chronic kidney disease with stage 1 through stage 4 chronic kidney disease, or unspecified chronic kidney disease

== ENCOUNTER 2023-08-20 12:29 | Inpatient (IN) ==
[2023-08-20 14:01] LABS: BASOPHILS % (AUTO) 0.3 % (0.0-3.0); EOSINOPHILS # (AUTO) 0.1 K/ul (0.0-0.7); EOSINOPHILS % (AUTO) 1.5 % (0.0-7.0); HEMATOCRIT 37.2 % (37.0-47.0); HEMOGLOBIN 11.1 g/dl (12.0-16.0); IMMATURE GRANULOCYTE % (AUTO) 0.3 % (0.0-5.0); LYMPHOCYTES # (AUTO) 1.4 K/uL (0.60-3.4); LYMPHOCYTES % (AUTO) 23.7 (10.0-50.0); MEAN CORPUSCULAR HEMOGLOBIN 27.5 pg (27.0-31.0); MEAN CORPUSCULAR HGB CONC 29.8 (31.8-35.4); MEAN CORPUSCULAR VOLUME 92.3 fl (81.0-99.0); MONOCYTES # (AUTO) 0.4 K/uL (0.4-2.0); MONOCYTES % (AUTO) 6.9 (0-10); NEUTROPHILS # (AUTO) 4.1 K/ul (2.0-6.9); NEUTROPHILS % (AUTO) 67.3 % (42.2-75.2); PLATELET COUNT 259 10^3/uL (140-440); RDW COEFFICIENT OF VARIATION 13.5 % (11.6-14.8); RED BLOOD COUNT 4.03 10^6/ul (4.20-5.40); WHITE BLOOD COUNT 6.08 K/ul (4.6-10.2)
[2023-08-20 14:14] LABS: ABG O2 HGB 96.9 % (95-100); ABG PH 7.37 (7.35-7.45); BEecf 21.5 (-2.0-3.0); HCO3 46.8 (21-28); MetHb 0.7 (0-1.5); TCO2 49.3 (19-24); tHb 10.4 g/dl (11.7-17.4)
[2023-08-20 14:15] LABS: ALANINE AMINOTRANSFERASE 25.8 U/L (0-35); ALBUMIN 4.17 g/dL (3.5-5.0); ALKALINE PHOSPHATASE 52.5 U/L (53-141); ASPARTATE AMINO TRANSFERASE 34.2 U/L (14-36); BILIRUBIN,TOTAL 0.45 mg/dL (0.2-1.3); BLOOD UREA NITROGEN 13.7 mg/dL (7-17); CALCIUM 9.63 mg/dL (8.4-10.2); CHLORIDE 98.1 mmol/L (98-107); CREATINE KINASE 45.7 U/L (30-135); CREATININE 1.01 mg/dL (0.60-1.30); GLUCOSE 106.4 mg/dL (74-106); POTASSIUM 3.68 mmol/L (3.5-5.1); SODIUM 138.9 mmol/L (134.5-145); TOTAL PROTEIN 6.86 g/dL (6.3-8.2)
[2023-08-20 14:24] LABS: CARBON DIOXIDE 37.7 mmol/L (22-30.0)
[2023-08-20 14:27] LABS: TROPONIN I < 0.012 ng/ml (0.0000-0.120)
--- NOTE | 2023-08-20 14:35 | HP ---
DATE OF SERVICE: 08/20/23 REASON FOR HOSPITALIZATION/HISTORY OF PRESENT ILLNESS: Hospital followup for diarrhea/Dehydration/hypotension. Discharged last Thursday. About two or three days ago started with more shortness of breath, saturations in 80s, coughing with yellow sputum. PAST MEDICAL HISTORY/PAST SURGICAL HISTORY: Endstage COPD Chronic respiratory failure History of right hydronephrosis Cor Pulmonale Dyslipidemia right sciatica CKD3 Bilateral total knee replacement Hypertension Hypothyroidism History of pyelonephrosis REVIEW OF SYSTEMS: CONSTITUTIONAL: No fever, Fatigue. HEENT: Sinus drainage, no sore throat. RESPIRATORY: Cough, no congestion. CARDIOVASCULAR: No atypical chest pain for coronary artery disease. No angina, CHF symptoms, palpitations. Shortness of breath. GASTROINTESTINAL: No melena or abdominal pain. No GERD. GENITOURINARY: No hematuria, no prostatism, no polyuria. COMMUNICATION CENTER OPERATOR: No blackout, no dizziness, no headache, no double vision. GAIT: Unsteady MUSCULOSKELETAL: No osteoarthritis pain, no joint swelling. ENDOCRINE: No weight loss, no weight gain. SKIN: Not dry, no rash. PSYCHIATRIC: Not anxious, no depression, no suicidal thoughts, no homicidal thoughts. MEDICATIONS: Albuterol sulfate ProAir HFA Xanax Duloxetine Gabapentin Levothyroxine Lisinopril Meclizine Montelukast Protonix Potassium Chloride Pravastatin Daliresp Tiotropium Tramadol Verapamil ALLERGIES: Codeine Erythromycin base PHYSICAL EXAMINATION: V/S: Pulse 80, blood pressure 144/68, temperature 97.1, oxygen saturation 81% O2 on 3 liters, weight 149 GENERAL APPEARANCE: Oriented times three. HEENT: Yellow sputum. NECK: No JVP, no bruits. RESPIRATORY: Bilateral inspiratory and expiratory wheezing. CARDIOVASCULAR: S1, S2, no S3, no murmur. No cyanosis, clubbing. No ascites. GI/ABDOMEN: No tenderness. Bowel sounds are active. EXTREMITIES: edema, pulses +1, equal. COMMUNICATION CENTER OPERATOR: Deep tendon reflexes, sensory, motor and gait all normal. RECTAL: Colonoscopy screening: Dr. Mares 2020/PELVIC: Mammogram 04/16 [facility]. ASSESSMENT: 1. Acute respiratory failure 2. Acute COPD exacerbation 3. History right nephrolithiasis 4. Endstage COPD 5. Chronic respiratory failure 6. History of right hydronephrosis 7. Cor Pulmonale 8. Dyslipidemia 9. right sciatica 10.CKD3 11.Bilateral total knee replacement 12.Hypertension 13.Hypothyroidism 14.History of pyelonephrosis PLAN: 1. Routine telemetry orders 2. CBC and CMP now and daily 3. ABG on 3 liters 4. Lasix 40mg IV times one 5. Solu-Medrol 125,g Q 8 hours IV 6. Chest x-ray 7. Rocephin 1 gram daily 8. Zithromax 500mg PO daily times three days 9. Respiratory panel by PCR 10.DUO NEBS WID scheduled 11.Pulmicort NEB 1mg BID scheduled 12.U/A 13.Regular diet TIME SPENT: More than 75 minutes. MTDD
[2023-08-20] MEDS: DUONEB NEB SCH (14:53)
--- NOTE | 2023-08-20 14:55 | DI ---
EXAM: CHEST RADIOGRAPH TECHNIQUE: Two views. Frontal and lateral. HISTORY: Short of breath COMPARISON: 07/04/2022. FINDINGS: Lungs/Pleura: The lungs are clear. No pleural effusion. No pneumothorax. Heart: The heart size is normal. Bones: Old right rib fractures. Other: Cholecystectomy. IMPRESSION: 1. No acute findings.
[2023-08-20 15:15] VITALS: BMI 27.2
[2023-08-20] MEDS: ZITHROMAX PO SCH (15:20)
[2023-08-20] MEDS: SOLU-MEDROL 125 MG IVP SCH (15:21)
[2023-08-20] MEDS: LASIX IVP ONE (15:21)
[2023-08-20] MEDS: ROCEPHIN 1 GM/50 ML D5W 1 GM/50 ML BAG IV SCH (15:21)
[2023-08-20 16:29] LABS: ABG O2 HGB 92.9 % (95-100); ABG PH 7.41 (7.35-7.45); BEecf 23.6 (-2.0-3.0); COHb 2.2 (0.5-1.5); HCO3 48.2 (21-28); MetHb 0.7 (0-1.5); TCO2 50.5 (19-24); sO2 92.6 % (94-98); tHb 11.3 g/dl (11.7-17.4)
[2023-08-20 17:18] LABS: BILIRUBIN,URINE Negative (NEGATIVE); CLARITY,URINE Clear (CLEAR); COLOR,URINE Yellow (YELLOW); GLUCOSE, URINE (UA) Negative (NEGATIVE); KETONES,URINE Negative (NEGATIVE); LEUKOCYTE ESTERASE ,URINE Negative (NEGATIVE); NITRITE,URINE Negative (NEGATIVE); PROTEIN,URINE Negative (NEGATIVE); URINE, BLOOD Negative (NEGATIVE); UROBILINOGEN,URINE 0.2 (0.2)
[2023-08-20] MEDS: PULMICORT 1 MG/2 ML NEB SCH (20:26)
[2023-08-20] MEDS: XANAX PO SCH (20:27)
[2023-08-20] MEDS: PRAVACHOL PO SCH (20:27)
[2023-08-20] MEDS: ULTRAM PO SCH (20:27)
[2023-08-20] MEDS: NEURONTIN PO SCH (20:27)
[2023-08-20] MEDS: FLAGYL PO SCH (20:27)
[2023-08-20 22:11] LABS: CREATINE KINASE 44.8 U/L (30-135)
[2023-08-20 22:25] LABS: TROPONIN I < 0.012 ng/ml (0.0000-0.120)
[2023-08-21 05:03] LABS: ABG O2 HGB 96.3 % (95-100); ABG PH 7.49 (7.35-7.45); BEecf 21.7 (-2.0-3.0); COHb 1.9 (0.5-1.5); MetHb 0.7 (0-1.5); TCO2 46.8 (19-24); sO2 97.1 % (94-98); tHb 11.4 g/dl (11.7-17.4)
[2023-08-21] MEDS: SYNTHROID PO SCH (05:36)
[2023-08-21] MEDS: PROTONIX PO SCH (05:37)
[2023-08-21 06:00] LABS: HEMATOCRIT 37.1 % (37.0-47.0); HEMOGLOBIN 11.3 g/dl (12.0-16.0); IMMATURE GRANULOCYTE % (AUTO) 0.2 % (0.0-5.0); LYMPHOCYTES # (AUTO) 0.9 K/uL (0.60-3.4); LYMPHOCYTES % (AUTO) 16.7 (10.0-50.0); MEAN CORPUSCULAR HEMOGLOBIN 27.3 pg (27.0-31.0); MEAN CORPUSCULAR HGB CONC 30.5 (31.8-35.4); MEAN CORPUSCULAR VOLUME 89.6 fl (81.0-99.0); MONOCYTES # (AUTO) 0.1 K/uL (0.4-2.0); NEUTROPHILS # (AUTO) 4.4 K/ul (2.0-6.9); NEUTROPHILS % (AUTO) 81.1 % (42.2-75.2); PLATELET COUNT 326 10^3/uL (140-440); RDW COEFFICIENT OF VARIATION 13.5 % (11.6-14.8); RED BLOOD COUNT 4.14 10^6/ul (4.20-5.40); WHITE BLOOD COUNT 5.46 K/ul (4.6-10.2)
[2023-08-21 06:08] LABS: ALANINE AMINOTRANSFERASE 25.3 U/L (0-35); ALBUMIN 4.53 g/dL (3.5-5.0); ASPARTATE AMINO TRANSFERASE 27.9 U/L (14-36); BILIRUBIN,TOTAL 0.42 mg/dL (0.2-1.3); BLOOD UREA NITROGEN 25.5 mg/dL (7-17); CALCIUM 10.36 mg/dL (8.4-10.2); CHLORIDE 94.2 mmol/L (98-107); CREATININE 1.14 mg/dL (0.60-1.30); GLUCOSE 197.4 mg/dL (74-106); POTASSIUM 3.59 mmol/L (3.5-5.1); SODIUM 137.6 mmol/L (134.5-145); TOTAL PROTEIN 7.42 g/dL (6.3-8.2)
[2023-08-21] MEDS: CALAN SR PO SCH (08:52)
[2023-08-21] MEDS: ZESTRIL PO SCH (08:53)
[2023-08-21] MEDS: CYMBALTA PO SCH (08:53)
[2023-08-21] MEDS: MICRO-K CAP PO SCH (08:53)
[2023-08-21] MEDS: SINGULAIR PO SCH (08:54)
[2023-08-21] MEDS: HYDROCHLOROTHIAZIDE PO SCH (08:54)
[2023-08-21] MEDS: DALIRESP PO SCH (08:54)
[2023-08-21] MEDS ORDERED: NON-FORMULARY MEDICATION (Tiotropium-Olodaterol [Stiolto Respimat] 4 GM mist) IH SCH (09:00)
[2023-08-21] MEDS: ANTIVERT PO SCH (09:10)
[2023-08-22] MEDS: TYLENOL PO ONE (02:39)
[2023-08-22] MEDS: ULTRAM PO PRN (02:39)
[2023-08-22 05:35] LABS: BASOPHILS % (AUTO) 0.2 % (0.0-3.0); HEMATOCRIT 32.8 % (37.0-47.0); HEMOGLOBIN 10.3 g/dl (12.0-16.0); IMMATURE GRANULOCYTE # (AUTO) 0.1 (0.0-1.0); LYMPHOCYTES % (AUTO) 7.8 (10.0-50.0); MEAN CORPUSCULAR HEMOGLOBIN 28.1 pg (27.0-31.0); MEAN CORPUSCULAR HGB CONC 31.4 (31.8-35.4); MEAN CORPUSCULAR VOLUME 89.6 fl (81.0-99.0); MONOCYTES # (AUTO) 0.4 K/uL (0.4-2.0); MONOCYTES % (AUTO) 3.3 (0-10); NEUTROPHILS % (AUTO) 87.7 % (42.2-75.2); PLATELET COUNT 320 10^3/uL (140-440); RED BLOOD COUNT 3.66 10^6/ul (4.20-5.40); WHITE BLOOD COUNT 12.54 K/ul (4.6-10.2)
[2023-08-22 05:38] LABS: ALBUMIN 4.12 g/dL (3.5-5.0); ASPARTATE AMINO TRANSFERASE 25.2 U/L (14-36); BILIRUBIN,TOTAL 0.32 mg/dL (0.2-1.3); BLOOD UREA NITROGEN 37.4 mg/dL (7-17); CALCIUM 9.96 mg/dL (8.4-10.2); CARBON DIOXIDE 39.6 mmol/L (22-30.0); CHLORIDE 94.5 mmol/L (98-107); CREATININE 1.33 mg/dL (0.60-1.30); GLUCOSE 225.3 mg/dL (74-106); POTASSIUM 3.8 mmol/L (3.5-5.1); SODIUM 137.3 mmol/L (134.5-145); TOTAL PROTEIN 6.65 g/dL (6.3-8.2)
[2023-08-22] MEDS: PREDNISONE PO SCH (13:03)
[2023-08-22] MEDS: COREG PO SCH (16:27)
[2023-08-22] MEDS: DUONEB NEB SCH (19:58)
[2023-08-23 05:45] LABS: BASOPHILS % (AUTO) 0.1 % (0.0-3.0); HEMATOCRIT 33.8 % (37.0-47.0); HEMOGLOBIN 10.4 g/dl (12.0-16.0); IMMATURE GRANULOCYTE # (AUTO) 0.2 (0.0-1.0); IMMATURE GRANULOCYTE % (AUTO) 1.6 % (0.0-5.0); LYMPHOCYTES % (AUTO) 9.4 (10.0-50.0); MEAN CORPUSCULAR HGB CONC 30.8 (31.8-35.4); MEAN CORPUSCULAR VOLUME 90.9 fl (81.0-99.0); MONOCYTES # (AUTO) 0.5 K/uL (0.4-2.0); NEUTROPHILS % (AUTO) 83.9 % (42.2-75.2); PLATELET COUNT 333 10^3/uL (140-440); RDW COEFFICIENT OF VARIATION 14.2 % (11.6-14.8); RED BLOOD COUNT 3.72 10^6/ul (4.20-5.40); WHITE BLOOD COUNT 10.72 K/ul (4.6-10.2)
[2023-08-23 05:46] LABS: ALANINE AMINOTRANSFERASE 20.6 U/L (0-35); ALBUMIN 3.86 g/dL (3.5-5.0); ALKALINE PHOSPHATASE 43.9 U/L (53-141); ASPARTATE AMINO TRANSFERASE 19.5 U/L (14-36); BILIRUBIN,TOTAL 0.26 mg/dL (0.2-1.3); BLOOD UREA NITROGEN 45.9 mg/dL (7-17); CALCIUM 9.42 mg/dL (8.4-10.2); CARBON DIOXIDE 36.6 mmol/L (22-30.0); CHLORIDE 99.1 mmol/L (98-107); CREATININE 1.27 mg/dL (0.60-1.30); GLUCOSE 226.6 mg/dL (74-106); POTASSIUM 3.54 mmol/L (3.5-5.1); SODIUM 138.2 mmol/L (134.5-145); TOTAL PROTEIN 6.27 g/dL (6.3-8.2)
[2023-08-23] MEDS: ZESTRIL PO SCH (09:16)
[2023-08-23 12:58] VITALS: BP 128/78; PULSE 99; RESP 19; TEMP 98.4
--- NOTE | 2023-08-26 09:12 | PN ---
DATE OF SERVICE: 08/21/23 SUBJECTIVE: 83 year old white female hospitalized with acute respiratory failure. The patient had respiratory distress with bilateral wheezing with CO2 retention. Initial pCO2 was 81 with pO2 of 133 on 3 liters, 89% saturation. In the office the patient had saturation less than 90%. The patient was seen and examined in the office and then hospitalized yesterday. The patient's condition has improved. She is able to talk sentences without stopping, audible wheezing without stethoscope. The is in the room. REVIEW OF SYSTEMS: CONSTITUTIONAL: No night sweats. No fatigue, malaise, lethargy. No fever or chills. HEENT: Eyes: No visual changes. No eye pain. No eye discharge. ENT: No runny nose. No epistaxis. No sinus pain. No sore throat. No odynophagia. No congestion. RESPIRATORY: No cough, no congestion. No hemoptysis. Shortness of breath on minimal exertion. . CARDIOVASCULAR: No angina symptoms. No CHF symptoms. No atypical chest pain for CAD. No palpitations. No PND. No orthopnea. GASTROINTESTINAL: No abdominal pain. No nausea or vomiting. No diarrhea or constipation. No hematemesis. No hematochezia. Appetite seems to have improved. GENITOURINARY: No urgency. No frequency. No dysuria. No hematuria. No obstructive symptoms. No discharge. No pain. No significant abnormal bleeding. MUSCULOSKELETAL: No musculoskeletal pain; no joint swelling. NEUROLOGICAL: No headache. No neck pain. No syncope. No seizures. No dizziness. PSYCHIATRIC: Not anxious. No depression. No suicidal thoughts. No homicidal thoughts. SKIN: No rash. No lesions. No wounds. ENDOCRINE: No unexplained weight loss. No weight gain. HEMATOLOGIC/LYMPHATIC: No anemia. No purpura. No petechiae. No prolonged or excessive bleeding. No palpable lymph nodes. PHYSICAL EXAMINATION: GENERAL: The patient is oriented to time, place and person. VITAL SIGNS: Temperature 97.9, pulse 91, respiratory rate 20, blood pressure 122/96 and pulse ox 96% The patient is on 2 liters. HEENT: Head normocephalic, atraumatic. Eyes: Extraocular muscles are intact. Pupils are equal, round and reactive to light and accommodation. Ears: No lesions. Nose appeared normal. Throat: No exudate or erythema. NECK: Supple. No JVD, no carotid bruit. No lymphadenopathy or thyromegaly. LUNGS: Bilateral expiratory wheeze. Air entry noted in the upper parts, lower part diminished air entry. Clear to auscultation. Percussion note normal. Chest symmetrical. HEART: S1, S2, no S3. No murmurs. No cyanosis or clubbing. No ascites. Pulses: Dorsalis pedis and posterior tibial pulses +1 to +2 bilaterally. ABDOMEN: Soft. Nontender. Bowel sounds active. No CVA tenderness. No mass felt. EXTREMITIES: No edema. Full range of motion of all extremities, equal. NEUROLOGIC: No focal deficit. Cranial nerves II through XII are grossly intact. No headache. No double vision. SKIN: Not dry. Intact. Turgor - normal. LYMPHATIC: No palpable lymph nodes/no lymphedema. MUSCULOSKELETAL: Normal joints with no swelling. Muscle tone is normal. LABS: Hgb 11.3, hct 37, WBC 5,000 normal differential, creatinine 1.1, BUN 25, potassium 3.59. ABG done yesterday on 1.5 liters pO2 65 with pCO2 76 with pH 7.41 with 92% saturation. The patient has chronic respiratory acidosis, partially compensated. ABG done today showed pO2 84, pCO2 59, pH 7.49 with 97% saturation on 1.5 liters, remarkable improvement. PLAN: 1. She is on steroids and antibiotics, Azithromycin and Rocephin. NEBS treatment. TIME SPENT: More than 35 minutes. Plan and coordination of the patient's care discussed in the presence of nurse. SERGIO
--- NOTE | 2023-08-26 09:37 | PN ---
DATE OF SERVICE: 08/22/23 SUBJECTIVE: 83 year old white female hospitalized with acute respiratory failure with CO2 retention. The patient's condition seems to be improving. She is talking a lot without any pause, still is short of breath on minimal exertion. REVIEW OF SYSTEMS: CONSTITUTIONAL: No night sweats. No fatigue, malaise, lethargy. No fever or chills. HEENT: Eyes: No visual changes. No eye pain. No eye discharge. ENT: No runny nose. No epistaxis. No sinus pain. No sore throat. No odynophagia. No congestion. RESPIRATORY: No cough, no congestion. No hemoptysis. No shortness of breath. CARDIOVASCULAR: No angina symptoms. No CHF symptoms. No atypical chest pain for CAD. No palpitations. No PND. No orthopnea. GASTROINTESTINAL: No abdominal pain. No nausea or vomiting. No diarrhea or constipation. No hematemesis. No hematochezia. GENITOURINARY: No urgency. No frequency. No dysuria. No hematuria. No obstructive symptoms. No discharge. No pain. No significant abnormal bleeding. MUSCULOSKELETAL: No musculoskeletal pain; no joint swelling. NEUROLOGICAL: No headache. No neck pain. No syncope. No seizures. No dizziness. PSYCHIATRIC: Not anxious. No depression. No suicidal thoughts. No homicidal thoughts. SKIN: No rash. No lesions. No wounds. ENDOCRINE: No unexplained weight loss. No weight gain. HEMATOLOGIC/LYMPHATIC: No anemia. No purpura. No petechiae. No prolonged or excessive bleeding. No palpable lymph nodes. PHYSICAL EXAMINATION: GENERAL: The patient is oriented to time, place and person. VITAL SIGNS: Temperature 98.5, pulse 100, respiratory rate 20, blood pressure 133/76 and pulse ox 95% HEENT: Head normocephalic, atraumatic. Eyes: Extraocular muscles are intact. Pupils are equal, round and reactive to light and accommodation. Ears: No lesions. Nose appeared normal. Throat: No exudate or erythema. NECK: Supple. No JVD, no carotid bruit. No lymphadenopathy or thyromegaly. LUNGS: Decreased air entry. Mild expiratory wheeze. Percussion note normal. Chest symmetrical. HEART: S1, S2, no S3. No murmurs. No cyanosis or clubbing. No ascites. Pulses: Dorsalis pedis and posterior tibial pulses +1 to +2 bilaterally. ABDOMEN: Soft. Nontender. Bowel sounds active. No CVA tenderness. No mass felt. EXTREMITIES: No edema. Full range of motion of all extremities, equal. NEUROLOGIC: No focal deficit. Cranial nerves II through XII are grossly intact. No headache. No double vision. SKIN: Not dry. Intact. Turgor - normal. LYMPHATIC: No palpable lymph nodes/no lymphedema. MUSCULOSKELETAL: Normal joints with no swelling. Muscle tone is normal. LABS: hgb 10.3, hct 32, WBC 12,000 normal differential, creatinine 1.3, BUN 37, potassium 3.8. ASSESSMENT: 1. Respiratory status with acute bronchitis seems to be under control, probably has mild pneumonitis, seems to be improving with NEBS treatment, antibiotics and steroids. CONDITION: Improving. PLAN: 1. The patient's in the room, discussed the case. The patient's prognosis is not good with severe chronic lung disease requiring maximum medical therapy. TIME SPENT: More than 35 minutes. Plan and coordination of the patient's care discussed in the presence of nurse. SERGIO
--- NOTE | 2023-08-26 09:52 | PN ---
DATE OF SERVICE: 08/23/23 SUBJECTIVE: 83 year old white female who was hospitalized with severe respiratory distress that was in office. The patient's distress has resolved. Respiratory failure seems to be under control. She has chronic respiratory failure. She is feeling better and wants to go home. In fact she wanted to go home yesterday. REVIEW OF SYSTEMS: CONSTITUTIONAL: No night sweats. No fatigue, malaise, lethargy. No fever or chills. HEENT: Eyes: No visual changes. No eye pain. No eye discharge. ENT: No runny nose. No epistaxis. No sinus pain. No sore throat. No odynophagia. No congestion. RESPIRATORY: No cough, no congestion. No hemoptysis. No shortness of breath. CARDIOVASCULAR: No angina symptoms. No CHF symptoms. No atypical chest pain for CAD. No palpitations. No PND. No orthopnea. GASTROINTESTINAL: No abdominal pain. No nausea or vomiting. No diarrhea or constipation. No hematemesis. No hematochezia. Appetite has improved. GENITOURINARY: No urgency. No frequency. No dysuria. No hematuria. No obstructive symptoms. No discharge. No pain. No significant abnormal bleeding. MUSCULOSKELETAL: No musculoskeletal pain; no joint swelling. NEUROLOGICAL: No headache. No neck pain. No syncope. No seizures. No dizziness. PSYCHIATRIC: Not anxious. No depression. No suicidal thoughts. No homicidal thoughts. SKIN: No rash. No lesions. No wounds. ENDOCRINE: No unexplained weight loss. No weight gain. HEMATOLOGIC/LYMPHATIC: No anemia. No purpura. No petechiae. No prolonged or excessive bleeding. No palpable lymph nodes. PHYSICAL EXAMINATION: VITALS:Temperature 98.4, pulse 95, respiratory rate 19, blood pressure 128/78 and pulse ox 95% on 2 liters. HEENT: Head normocephalic, atraumatic. Eyes: Extraocular muscles are intact. Pupils are equal, round and reactive to light and accommodation. Ears: No lesions. Nose appeared normal. Throat: No exudate or erythema. NECK: Supple. No JVD, no carotid bruit. No lymphadenopathy or thyromegaly. LUNGS: Decreased breath sounds, bilateral expiratory wheeze. Good air entry on the upper lungs. Percussion note normal. Chest symmetrical. HEART: S1, S2, no S3. No murmurs. No cyanosis or clubbing. No ascites. Pulses: Dorsalis pedis and posterior tibial pulses +1 to +2 bilaterally. ABDOMEN: Soft. Nontender. Bowel sounds active. No CVA tenderness. No mass felt. EXTREMITIES: No edema. Full range of motion of all extremities, equal. NEUROLOGIC: No focal deficit. Cranial nerves II through XII are grossly intact. No headache. No double vision. SKIN: Not dry. Intact. Turgor - normal. LYMPHATIC: No palpable lymph nodes/no lymphedema. MUSCULOSKELETAL: Normal joints with no swelling. Muscle tone is normal. LABS: hgb 10.4, hct 33, WBC 10,000 normal differential, creatinine 1.2, BUN 45, potassium 3.54 ASSESSMENT: 1. Respiratory distress failure seems to be under control now. 2. Chronic respiratory failure with severe chronic lung disease with acute bronchitis being treated with antibiotics, steroids and NEBS. PLAN: 1. She will be discharged home on Omnicef for three days, rest of the course of Zithromax. 2. Continue at home Daliresp 3. Prednisone oral for total of 14 days. CONDITION: Stable. The patient was explained about kidney functions. Strongly advised to drink fluids, also eat regularly. The patient's appetite has improved a lot, she ate a good breakfast this morning and lunch. The patient says that at home she will be able to eat better. is in the room. TIME SPENT: More than 35 minutes. Plan and coordination of the patient's care discussed in the presence of nurse. SERGIO
--- NOTE | 2023-08-26 11:24 | DS ---
DATE OF SERVICE: 08/23/23 FINAL DIAGNOSIS: 1. Acute respiratory failure 2. Hypercarbia 3. Severe chronic lung disease with history of chronic respiratory failure with history of asthma 4. Hypertension 5. Dyslipidemia 6. Hyperglycemia 7. Neuropathy 8. History of diarrhea 9. Hospitalized at [facility]. MEDICATIONS AT DISCHARGE: Verapamil Duloxetine Singular Gabapentin Xanax Levothyroxine Tramadol Potassium NEW PRESCRIPTIONS: Carvedilol 3.125mg PO BID Decrease the dose of Lisinopril Hydrochlorothiazide 20/25 to half a tablet a day. Patient used to be taking one full tablet. Prednisone 10mg twice a day for 7 days after that 10mg PO daily for 7 days. Flagyl take three more days. Omnicef 300mg BID for three days NEBS treatment at home Daliresp at home LABS: Hgb 10.4, cht 33, WBC 10,700 normal differential, creatinine 1.2, BUN 45, potassium 3.54. ABG done on 08/21/23 pO2 84, PCo2 59, PH 7.49 with 97% saturation on 1.5 liters. On admission the patient's pO2 was 133, pCO2 81, pH 7.37 with 99% saturation on 3 liters. Strongly advised to not exceed 1.5 liter. She insists on taking 2. Explained about retention to both and the patient. HOSPITAL COURSE: 83 year old white female hospitalized with severe respiratory distress. The patient had hypoxemia. She received oxygen 3 liter with the patient's saturation close to 97-98%. The ABG done in the hospital revealed that the patient had pO2 of 133 with pCO2 81. The CO2 retention with 3 liters. Oxygen level was was 1.5 liters, the blood gasses more or less the second were acceptable with pO2 of 84 with pCO2 59 with normal pH of 7.49 with 97% saturation. The patient was started on steroids Zithromax and Rocephin and NEBS treatment. Condition improved. The patient had no distress, no audible wheezing. Appetite improved. Her oral intake improved. The patient has given IV Lasix because she had received 4-5 liters of fluid at [facility] when she was hospitalized there with hypertension. In any case condition has improved. Appetite has improved. Saturation is always 94- 95% on 1.5-2 liters. Kidney deteriorated to some extent but some diuretic therapy that patient was explained about that. At the time of discharge her Lisinopril 20mg with Hydrochlorothiazide of 25mg was reduced to half of it. She was advised to eat regularly and drink plenty of fluids. She was put on Prednisone on tapering dose with Omnicef to be taken for three days. Carvedilol was added because of the patient's tachycardia. Verapamil was continued as before along with all the rest of the medications. CONDITION: Stable. The patient is DNR and DNI. PROGNOSIS: Guarded. TIME SPENT: 70 minutes MTDD
--- NOTE | 2023-08-26 11:24 | PN ---
ADMISSION DAY: LEVEL 5 REST OF THE DAYS: INTERMEDIATE FINAL DAY: D IN DISCHARGE MTDD
== END 2023-08-23 13:11 | disposition home or self-care (01) | DRG 189 ==
LOC: MEDSURG B 12:29
PROVIDERS: ADMIT Internal Medicine; ATTEND Internal Medicine

== ENCOUNTER 2024-05-03 08:17 | Inpatient (IN) ==
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
[2024-05-03 08:49] LABS: BASOPHILS % (AUTO) 0.2 % (0.0-3.0); EOSINOPHILS % (AUTO) 0.1 % (0.0-7.0); HEMATOCRIT 35.2 % (37.0-47.0); HEMOGLOBIN 10.2 g/dl (12.0-16.0); IMMATURE GRANULOCYTE # (AUTO) 0.1 (0.0-1.0); IMMATURE GRANULOCYTE % (AUTO) 0.4 % (0.0-5.0); LYMPHOCYTES # (AUTO) 1.4 K/uL (0.60-3.4); LYMPHOCYTES % (AUTO) 8.4 (10.0-50.0); MEAN CORPUSCULAR HEMOGLOBIN 25.6 pg (27.0-31.0); MEAN CORPUSCULAR VOLUME 88.2 fl (81.0-99.0); MONOCYTES # (AUTO) 1.3 K/uL (0.4-2.0); MONOCYTES % (AUTO) 7.5 (0-10); NEUTROPHILS # (AUTO) 14.2 K/ul (2.0-6.9); NEUTROPHILS % (AUTO) 83.4 % (42.2-75.2); PLATELET COUNT 345 10^3/uL (140-440); RED BLOOD COUNT 3.99 10^6/ul (4.20-5.40)
[2024-05-03 09:01] LABS: ALANINE AMINOTRANSFERASE 16.3 U/L (0-35); ALBUMIN 4.23 g/dL (3.5-5.0); ALKALINE PHOSPHATASE 185.4 U/L (53-141); ASPARTATE AMINO TRANSFERASE 25.8 U/L (14-36); BILIRUBIN,TOTAL 0.48 mg/dL (0.2-1.3); BLOOD UREA NITROGEN 14.6 mg/dL (7-17); CALCIUM 9.38 mg/dL (8.4-10.2); CARBON DIOXIDE 37.5 mmol/L (22-30.0); CHLORIDE 94.6 mmol/L (98-107); CREATININE 1.16 mg/dL (0.60-1.30); GLUCOSE 108.8 mg/dL (74-106); LIPASE 19.7 U/L (23-300); MAGNESIUM 1.82 mg/dL (1.6-2.3); SODIUM 136.6 mmol/L (134.5-145); TOTAL PROTEIN 7.03 g/dL (6.3-8.2)
[2024-05-03] MEDS: SODIUM CHLORIDE 1,000 ML IV ONE (09:08)
[2024-05-03 09:13] LABS: TROPONIN I < 0.012 ng/ml (0.0000-0.120)
[2024-05-03] MEDS: DECADRON IVP ONE (09:16)
[2024-05-03 09:39] LABS: SARS COV-2 RNA RAPID NAAT NEGATIVE (NEGATIVE)
[2024-05-03] MEDS: DUONEB NEB STA (09:40)
--- NOTE | 2024-05-03 09:40 | DI ---
EXAM: CHEST RADIOGRAPH TECHNIQUE: Single frontal chest radiograph. HISTORY: Shortness of breath. COMPARISON: 10/26/2023 FINDINGS: The patient is leaning and rotated to the right. Several tiny calcified granulomas bilaterally, agai n noted. Mild atelectasis of the right base, and trace right pleural effusion. No visible pneumothorax. Heart size is normal. Interval development of several acute to subacute mildly displaced right rib fractures. Several old, healed left rib fractures. Surgical clips in the right upper quadrant. IMPRESSION: 1. Several acute to subacute mildly displaced right rib fractures, with trace right pleural effusion and mild atelectasis of the right base. Pneumonia cannot be excluded. 2. No visible pneumothorax.
--- NOTE | 2024-05-03 10:07 | CT ---
EXAM: CT SCAN ABDOMEN PELVIS HISTORY: Abdominal pain COMPARISON: CT scan abdomen pelvis 07/07/2022 FINDINGS: Postcontrast helical imaging was obtained through the abdomen pelvis utilizing 5-mm collim ation. Sagittal and coronal reconstructions were imaged and reviewed. Prior cholecystectomy with mi ld intrahepatic biliary ductal ectasia. The common bile duct measures 7.7 mm. The pancreas, spleen a nd adrenal glands have normal enhanced CT appearance. The kidneys excrete contrast in a normal fashi on bilaterally. Simple renal cysts are noted bilaterally There is colonic wall thickening with surro unding inflammatory changes involving the distal transverse and left colon compatible with colitis. There is no free fluid. There is normal uterus. Bladder is unremarkable. Bone windows reveals no l ytic or blastic lesions. There is degenerative anterolisthesis L3/L4 IMPRESSION: Small right pleural effusion with adjacent atelectasis. Prior cholecystectomy with prominent CBD likely on a postcholecystectomy basis. Bilateral renal cysts. Colitis involving the distal transverse and left colon. All CT scans are performed using dose optimization techniques as appropriate to the performed exam an d include at least one of the following: Automated exposure control, adjustment of the mA and/or kV according t o size, and the use of iterative reconstruction technique.
[2024-05-03 10:15] LABS: ABG O2 HGB 95.3 % (95-100); ABG PH 7.37 (7.35-7.45); BEecf 14.6 (-2.0-3.0); COHb 2.1 (0.5-1.5); HCO3 39.9 (21-28); MetHb 1.1 (0-1.5); sO2 96.8 % (94-98); tHb 9.2 g/dl (11.7-17.4)
[2024-05-03] MEDS: LEVAQUIN 750 MG/150 ML D5W 750 MG/150 ML BAG IV ONE (10:26)
[2024-05-03] MEDS ORDERED: REGLAN IVP PRN (11:54)
[2024-05-03] MEDS ORDERED: ZOFRAN 4 MG/2 ML IVP PRN (11:54)
[2024-05-03 12:01] VITALS: BMI 27.2
[2024-05-03] MEDS: SODIUM CHLORIDE 1,000 ML IV SCH (12:17)
[2024-05-03 12:18] LABS: BILIRUBIN,URINE Negative (NEGATIVE); CLARITY,URINE Clear (CLEAR); COLOR,URINE Yellow (YELLOW); GLUCOSE, URINE (UA) Negative (NEGATIVE); KETONES,URINE Negative (NEGATIVE); LEUKOCYTE ESTERASE ,URINE Negative (NEGATIVE); NITRITE,URINE Negative (NEGATIVE); PROTEIN,URINE Negative (NEGATIVE); URINE, BLOOD Trace-intact (NEGATIVE); UROBILINOGEN,URINE 0.2 (0.2)
[2024-05-03 12:23] LABS: BACTERIA,URINE TRACE (NOT PRESENT)
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
[2024-05-03] MEDS ORDERED: ULTRAM PO PRN (15:39)
[2024-05-03] MEDS ORDERED: VENTOLIN HFA IH PRN (15:39)
[2024-05-03] MEDS ORDERED: ALBUTEROL 0.083% NEB NEB PRN (15:39)
[2024-05-03] MEDS: NEURONTIN PO SCH (20:19)
[2024-05-03] MEDS: PRAVACHOL PO SCH (20:19)
[2024-05-03] MEDS: XANAX PO PRN (20:20)
[2024-05-04] MEDS: PROTONIX PO SCH (05:00)
[2024-05-04] MEDS: SYNTHROID PO SCH (05:00)
[2024-05-04 05:25] LABS: BASOPHILS % (AUTO) 0.1 % (0.0-3.0); HEMATOCRIT 29.9 % (37.0-47.0); HEMOGLOBIN 8.7 g/dl (12.0-16.0); IMMATURE GRANULOCYTE # (AUTO) 0.2 (0.0-1.0); IMMATURE GRANULOCYTE % (AUTO) 0.9 % (0.0-5.0); LYMPHOCYTES % (AUTO) 5.6 (10.0-50.0); MEAN CORPUSCULAR HEMOGLOBIN 25.9 pg (27.0-31.0); MEAN CORPUSCULAR HGB CONC 29.1 (31.8-35.4); MONOCYTES # (AUTO) 0.8 K/uL (0.4-2.0); MONOCYTES % (AUTO) 4.2 (0-10); NEUTROPHILS # (AUTO) 16.5 K/ul (2.0-6.9); NEUTROPHILS % (AUTO) 89.2 % (42.2-75.2); PLATELET COUNT 293 10^3/uL (140-440); RDW COEFFICIENT OF VARIATION 15.2 % (11.6-14.8); RED BLOOD COUNT 3.36 10^6/ul (4.20-5.40); WHITE BLOOD COUNT 18.53 K/ul (4.6-10.2)
[2024-05-04 05:40] LABS: ALANINE AMINOTRANSFERASE 12.1 U/L (0-35); ALBUMIN 3.46 g/dL (3.5-5.0); ALKALINE PHOSPHATASE 129.9 U/L (53-141); ASPARTATE AMINO TRANSFERASE 21.1 U/L (14-36); BILIRUBIN,TOTAL 0.12 mg/dL (0.2-1.3); BLOOD UREA NITROGEN 18.4 mg/dL (7-17); CALCIUM 8.78 mg/dL (8.4-10.2); CARBON DIOXIDE 35.5 mmol/L (22-30.0); CHLORIDE 102.4 mmol/L (98-107); CREATININE 0.92 mg/dL (0.60-1.30); GLUCOSE 140.8 mg/dL (74-106); POTASSIUM 4.52 mmol/L (3.5-5.1); SODIUM 140.8 mmol/L (134.5-145); TOTAL PROTEIN 5.98 g/dL (6.3-8.2)
[2024-05-04] MEDS ORDERED: LISINOPRIL HYDROCHLOROTHIAZIDE PO SCH (09:00)
[2024-05-04] MEDS ORDERED: NON-FORMULARY MEDICATION (Tiotropium-Olodaterol [Stiolto Respimat] 4 GM mist) IH SCH (09:00)
[2024-05-04] MEDS ORDERED: LEVAQUIN 750 MG/150 ML D5W 750 MG/150 ML BAG IV SCH (09:00)
[2024-05-04] MEDS: CALAN SR PO SCH (10:16)
[2024-05-04] MEDS: VITAMIN D PO SCH (10:16)
[2024-05-04] MEDS: ANTIVERT PO SCH (10:16)
[2024-05-04] MEDS: HYDROCHLOROTHIAZIDE PO SCH (10:17)
[2024-05-04] MEDS: SINGULAIR PO SCH (10:17)
[2024-05-04] MEDS: CYMBALTA PO SCH (10:18)
[2024-05-04] MEDS: ZESTORETIC 20-12.5 MG TAB PO SCH (10:18)
[2024-05-04] MEDS: DALIRESP PO SCH (10:18)
[2024-05-04] MEDS: ANORO ELLIPTA 62.5-25 MCG INH IH SCH (10:18)
--- NOTE | 2024-05-04 11:02 | PCM.PROG ---
Date/Time Seen Date Seen by Provider: 05/04/24 Time Seen by Provider: 08:30 Provider Provider[facility] Chief Complaint Chief Complaint: WEAKNESS, PNEUMONIA, COPD EXACERBATION Subjective Subjective: Feeling some better today. Audible wheezing noted. Reports weakness is improved. Objective Appearance: Positive No Apparent Distress and Alert and Oriented x3 Chest/Lungs: Positive Symmetrical With Equal Breath Sounds and Wheezes (bilate ral upper lobes, diminished RLL) Heart: Positive RRR and Pulses Normal GI/: Positive Soft, Nontender, Bowel Sounds Normal and No Distention Musculoskeletal: Positive Not Examined Neurological: Positive Sensation Intact, Motor intact, Alert and Oriented Vital Signs Vital Signs: Vital Signs: Last 24 Hours 05/03/24 11:27 05/03/24 11:27 05/03/24 12:00 Temperature 97.9 F Temperature Source Oral Pulse Rate 101 H Pulse Rate [Apical] 104 H Respiratory Rate 19 22 H Blood Pressure Blood Pressure Mean Blood Pressure Right Arm 158/82 Blood Pressure Location Blood Pressure Position Supine O2 Sat by Pulse Oximetry 88 L Oxygen Delivery Method Nasal Cannula Nasal Cannula Nasal Cannula Oxygen Flow Rate 2 2 Height 5 ft 2 in Weight 67.5 kg Telemetry Type Telemetry Monitoring Telemetry Heart Rate EKG FL Interval EKG QRS Interval Telemetry Strip Reading 05/03/24 12:49 05/03/24 13:00 05/03/24 14:00 Temperature 98.3 F Temperature Source Tympanic Pulse Rate 91 Pulse Rate [Apical] Respiratory Rate 19 Blood Pressure 140/85 Blood Pressure Mean 103 Blood Pressure Right Arm Blood Pressure Location Right Arm Blood Pressure Position Sitting O2 Sat by Pulse Oximetry 97 Oxygen Delivery Method Nasal Cannula Room Air Oxygen Flow Rate Height Weight Telemetry Type Remote Telemetry Telemetry Monitoring Started Telemetry Heart Rate 90 EKG FL Interval 0.17 EKG QRS Interval 0.08 Telemetry Strip Reading SR 05/03/24 14:00 05/03/24 14:39 05/03/24 15:00 Temperature Temperature Source Pulse Rate Pulse Rate [Apical] Respiratory Rate Blood Pressure Blood Pressure Mean Blood Pressure Right Arm Blood Pressure Location Blood Pressure Position O2 Sat by Pulse Oximetry 99 Oxygen Delivery Method Nasal Cannula Nasal Cannula Nasal Cannula Oxygen Flow Rate 2 Height Weight Telemetry Type Telemetry Monitoring Telemetry Heart Rate EKG FL Interval EKG QRS Interval Telemetry Strip Reading 05/03/24 15:52 05/03/24 16:57 05/03/24 17:50 Temperature 97.3 F L Temperature Source Tympanic Pulse Rate 93 Pulse Rate [Apical] Respiratory Rate 18 Blood Pressure 129/83 Blood Pressure Mean 98 Blood Pressure Right Arm Blood Pressure Location Right Arm Blood Pressure Position Sitting O2 Sat by Pulse Oximetry 95 Oxygen Delivery Method Nasal Cannula Nasal Cannula Nasal Cannula Oxygen Flow Rate Height Weight Telemetry Type Telemetry Monitoring Telemetry Heart Rate EKG FL Interval EKG QRS Interval Telemetry Strip Reading 05/03/24 17:54 05/03/24 19:00 05/03/24 19:00 Temperature Temperature Source Pulse Rate Pulse Rate [Apical] Respiratory Rate Blood Pressure Blood Pressure Mean Blood Pressure Right Arm Blood Pressure Location Blood Pressure Position O2 Sat by Pulse Oximetry Oxygen Delivery Method Nasal Cannula Nasal Cannula Oxygen Flow Rate Height Weight Telemetry Type Remote Telemetry Telemetry Monitoring Continues Telemetry Heart Rate 98 EKG FL Interval 0.19 EKG QRS Interval 0.09 Telemetry Strip Reading SR W/ PACS 05/03/24 20:00 05/03/24 20:00 05/03/24 20:00 Temperature Temperature Source Pulse Rate Pulse Rate [Apical] Respiratory Rate Blood Pressure Blood Pressure Mean Blood Pressure Right Arm Blood Pressure Location Blood Pressure Position O2 Sat by Pulse Oximetry 95 Oxygen Delivery Method Nasal Cannula Nasal Cannula Nasal Cannula Oxygen Flow Rate 2 2 Height Weight Telemetry Type Telemetry Monitoring Telemetry Heart Rate EKG FL Interval EKG QRS Interval Telemetry Strip Reading 05/03/24 21:00 05/03/24 21:42 05/03/24 22:00 Temperature 97.2 F L Temperature Source Temporal Artery Scan Pulse Rate 86 Pulse Rate [Apical] Respiratory Rate 18 Blood Pressure 149/89 H Blood Pressure Mean 109 Blood Pressure Right Arm Blood Pressure Location Right Arm Blood Pressure Position Supine O2 Sat by Pulse Oximetry 96 Oxygen Delivery Method Nasal Cannula Nasal Cannula Nasal Cannula Oxygen Flow Rate 2 Height Weight Telemetry Type Telemetry Monitoring Telemetry Heart Rate EKG FL Interval EKG QRS Interval Telemetry Strip Reading 05/03/24 23:00 05/04/24 00:00 05/04/24 01:00 Temperature Temperature Source Pulse Rate Pulse Rate [Apical] Respiratory Rate Blood Pressure Blood Pressure Mean Blood Pressure Right Arm Blood Pressure Location Blood Pressure Position O2 Sat by Pulse Oximetry Oxygen Delivery Method Nasal Cannula Nasal Cannula Nasal Cannula Oxygen Flow Rate Height Weight Telemetry Type Telemetry Monitoring Telemetry Heart Rate EKG FL Interval EKG QRS Interval Telemetry Strip Reading 05/04/24 01:00 05/04/24 02:00 05/04/24 03:00 Temperature Temperature Source Pulse Rate Pulse Rate [Apical] Respiratory Rate Blood Pressure Blood Pressure Mean Blood Pressure Right Arm Blood Pressure Location Blood Pressure Position O2 Sat by Pulse Oximetry Oxygen Delivery Method Nasal Cannula Nasal Cannula Oxygen Flow Rate Height Weight Telemetry Type Remote Telemetry Telemetry Monitoring Continues Telemetry Heart Rate 84 EKG FL Interval 0.16 EKG QRS Interval 0.08 Telemetry Strip Reading SR 05/04/24 04:00 05/04/24 05:00 05/04/24 05:20 Temperature Temperature Source Pulse Rate Pulse Rate [Apical] Respiratory Rate Blood Pressure Blood Pressure Mean Blood Pressure Right Arm Blood Pressure Location Blood Pressure Position O2 Sat by Pulse Oximetry 93 L Oxygen Delivery Method Nasal Cannula Nasal Cannula Nasal Cannula Oxygen Flow Rate 2 Height Weight Telemetry Type Telemetry Monitoring Telemetry Heart Rate EKG FL Interval EKG QRS Interval Telemetry Strip Reading 05/04/24 05:27 05/04/24 06:00 05/04/24 07:00 Temperature 97.1 F L Temperature Source Temporal Artery Scan Pulse Rate 92 Pulse Rate [Apical] Respiratory Rate 18 Blood Pressure 158/96 H Blood Pressure Mean 116 Blood Pressure Right Arm Blood Pressure Location Right Arm Blood Pressure Position Supine O2 Sat by Pulse Oximetry 97 Oxygen Delivery Method Nasal Cannula Nasal Cannula Oxygen Flow Rate 2 Height Weight Telemetry Type Remote Telemetry Telemetry Monitoring Continues Telemetry Heart Rate 89 EKG FL Interval 0.18 EKG QRS Interval 0.06 Telemetry Strip Reading SR 05/04/24 07:00 05/04/24 08:00 05/04/24 10:00 Temperature Temperature Source Pulse Rate Pulse Rate [Apical] 90 Respiratory Rate 18 Blood Pressure Blood Pressure Mean Blood Pressure Right Arm Blood Pressure Location Blood Pressure Position O2 Sat by Pulse Oximetry 93 L Oxygen Delivery Method Nasal Cannula Nasal Cannula Nasal Cannula Oxygen Flow Rate 2 2 Height Weight Telemetry Type Telemetry Monitoring Telemetry Heart Rate EKG FL Interval EKG QRS Interval Telemetry Strip Reading Lab Results Lab Results: Lab Results: Last 24 Hours 05/04/24 05/03/24 04:59 11:40 WBC 18.53 H RBC 3.36 L Hgb 8.7 L Hct 29.9 L MCV 89.0 MCH 25.9 L MCHC 29.1 L RDW Coeff of [place] 15.2 H Plt Count 293 Immature Gran % (Auto) 0.9 Neut % (Auto) 89.2 H Lymph % (Auto) 5.6 L [place] % (Auto) 4.2 Eos % (Auto) 0.0 Baso % (Auto) 0.1 Neut # (Auto) 16.5 H Lymph # (Auto) 1.0 [place] # (Auto) 0.8 Eos # (Auto) 0.0 Baso # (Auto) 0.0 Immature Gran # (Auto) 0.2 Sodium 140.8 Potassium 4.52 Chloride 102.4 Carbon Dioxide 35.5 H Anion Gap 7.42 BUN 18.4 H Creatinine 0.92 Estimated GFR (MDRD) 58.00 BUN/Creatinine Ratio 20.00 Glucose 140.8 H Calcium 8.78 Total Bilirubin 0.12 L AST 21.1 ALT 12.1 Alkaline Phosphatase 129.9 D Total Protein 5.98 L Albumin 3.46 L Globulin 2.52 Albumin/Globulin Ratio 1.37 Urine Color Yellow Urine Clarity Clear Urine pH 6.0 Ur Specific [place] 1.010 Urine Protein Negative Urine Glucose (UA) Negative Urine Ketones Negative Urine Blood Trace-intact H Urine Nitrite Negative Urine Bilirubin Negative Urine Urobilinogen 0.2 Ur Leukocyte Esterase Negative Urine Microscopic RBC 2-5 Urine Microscopic WBC 2-5 Ur Squamous Epith Cells 5-10 Urine Bacteria Trace Additional Comments Additional Comments: I have independently reviewed and interpreted the labs/EKGs/imaging ordered during this hospital stay. I have reviewed outside records that are available in our EMR that pertain to medical stay including imaging/notes/labs from previous visits. Active Medications Active Medications: Medications Generic Name Dose Route Start Last Admin Trade Name Freq PRN Reason Stop Dose Admin Acetaminophen 650 mg 05/03/24 11:54 Acetaminophen 325 Mg Tablet PO Q4H PRN Mild Pain Albuterol Sulfate 2.5 mg 05/03/24 15:39 Albuterol Sulfate 0.083% Vial.Neb NEB Q4-6H PRN Wheezing Albuterol Sulfate 2 puff 05/03/24 15:39 Albuterol Sulfate 8 Gm Inhaler IH BID PRN Wheezing Albuterol/Ipratropium 3 ml 05/04/24 12:00 Ipratropium/Albuterol Vial.Neb NEB RTQ6H MANN Alprazolam 0.5 mg 05/03/24 15:39 05/03/24 20:20 Alprazolam 0.5 Mg Tablet PO 0.5 mg BID PRN Administration Anxiety Cholecalciferol 5,000 unit 05/04/24 09:00 05/04/24 10:16 Cholecalciferol (Vitamin D3) 1,000 Unit (25 Mcg) Tablet PO 5,000 unit DAILY MANN Administration Cyclobenzaprine HCl 5 mg 05/03/24 15:39 Cyclobenzaprine Hcl 10 Mg Tablet PO 3XD PRN muscle spasms Duloxetine HCl 60 mg 05/04/24 09:00 05/04/24 10:18 Duloxetine Hcl 30 Mg Capsule.Dr PO 60 mg DAILY MANN Administration Gabapentin 1,200 mg 05/03/24 21:00 05/03/24 20:19 Gabapentin 300 Mg Capsule PO 1,200 mg BEDTIME MANN Administration Lisinopril/HCTZ 1 tab 05/04/24 09:00 05/04/24 10:18 Lisinopril/Hydrochlorothiazide 20/12.5 Tablet PO 1 tab DAILY MANN Administration Hydrochlorothiazide 12.5 mg 05/04/24 09:00 05/04/24 10:17 Hydrochlorothiazide 25 Mg Tablet PO 12.5 mg DAILY MANN Administration Levofloxacin/Dextrose 750 mg in 150 mls @ 100 mls/hr 05/05/24 09:00 Levaquin 750 Mg/150 Ml D5w IV 05/08/24 08:59 Q48HR MANN Levothyroxine Sodium 75 mcg 05/04/24 06:00 05/04/24 05:00 Levothyroxine Sodium 75 Mcg Tablet PO 75 mcg QDAC2 MANN Administration Meclizine HCl 25 mg 05/04/24 09:00 05/04/24 10:16 Meclizine Hcl 25 Mg Tablet PO 25 mg QAM MANN Administration Metoclopramide HCl 5 mg 05/03/24 11:54 Metoclopramide Hcl 10 Mg/2 Ml IVP Q6H PRN Nausea / Vomiting Montelukast Sodium 10 mg 05/04/24 09:00 05/04/24 10:17 Montelukast Sodium 10 Mg Tablet PO 10 mg DAILY MANN Administration Ondansetron HCl 4 mg 05/03/24 11:54 Ondansetron Hcl/Pf 4 Mg/2 Ml Sdv IVP Q6H PRN Nausea / Vomiting Pantoprazole Sodium 40 mg 05/04/24 06:00 05/04/24 05:00 Pantoprazole Sodium 40 Mg Tablet. PO 40 mg QDAC2 MANN Administration Pravastatin Sodium 40 mg 05/03/24 21:00 05/03/24 20:19 Pravastatin Sodium 40 Mg Tablet PO 40 mg BEDTIME MANN Administration Roflumilast 500 mcg 05/04/24 09:00 05/04/24 10:18 Roflumilast 500 Mcg Tablet PO 500 mcg QAM MANN Administration Tramadol HCl 50 mg 05/03/24 15:39 Tramadol Hcl 50 Mg Tablet PO BEDTIME PRN Pain Umeclidinium/Vilanterol 1 inh 05/04/24 09:00 05/04/24 10:18 Umeclidinium Brm/Vilanterol 1 Each Blst.W.Dev IH 1 inh DAILY MANN Administration Verapamil HCl 240 mg 05/04/24 09:00 05/04/24 10:16 Verapamil Hcl 120 Mg Tablet.Er PO 240 mg DAILY MANN Administration Plan Plan: 1. Acute distal transverse and left colon colitis - levaquin Q48H, clear liquid diet, stool studies, stopping fluids today - tolerating PO 2. Intractable N/V - Resolved 3. Chronic Respiratory Failure - 2L continuous oxygen, BIPAP at bedtime, continue home medications 4. Hypertension - continue home medications 5. GERD - continue home medications 6. Weakness due to recent hospitalizations - PT/OT to eval and treat Dispo: admit inpatient due to >48 hours of care required at this time, discussed possible swingbed admission after acute stay - plans to discuss with family DVT Prophylaxis: Ambulation Review Statement Review Statement: I have personally discussed and reviewed the patient's visit/currently labs/imaging/decision making with Dr. Ontiveros, my supervising attending. Greater that 50 minutes spent with patient, 50% of the time spent with this pa tient was devoted to counseling and coordination of care.
[2024-05-04] MEDS: DUONEB NEB SCH (11:05)
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
[2024-05-04] MEDS: TYLENOL PO PRN (20:11)
[2024-05-05 05:33] LABS: BASOPHILS % (AUTO) 0.1 % (0.0-3.0); HEMATOCRIT 27.6 % (37.0-47.0); IMMATURE GRANULOCYTE % (AUTO) 0.3 % (0.0-5.0); LYMPHOCYTES # (AUTO) 2.1 K/uL (0.60-3.4); LYMPHOCYTES % (AUTO) 17.9 (10.0-50.0); MEAN CORPUSCULAR HEMOGLOBIN 26.5 pg (27.0-31.0); MEAN CORPUSCULAR VOLUME 91.4 fl (81.0-99.0); MONOCYTES # (AUTO) 0.6 K/uL (0.4-2.0); MONOCYTES % (AUTO) 5.2 (0-10); NEUTROPHILS # (AUTO) 9.1 K/ul (2.0-6.9); NEUTROPHILS % (AUTO) 76.5 % (42.2-75.2); PLATELET COUNT 260 10^3/uL (140-440); RDW COEFFICIENT OF VARIATION 15.3 % (11.6-14.8); RED BLOOD COUNT 3.02 10^6/ul (4.20-5.40)
[2024-05-05 05:40] LABS: WHITE BLOOD COUNT 11.91 K/ul (4.6-10.2)
[2024-05-05 05:44] LABS: ALANINE AMINOTRANSFERASE 13.6 U/L (0-35); ALBUMIN 3.24 g/dL (3.5-5.0); ALKALINE PHOSPHATASE 117.8 U/L (53-141); BILIRUBIN,TOTAL 0.12 mg/dL (0.2-1.3); BLOOD UREA NITROGEN 20.6 mg/dL (7-17); CALCIUM 8.98 mg/dL (8.4-10.2); CHLORIDE 99.1 mmol/L (98-107); CREATININE 1.06 mg/dL (0.60-1.30); GLUCOSE 91.9 mg/dL (74-106); POTASSIUM 3.74 mmol/L (3.5-5.1); SODIUM 141.4 mmol/L (134.5-145); TOTAL PROTEIN 5.72 g/dL (6.3-8.2)
[2024-05-05 05:50] LABS: CARBON DIOXIDE 36.2 mmol/L (22-30.0)
[2024-05-05] MEDS: LEVAQUIN 750 MG/150 ML D5W 750 MG/150 ML BAG IV SCH (09:36)
--- NOTE | 2024-05-05 09:41 | PCM.PROG ---
Date/Time Seen Date Seen by Provider: 05/05/24 Time Seen by Provider: 09:00 Provider Provider: YADIEL LEGER, [facility] ([facility])ist Group Chief Complaint Chief Complaint: WEAKNESS, PNEUMONIA, COPD EXACERBATION Subjective Subjective: States weakness has greatly improved. Still having diarrhea at times. Was bloody but is normal now. Objective Appearance: Positive No Apparent Distress and Alert and Oriented x3 Chest/Lungs: Positive Symmetrical With Equal Breath Sounds, Wheezes (throughout lung العلي) and Good Air Movement all 4 Lung العلي Heart: Positive RRR and Pulses Normal GI/: Positive Soft, Nontender, Bowel Sounds Normal and No Distention Musculoskeletal: Positive Not Examined Neurological: Positive Sensation Intact, Motor intact, Alert and Oriented Vital Signs Vital Signs: Vital Signs: Last 24 Hours 05/04/24 10:00 05/04/24 10:00 05/04/24 13:00 Temperature 98.8 F Temperature Source Temporal Artery Scan Pulse Rate 100 Respiratory Rate 19 Blood Pressure 152/87 H Blood Pressure Mean 108 Blood Pressure Location Left Arm Blood Pressure Position Supine O2 Sat by Pulse Oximetry 98 93 L Oxygen Delivery Method Nasal Cannula Nasal Cannula Oxygen Flow Rate 2 2 Height Weight Telemetry Type Remote Telemetry Telemetry Monitoring Continues Telemetry Heart Rate 99 EKG OK Interval 0.16 EKG QRS Interval 0.06 Telemetry Strip Reading SR 05/04/24 14:00 05/04/24 14:00 05/04/24 17:41 Temperature 98.5 F 98.1 F Temperature Source Tympanic Tympanic Pulse Rate 90 73 Respiratory Rate 17 17 Blood Pressure 139/71 151/69 H Blood Pressure Mean 93 96 Blood Pressure Location Left Arm Right Arm Blood Pressure Position Sitting Sitting O2 Sat by Pulse Oximetry 98 97 Oxygen Delivery Method Nasal Cannula Nasal Cannula Nasal Cannula Oxygen Flow Rate 2 Height Weight Telemetry Type Telemetry Monitoring Telemetry Heart Rate EKG OK Interval EKG QRS Interval Telemetry Strip Reading 05/04/24 19:00 05/04/24 19:30 05/04/24 20:00 Temperature Temperature Source Pulse Rate Respiratory Rate 20 Blood Pressure Blood Pressure Mean Blood Pressure Location Blood Pressure Position O2 Sat by Pulse Oximetry 98 Oxygen Delivery Method Nasal Cannula Nasal Cannula Oxygen Flow Rate 2 2 Height Weight Telemetry Type Remote Telemetry Telemetry Monitoring Continues Telemetry Heart Rate 82 EKG OK Interval 0.17 EKG QRS Interval 0.07 Telemetry Strip Reading SR 05/04/24 21:24 05/05/24 01:00 05/05/24 05:10 Temperature 98.1 F Temperature Source Oral Pulse Rate 68 Respiratory Rate 20 Blood Pressure 139/80 Blood Pressure Mean 99 Blood Pressure Location Left Arm Blood Pressure Position Supine O2 Sat by Pulse Oximetry 98 95 Oxygen Delivery Method Nasal Cannula Nasal Cannula Oxygen Flow Rate 2 2 Height Weight Telemetry Type Remote Telemetry Telemetry Monitoring Continues Telemetry Heart Rate 64 EKG OK Interval 0.20 EKG QRS Interval 0.07 Telemetry Strip Reading SR 05/05/24 05:17 05/05/24 07:00 05/05/24 08:35 Temperature 98 F Temperature Source Temporal Artery Scan Pulse Rate 67 Respiratory Rate 20 Blood Pressure 153/89 H Blood Pressure Mean 110 Blood Pressure Location Left Arm Blood Pressure Position Supine O2 Sat by Pulse Oximetry 99 Oxygen Delivery Method Nasal Cannula Oxygen Flow Rate 2 Height 5 ft 2 in Weight 67.5 kg Telemetry Type Remote Telemetry Telemetry Monitoring Continues Telemetry Heart Rate 66 EKG OK Interval 0.17 EKG QRS Interval 0.08 Telemetry Strip Reading SR Lab Results Lab Results: Lab Results: Last 24 Hours 05/05/24 05:04 WBC 11.91 H D RBC 3.02 L Hgb 8.0 L Hct 27.6 L MCV 91.4 MCH 26.5 L MCHC 29.0 L RDW Coeff of [place] 15.3 H Plt Count 260 Immature Gran % (Auto) 0.3 Neut % (Auto) 76.5 H Lymph % (Auto) 17.9 [place] % (Auto) 5.2 Eos % (Auto) 0.0 Baso % (Auto) 0.1 Neut # (Auto) 9.1 H Lymph # (Auto) 2.1 [place] # (Auto) 0.6 Eos # (Auto) 0.0 Baso # (Auto) 0.0 Immature Gran # (Auto) 0.0 Sodium 141.4 Potassium 3.74 Chloride 99.1 Carbon Dioxide 36.2 H Anion Gap 9.84 BUN 20.6 H Creatinine 1.06 Estimated GFR (MDRD) 50.00 BUN/Creatinine Ratio 19.43 Glucose 91.9 Calcium 8.98 Total Bilirubin 0.12 L AST 22.0 ALT 13.6 Alkaline Phosphatase 117.8 Total Protein 5.72 L Albumin 3.24 L Globulin 2.48 Albumin/Globulin Ratio 1.30 Additional Comments Additional Comments: I have independently reviewed and interpreted the labs/EKGs/imaging ordered during this hospital stay. I have reviewed outside records that are available in our EMR that pertain to medical stay including imaging/notes/labs from previous visits. Active Medications Active Medications: Medications Generic Name Dose Route Start Last Admin Trade Name Freq PRN Reason Stop Dose Admin Acetaminophen 650 mg 05/03/24 11:54 05/05/24 05:31 Acetaminophen 325 Mg Tablet PO 650 mg Q4H PRN Administration Mild Pain Albuterol Sulfate 2.5 mg 05/03/24 15:39 Albuterol Sulfate 0.083% Vial.Neb NEB Q4-6H PRN Wheezing Albuterol Sulfate 2 puff 05/03/24 15:39 Albuterol Sulfate 8 Gm Inhaler IH BID PRN Wheezing Albuterol/Ipratropium 3 ml 05/04/24 12:00 05/05/24 05:02 Ipratropium/Albuterol Vial.Neb NEB 3 ml RTQ6H MANN Administration Alprazolam 0.5 mg 05/03/24 15:39 05/04/24 20:11 Alprazolam 0.5 Mg Tablet PO 0.5 mg BID PRN Administration Anxiety Cholecalciferol 5,000 unit 05/04/24 09:00 05/04/24 10:16 Cholecalciferol (Vitamin D3) 1,000 Unit (25 Mcg) Tablet PO 5,000 unit DAILY MANN Administration Cyclobenzaprine HCl 5 mg 05/03/24 15:39 Cyclobenzaprine Hcl 10 Mg Tablet PO 3XD PRN muscle spasms Duloxetine HCl 60 mg 05/04/24 09:00 05/04/24 10:18 Duloxetine Hcl 30 Mg Capsule. PO 60 mg DAILY MANN Administration Gabapentin 1,200 mg 05/03/24 21:00 05/04/24 20:11 Gabapentin 300 Mg Capsule PO 1,200 mg BEDTIME MANN Administration Lisinopril/HCTZ 1 tab 05/04/24 09:00 05/04/24 10:18 Lisinopril/Hydrochlorothiazide 20/12.5 Tablet PO 1 tab DAILY MANN Administration Hydrochlorothiazide 12.5 mg 05/04/24 09:00 05/04/24 10:17 Hydrochlorothiazide 25 Mg Tablet PO 12.5 mg DAILY MANN Administration Levofloxacin/Dextrose 750 mg in 150 mls @ 100 mls/hr 05/05/24 09:00 05/05/24 09:36 Levaquin 750 Mg/150 Ml D5w IV 05/08/24 08:59 100 mls/hr Q48HR MANN Administration Levothyroxine Sodium 75 mcg 05/04/24 06:00 05/05/24 05:19 Levothyroxine Sodium 75 Mcg Tablet PO 75 mcg QDAC2 MANN Administration Meclizine HCl 25 mg 05/04/24 09:00 05/04/24 10:16 Meclizine Hcl 25 Mg Tablet PO 25 mg QAM MANN Administration Metoclopramide HCl 5 mg 05/03/24 11:54 Metoclopramide Hcl 10 Mg/2 Ml IVP Q6H PRN Nausea / Vomiting Montelukast Sodium 10 mg 05/04/24 09:00 05/04/24 10:17 Montelukast Sodium 10 Mg Tablet PO 10 mg DAILY MANN Administration Ondansetron HCl 4 mg 05/03/24 11:54 Ondansetron Hcl/Pf 4 Mg/2 Ml Sdv IVP Q6H PRN Nausea / Vomiting Pantoprazole Sodium 40 mg 05/04/24 06:00 05/05/24 05:19 Pantoprazole Sodium 40 Mg Tablet.Dr PO 40 mg QDAC2 MANN Administration Pravastatin Sodium 40 mg 05/03/24 21:00 05/04/24 20:11 Pravastatin Sodium 40 Mg Tablet PO 40 mg BEDTIME MANN Administration Roflumilast 500 mcg 05/04/24 09:00 05/04/24 10:18 Roflumilast 500 Mcg Tablet PO 500 mcg QAM MANN Administration Sodium Chloride 1 syr 05/04/24 21:00 05/05/24 05:33 0.9% Sodium Chloride 10 Ml Disp.Syrin IVF 1 syr Q8HR MANN Administration Tramadol HCl 50 mg 05/03/24 15:39 Tramadol Hcl 50 Mg Tablet PO BEDTIME PRN Pain Umeclidinium/Vilanterol 1 inh 05/04/24 09:00 05/05/24 09:35 Umeclidinium Brm/Vilanterol 1 Each Blst.W.Dev IH 1 inh DAILY MANN Administration Verapamil HCl 240 mg 05/04/24 09:00 05/04/24 10:16 Verapamil Hcl 120 Mg Tablet.Er PO 240 mg DAILY MANN Administration Plan Plan: 1. Acute distal transverse and left colon colitis - Diarrhea still present; continue levaquin Q48H, regular diet, stool studies 2. Intractable N/V - Resolved 3. Chronic Respiratory Failure - 2L continuous oxygen, BIPAP at bedtime, continue home medications 4. Hypertension - continue home medications 5. GERD - continue home medications 6. Weakness due to recent hospitalizations - PT/OT to eval and treat DVT Prophylaxis: Ambulation Dispo: plan to d/c tomorrow or Thursday if diarrhea improves. Patient at high risk for deterioration. Review Statement Review Statement: I have personally discussed and reviewed the patient's visit/currently labs/imaging/decision making with Dr. Ontiveros, my supervising attending. Greater that 50 minutes spent with patient, 50% of the time spent with this patient was devoted to counseling and coordination of care.
[2024-05-06] MEDS: FLEXERIL PO PRN (00:12)
[2024-05-06 05:58] LABS: BASOPHILS % (AUTO) 0.1 % (0.0-3.0); EOSINOPHILS % (AUTO) 0.5 % (0.0-7.0); HEMATOCRIT 31.5 % (37.0-47.0); HEMOGLOBIN 9.1 g/dl (12.0-16.0); IMMATURE GRANULOCYTE % (AUTO) 0.4 % (0.0-5.0); LYMPHOCYTES # (AUTO) 1.6 K/uL (0.60-3.4); LYMPHOCYTES % (AUTO) 22.1 (10.0-50.0); MEAN CORPUSCULAR HEMOGLOBIN 25.9 pg (27.0-31.0); MEAN CORPUSCULAR HGB CONC 28.9 (31.8-35.4); MEAN CORPUSCULAR VOLUME 89.5 fl (81.0-99.0); MONOCYTES # (AUTO) 0.5 K/uL (0.4-2.0); MONOCYTES % (AUTO) 7.3 (0-10); NEUTROPHILS # (AUTO) 5.1 K/ul (2.0-6.9); NEUTROPHILS % (AUTO) 69.6 % (42.2-75.2); PLATELET COUNT 270 10^3/uL (140-440); RDW COEFFICIENT OF VARIATION 15.1 % (11.6-14.8); RED BLOOD COUNT 3.52 10^6/ul (4.20-5.40); WHITE BLOOD COUNT 7.28 K/ul (4.6-10.2)
[2024-05-06 06:05] LABS: ALANINE AMINOTRANSFERASE 11.8 U/L (0-35); ALBUMIN 3.58 g/dL (3.5-5.0); ALKALINE PHOSPHATASE 108.7 U/L (53-141); BILIRUBIN,TOTAL 0.21 mg/dL (0.2-1.3); BLOOD UREA NITROGEN 14.2 mg/dL (7-17); CALCIUM 9.05 mg/dL (8.4-10.2); CHLORIDE 95.4 mmol/L (98-107); CREATININE 1.13 mg/dL (0.60-1.30); POTASSIUM 3.15 mmol/L (3.5-5.1); SODIUM 139.8 mmol/L (134.5-145); TOTAL PROTEIN 6.1 g/dL (6.3-8.2)
[2024-05-06 06:12] LABS: CARBON DIOXIDE 38.1 mmol/L (22-30.0)
[2024-05-06 06:41] LABS: HYPOCHROMASIA 1+ (NOT PRESENT)
[2024-05-06 06:42] LABS: ANISOCYTOSIS OCCASIONAL (NOT PRESENT)
[2024-05-06] MEDS: K-DUR PO ONE (08:36)
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
[2024-05-06 09:51] VITALS: BP 165/94; PULSE 97; RESP 16; TEMP 97.5
== END 2024-05-06 10:45 | disposition home or self-care (01) | DRG 385 ==
LOC: ED 08:17 → MEDSURG B 08:17
PROVIDERS: ADMIT Hospitalist; ATTEND Nurse Practitioner Family

== ENCOUNTER 2024-10-26 14:43 | Inpatient (IN) ==
[2024-10-26] MEDS: SODIUM CHLORIDE 1,000 ML IV ONE ×2 (15:08→16:33)
[2024-10-26] MEDS: LEVOPHED 4 MG/250 ML NS 4 MG/250 ML BAG IV SCH (15:10)
[2024-10-26 15:11] LABS: BASOPHILS % (AUTO) 0.1 % (0.0-3.0); EOSINOPHILS % (AUTO) 0.2 % (0.0-7.0); HEMATOCRIT 35.4 % (37.0-47.0); HEMOGLOBIN 10.1 g/dl (12.0-16.0); IMMATURE GRANULOCYTE % (AUTO) 0.2 % (0.0-5.0); LYMPHOCYTES # (AUTO) 2.2 K/uL (0.60-3.4); LYMPHOCYTES % (AUTO) 14.3 (10.0-50.0); MEAN CORPUSCULAR HEMOGLOBIN 26.9 pg (27.0-31.0); MEAN CORPUSCULAR HGB CONC 28.5 (31.8-35.4); MEAN CORPUSCULAR VOLUME 94.1 fl (81.0-99.0); MONOCYTES % (AUTO) 6.3 (0-10); NEUTROPHILS # (AUTO) 12.3 K/ul (2.0-6.9); NEUTROPHILS % (AUTO) 78.9 % (42.2-75.2); PLATELET COUNT 206 10^3/uL (140-440); RDW COEFFICIENT OF VARIATION 14.2 % (11.6-14.8); RED BLOOD COUNT 3.76 10^6/ul (4.20-5.40); WHITE BLOOD COUNT 15.64 K/ul (4.6-10.2)
[2024-10-26 15:13] LABS: ANISOCYTOSIS NOT PRESENT (NOT PRESENT)
[2024-10-26 15:22] LABS: HYPOCHROMASIA 1+ (NOT PRESENT)
[2024-10-26 15:25] LABS: ALANINE AMINOTRANSFERASE 15.2 U/L (0-35); ALBUMIN 3.89 g/dL (3.5-5.0); ALKALINE PHOSPHATASE 73.1 U/L (53-141); ASPARTATE AMINO TRANSFERASE 28.1 U/L (14-36); BLOOD UREA NITROGEN 19.4 mg/dL (7-17); CARBON DIOXIDE 35.3 mmol/L (22-30.0); CHLORIDE 95.7 mmol/L (98-107); CREATINE KINASE 39.7 U/L (30-135); CREATININE 1.34 mg/dL (0.60-1.30); GLUCOSE 193.5 mg/dL (74-106); LIPASE 129.9 U/L (23-300); MAGNESIUM 2.17 mg/dL (1.6-2.3); SODIUM 141.6 mmol/L (134.5-145); TOTAL PROTEIN 6.23 g/dL (6.3-8.2)
--- NOTE | 2024-10-26 15:29 | DI ---
EXAM: CHEST RADIOGRAPH TECHNIQUE: Single frontal chest radiograph. HISTORY: Shortness of breath. Chest pain. COMPARISON: 05/03/2024 FINDINGS: The lungs show no consolidation, pleural effusion pneumothorax. Stable calcified granuloma in the lef t upper lobe. The cardiomediastinal silhouette and pulmonary vessels are within normal limits for the technique and rotation. The upper abdomen is unremarkable. No acute bony abnormality. Old right ri b fractures. IMPRESSION: 1. No acute cardiopulmonary disease.
[2024-10-26 15:30] LABS: SALICYLATE < 1.00 mg/dL (0-20.0)
[2024-10-26] MEDS ORDERED: SODIUM CHLORIDE IV ONE (15:32)
[2024-10-26] MEDS ORDERED: POTASSIUM CHLORIDE 40 MEQ VIAL-ADDITIVE ONLY IV STA (15:38)
[2024-10-26 15:40] LABS: TROPONIN I < 0.012 ng/ml (0.0000-0.120)
[2024-10-26] MEDS: ZOSYN 4.5 GM 4.5 GM in SODIUM CHLORIDE 100ML 100 ML IV ONE (15:41)
[2024-10-26] MEDS ORDERED: POTASSIUM CHLORIDE 20 MEQ/100 ML IV ONE (16:00)
[2024-10-26 16:04] LABS: PARTIAL THROMBOPLASTIN TIME 21.2 SEC (23.9-40.0); PROTHROMBIN TIME 10.4 SEC (9.3-11.0)
[2024-10-26 16:10] LABS: ADENOVIRUS (PCR) NOT DETECTED (NOT DETECT); BORDETELLA PARAPERTUSSIS (PCR) NOT DETECTED (NOT DETECT); BORDETELLA PERTUSSIS (PCR) NOT DETECTED (NOT DETECT); CHLAMYDIA PNEUMONIAE (PCR) NOT DETECTED (NOT DETECT); CORONAVIRUS 229E (PCR) NOT DETECTED (NOT DETECT); CORONAVIRUS HKU1 (PCR) NOT DETECTED (NOT DETECT); CORONAVIRUS NL63 (PCR) NOT DETECTED (NOT DETECT); CORONAVIRUS OC43 (PCR) NOT DETECTED (NOT DETECT); HUMAN METAPNEUMOVIRUS (PCR) NOT DETECTED (NOT DETECT); HUMAN RHINOVIRUS/ENTEROV (PCR) NOT DETECTED (NOT DETECT); INFLUENZA A H1 (PCR) NOT DETECTED (NOT DETECT); INFLUENZA A H1-2009 (PCR) NOT DETECTED (NOT DETECT); INFLUENZA A H3 (PCR) NOT DETECTED (NOT DETECT); INFLUENZA B (PCR) NOT DETECTED (NOT DETECT); MYCOPLASMA PNEUMONIAE (PCR) NOT DETECTED (NOT DETECT); PARAINFLUENZA VIRUS 1 (PCR) NOT DETECTED (NOT DETECT); PARAINFLUENZA VIRUS 2 (PCR) NOT DETECTED (NOT DETECT); PARAINFLUENZA VIRUS 3 (PCR) NOT DETECTED (NOT DETECT); PARAINFLUENZA VIRUS 4 (PCR) NOT DETECTED (NOT DETECT); RESPIRATORY SYNCYTIAL V (PCR) NOT DETECTED (NOT DETECT); SARS_COV_2 (PCR) NOT DETECTED (NOT DETECT)
[2024-10-26] MEDS: VISIPAQUE 320 MG/ML 100ML IVP ONE (16:26)
[2024-10-26] MEDS: POTASSIUM CHLORIDE 20 MEQ/100 ML PREMIX 20 MEQ/100 ML BAG IV ONE ×2 (16:33→18:34)
--- NOTE | 2024-10-26 16:54 | CT ---
EXAM: ABDOMEN AND PELVIS CT WITH CONTRAST HISTORY: Abdominal pain. Hypotension. TECHNIQUE: Axial CT images were obtained through the abdomen and pelvis after the administration of i ntravenous contrast. Coronal and sagittal reformatted images were also submitted for interpretation. COMPARISON: Abdomen and pelvis CT dated 05/03/2024. FINDINGS: Motion artifacts are noted in the lower abdomen. The lung bases are clear. The heart is normal in size without pericardial effusion. The liver is normal in size without focal hepatic lesions. Intrahepatic ductal dilatation is seen. Th e portal veins are patent. There has been prior cholecystectomy. Calcified granulomas are noted in the spleen. The pancreas and adrenal glands are normal in appearan ce. There are bilateral renal cysts, largest measuring 1.7 cm on the right. There is 5 mm nonobstructing calculus in the lower pole of the right kidney. There is no hydronephrosis. The urinary bladder and reproductive organs are within normal limits. There is no small bowel obstruction. The appendix is not visualized; however, there is no pericecal i nflammatory changes to suggest acute appendicitis. There is colonic diverticulosis without definite d iverticulitis. No intraperitoneal free air or fluid is visualized. No pathologic lymphadenopathy is seen. Atheroscle rotic calcifications are noted along the abdominal aorta and iliac arteries. There is grade 1 anterolisthesis at L3-L4 and L4-L5. IMPRESSION: 1. Motion degraded study. 2. No acute abdominal or pelvic findings. 3. Stable intrahepatic ductal dilatation, likely representing post cholecystectomy changes. 4. Diverticulosis without definite diverticulitis. 5. Atherosclerotic disease. 6. Other findings as above. All CT scans are performed using dose optimization techniques as appropriate to the performed exam an d include at least one of the following: Automated exposure control, adjustment of the mA and/or kV according t o size, and the use of iterative reconstruction technique.
--- NOTE | 2024-10-26 17:03 | CT ---
I EXAM: CT CHEST WITH CONTRAST History: Abnormal chest x-ray, hypotension Technique: [address] chest following intravenous contrast FINDINGS: Lung windows show moderate emphysema. No nodules, masses or infiltrates. Granulomatous c alcification right lower lobe. Atherosclerotic calcification of the aorta and coronary arteries. No mediastinal lymphadenopathy. No acute chest wall abnormality. Prior healed right rib fractures. S ee abdominal CT for upper abdomen. Impression: No acute cardiopulmonary disease Emphysema All CT scans are performed using dose optimization techniques as appropriate to the performed exam an d include at least one of the following: Automated exposure control, adjustment of the mA and/or kV according t o size, and the use of iterative reconstruction technique.
--- NOTE | 2024-10-26 17:44 | ED.PDOC ---
General ED Provider: Dr. BEE ARAIZA DO Chief Complaint: Weakness Stated Complaint: 84-year-old female presents to the ER reporting generalized weakness. She said that she was feeling weak and when she went to the restroom and when she got up she started to feel extreme weakness and laid on the floor. This prompted her visit to the ER. She was found to be hypotensive. She states that she had some abdominal cramping and thought that she had have a bowel movement and when she went to try, she was unable to do so. No treatments prior to arrival. Patient has a history of COPD and denies any chest pain or shortness of breath. She denies any recent illness, fever, melena, medic easier, diarrhea, constipation, dysuria or hematuria. History reviewed in chart otherwise. 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 This was done as an outpatient from the dermatology clinic. This was done at least 1 if not 2 weeks ago. There has been no dressing changes since that time. She said that she was told to keep an eye on the entire time. Time Seen by Provider: 10/26/24 14:51 Information Source: Patient Primary Care Provider: TESS FREDERICK MD Nursing and Triage Documentation Reviewed and Agree: Yes What is Opioid Naive?: *Opioid Naive implies the patient is not already taking opioids or not chronically receiving opioids on a daily basis. *PRN dosing is not "usually" associated with tolerance. *Patients are at higher risk of over-sedation and aspiration. What is Opioid Tolerant?: *Opioid Tolerance implies less than the expected response to an opioid. *Acquired tolerance is defined by the patient taking 60mg of oral morphine daily (or equianalgesic dose of another opioid) for 1 week or more. *Often associated with chronic pain. *May take more than usual dose to achieve desired pain control. Review of Systems Review Of Systems Constitutional: Reports No symptoms All Other Systems: Reviewed and Negative [facility] Medical History Hypothyroidism (acquired) E03.9 - Hypothyroidism, unspecified (ICD-10) Hx of pyelonephritis Z87.448 - Personal history of other diseases of urinary system (ICD-10) Staghorn renal calculus N20.0 - Calculus of kidney (ICD-10) Sciatica of right side M54.31 - Sciatica, right side (ICD-10) Hydronephrosis right N13.30 - Unspecified hydronephrosis (ICD-10) Hx of influenza Z87.09 - Personal history of other diseases of the respiratory system (ICD- 10) Kidney stones (~2021) N20.0 - Calculus of kidney (ICD-10) Influenza A J10.1 - Influenza due to other identified influenza virus with other respiratory manifestations (ICD-10) Melanocarcinoma C43.9 - Malignant melanoma of skin, unspecified (ICD-10) Osteoarthritis M19.90 - Unspecified osteoarthritis, unspecified site (ICD-10) Sciatic leg pain right leg M54.30 - Sciatica, unspecified side (ICD-10) Bronchitis J40 - Bronchitis, not specified as acute or chronic (ICD-10) Shortness of breath R06.02 - SHORTNESS OF BREATH (ICD-10) COPD exacerbation J44.1 - CHRONIC OBSTRUCTIVE PULMONARY DISEASE W (ACUTE) EXACERBATION (ICD- 10) Family History Mother Cancer Brother Cancer FATHER Stroke Social History Smoking and tobacco status: Former smoker Second hand smoke exposure: No Substance use type: does not use Marni/confucianist: ORTHODOXY Special marni needs: No Agree to transfusion: Yes Adopted: No Caregiver/support person: No Foster care: No Household members: spouse Housing: house Marital status: M Lives independently: Yes Daycare: no daycare service: No senior living: No History of recent travel: No Do you think of yourself as: straight/heterosexual Current gender identity: female Seatbelt use: always Drives intoxicated or rides with intoxicated utility driver: No Water heater temperature set < 120 degrees: Yes Working smoke detector in home: Yes Fire extinguisher in home: Yes Carbon monoxide detector in home: Yes Surgical History H/O total knee replacement bilateral Z96.659 - Presence of unspecified artificial knee joint (ICD-10) H/O knee surgery Z98.89 - Other specified postprocedural states (ICD-10) History of bilateral knee replacement Z96.653 - Presence of artificial knee joint, bilateral (ICD-10) History of appendectomy Z90.49 - Other specified postprocedural states (ICD-10) History of cholecystectomy Z90.49 - Other specified postprocedural states (ICD-10) Female Reproductive History Menstrual Hx Hysterectomy: No Hx Tubal Ligation: No Physical Exam Physical Exam Appearance: Reports Ill-appearing, No pain distress and Well-nourished Ill-appearing: Moderate Eyes: Reports SANDI and EOMI ENT: Reports Nose normal and Oropharynx normal Neck: Supple Respiratory: Reports Airway patent and Respirations nonlabored Cardiovascular: Reports RRR, Pulses normal and Other (Hypotensive) GI/: Reports Soft and Nontender Musculoskeletal: Reports Normal strength and ROM intact Skin: Reports Warm, Dry and Normal color Neurological: Reports Sensation intact, Motor intact, Alert and Oriented Psychiatric: Reports Affect appropriate and Mood appropriate Interpretation EKG Interpretation EKG Interpretation By: ED Physician Time of EKG #1: 14:56 Rate: Normal Rhythm: Sinus Ectopy: None Christopher: NL ST Segment: Normal Interpretation: Nonischemic EKG Radiology Interpretation Radiology Interpretation By: Radiologist Radiology Results: No acute changes Exam Interpreted: Portable CXR and CT Scan Re-Evaluation Re-Evaluation Additional Comments: 84-year-old female presents to the ER with generalized weakness. She is afebrile nontoxic but she is very hypotensive on presentation. She does not have a reactive tachycardia and does not appear in distress although she looks as though she feels unwell. Abdomen soft nontender nonperitoneal throughout. Lungs clear to auscultation. Patient immediately initiated on a sepsis workup due to her hypotension. Other considerations include dissection or aneurysm although she has no pain whatsoever per her report and she denies this on multiple occasions. Unlikely pneumonia. Doubt other acute cardiopulmonary processes to include but not limited to ACS, VT, PE, pneumothorax, dissection or tamponade. Cannot exclude urinary source. Furthermore, she has a lesion on her right leg from a biopsy that sounds as though it has not been changed with regard to the dressings for at least 1 if not 2 weeks. This could certainly be source. We did obtain a culture from this location as well as blood cultures consistent with sepsis guidelines. We did initially order a 30 cc/kg bolus of fluids. However we did this with some reservation given her age and history of COPD, we did not want to fluid overload this patient. She did demonstrate a lactic acidosis and this will be repeated. She will require hospitalization. Patient given antibiotics immediately to include Zosyn and vancomycin. 1811: Patient has been off of Levophed for at least 30 minutes. She has been able to get up to the bedside commode without issues or changes in her vital signs. I discussed case with the hospitalist service who has requested to continue to monitor so we can confirm that she would not require going back on pressor support. I discussed this with the patient and her family, 1 of which is a nurse practitioner who works with us and used to work in the emergency department here, and he expressed understanding and do state explicitly that they would like to stay here if at all possible. 1918: Patient remains off of vasopressors. She has had a bowel movement and it is extremely malodorous and diarrhea. Concern for C. difficile. It is now being included from the history from the family that the patient was indeed on antibiotics recently for the biopsy taken off of her ankle 2 weeks ago. This would certainly put her at risk therefore a C. difficile culture has been sent. The patient has received IV vancomycin and Zosyn. Will add a dose of Flagyl in addition to her IV fluids with the clinical suspicion for C. difficile which could certainly be a contributing if not causative factor for her presenting symptoms that started with her complaint of abdominal cramping 2031: Tissue reperfusion assessment completed. Overall improvement. Stable vital signs. Accepted for admission. Course Course 10/26/24 15:05 10/26/24 15:05 Orders, Labs, Meds: Lab Review 10/26/24 10/26/24 10/26/24 15:03 15:05 17:24 WBC 15.64 H RBC 3.76 L Hgb 10.1 L Hct 35.4 L MCV 94.1 MCH 26.9 L MCHC 28.5 L RDW Coeff of [place] 14.2 Plt Count 206 Immature Gran % (Auto) 0.2 Neut % (Auto) 78.9 H Lymph % (Auto) 14.3 [place] % (Auto) 6.3 Eos % (Auto) 0.2 Baso % (Auto) 0.1 Neut # (Auto) 12.3 H Lymph # (Auto) 2.2 [place] # (Auto) 1.0 Eos # (Auto) 0.0 Baso # (Auto) 0.0 Immature Gran # (Auto) 0.0 Hypochromasia 1+ Anisocytosis Not present PT 10.4 INR 1.00 APTT 21.2 L Sodium 141.6 Potassium 2.70 L* Chloride 95.7 L Carbon Dioxide 35.3 H Anion Gap 13.30 BUN 19.4 H Creatinine 1.34 H Estimated GFR (MDRD) 38.00 BUN/Creatinine Ratio 14.47 Glucose 193.5 H Lactic Acid 6.86 H 5.45 H D Calcium 8.80 Magnesium 2.17 Total Bilirubin 0.40 AST 28.1 ALT 15.2 Alkaline Phosphatase 73.1 Total Creatine Kinase 39.7 Troponin I < 0.012 NT-Pro-B Natriuret Pep 123 Total Protein 6.23 L Albumin 3.89 Globulin 2.34 Albumin/Globulin Ratio 1.66 Lipase 129.9 Urine Color Urine Clarity Urine pH Ur Specific [place] Urine Protein Urine Glucose (UA) Urine Ketones Urine Blood Urine Nitrite Urine Bilirubin Urine Urobilinogen Ur Leukocyte Esterase Salicylate Level mg/dL < 1.00 Adenovirus (PCR) Not detected B. pertussis DNA (PCR) Not detected B.parapertussis DNA PCR Not detected C. pneumoniae DNA (PCR) Not detected Coronavirus OC43 (PCR) Not detected Coronavirus HKU1 (PCR) Not detected Coronavirus 229E (PCR) Not detected Coronavirus NL63 (PCR) Not detected Human Metapneumovir PCR Not detected Influenza A (H1) PCR Not detected Influ A (H1N1/09) PCR Not detected Influenza A (H3) PCR Not detected Influenza Type A (PCR) Not detected Influenza B (RT-PCR) Not detected M. pneumoniae (PCR) Not detected Parainfluenza 1 (PCR) Not detected Parainfluenza 2 (PCR) Not detected Parainfluenza 3 (PCR) Not detected Parainfluenza 4 (PCR) Not detected RSV (PCR) Not detected Entero/Rhino (PCR) Not detected SARS-CoV-2 (PCR) Not detected 10/26/24 10/26/24 17:45 19:57 WBC RBC Hgb Hct MCV MCH MCHC RDW Coeff of [place] Plt Count Immature Gran % (Auto) Neut % (Auto) Lymph % (Auto) [place] % (Auto) Eos % (Auto) Baso % (Auto) Neut # (Auto) Lymph # (Auto) [place] # (Auto) Eos # (Auto) Baso # (Auto) Immature Gran # (Auto) Hypochromasia Anisocytosis PT INR APTT Sodium Potassium Chloride Carbon Dioxide Anion Gap BUN Creatinine Estimated GFR (MDRD) BUN/Creatinine Ratio Glucose Lactic Acid 5.25 H Calcium Magnesium Total Bilirubin AST ALT Alkaline Phosphatase Total Creatine Kinase Troponin I NT-Pro-B Natriuret Pep Total Protein Albumin Globulin Albumin/Globulin Ratio Lipase Urine Color Yellow Urine Clarity Clear Urine pH 5.0 Ur Specific [place] 1.010 Urine Protein Negative Urine Glucose (UA) Negative Urine Ketones Negative Urine Blood Negative Urine Nitrite Negative Urine Bilirubin Negative Urine Urobilinogen 0.2 Ur Leukocyte Esterase Negative Salicylate Level mg/dL Adenovirus (PCR) B. pertussis DNA (PCR) B.parapertussis DNA PCR C. pneumoniae DNA (PCR) Coronavirus OC43 (PCR) Coronavirus HKU1 (PCR) Coronavirus 229E (PCR) Coronavirus NL63 (PCR) Human Metapneumovir PCR Influenza A (H1) PCR Influ A (H1N1/09) PCR Influenza A (H3) PCR Influenza Type A (PCR) Influenza B (RT-PCR) M. pneumoniae (PCR) Parainfluenza 1 (PCR) Parainfluenza 2 (PCR) Parainfluenza 3 (PCR) Parainfluenza 4 (PCR) RSV (PCR) Entero/Rhino (PCR) SARS-CoV-2 (PCR) Orders Category Date Time Status ADMIT PATIENT INPATIENT .TO MEDSUR (MONITORED BED) ADMISSION 10/26/24 20:26 Active EKG-(ED ONLY) Stat CARDIO 10/26/24 14:51 Completed C-DIFF MONITORING (NURSING) BID CARE 10/26/24 19:16 Active NPO REMINDER: IMAGING ONCE CARE 10/26/24 14:51 Completed NPO REMINDER: IMAGING ONCE CARE 10/26/24 15:23 Completed NPO REMINDER: IMAGING ONCE CARE 10/26/24 15:27 Completed TELEMETRY MONITORING TELE CARE 10/26/24 20:26 Active BLOOD CULTURE (ED ONLY) Stat LAB 10/26/24 15:37 Received CBC W/ AUTO DIFF Stat LAB 10/26/24 15:05 Completed CDIFF [C. DIFFICILE] Routine LAB 10/26/24 19:10 Received COMPREHENSIVE METABOLIC PANEL Stat LAB 10/26/24 15:05 Completed CREATINE KINASE Stat LAB 10/26/24 15:05 Completed CRP [C-REACTIVE PROTEIN] Stat LAB 10/26/24 15:05 Received ED PROBNP [NT-PROBNP(ED)] Stat LAB 10/26/24 15:05 Completed LACTIC ACID Stat LAB 10/26/24 15:05 Completed LACTIC ACID Stat LAB 10/26/24 17:24 Completed LACTIC ACID Stat LAB 10/26/24 19:57 Completed LIPASE Stat LAB 10/26/24 15:05 Completed MAGNESIUM Stat LAB 10/26/24 15:05 Completed PT WITH INR Stat LAB 10/26/24 15:05 Completed PTT [PARTIAL THROMBOPLASTIN TIME] Stat LAB 10/26/24 15:05 Completed RBC MORPHOLOGY Stat LAB 10/26/24 15:05 Completed RESPIRATORY PANEL 2.1 (PCR) Stat LAB 10/26/24 15:03 Completed SALICYLATE Stat LAB 10/26/24 15:05 Completed TROPONIN I Stat LAB 10/26/24 15:05 Completed URINALYSIS C & S IF INDICATED Stat LAB 10/26/24 17:45 Completed WOUND CULTURE Stat LAB 10/26/24 15:30 Received Iodixanol [Visipaque 320 mg/ml 100Ml] Meds 10/26/24 16:00 Discontinued 100 ml IVP ONCE ONE Metronidazole/Sodium Chloride [Flagyl 500 mg/100 ml] Meds 10/26/24 19:49 Active 500 mg in 100 ml IV ONCE Norepinephrine Bit/0.9 % NaCl [Levophed 4 mg/250 ml Ns] Meds 10/26/24 15:00 Active 4 mg in 250 ml IV TITRATION Piperacillin Sodium/Tazobactam [Zosyn 4.5 gm] 4.5 gm Meds 10/26/24 15:03 Discontinued 0.9 % Sodium Chloride [Sodium Chloride 100Ml] 100 ml IV ONCE Potassium Chloride [Potassium Chloride 20 Meq/100 ml Meds 10/26/24 15:45 Discontinued Premix] 20 meq in 100 ml IV ONCE Potassium Chloride [Potassium Chloride 20 Meq/100 ml Meds 10/26/24 17:45 Discontinued Premix] 20 meq in 100 ml IV ONCE Sodium Chloride 0.9% [Sodium Chloride] 1,000 ml Meds 10/26/24 14:51 Discontinued IV BOLUS Sodium Chloride 0.9% [Sodium Chloride] 1,000 ml Meds 10/26/24 15:40 Discontinued IV BOLUS Sodium Chloride 0.9% [Sodium Chloride] 1,000 ml Meds 10/26/24 18:43 Active IV ONCE Vancomycin/Water For Inj (Peg) [Vancomycin 1 Gram/200 Meds 10/26/24 17:44 Discontinued ml Premix] 1 gm in 200 ml IV ONCE CHEST, 1V AP ONLY Stat RADS 10/26/24 14:[address] ABDOMEN/PELVIS W CONTRAST Stat RADS 10/26/24 14:[address] CHEST W/CONTRAST Stat RADS 10/26/24 15:27 Completed Medications Generic Name Dose Route Start Last Admin Trade Name Freq PRN Reason Stop Dose Admin NOREPINEPHRINE BIT/0.9 % NACL 4 mg in 250 mls @ 30 mls/hr 10/26/24 15:00 10/26/24 17:45 Levophed 4 Mg/250 Ml Ns IV 0 mcg/min TITRATION MANN 0 mls/hr Titration Protocol 8 MCG/MIN Sodium Chloride 1,000 mls @ 125 mls/hr 10/26/24 18:43 Sodium Chloride IV 10/27/24 02:42 ONCE ONE Metronidazole 500 mg in 100 mls @ 100 mls/hr 10/26/24 19:49 Flagyl 500 Mg/100 Ml IV 10/26/24 20:48 ONCE ONE Discontinued Medications Generic Name Dose Route Start Last Admin Trade Name Freq PRN Reason Stop Dose Admin Sodium Chloride 1,000 mls @ 1,000 mls/hr 10/26/24 14:51 10/26/24 16:32 Sodium Chloride IV 10/26/24 15:50 Infused BOLUS ONE Infusion Piperacillin Sod/Tazobactam 100 mls @ 200 mls/hr 10/26/24 15:03 10/26/24 15:41 Sod 4.5 gm/ Sodium Chloride IV 10/26/24 15:32 200 mls/hr ONCE ONE Administration Sodium Chloride 1,000 mls @ 1,000 mls/hr 10/26/24 15:40 10/26/24 17:56 Sodium Chloride IV 10/26/24 16:39 Infused BOLUS ONE Infusion Potassium Chloride 20 meq in 100 mls @ 50 mls/hr 10/26/24 15:45 10/26/24 16:33 Potassium Chloride 20 Meq/100 Ml Premix IV 10/26/24 17:44 50 mls/hr ONCE ONE Administration Potassium Chloride 20 meq in 100 mls @ 50 mls/hr 10/26/24 17:45 10/26/24 18:34 Potassium Chloride 20 Meq/100 Ml Premix IV 10/26/24 19:44 50 mls/hr ONCE ONE Administration VANCOMYCIN/WATER FOR INJ (PEG) 1 gm in 200 mls @ 200 mls/hr 10/26/24 17:44 10/26/24 17:56 Vancomycin 1 Gram/200 Ml Premix IV 10/26/24 18:43 200 mls/hr ONCE ONE Administration Iodixanol 100 ml 10/26/24 16:00 10/26/24 16:26 Iodixanol 320 Mg/Ml 100ml IVP 10/26/24 16:01 100 ml ONCE ONE Administration Vital Signs: Temp Pulse Resp BP Pulse Ox O2 Flow Rate 10/26/24 15:04 2 10/26/24 14:48 97.2 F L 67 20 76/45 L 97 Discharge Plan Discharge Patient Disposition: ADMITTED INPATIENT Discharge Problem: Septic shock, Diarrhea Prescriptions: No Action albuterol sulfate [ProAir HFA] 90 mcg/actuation HFA aerosol inhaler 2 puff INHALATION BID PRN (Reason: Wheezing) Qty: 8.5 1RF pravastatin 40 mg tablet See Rx Instructions .ROUTE .COMPLEX Qty: 90 1RF Dose Instruction: TAKE ONE TABLET AT BEDTIME Rx Instructions: TAKE ONE TABLET AT BEDTIME verapamil 240 mg tablet extended release See Rx Instructions .ROUTE .COMPLEX Qty: 90 1RF Dose Instruction: TAKE ONE TABLET DAILY Rx Instructions: TAKE ONE TABLET DAILY levothyroxine 75 mcg tablet See Rx Instructions .ROUTE .COMPLEX Qty: 90 1RF Dose Instruction: TAKE ONE TABLET DAILY GENERIC FOR SYNTHROID Rx Instructions: TAKE ONE TABLET DAILY GENERIC FOR SYNTHROID montelukast 10 mg tablet See Rx Instructions .ROUTE .COMPLEX Qty: 90 1RF Dose Instruction: TAKE ONE TABLET EVERY MORNING Rx Instructions: TAKE ONE TABLET EVERY MORNING pantoprazole [Protonix] 40 mg tablet,delayed release (DR/EC) 40 mg PO QDAC Qty: 90 1RF gabapentin 600 mg tablet See Rx Instructions .ROUTE .COMPLEX Qty: 180 1RF Dose Instruction: TAKE TWO TABLETS AT BEDTIME GENERIC FOR NEURONTIN Rx Instructions: TAKE TWO TABLETS AT BEDTIME GENERIC FOR NEURONTIN lisinopril 10 mg tablet 10 mg PO DAILY Qty: 90 1RF duloxetine 60 mg capsule,delayed release(DR/EC) See Rx Instructions .ROUTE .COMPLEX Qty: 90 1RF Dose Instruction: TAKE 1 CAPSULE EVERY MORNING Rx Instructions: TAKE 1 CAPSULE EVERY MORNING alprazolam [Xanax] 0.5 mg tablet 0.5 mg PO BID PRN (Reason: anxiety) Qty: 180 1RF Stiolto Respimat 4 GM mist 2 puff inhalation QAM albuterol sulfate 2.5 mg /3 mL (0.083 %) solution for nebulization 2.5 mg inhalation Q4-6H PRN (Reason: shortness of breath or wheezing) Qty: 90 0RF meclizine 25 MG tablet 25 mg PO QAM Patient Comments: Always take one in the morning, and later if needed. tramadol 50 mg tablet 50 mg PO QHS PRN (Reason: pain) Qty: 90 1RF Did you review [place] [employer] for ALL controlled substances?: Not Applicable ED Provider: BEE ARAIZA Condition: Stable Physician Progress Note: All EKGs and plain film imaging independently reviewed and interpreted by me unless stated otherwise. CTs interpreted by radiology unless otherwise stated. All pediatric patients are accompanied by parent or legal guardian as primary historian and/or validate patient report unless otherwise stated.
[2024-10-26 17:53] LABS: BILIRUBIN,URINE Negative (NEGATIVE); CLARITY,URINE Clear (CLEAR); COLOR,URINE Yellow (YELLOW); GLUCOSE, URINE (UA) Negative (NEGATIVE); KETONES,URINE Negative (NEGATIVE); LEUKOCYTE ESTERASE ,URINE Negative (NEGATIVE); NITRITE,URINE Negative (NEGATIVE); PROTEIN,URINE Negative (NEGATIVE); URINE, BLOOD Negative (NEGATIVE); UROBILINOGEN,URINE 0.2 (0.2)
[2024-10-26] MEDS: VANCOMYCIN 1 GRAM/200 ML PREMIX 1 GM/200 ML BAG IV ONE (17:56)
[2024-10-26] MEDS ORDERED: SODIUM CHLORIDE 1,000 ML IV ONE (18:43)
[2024-10-26] MEDS: FLAGYL 500 MG/100 ML 500 MG/100 ML BAG IV ONE (21:07)
[2024-10-26] MEDS ORDERED: PHARM CONSULT:VANCO IV MAINTENANCE DOSING IV ONE (21:22)
[2024-10-26 21:53] VITALS: BMI 28.7
[2024-10-26] MEDS ORDERED: ALBUTEROL 0.083% NEB NEB PRN (22:10)
[2024-10-26] MEDS: NEURONTIN PO SCH ×2 (22:52→23:04)
[2024-10-26] MEDS: PRAVACHOL PO SCH (23:04)
[2024-10-26] MEDS: XANAX PO PRN (23:04)
[2024-10-26] MEDS: ZOSYN 3.375 GM 3.375 GM in SODIUM CHLORIDE 100ML 100 ML IV SCH (23:05)
[2024-10-26] MEDS: LACTATED RINGERS 1,000 ML IV SCH (23:08)
[2024-10-27 05:36] LABS: BASOPHILS % (AUTO) 0.3 % (0.0-3.0); EOSINOPHILS % (AUTO) 0.4 % (0.0-7.0); HEMATOCRIT 32.8 % (37.0-47.0); HEMOGLOBIN 9.3 g/dl (12.0-16.0); IMMATURE GRANULOCYTE % (AUTO) 0.2 % (0.0-5.0); LYMPHOCYTES % (AUTO) 20.3 (10.0-50.0); MEAN CORPUSCULAR HEMOGLOBIN 26.8 pg (27.0-31.0); MEAN CORPUSCULAR HGB CONC 28.4 (31.8-35.4); MEAN CORPUSCULAR VOLUME 94.5 fl (81.0-99.0); MONOCYTES # (AUTO) 0.8 K/uL (0.4-2.0); NEUTROPHILS # (AUTO) 7.1 K/ul (2.0-6.9); NEUTROPHILS % (AUTO) 70.8 % (42.2-75.2); PLATELET COUNT 182 10^3/uL (140-440); RDW COEFFICIENT OF VARIATION 14.6 % (11.6-14.8); RED BLOOD COUNT 3.47 10^6/ul (4.20-5.40); WHITE BLOOD COUNT 9.98 K/ul (4.6-10.2)
[2024-10-27 05:40] LABS: ANISOCYTOSIS NOT PRESENT (NOT PRESENT)
[2024-10-27] MEDS: FLAGYL 500 MG/100 ML 500 MG/100 ML BAG IV SCH (05:47)
[2024-10-27] MEDS: PROTONIX PO SCH (05:48)
[2024-10-27] MEDS: SYNTHROID PO SCH (05:48)
[2024-10-27 05:50] LABS: ALANINE AMINOTRANSFERASE 13.7 U/L (0-35); ALBUMIN 3.14 g/dL (3.5-5.0); ALKALINE PHOSPHATASE 54.6 U/L (53-141); ASPARTATE AMINO TRANSFERASE 25.7 U/L (14-36); BILIRUBIN,TOTAL 0.16 mg/dL (0.2-1.3); BLOOD UREA NITROGEN 19.7 mg/dL (7-17); CALCIUM 8.2 mg/dL (8.4-10.2); CARBON DIOXIDE 37.8 mmol/L (22-30.0); CHLORIDE 104.6 mmol/L (98-107); CREATININE 1.07 mg/dL (0.60-1.30); GLUCOSE 96.3 mg/dL (74-106); POTASSIUM 4.37 mmol/L (3.5-5.1); SODIUM 142.5 mmol/L (134.5-145); TOTAL PROTEIN 5.35 g/dL (6.3-8.2)
[2024-10-27 05:54] LABS: HYPOCHROMASIA 1+ (NOT PRESENT)
[2024-10-27] MEDS: LACTATED RINGERS 1,000 ML IV SCH (05:55)
[2024-10-27 06:20] LABS: THYROID STIMULATING HORMONE 1.41 uIU/L (0.465-4.68)
[2024-10-27] MEDS: ANORO ELLIPTA 62.5-25 MCG INH IH SCH (08:10)
[2024-10-27] MEDS: VANCOMYCIN 1.5 GRAM/300 ML PREMIX 1.5 GM/300 ML BAG IV ONE (08:11)
[2024-10-27] MEDS: SINGULAIR PO SCH (08:12)
[2024-10-27] MEDS: CYMBALTA PO SCH (08:12)
[2024-10-27 11:17] LABS: ABG O2 HGB 95.3 % (95-100); ABG PH 7.37 (7.35-7.45); BEecf 16.9 (-2.0-3.0); COHb 2.1 (0.5-1.5); HCO3 42.2 (21-28); MetHb 1.1 (0-1.5); TCO2 44.4 (19-24); sO2 95.5 % (94-98)
[2024-10-27] MEDS ORDERED: ZOSYN 3.375 GM 3.375 GM in SODIUM CHLORIDE 100ML 100 ML IV SCH (12:00)
--- NOTE | 2024-10-27 12:14 | PCM ---
Date of Service Date Seen by Provider: 10/27/24 Time Seen by Provider: 08:45 Admit Day/Time Admission Date: 10/26/24 Admission Time: 20:26 Reason for Admission Chief Complaint: SEPSIS, C-DIFF Hospital Provider Hospital Provider[facility] Physician Primary Care Physician: TESS FREDERICK MD History of Present Illness History of Present Illness: Patient is an 84 year old female from home who presented to the ER with hypotension. Patient was having abdominal cramps and went to the toilet at home. She became shakey and weak. She lowered to the floor. Once EMS arrived she was found to be hypotensive. She continued to be hypotensive in the ER despite fluids and was started on levophed. She was able to be weaned off of this while in the department and BP remained stable. Labs remarkable for elevated WBC count, elevated lactic acid of almost 7. Patient was given zosyn and vanc based on meeting sepsis criteria. Blood cultures drawn. CT chest/abd/pelvis w/ cont rast negative for any acute infectious sources. UA negative. Patient then had a diarrhea stool in the ER that was malodorous, suspicious for maybe c diff. It was revealed patient has been on doxycycline for 2 weeks recently due to a skin lesion/derm biopsy. Flagyl added for coverage. Patient's BP has been stable through the night. She is feeling better but still tired. C diff testing still pending. Patient states she's had diarrhea for about 3 days. Denies abd pain at this time. Labs overall improved. She states she wears 2L at baseline. Family requested an ABG, which was done and is her base line with evidence of compensated chronic respiratory failure. Case Discussed With Case Discussed With: Patient's case was discussed with the ER Physicians, Dr. Moise. [facility] Medical History Hypothyroidism (acquired) E03.9 - Hypothyroidism, unspecified (ICD-10) Hx of pyelonephritis Z87.448 - Personal history of other diseases of urinary system (ICD-10) Staghorn renal calculus N20.0 - Calculus of kidney (ICD-10) Sciatica of right side M54.31 - Sciatica, right side (ICD-10) Hydronephrosis right N13.30 - Unspecified hydronephrosis (ICD-10) Hx of influenza Z87.09 - Personal history of other diseases of the respiratory system (ICD- 10) Kidney stones (~2021) N20.0 - Calculus of kidney (ICD-10) Influenza A J10.1 - Influenza due to other identified influenza virus with other res piratory manifestations (ICD-10) Melanocarcinoma C43.9 - Malignant melanoma of skin, unspecified (ICD-10) Osteoarthritis M19.90 - Unspecified osteoarthritis, unspecified site (ICD-10) Sciatic leg pain right leg M54.30 - Sciatica, unspecified side (ICD-10) Bronchitis J40 - Bronchitis, not specified as acute or chronic (ICD-10) Shortness of breath R06.02 - SHORTNESS OF BREATH (ICD-10) COPD exacerbation J44.1 - CHRONIC OBSTRUCTIVE PULMONARY DISEASE W (ACUTE) EXACERBATION (ICD- 10) Surgical History H/O total knee replacement bilateral Z96.659 - Presence of unspecified artificial knee joint (ICD-10) H/O knee surgery Z98.89 - Other specified postprocedural states (ICD-10) History of bilateral knee replacement Z96.653 - Presence of artificial knee joint, bilateral (ICD-10) History of appendectomy Z90.49 - Other specified postprocedural states (ICD-10) History of cholecystectomy Z90.49 - Other specified postprocedural states (ICD-10) Family History Mother Cancer Brother Cancer FATHER Stroke Social History Smoking and tobacco status: Former smoker Second hand smoke exposure: No Substance use type: does not use Marni/gnosticism: [employer] WIT[employer] Special marni needs: No Agree to transfusion: Yes Adopted: No Caregiver/support person: No Foster care: No Household members: spouse Housing: house Marital status: M Lives independently: Yes Daycare: no daycare service: No long term: No History of recent travel: No Do you think of yourself as: straight/heterosexual Current gender identity: female Seatbelt use: always Drives intoxicated or rides with intoxicated funeral limousine driver: No Water heater temperature set < 120 degrees: Yes Working smoke detector in home: Yes Fire extinguisher in home: Yes Carbon monoxide detector in home: Yes Allergies Allergies Allergy/AdvReac Type Severity Reaction Status Date / Time cefdinir (From Omnicef) AdvReac Mild headache Verified 10/26/24 15:44 codeine AdvReac Mild Unknown Verified 10/26/24 15:44 erythromycin base AdvReac Mild Vomiting Verified 10/26/24 15:44 Current Medications Home Medications Acetaminophen (Acetaminophen 325 Mg Tablet) 650 mg PO Q4H PRN PRN Reason: Mild Pain Albuterol Sulfate (Albuterol Sulfate 0.083% Vial.Neb) 2.5 mg NEB Q4-6H PRN PRN Reason: Wheezing Alprazolam (Alprazolam 0.5 Mg Tablet) 0.5 mg PO BID PRN PRN Reason: Anxiety Last Admin: 10/26/24 23:04 Dose: 0.5 mg Duloxetine HCl (Duloxetine Hcl 30 Mg Capsule.Dr) 60 mg PO DAILY [facility] Last Admin: 10/27/24 08:12 Dose: 60 mg Enoxaparin Sodium (Enoxaparin Sodium 40 Mg/0.4 Ml Syr) 40 mg SUBCUT DAILY [facility] Gabapentin (Gabapentin 300 Mg Capsule) 1,200 mg PO BEDTIME [facility] Last Admin: 10/26/24 23:04 Dose: 1,200 mg VANCOMYCIN/WATER FOR INJ (PEG) (Vancomycin 1 Gram/200 Ml Premix) 1 gm in 200 mls @ 200 mls/hr IV DAILY [facility] Stop: 10/31/24 08:59 Piperacillin Sod/Tazobactam (Sod 4.5 gm/ Sodium Chloride) 100 mls @ 200 mls/hr IV Q6HR [facility] Stop: 10/30/24 11:59 Last Admin: 10/27/24 12:49 Dose: 200 mls/hr Levothyroxine Sodium (Levothyroxine Sodium 75 Mcg Tablet) 75 mcg PO QDAC2 [facility] Last Admin: 10/27/24 05:48 Dose: 75 mcg Montelukast Sodium (Montelukast Sodium 10 Mg Tablet) 10 mg PO DAILY [facility] Last Admin: 10/27/24 08:12 Dose: 10 mg Non-Formulary Medication (Mupirocin-Lidocaine [Batizia]) 1 each TP BID MANN Ondansetron HCl (Ondansetron Hcl/Pf 4 Mg/2 Ml Sdv) 4 mg IVP Q6H PRN PRN Reason: Nausea / Vomiting Pantoprazole Sodium (Pantoprazole Sodium 40 Mg Tablet.Dr) 40 mg PO QDAC2 [facility] Last Admin: 10/27/24 05:48 Dose: 40 mg Pravastatin Sodium (Pravastatin Sodium 40 Mg Tablet) 40 mg PO BEDTIME [facility] Last Admin: 10/26/24 23:04 Dose: 40 mg Sodium Chloride (0.9% Sodium Chloride 10 Ml Disp.Syrin) 1 syr IVF Q8HR MANN Sodium Chloride (0.9% Sodium Chloride 10 Ml Disp.Syrin) 1 syr IVF PRN PRN PRN Reason: Maintain IV Patency Umeclidinium/Vilanterol (Umeclidinium Brm/Vilanterol 1 Each Blst.W.Dev) 1 inh IH DAILY [facility] Last Admin: 10/27/24 08:10 Dose: 1 inh tiotropium 2.5 mcg-olodaterol 2.5 mcg/actuation mist for inhalation (Stiolto Respimat) 2 puff inhalation QAM 12/11/17 [History Confirmed 10/26/24] meclizine 25 mg tablet 25 mg PO QAM 06/02/18 [History Confirmed 10/26/24] albuterol sulfate 90 mcg/actuation aerosol inhaler (ProAir HFA) 2 puff inhalation BID PRN Wheezing #8.5 grams 11/10/22 [Rx Confirmed 10/26/24] albuterol sulfate 2.5 mg/3 mL (0.083 %) solution for nebulization 2.5 mg (3 mL) inhalation Q4-6H PRN shortness of breath or wheezing #90 mL 10/26/23 [Rx Confirmed 10/26/24] pravastatin 40 mg tablet See Rx Instructions .Route .COMPLEX #90 tabs 03/07/24 [Rx Confirmed 10/26/24] verapamil 240 mg tablet,extended release See Rx Instructions .Route .COMPLEX #90 tabs 06/06/24 [Rx Confirmed 10/26/24] levothyroxine 75 mcg tablet See Rx Instructions .Route .COMPLEX #90 tabs 06/13/24 [Rx Confirmed 10/26/24] montelukast 10 mg tablet See Rx Instructions .Route .COMPLEX #90 tabs 06/13/24 [Rx Confirmed 10/26/24] gabapentin 600 mg tablet See Rx Instructions .Route .COMPLEX #180 tabs 08/01/24 [Rx Confirmed 10/26/24] pantoprazole 40 mg tablet,delayed release (Protonix) 40 mg PO QDAC #90 tabs 08/01/24 [Rx Confirmed 10/26/24] lisinopril 10 mg tablet 10 mg PO DAILY #90 tabs 08/29/24 [Rx Confirmed 10/26/24] duloxetine 60 mg capsule,delayed release See Rx Instructions .Route .COMPLEX #90 caps 09/12/24 [Rx Confirmed 10/26/24] alprazolam 0.5 mg tablet (Xanax) 0.5 mg PO BID PRN anxiety #180 tabs 10/03/24 [Rx Confirmed 10/26/24] mupirocin 2 %-lidocaine 2 % topical ointment (Batizia) See Rx Instructions topical BID 10/27/24 [History Confirmed 10/27/24] Opioid Naive vs. Tolerant Does Patient Take Opioids?: No Is Patient Opioid Naive?: Yes What is Opioid Naive?: *Opioid Naive implies the patient is not already taking opioids or not chronically receiving opioids on a daily basis. *PRN dosing is not "usually" associated with tolerance. *Patients are at higher risk of over-sedation and aspiration. Is Patient Opioid Tolerant?: No What is Opioid Tolerant?: *Opioid Tolerance implies less than the expected response to an opioid. *Acquired tolerance is defined by the patient taking 60mg of oral morphine daily (or equianalgesic dose of another opioid) for 1 week or more. *Often associated with chronic pain. *May take more than usual dose to achieve desired pain control. Review of Systems Constitutional: Reports Fatigue and Weakness; Denies Fever Head: Reports Normocephalic and Atraumatic Cardiovascular: Denies Chest pain Respiratory: Denies Shortness of air Gastrointestinal: Reports Diarrhea; Denies Nausea, Vomiting or Abdominal pain Genitourinary: Denies Dysuria or Frequency Neurological: Denies Syncope or Seizure Physical examination Most Recent Vital Signs: Most Recent Vital Signs Temperature 98.5 F 10/27/24 10:00 Temperature Source Temporal Artery Scan 10/27/24 10:00 Temperature Source Infrared 10/26/24 14:48 Pulse Rate 71 10/27/24 10:00 Respiratory Rate 16 10/27/24 10:00 Blood Pressure 104/74 10/27/24 10:00 Blood Pressure Mean 84 10/27/24 10:00 Blood Pressure Left Arm 185/81 10/26/24 21:40 Blood Pressure Location Left Arm 10/27/24 10:00 Blood Pressure Position Supine 10/27/24 05:22 O2 Sat by Pulse Oximetry 100 10/27/24 11:05 Oxygen Delivery Method Room Air 10/27/24 11:05 Oxygen Flow Rate 2 10/27/24 11:05 Height 5 ft 2 in 10/26/24 21:40 Weight 71.2 kg 10/26/24 21:40 Telemetry Type Remote Telemetry 10/27/24 07:00 Telemetry Monitoring Started 10/27/24 07:00 Telemetry Heart Rate 72 10/27/24 07:00 Telemetry SPO2 100 10/27/24 07:00 EKG SD Interval 0.17 10/27/24 07:00 EKG QRS Interval 0.06 10/27/24 07:00 Telemetry Strip Reading NSR 10/27/24 07:00 Appearance: Positive No Apparent Distress and Other (+appears tired, but opens eyes and answers my questions, then closes them again. ) Skin: Positive [place], Warm and Good Turgor Chest/Lungs: Positive Clear to Auscultation Bilaterally and Other (On 2L now ); Negative Rales, Rhonci or Wheezes Heart: Positive RRR GI/: Positive Soft, Nontender, Bowel Sounds Normal and No Distention Extremities: Negative Edema Neurological: Positive Cranial Nerves Intact, Alert, Oriented and Other (+generalized weakness ) Psychiatric: Positive Oriented x4, Appropriate Mood and Appropriate Affect Additional Findings: RLE/anterior leg - recent biopsy, open wound, healing, mild erythema and drainage noted. Pt states it was a precancerous lesion. Labs This Visit Labs This Visit: Labs This Visit 10/26/24 10/26/24 10/26/24 15:03 15:05 17:24 WBC 15.64 H RBC 3.76 L Hgb 10.1 L Hct 35.4 L MCV 94.1 MCH 26.9 L MCHC 28.5 L RDW Coeff of [place] 14.2 Plt Count 206 Immature Gran % (Auto) 0.2 Neut % (Auto) 78.9 H Lymph % (Auto) 14.3 [place] % (Auto) 6.3 Eos % (Auto) 0.2 Baso % (Auto) 0.1 Neut # (Auto) 12.3 H Lymph # (Auto) 2.2 [place] # (Auto) 1.0 Eos # (Auto) 0.0 Baso # (Auto) 0.0 Immature Gran # (Auto) 0.0 Hypochromasia 1+ Anisocytosis Not present PT 10.4 INR 1.00 APTT 21.2 L Puncture Site Base Excess O2 Saturation ABG pH ABG pCO2 ABG pO2 ABG HCO3 ABG Total CO2 Kb Test Hemoglobin Oxyhemoglobin Carboxyhemoglobin Total Hemoglobin O2 Delivery Device Oxygen Liter Flow FiO2 % Sodium 141.6 Potassium 2.70 L* Chloride 95.7 L Carbon Dioxide 35.3 H Anion Gap 13.30 BUN 19.4 H Creatinine 1.34 H Estimated GFR (MDRD) 38.00 BUN/Creatinine Ratio 14.47 Glucose 193.5 H Lactic Acid 6.86 H 5.45 H D Calcium 8.80 Magnesium 2.17 Total Bilirubin 0.40 AST 28.1 ALT 15.2 Alkaline Phosphatase 73.1 Total Creatine Kinase 39.7 Troponin I < 0.012 NT-Pro-B Natriuret Pep 123 Total Protein 6.23 L Albumin 3.89 Globulin 2.34 Albumin/Globulin Ratio 1.66 Lipase 129.9 Procalcitonin TSH Urine Color Urine Clarity Urine pH Ur Specific [place] Urine Protein Urine Glucose (UA) Urine Ketones Urine Blood Urine Nitrite Urine Bilirubin Urine Urobilinogen Ur Leukocyte Esterase Salicylate Level mg/dL < 1.00 Adenovirus (PCR) Not detected B. pertussis DNA (PCR) Not detected B.parapertussis DNA PCR Not detected C. pneumoniae DNA (PCR) Not detected Coronavirus OC43 (PCR) Not detected Coronavirus HKU1 (PCR) Not detected Coronavirus 229E (PCR) Not detected Coronavirus NL63 (PCR) Not detected Human Metapneumovir PCR Not detected Influenza A (H1) PCR Not detected Influ A (H1N1/09) PCR Not detected Influenza A (H3) PCR Not detected Influenza Type A (PCR) Not detected Influenza B (RT-PCR) Not detected M. pneumoniae (PCR) Not detected Parainfluenza 1 (PCR) Not detected Parainfluenza 2 (PCR) Not detected Parainfluenza 3 (PCR) Not detected Parainfluenza 4 (PCR) Not detected RSV (PCR) Not detected Entero/Rhino (PCR) Not detected SARS-CoV-2 (PCR) Not detected 10/26/24 10/26/24 10/26/24 17:45 19:57 21:22 WBC RBC Hgb Hct MCV MCH MCHC RDW Coeff of [place] Plt Count Immature Gran % (Auto) Neut % (Auto) Lymph % (Auto) [place] % (Auto) Eos % (Auto) Baso % (Auto) Neut # (Auto) Lymph # (Auto) [place] # (Auto) Eos # (Auto) Baso # (Auto) Immature Gran # (Auto) Hypochromasia Anisocytosis PT INR APTT Puncture Site Base Excess O2 Saturation ABG pH ABG pCO2 ABG pO2 ABG HCO3 ABG Total CO2 Kb Test Hemoglobin Oxyhemoglobin Carboxyhemoglobin Total Hemoglobin O2 Delivery Device Oxygen Liter Flow FiO2 % Sodium Potassium Chloride Carbon Dioxide Anion Gap BUN Creatinine Estimated GFR (MDRD) BUN/Creatinine Ratio Glucose Lactic Acid 5.25 H Calcium Magnesium Total Bilirubin AST ALT Alkaline Phosphatase Total Creatine Kinase Troponin I NT-Pro-B Natriuret Pep Total Protein Albumin Globulin Albumin/Globulin Ratio Lipase Procalcitonin < 0.05 TSH Urine Color Yellow Urine Clarity Clear Urine pH 5.0 Ur Specific [place] 1.010 Urine Protein Negative Urine Glucose (UA) Negative Urine Ketones Negative Urine Blood Negative Urine Nitrite Negative Urine Bilirubin Negative Urine Urobilinogen 0.2 Ur Leukocyte Esterase Negative Salicylate Level mg/dL Adenovirus (PCR) B. pertussis DNA (PCR) B.parapertussis DNA PCR C. pneumoniae DNA (PCR) Coronavirus OC43 (PCR) Coronavirus HKU1 (PCR) Coronavirus 229E (PCR) Coronavirus NL63 (PCR) Human Metapneumovir PCR Influenza A (H1) PCR Influ A (H1N1/09) PCR Influenza A (H3) PCR Influenza Type A (PCR) Influenza B (RT-PCR) M. pneumoniae (PCR) Parainfluenza 1 (PCR) Parainfluenza 2 (PCR) Parainfluenza 3 (PCR) Parainfluenza 4 (PCR) RSV (PCR) Entero/Rhino (PCR) SARS-CoV-2 (PCR) 10/27/24 10/27/24 05:32 11:10 WBC 9.98 D RBC 3.47 L Hgb 9.3 L Hct 32.8 L MCV 94.5 MCH 26.8 L MCHC 28.4 L RDW Coeff of [place] 14.6 Plt Count 182 Immature Gran % (Auto) 0.2 Neut % (Auto) 70.8 Lymph % (Auto) 20.3 [place] % (Auto) 8.0 Eos % (Auto) 0.4 Baso % (Auto) 0.3 Neut # (Auto) 7.1 H Lymph # (Auto) 2.0 [place] # (Auto) 0.8 Eos # (Auto) 0.0 Baso # (Auto) 0.0 Immature Gran # (Auto) 0.0 Hypochromasia 1+ Anisocytosis Not present PT INR APTT Puncture Site Rt rad Base Excess 16.9 H O2 Saturation 95.5 ABG pH 7.37 ABG pCO2 73.0 H ABG pO2 81.0 L ABG HCO3 42.2 H ABG Total CO2 44.4 H Kb Test Pos Hemoglobin 1.1 Oxyhemoglobin 95.3 Carboxyhemoglobin 2.1 H Total Hemoglobin 10.0 L O2 Delivery Device Cannula Oxygen Liter Flow 2.00 FiO2 % 28.0 Sodium 142.5 Potassium 4.37 Chloride 104.6 Carbon Dioxide 37.8 H Anion Gap 4.47 BUN 19.7 H Creatinine 1.07 Estimated GFR (MDRD) 49.00 BUN/Creatinine Ratio 18.41 Glucose 96.3 D Lactic Acid 0.88 D Calcium 8.20 L Magnesium Total Bilirubin 0.16 L AST 25.7 ALT 13.7 Alkaline Phosphatase 54.6 Total Creatine Kinase Troponin I NT-Pro-B Natriuret Pep Total Protein 5.35 L Albumin 3.14 L Globulin 2.21 Albumin/Globulin Ratio 1.42 Lipase Procalcitonin 0.90 H TSH 1.410 Urine Color Urine Clarity Urine pH Ur Specific [place] Urine Protein Urine Glucose (UA) Urine Ketones Urine Blood Urine Nitrite Urine Bilirubin Urine Urobilinogen Ur Leukocyte Esterase Salicylate Level mg/dL Adenovirus (PCR) B. pertussis DNA (PCR) B.parapertussis DNA PCR C. pneumoniae DNA (PCR) Coronavirus OC43 (PCR) Coronavirus HKU1 (PCR) Coronavirus 229E (PCR) Coronavirus NL63 (PCR) Human Metapneumovir PCR Influenza A (H1) PCR Influ A (H1N1/09) PCR Influenza A (H3) PCR Influenza Type A (PCR) Influenza B (RT-PCR) M. pneumoniae (PCR) Parainfluenza 1 (PCR) Parainfluenza 2 (PCR) Parainfluenza 3 (PCR) Parainfluenza 4 (PCR) RSV (PCR) Entero/Rhino (PCR) SARS-CoV-2 (PCR) Imaging Imaging: EXAM: CT CHEST WITH CONTRAST History: Abnormal chest x-ray, hypotension Technique: [address] chest following intravenous contrast FINDINGS: Lung windows show moderate emphysema. No nodules, masses or infiltrates. Granulomatous calcification right lower lobe. Atherosclerotic calcification of the aorta and coronary arteries. No mediastinal lymphadenopathy. No acute chest wall abnormality. Prior healed right rib fractures. See abdominal CT for upper abdomen. Impression: No acute cardiopulmonary disease Emphysema EXAM: ABDOMEN AND PELVIS CT WITH CONTRAST HISTORY: Abdominal pain. Hypotension. TECHNIQUE: Axial CT images were obtained through the abdomen and pelvis after the administration of intravenous contrast. Coronal and sagittal reformatted images were also submitted for interpretation. COMPARISON: Abdomen and pelvis CT dated 05/03/2024. FINDINGS: Motion artifacts are noted in the lower abdomen. The lung bases are clear. The heart is normal in size without pericardial effusion. The liver is normal in size without focal hepatic lesions. Intrahepatic ductal dilatation is seen. The portal veins are patent. There has been prior cholecystectomy. Calcified granulomas are noted in the spleen. The pancreas and adrenal glands are normal in appearance. There are bilateral renal cysts, largest measuring 1.7 cm on the right. There is 5 mm nonobstructing calculus in the lower pole of the right kidney. There is no hydronephrosis. The urinary bladder and reproductive organs are within normal limits. There is no small bowel obstruction. The appendix is not visualized; however, there is no pericecal inflammatory changes to suggest acute appendicitis. There is colonic diverticulosis without definite diverticulitis. No intraperitoneal free air or fluid is visualized. No pathologic lymphadenopathy is seen. Atherosclerotic calcifications are noted along the abdominal aorta and iliac arteries. There is grade 1 anterolisthesis at L3-L4 and L4-L5. IMPRESSION: 1. Motion degraded study. 2. No acute abdominal or pelvic findings. 3. Stable intrahepatic ductal dilatation, likely representing post cho lecystectomy changes. 4. Diverticulosis without definite diverticulitis. 5. Atherosclerotic disease. 6. Other findings as above Review Statement Review Statement: I have independently reviewed and interpreted the labs/EKGs/imaging that were ordered by the ER provider. I have reviewed all outside records that are available currently in our EMR including imaging/notes/labs from previous visits. Plan Plan: 1. Septic shock in setting of unclear source - LA 6.8 initially, normalized today. WBC normalized. Blood cultures pending. BP improved and off levophed since in the ED. CT c/a/p negative for acute findings, UA negative. Suspect possible c diff as etiology, awaiting results. Will tailor abx based on results. Cont zosyn/vanc/and flagyl for now. 2. Hypotension - Resolved, holding antihypertensives today 3. Hypokalemia - Likely due to diarrhea, resolved today, cont to monitor, tele 4. Recent skin biopsy and wound of RLE - Could be source of infection, but does not look overly cellulitic, wound cx pending. Pt recently took doxy. Cont wound care as directed by her derm. 5. LUIS, stage I - Improved with fluids, will stop fluids today to prevent overload 6. Chronic respiratory failure due to COPD on 2L - Family requested abg, which is at her baseline. Pt on baseline oxygen requirement currently. Will monitor with recent fluid resuscitation. Cont inhalers. 7. Hyperlipidemia - Cont home meds 8. Hypothyroidism - TSH normal, cont home dose 9. GERD - Cont home dose DVT Prophylaxis: Lovenox Time Spent: Greater than 80 minutes spent with patient, 50% of the time spent with this patient was devoted to counseling and coordination of care. [facility] minutes spent discussing advance care planning. Admit to: Inpatient Discussed Plan of Care with Dr. Sheri Frederick. Medications Medication Orders: Medications Ordered Category Date Time Status 0.9 % Sodium Chloride [Saline Flush] Meds 10/27/24 10:26 Active 1 syr IVF PRN PRN 0.9 % Sodium Chloride [Saline Flush] Meds 10/27/24 13:00 Active 1 syr IVF Q8HR Acetaminophen [Tylenol] Meds 10/26/24 21:20 Active 650 mg PO Q4H PRN Albuterol Sulfate 0.083% Neb [Albuterol 0.083% Neb] Meds 10/26/24 22:10 Active 2.5 mg NEB Q4-6H PRN Alprazolam [Xanax] Meds 10/26/24 22:10 Active 0.5 mg PO BID PRN Duloxetine HCl [Cymbalta] Meds 10/27/24 09:00 Active 60 mg PO DAILY Gabapentin [Neurontin] Meds 10/26/24 22:46 Active 1,200 mg PO BEDTIME Levothyroxine Sodium [Synthroid] Meds 10/27/24 06:00 Active 75 mcg PO QDAC2 Metronidazole/Sodium Chloride [Flagyl 500 mg/100 ml] Meds 10/27/24 05:00 Active 500 mg in 100 ml IV Q8HR Montelukast Sodium [Singulair] Meds 10/27/24 09:00 Active 10 mg PO DAILY Ondansetron HCl/Pf [Zofran Sdv] Meds 10/26/24 21:20 Active 4 mg IVP Q6H PRN Pantoprazole Sodium [Protonix] Meds 10/27/24 06:00 Active 40 mg PO QDAC2 Piperacillin Sodium/Tazobactam [Zosyn 4.5 gm] 4.5 gm Meds 10/27/24 12:00 Active 0.9 % Sodium Chloride [Sodium Chloride 100Ml] 100 ml IV Q6HR Pravastatin Sodium [Pravachol] Meds 10/26/24 22:30 Active 40 mg PO BEDTIME Umeclidinium Brm/Vilanterol Tr [Anoro Ellipta 62.5-25 Meds 10/27/24 09:00 Active Mcg INH] 1 inh IH DAILY Vancomycin/Water For Inj (Peg) [Vancomycin 1 Gram/200 Meds 10/28/24 09:00 Active ml Premix] 1 gm in 200 ml IV DAILY mupirocin-lidocaine [Batizia] Meds 10/27/24 21:00 Ordered See Dose Instructions TP BID
[2024-10-27] MEDS: ZOSYN 4.5 GM 4.5 GM in SODIUM CHLORIDE 100ML 100 ML IV SCH (12:49)
[2024-10-27] MEDS ORDERED: VANCOMYCIN VIAL (IF PREGNANT) 1 GM in SODIUM CHLORIDE 250 ML IV SCH (18:00)
[2024-10-27] MEDS ORDERED: NEURONTIN PO SCH (21:00)
[2024-10-27] MEDS: MUPIROCIN TP SCH (21:03)
[2024-10-27] MEDS: LIDOCAINE TP SCH (21:03)
[2024-10-27] MEDS: FLORASTOR PO SCH (21:04)
[2024-10-28 05:39] LABS: BASOPHILS % (AUTO) 0.5 % (0.0-3.0); EOSINOPHILS # (AUTO) 0.1 K/ul (0.0-0.7); EOSINOPHILS % (AUTO) 1.7 % (0.0-7.0); HEMATOCRIT 33.7 % (37.0-47.0); HEMOGLOBIN 9.9 g/dl (12.0-16.0); IMMATURE GRANULOCYTE % (AUTO) 0.5 % (0.0-5.0); LYMPHOCYTES % (AUTO) 29.6 (10.0-50.0); MEAN CORPUSCULAR HEMOGLOBIN 27.2 pg (27.0-31.0); MEAN CORPUSCULAR HGB CONC 29.4 (31.8-35.4); MEAN CORPUSCULAR VOLUME 92.6 fl (81.0-99.0); MONOCYTES # (AUTO) 0.4 K/uL (0.4-2.0); MONOCYTES % (AUTO) 6.5 (0-10); NEUTROPHILS # (AUTO) 4.1 K/ul (2.0-6.9); NEUTROPHILS % (AUTO) 61.2 % (42.2-75.2); PLATELET COUNT 174 10^3/uL (140-440); RDW COEFFICIENT OF VARIATION 14.6 % (11.6-14.8); RED BLOOD COUNT 3.64 10^6/ul (4.20-5.40); WHITE BLOOD COUNT 6.66 K/ul (4.6-10.2)
[2024-10-28 05:52] LABS: ALANINE AMINOTRANSFERASE 13.4 U/L (0-35); ALBUMIN 3.37 g/dL (3.5-5.0); ALKALINE PHOSPHATASE 48.3 U/L (53-141); ASPARTATE AMINO TRANSFERASE 30.7 U/L (14-36); BILIRUBIN,TOTAL 0.37 mg/dL (0.2-1.3); BLOOD UREA NITROGEN 15.7 mg/dL (7-17); CALCIUM 9.01 mg/dL (8.4-10.2); CHLORIDE 96.3 mmol/L (98-107); CREATININE 1.09 mg/dL (0.60-1.30); GLUCOSE 97.3 mg/dL (74-106); POTASSIUM 3.87 mmol/L (3.5-5.1); SODIUM 140.7 mmol/L (134.5-145); TOTAL PROTEIN 5.71 g/dL (6.3-8.2)
[2024-10-28 05:58] LABS: CARBON DIOXIDE 35.2 mmol/L (22-30.0)
[2024-10-28] MEDS: VANCOMYCIN 1 GRAM/200 ML PREMIX 1 GM/200 ML BAG IV SCH (08:54)
[2024-10-28] MEDS: LOVENOX SUBCUT SCH (08:54)
[2024-10-28] MEDS: ZESTRIL PO SCH (09:24)
[2024-10-28] MEDS: TYLENOL PO PRN (11:00)
--- NOTE | 2024-10-28 11:33 | PCM.PROG ---
Date/Time Seen Date Seen by Provider: 10/28/24 Time Seen by Provider: 08:30 Provider Provider: BEVERLY MASSEY PA-C, [facility] Chief Complaint Chief Complaint: SEPSIS Subjective Subjective: Patient generalized doesn't feel well today. No pain or specific complaints, just overall doesn't feel good. Has not had any more diarrhea stools. Labs impro isidro. 1 blood culture bottle positive for gram + cocci, wound culture growing gram neg rods currently. C diff toxins a/b was negative. Objective Appearance: Positive No Apparent Distress and Alert and Oriented x3 Chest/Lungs: Positive Clear to Auscultation Bilaterally; Negative Rales, Rhonci or Wheezes Heart: Positive RRR GI/: Positive Soft, Nontender, Bowel Sounds Normal and No Distention Neurological: Positive Alert, Oriented and Other (+generalized weakness ) Additional Findings: Wound to anterior RLE with mild amount of drainage on dressing. Wound bed looks good, no significant erythema. No pain with palpation around wound. Vital Signs Vital Signs: Vital Signs: Last 24 Hours 10/27/24 13:00 10/27/24 14:00 10/27/24 14:00 Temperature 98.2 F Temperature Source Temporal Artery Scan Pulse Rate 78 Respiratory Rate 16 Blood Pressure 173/92 H Blood Pressure Mean 119 Blood Pressure Location Left Arm Blood Pressure Position O2 Sat by Pulse Oximetry 98 98 Oxygen Delivery Method Nasal Cannula Nasal Cannula Oxygen Flow Rate 2 2 Telemetry Type Remote Telemetry Telemetry Monitoring Continues Telemetry Heart Rate 75 Telemetry SPO2 100 EKG NH Interval 0.17 EKG QRS Interval 0.07 Telemetry Strip Reading NSR 10/27/24 18:00 10/27/24 18:33 10/27/24 19:00 Temperature 98.0 F Temperature Source Temporal Artery Scan Pulse Rate 79 Respiratory Rate 16 Blood Pressure 179/97 H 154/82 H Blood Pressure Mean 124 106 Blood Pressure Location Left Arm Left Arm Blood Pressure Position O2 Sat by Pulse Oximetry 95 Oxygen Delivery Method Nasal Cannula Nasal Cannula Oxygen Flow Rate 2 Telemetry Type Remote Telemetry Telemetry Monitoring Continues Telemetry Heart Rate 76 Telemetry SPO2 99 EKG NH Interval 0.18 EKG QRS Interval 0.06 Telemetry Strip Reading SR 10/27/24 19:49 10/27/24 20:00 10/27/24 20:58 Temperature 97.5 F L Temperature Source Temporal Artery Scan Pulse Rate 75 Respiratory Rate 16 Blood Pressure 156/82 H Blood Pressure Mean 106 Blood Pressure Location Right Arm Blood Pressure Position Supine O2 Sat by Pulse Oximetry 99 98 Oxygen Delivery Method Nasal Cannula Nasal Cannula Nasal Cannula Oxygen Flow Rate 2 2 2 Telemetry Type Telemetry Monitoring Telemetry Heart Rate Telemetry SPO2 EKG NH Interval EKG QRS Interval Telemetry Strip Reading 10/28/24 01:00 10/28/24 01:51 10/28/24 05:07 Temperature 97.7 F Temperature Source Temporal Artery Scan Pulse Rate 66 63 Respiratory Rate 19 Blood Pressure Blood Pressure Mean Blood Pressure Location Blood Pressure Position O2 Sat by Pulse Oximetry 99 92 L Oxygen Delivery Method Nasal Cannula Nasal Cannula Oxygen Flow Rate 2 2 Telemetry Type Remote Telemetry Telemetry Monitoring Continues Telemetry Heart Rate 66 Telemetry SPO2 100 EKG NH Interval 0.17 EKG QRS Interval 0.08 Telemetry Strip Reading SR 10/28/24 05:18 10/28/24 05:54 10/28/24 07:00 Temperature Temperature Source Pulse Rate Respiratory Rate Blood Pressure 174/92 H Blood Pressure Mean 119 Blood Pressure Location Blood Pressure Position O2 Sat by Pulse Oximetry 100 Oxygen Delivery Method Nasal Cannula Nasal Cannula Oxygen Flow Rate 2 2 Telemetry Type Remote Telemetry Telemetry Monitoring Continues Telemetry Heart Rate 63 Telemetry SPO2 100 EKG NH Interval 0.19 EKG QRS Interval 0.07 Telemetry Strip Reading sr 10/28/24 08:00 10/28/24 10:00 10/28/24 10:00 Temperature 97.2 F L Temperature Source Temporal Artery Scan Pulse Rate 75 Respiratory Rate 20 Blood Pressure 175/103 H Blood Pressure Mean 127 Blood Pressure Location Left Arm Blood Pressure Position Sitting O2 Sat by Pulse Oximetry 99 98 Oxygen Delivery Method Nasal Cannula Nasal Cannula Nasal Cannula Oxygen Flow Rate 3 2 2 Telemetry Type Telemetry Monitoring Telemetry Heart Rate Telemetry SPO2 EKG NH Interval EKG QRS Interval Telemetry Strip Reading Lab Results Lab Results: Lab Results: Last 24 Hours 10/28/24 10/26/24 05:33 15:05 WBC 6.66 RBC 3.64 L Hgb 9.9 L Hct 33.7 L MCV 92.6 MCH 27.2 MCHC 29.4 L RDW Coeff of [place]quito 14.6 Plt Count 174 Immature Gran % (Auto) 0.5 Neut % (Auto) 61.2 Lymph % (Auto) 29.6 [place] % (Auto) 6.5 Eos % (Auto) 1.7 Baso % (Auto) 0.5 Neut # (Auto) 4.1 Lymph # (Auto) 2.0 [place] # (Auto) 0.4 Eos # (Auto) 0.1 Baso # (Auto) 0.0 Immature Gran # (Auto) 0.0 Sodium 140.7 Potassium 3.87 Chloride 96.3 L Carbon Dioxide 35.2 H Anion Gap 13.07 BUN 15.7 Creatinine 1.09 Estimated GFR (MDRD) 48.00 BUN/Creatinine Ratio 14.40 Glucose 97.3 Calcium 9.01 Total Bilirubin 0.37 AST 30.7 ALT 13.4 Alkaline Phosphatase 48.3 L C-Reactive Prot, Quant < 1 Total Protein 5.71 L Albumin 3.37 L Globulin 2.34 Albumin/Globulin Ratio 1.44 Procalcitonin 0.71 H Additional Comments Additional Comments: I have independently reviewed and interpreted the labs/EKGs/imaging ordered during this hospital stay. I have reviewed outside records that are available in our EMR that pertain to medical stay including imaging/notes/labs from previous visits. Active Medications Active Medications: Medications Generic Name Dose Route Start Last Admin Trade Name Freq PRN Reason Stop Dose Admin Acetaminophen 650 mg 10/26/24 21:20 10/28/24 11:00 Acetaminophen 325 Mg Tablet PO 650 mg Q4H PRN Administration Mild Pain Albuterol Sulfate 2.5 mg 10/26/24 22:10 Albuterol Sulfate 0.083% Vial.Neb NEB Q4-6H PRN Wheezing Alprazolam 0.5 mg 10/26/24 22:10 10/27/24 21:04 Alprazolam 0.5 Mg Tablet PO 0.5 mg BID PRN Administration Anxiety Duloxetine HCl 60 mg 10/27/24 09:00 10/28/24 08:54 Duloxetine Hcl 30 Mg Capsule. PO 60 mg DAILY MANN Administration Enoxaparin Sodium 40 mg 10/28/24 09:00 10/28/24 08:54 Enoxaparin Sodium 40 Mg/0.4 Ml Syr SUBCUT 40 mg DAILY MANN Administration Gabapentin 1,200 mg 10/26/24 22:46 10/27/24 21:05 Gabapentin 300 Mg Capsule PO 1,200 mg BEDTIME MANN Administration VANCOMYCIN/WATER FOR INJ (PEG) 1 gm in 200 mls @ 200 mls/hr 10/28/24 09:00 10/28/24 08:54 Vancomycin 1 Gram/200 Ml Premix IV 10/31/24 08:59 200 mls/hr DAILY MANN Administration Piperacillin Sod/Tazobactam 100 mls @ 200 mls/hr 10/27/24 12:00 10/28/24 05:13 Sod 4.5 gm/ Sodium Chloride IV 10/30/24 11:59 200 mls/hr Q6HR MANN Administration Levothyroxine Sodium 75 mcg 10/27/24 06:00 10/28/24 05:13 Levothyroxine Sodium 75 Mcg Tablet PO 75 mcg QDAC2 MANN Administration Lisinopril 10 mg 10/28/24 09:00 10/28/24 09:24 Lisinopril 10 Mg Tablet PO 10 mg DAILY MANN Administration Montelukast Sodium 10 mg 10/27/24 09:00 10/28/24 08:54 Montelukast Sodium 10 Mg Tablet PO 10 mg DAILY MANN Administration Non-Formulary Medication 1 each 10/27/24 21:00 10/28/24 08:55 Mupirocin-Lidocaine [Batizia] TP 1 each BID MANN Administration Ondansetron HCl 4 mg 10/26/24 21:20 Ondansetron Hcl/Pf 4 Mg/2 Ml Sdv IVP Q6H PRN Nausea / Vomiting Pantoprazole Sodium 40 mg 10/27/24 06:00 10/28/24 05:14 Pantoprazole Sodium 40 Mg Tablet.Dr PO 40 mg QDAC2 MANN Administration Pravastatin Sodium 40 mg 10/26/24 22:30 10/27/24 21:04 Pravastatin Sodium 40 Mg Tablet PO 40 mg BEDTIME MNAN Administration Saccharomyces Boulardii 250 mg 10/27/24 21:00 10/28/24 08:53 Saccharomyces Boulardii 250 Mg Capsule PO 250 mg BID MANN Administration Sodium Chloride 1 syr 10/27/24 13:00 10/28/24 05:13 0.9% Sodium Chloride 10 Ml Disp.Syrin IVF 1 syr Q8HR MANN Administration Sodium Chloride 1 syr 10/27/24 10:26 0.9% Sodium Chloride 10 Ml Disp.Syrin IVF PRN PRN Maintain IV Patency Umeclidinium/Vilanterol 1 inh 10/27/24 09:00 10/28/24 08:52 Umeclidinium Brm/Vilanterol 1 Each Blst.W.Dev IH 1 inh DAILY MANN Administration Plan Plan: 1. Septic shock in setting of unclear source - LA 6.8 initially, normalized following morning. WBC normalized. Blood cultures pending but showing gram positive cocci in 1 bottle. BP improved and off levophed since in the ED. CT c/a/p negative for acute findings, UA negative. C diff negative and no further diarrhea stools.Cont zosyn/vanc for now. 2. Bacteremia - could be contaminant but given her initial presentation, will need to await cultures. Per lab should be back later today or in AM. Cont abx. 3. Hypotension - Resolved, restart lisinopril today 4. Hypokalemia - resolved 5. Recent skin biopsy and wound of RLE - Could be source of infection, but does not look overly cellulitic, wound cx showing gram neg rods. Pt recently took doxy. Cont wound care as directed by her derm. 6. LUIS, stage I - resolved 7. Chronic respiratory failure due to COPD on 2L - Family requested abg, which is at her baseline. Pt on baseline oxygen requirement currently. Will monitor with recent fluid resuscitation. Cont inhalers. 8. Hyperlipidemia - Cont home meds 9. Hypothyroidism - TSH normal, cont home dose 10. GERD - Cont home dose DVT Prophylaxis: Lovenox Dispo: Consider for swingbed depending on how she does with therapy Review Statement Review Statement: I have personally discussed and reviewed the patient's visit/currently labs /imaging/decision making with Dr. Ontiveros, my supervising attending. Greater that 50 minutes spent with patient, 50% of the time spent with this patient was devoted to counseling and coordination of care.
[2024-10-28] MEDS ORDERED: CALAN SR PO SCH (12:50)
[2024-10-28] MEDS: CALAN SR PO SCH (13:09)
--- NOTE | 2024-10-28 15:17 | RS.PTINEVL ---
Subjective Patient information Date of Evaluation: 10/28/24 Date of Arrival on Unit: 10/26/24 Admitted From:: Home Diagnosis: sepsis of unknown origin, impaired mobility Usual Living Arrangement: With Spouse Living Arrangement Comments: family is very supportive Home Environment: House, Stairs (few) and Rail Medical History: Hypertension, COPD, CHF, Arthritis and Cancer (squamous cell CA of LLE ) Medical History Comments:: CKD, chronic resp failure, hypothyroidism LATEX ALLERGY?: No Surgical History: Knee Replacement (bilateral) and Cholecystectomy Surgical History Comments:: appey Medications: see chart Subjective Information/ Patient Comments:: pt states that she takes rest periods when she is cleaning at home. She states that she knows her limitations with her breathing. pt reports "walking won't help my breathing, I have COPD." Level of function Prior to this admission, the patient could do the following:: Independent Selfcare, Independent ADL's, Independent Ambulation (occasionally used rwx), Perform Hospital Liaison/Cooking, Drive and Participated in Social Activities Outside home Current Level of Function: Partially Dependent Current Equipment Used at Home: oxygen, Interventions Objective Patient Orientation: Person, Place, Time and Situation Current Interventions: IV's, Oxygen (2 liters) and Telemetry Observation: dressing in place LLE Range of Motion ROM Right Upper Extremity AROM: WFL's Left Upper Extremity AROM: WFL's Right Lower Extremity AROM: WFL's Left Lower Extremity AROM: WFL's Muscle Strength Muscle Strength Right Upper Extremity: Mild Weakness (grossly 4/5 ) Left Upper Extremity: Mild Weakness (grossly 4/5 ) Right Lower Extremity: Mild Weakness (hip flex 4/5, knee flex/ext 4/5, ankle 4/5) Left Lower Extremity: Mild Weakness (hip flex 4/5, knee flex/ext 4/5, ankle 4/5) Sensation Sensation Right Upper Extremity: Intact/Normal Left Upper Extremity: Intact/Normal Right Lower Extremity: Intact/Normal Left Lower Extremity: Intact/Normal Palpation Palpation Findings: None/Normal Balance Sitting Balance and Reactions Static Sitting Balance: Good Dynamic Sitting Balance: Fair (fair + pt able to reach down and fix sock with no LOB ) Standing Balance and Reactions Static Standing Balance: Fair Dynamic Standing Balance: Fair (fair-) Functional Mobility Bed Mobility Rolling R/L: Independent Scooting: Independent Supine to Sit: Independent Sit to Supine: Independent Transfers Sit to Stand: Supervision and CGA Stand to Sit: Supervision and CGA Comments:: on/off commode SBA, independent with toilet hygiene as well as putting on brief. Safety Awareness Safety Awareness: Fair PETE INDEX SCORE: n/a Ambulation Ambulation Assistive Device Used: Rolling Walker Orthotic/Prosthetic Device: No Distance: 110ft Assistance needed with Ambulation: CGA Quality of Ambulation: pt amb with 2liters O2 Gait Deviations: Forward posture and Short stride Factors Affecting Ambulation: Decreased Balance, Breathing/O2 Saturation, Weakness, Decreased Safety and Limited Endurance Treatment time Units charged Gait trainin Time with patient Length of Evaluation: 19 Total treatment time: 32 Patient Education Education Patient Education: Activity Modification and Education of Plan of Care Teaching Recipient: Patient Teaching Methods: Discussion Comments: discussion regarding POC and home safety. Assessment Assessment Problem List:: Decreased level of function, Requires training/education, Decreased safety/Risk of falls and Weakness Rehab Potential: Good Further Therapy Indicated?: Yes Candidate for Swing Bed for Therapy Services?: Feel pt may be too high functioning for swing bed, if she does it would be very short term. Evaluation Complexity: HISTORY: Medium, EXAM OF BODY SYSTEMS: Medium, CLINICAL PRESENTATION: Medium and CLINICAL DECISION MAKING: Medium Patient's Goal(s): Return home as independent as possible. Short Term Goals GOAL #1: Transfer sit to/from stand independently. Goal to be met by: 10/31/24 GOAL #2: pt amb 100ft with rwx and O2 SBA no LOB Goal to be met by: 10/31/24 GOAL #3: Improve BLE strength 4 to 4+/5 Goal to be met by: 10/31/24 GOAL #4: Improve dyn stand balance fair. Goal to be met by: 10/31/24 Manufacturing Specialist Goals GOAL #1: pt ascend/descend 2 steps with HR with SBA Goal to be met by: 11/02/24 GOAL #2: pt amb functional household distances with rwx and O2 SBA to independent. Goal to be met by: 11/02/24 Plan Plan of Care: Therapeutic EX and Therapeutic Activity Other:: gait training Frequency of Treatment: 1-2 X day, as tolerated Duration of Treatment: 5 days Anticipated Discharge Destination: undetermined home vs swing bed. Treatment Diagnosis (ICD 10 Codes): gait difficulty R 26.2 weakness m62.81 impaired balance R 26.81 Has the Physician been added for Co-signature?: Yes
[2024-10-29 05:32] LABS: BASOPHILS % (AUTO) 0.4 % (0.0-3.0); EOSINOPHILS # (AUTO) 0.2 K/ul (0.0-0.7); EOSINOPHILS % (AUTO) 3.1 % (0.0-7.0); HEMATOCRIT 33.3 % (37.0-47.0); HEMOGLOBIN 9.7 g/dl (12.0-16.0); IMMATURE GRANULOCYTE % (AUTO) 0.4 % (0.0-5.0); LYMPHOCYTES # (AUTO) 1.8 K/uL (0.60-3.4); LYMPHOCYTES % (AUTO) 35.4 (10.0-50.0); MEAN CORPUSCULAR HEMOGLOBIN 26.9 pg (27.0-31.0); MEAN CORPUSCULAR HGB CONC 29.1 (31.8-35.4); MEAN CORPUSCULAR VOLUME 92.5 fl (81.0-99.0); MONOCYTES # (AUTO) 0.4 K/uL (0.4-2.0); MONOCYTES % (AUTO) 7.9 (0-10); NEUTROPHILS # (AUTO) 2.7 K/ul (2.0-6.9); NEUTROPHILS % (AUTO) 52.8 % (42.2-75.2); PLATELET COUNT 191 10^3/uL (140-440); RDW COEFFICIENT OF VARIATION 14.7 % (11.6-14.8); WHITE BLOOD COUNT 5.17 K/ul (4.6-10.2)
[2024-10-29 05:46] LABS: ALANINE AMINOTRANSFERASE 12.5 U/L (0-35); ALBUMIN 3.33 g/dL (3.5-5.0); ALKALINE PHOSPHATASE 45.7 U/L (53-141); BILIRUBIN,TOTAL 0.29 mg/dL (0.2-1.3); CALCIUM 9.1 mg/dL (8.4-10.2); CHLORIDE 97.6 mmol/L (98-107); CREATININE 1.07 mg/dL (0.60-1.30); POTASSIUM 3.54 mmol/L (3.5-5.1); SODIUM 141.7 mmol/L (134.5-145); TOTAL PROTEIN 5.71 g/dL (6.3-8.2)
[2024-10-29 05:52] LABS: CARBON DIOXIDE 39.5 mmol/L (22-30.0)
[2024-10-29] MEDS: ZOFRAN SDV IVP PRN (09:33)
--- NOTE | 2024-10-29 10:17 | PCM.PROG ---
Date/Time Seen Date Seen by Provider: 10/29/24 Time Seen by Provider: 09:00 Provider Provider: [facility] Chief Complaint Chief Complaint: SEPSIS Subjective Subjective: Patient overall is feeling ok but has started to have some diarrhea overnight. BC resulted staph epi, awaiting wound culture results. Objective Appearance: Positive No Apparent Distress and Alert and Oriented x3 Chest/Lungs: Positive Clear to Auscultation Bilaterally; Negative Rales, Rhonci or Wheezes Heart: Positive RRR GI/: Positive Soft, Nontender, Bowel Sounds Normal and No Distention Neurological: Positive Alert, Oriented and Other (+generalized weakness ) Additional Findings: Wound to anterior RLE with mild amount of drainage on dressing. Wound bed looks good, no significant erythema. No pain with palpation around wound. Vital Signs Vital Signs: Vital Signs: Last 24 Hours 10/28/24 13:00 10/28/24 13:36 10/28/24 13:56 Temperature 98.3 F Temperature Source Tympanic Pulse Rate 78 Respiratory Rate 17 Blood Pressure 176/96 H Blood Pressure Mean 122 Blood Pressure Location Left Arm Blood Pressure Position Sitting O2 Sat by Pulse Oximetry 97 99 Oxygen Delivery Method Nasal Cannula Nasal Cannula Oxygen Flow Rate 2 Telemetry Type Telemetry Monitoring Telemetry Strip Reading refused 10/28/24 17:44 10/28/24 19:00 10/28/24 19:50 Temperature 98.1 F Temperature Source Tympanic Pulse Rate 68 Respiratory Rate 19 Blood Pressure 155/87 H Blood Pressure Mean 109 Blood Pressure Location Left Arm Blood Pressure Position Sitting O2 Sat by Pulse Oximetry 92 L 96 Oxygen Delivery Method Nasal Cannula Nasal Cannula Oxygen Flow Rate 2 Telemetry Type Remote Telemetry Telemetry Monitoring Continues Telemetry Strip Reading refused 10/28/24 20:00 10/28/24 21:30 10/29/24 01:51 Temperature 97.2 F L 97.2 F L Temperature Source Temporal Artery Scan Temporal Artery Scan Pulse Rate 57 L 52 L Respiratory Rate 16 18 Blood Pressure 167/84 H 144/78 H Blood Pressure Mean 111 100 Blood Pressure Location Left Arm Left Arm Blood Pressure Position Supine Supine O2 Sat by Pulse Oximetry 96 100 Oxygen Delivery Method Nasal Cannula Nasal Cannula Nasal Cannula Oxygen Flow Rate 2 2 2 Telemetry Type Telemetry Monitoring Telemetry Strip Reading 10/29/24 05:17 10/29/24 05:43 10/29/24 08:00 Temperature 97.2 F L Temperature Source Temporal Artery Scan Pulse Rate 60 Respiratory Rate 18 Blood Pressure 158/83 H Blood Pressure Mean 108 Blood Pressure Location Left Arm Blood Pressure Position Supine O2 Sat by Pulse Oximetry 100 98 Oxygen Delivery Method Nasal Cannula Nasal Cannula Nasal Cannula Oxygen Flow Rate 2 2 2 Telemetry Type Telemetry Monitoring Telemetry Strip Reading 10/29/24 10:00 Temperature Temperature Source Pulse Rate Respiratory Rate Blood Pressure Blood Pressure Mean Blood Pressure Location Blood Pressure Position O2 Sat by Pulse Oximetry 99 Oxygen Delivery Method Nasal Cannula Oxygen Flow Rate 2 Telemetry Type Telemetry Monitoring Telemetry Strip Reading Lab Results Lab Results: Lab Results: Last 24 Hours 10/29/24 05:26 WBC 5.17 RBC 3.60 L Hgb 9.7 L Hct 33.3 L MCV 92.5 MCH 26.9 L MCHC 29.1 L RDW Coeff of Flaquito 14.7 Plt Count 191 Immature Gran % (Auto) 0.4 Neut % (Auto) 52.8 Lymph % (Auto) 35.4 [place] % (Auto) 7.9 Eos % (Auto) 3.1 Baso % (Auto) 0.4 Neut # (Auto) 2.7 Lymph # (Auto) 1.8 [place] # (Auto) 0.4 Eos # (Auto) 0.2 Baso # (Auto) 0.0 Immature Gran # (Auto) 0.0 Sodium 141.7 Potassium 3.54 Chloride 97.6 L Carbon Dioxide 39.5 H Anion Gap 8.14 BUN 14.0 Creatinine 1.07 Estimated GFR (MDRD) 49.00 BUN/Creatinine Ratio 13.08 Glucose 101.0 Calcium 9.10 Total Bilirubin 0.29 AST 39.0 H ALT 12.5 Alkaline Phosphatase 45.7 L Total Protein 5.71 L Albumin 3.33 L Globulin 2.38 Albumin/Globulin Ratio 1.39 Additional Comments Additional Comments: I have independently reviewed and interpreted the labs/EKGs/imaging ordered during this hospital stay. I have reviewed outside records that are available in our EMR that pertain to medical stay including imaging/notes/labs from previous visits. Active Medications Active Medications: Medications Generic Name Dose Route Start Last Admin Trade Name Freq PRN Reason Stop Dose Admin Acetaminophen 650 mg 10/26/24 21:20 10/28/24 11:00 Acetaminophen 325 Mg Tablet PO 650 mg Q4H PRN Administration Mild Pain Albuterol Sulfate 2.5 mg 10/26/24 22:10 Albuterol Sulfate 0.083% Vial.Neb NEB Q4-6H PRN Wheezing Alprazolam 0.5 mg 10/26/24 22:10 10/28/24 20:53 Alprazolam 0.5 Mg Tablet PO 0.5 mg BID PRN Administration Anxiety Duloxetine HCl 60 mg 10/27/24 09:00 10/29/24 09:00 Duloxetine Hcl 30 Mg Capsule.Dr PO 60 mg DAILY MANN Administration Enoxaparin Sodium 40 mg 10/28/24 09:00 10/29/24 09:00 Enoxaparin Sodium 40 Mg/0.4 Ml Syr SUBCUT 40 mg DAILY MANN Administration Gabapentin 1,200 mg 10/26/24 22:46 10/28/24 20:52 Gabapentin 300 Mg Capsule PO 1,200 mg BEDTIME MANN Administration VANCOMYCIN/WATER FOR INJ (PEG) 1 gm in 200 mls @ 200 mls/hr 10/28/24 09:00 10/29/24 09:00 Vancomycin 1 Gram/200 Ml Premix IV 10/31/24 08:59 200 mls/hr DAILY MANN Administration Piperacillin Sod/Tazobactam 100 mls @ 200 mls/hr 10/27/24 12:00 10/29/24 05:25 Sod 4.5 gm/ Sodium Chloride IV 10/30/24 11:59 200 mls/hr Q6HR MANN Administration Levothyroxine Sodium 75 mcg 10/27/24 06:00 10/29/24 05:25 Levothyroxine Sodium 75 Mcg Tablet PO 75 mcg QDAC2 MANN Administration Lisinopril 10 mg 10/28/24 09:00 10/29/24 09:00 Lisinopril 10 Mg Tablet PO 10 mg DAILY MANN Administration Montelukast Sodium 10 mg 10/27/24 09:00 10/29/24 09:00 Montelukast Sodium 10 Mg Tablet PO 10 mg DAILY MANN Administration Non-Formulary Medication 1 each 10/27/24 21:00 10/29/24 09:00 Mupirocin-Lidocaine [Batizia] TP 1 each BID MANN Administration Ondansetron HCl 4 mg 10/26/24 21:20 10/29/24 09:33 Ondansetron Hcl/Pf 4 Mg/2 Ml Sdv IVP 4 mg Q6H PRN Administration Nausea / Vomiting Pantoprazole Sodium 40 mg 10/27/24 06:00 10/29/24 05:25 Pantoprazole Sodium 40 Mg Tablet.Dr PO 40 mg QDAC2 MANN Administration Pravastatin Sodium 40 mg 10/26/24 22:30 10/28/24 20:53 Pravastatin Sodium 40 Mg Tablet PO 40 mg BEDTIME MANN Administration Saccharomyces Boulardii 250 mg 10/27/24 21:00 10/29/24 09:00 Saccharomyces Boulardii 250 Mg Capsule PO 250 mg BID MANN Administration Sodium Chloride 1 syr 10/27/24 13:00 10/29/24 05:25 0.9% Sodium Chloride 10 Ml Disp.Syrin IVF 1 syr Q8HR MANN Administration Sodium Chloride 1 syr 10/27/24 10:26 0.9% Sodium Chloride 10 Ml Disp.Syrin IVF PRN PRN Maintain IV Patency Umeclidinium/Vilanterol 1 inh 10/27/24 09:00 10/29/24 09:00 Umeclidinium Brm/Vilanterol 1 Each Blst.W.Dev IH 1 inh DAILY MANN Administration Verapamil HCl 240 mg 10/28/24 13:00 10/29/24 09:00 Verapamil Hcl 120 Mg Tablet.Er PO 240 mg DAILY MANN Administration Plan Plan: 1. Septic shock in setting of unclear source - LA 6.8 initially, normalized following morning. WBC normalized. Blood cultures pending but showing staph epi in 1 bottle. BP improved and off levophed since in the ED. CT c/a/p negative for acute findings, UA negative. C diff negative. Cont zosyn/vanc for now. 2. Bacteremia due to staph epi - could be contaminant but given her initial presentation, will need to repeat cultures. Check echo today. Pt has cynthia artificial knees but on exam no acute findings. 3. Hypotension - Resolved, restarted home meds 4. Hypokalemia - resolved 5. Recent skin biopsy and wound of RLE - Could be source of infection, but does not look overly cellulitic, wound cx showing gram neg rods. Pt recently took doxy. Cont wound care as directed by her derm. 6. LUIS, stage I - resolved 7. Chronic respiratory failure due to COPD on 2L - Family requested abg, which is at her baseline. Pt on baseline oxygen requirement currently. Will monitor with recent fluid resuscitation. Cont inhalers. 8. Hyperlipidemia - Cont home meds 9. Hypothyroidism - TSH normal, cont home dose 10. GERD - Cont home dose DVT Prophylaxis: Lovenox Dispo: Pt states she does not want to do swingbed but is open to home health upon discharge. Review Statement Review Statement: I have personally discussed and reviewed the patient's visit/currently labs/imaging/decision making with Dr. Ontiveros, my supervising attending. Greater that 50 minutes spent with patient, 50% of the time spent with this patient was devoted to counseling and coordination of care.
[2024-10-29] MEDS: LEVAQUIN 750 MG/150 ML D5W 750 MG/150 ML BAG IV SCH (11:50)
[2024-10-29 20:21] VITALS: RESP 20
[2024-10-30 05:37] VITALS: BP 163/101; PULSE 57; TEMP 97.1
[2024-10-30 08:46] LABS: BASOPHILS % (AUTO) 0.5 % (0.0-3.0); EOSINOPHILS # (AUTO) 0.2 K/ul (0.0-0.7); EOSINOPHILS % (AUTO) 2.8 % (0.0-7.0); HEMATOCRIT 37.2 % (37.0-47.0); IMMATURE GRANULOCYTE % (AUTO) 0.2 % (0.0-5.0); LYMPHOCYTES # (AUTO) 1.6 K/uL (0.60-3.4); MEAN CORPUSCULAR HEMOGLOBIN 27.8 pg (27.0-31.0); MEAN CORPUSCULAR HGB CONC 29.6 (31.8-35.4); MEAN CORPUSCULAR VOLUME 93.9 fl (81.0-99.0); MONOCYTES # (AUTO) 0.4 K/uL (0.4-2.0); NEUTROPHILS # (AUTO) 3.8 K/ul (2.0-6.9); NEUTROPHILS % (AUTO) 63.5 % (42.2-75.2); PLATELET COUNT 232 10^3/uL (140-440); RDW COEFFICIENT OF VARIATION 14.8 % (11.6-14.8); RED BLOOD COUNT 3.96 10^6/ul (4.20-5.40)
[2024-10-30 08:55] LABS: ALANINE AMINOTRANSFERASE 15.5 U/L (0-35); ALBUMIN 4.28 g/dL (3.5-5.0); ALKALINE PHOSPHATASE 53.2 U/L (53-141); ASPARTATE AMINO TRANSFERASE 45.5 U/L (14-36); BILIRUBIN,TOTAL 0.27 mg/dL (0.2-1.3); BLOOD UREA NITROGEN 17.6 mg/dL (7-17); CALCIUM 9.61 mg/dL (8.4-10.2); CHLORIDE 95.1 mmol/L (98-107); CREATININE 1.13 mg/dL (0.60-1.30); GLUCOSE 146.3 mg/dL (74-106); POTASSIUM 3.31 mmol/L (3.5-5.1); SODIUM 144.3 mmol/L (134.5-145); TOTAL PROTEIN 7.15 g/dL (6.3-8.2)
[2024-10-30 09:02] LABS: CARBON DIOXIDE 37.8 mmol/L (22-30.0)
--- NOTE | 2024-10-30 09:59 | DCSUM ---
Admission Date Admission Date: 10/26/24 Discharge Date Discharge Date: 10/30/24 Admission Diagnosis Admission Diagnosis: 1. Septic shock in setting of unclear source Discharge Diagnosis Discharge Diagnosis: 1. Septic shock in setting of unclear source - resolved 2. Bacteremia due to staph epi - could be contaminant, repeat cultures negative 3. Hypotension - Resolved 4. Hypokalemia - resolved 5. Recent skin biopsy and wound of RLE 6. LUIS, stage I - resolved 7. Chronic respiratory failure due to COPD on 2L 8. Hyperlipidemia 9. Hypothyroidism 10. GERD Hospital Provider Hospital Provider: BEVERLY MASSEY PA-C, [facility] Primary Care Physician Primary Care Physician: TESS FREDERICK MD Summary of History and Physical Summary of History and Physical: Patient is an 84 year old female from home who presented to the ER with hypotension. Patient was having abdominal cramps and went to the toilet at home. She became shakey and weak. She lowered to the floor. Once EMS arrived she was found to be hypotensive. She continued to be hypotensive in the ER despite fluids and was started on levophed. She was able to be weaned off of this while in the department and BP remained stable. Labs remarkable for elevated WBC count, elevated lactic acid of almost 7. Patient was given zosyn and vanc based on meeting sepsis criteria. Blood cultures drawn. CT chest/abd/pelvis w/ contrast negative for any acute infectious sources. UA negative. Patient then had a diarrhea stool in the ER that was malodorous, suspicious for maybe c diff. It was revealed patient has been on doxycycline for 2 weeks recently due to a skin lesion/derm biopsy. Flagyl added for coverage. Patient's BP has been stable through the night. She is feeling better but still tired. C diff testing still pending. Patient states she's had diarrhea for about 3 days. Denies abd pain at this time. Labs overall improved. She states she wears 2L at baseline. Family requested an ABG, which was done and is her baseline with evidence of compensated chronic respiratory failure. Hospital Course Subjective: Patient was continued on Vanco, Zosyn, Flagyl until C. difficile results came back. C. difficile toxin A/B were negative. Flagyl was stopped. The morning following her admission her labs were much improved. She was improved clinically. She just generally did not feel well. Blood pressure was much better. Her blood pressure pills were held on the first day. Diarrhea was improved as well. Patient has 2 artificial knees but both appear normal without any sign of infection. She denies having any heart valves or any other implantable devices. Awaited blood culture and right lower extremity wound culture. 1 bottle did end up growing staph epi. However her wound was growing a gram-negative organism therefore Vanco and Zosyn was continued to cover both possible organisms. Right lower extremity wound not felt to be causing the possible bacteremia. Echo performed not showing any vegetations. Patient is not having any fevers. Procal has decreased. White blood cell count is normal. Lactic normal. CRP from patient's initial presentation has come back negative. Urinalysis is negative. She did develop some diarrhea overnight on 10/29. This has improved once antibiotics were de-escalated to Levaquin to cover the possible staph epi and the pantoea agglomerans that grew from her right lower extremity wound. We discussed that the staph epi in her blood culture could potentially be contaminant as well. Repeat blood cultures are negative up until this point. Will cover with 7 days of Levaquin as a precaution. Her blood pressure has remained mildly elevated despite restarting her home meds. Advised her to monitor this at home and follow-up with PCP. Discussed that unfortunately overall we do not have a clear source for her initial presentation of septic shock. Red flags and when to return have been discussed. Appearance: Pleasant, No Apparent Distress and Alert HEENT: MMM CVS: Other (RRR) Abdomen: Soft, Non-Tender and No Distention Respiratory: Other (mild wheeze, diminished air movement due to her copd ) Extremities: No Edema Additional Findings: RLE wound with fresh dressing, c/d/i Vital Signs: Most Recent Vital Signs Temperature 97.1 F L 10/30/24 05:34 Temperature Source Temporal Artery Scan 10/30/24 05:34 Temperature Source Infrared 10/26/24 14:48 Pulse Rate 57 L 10/30/24 05:34 Respiratory Rate 20 10/30/24 05:34 Blood Pressure 163/101 H 10/30/24 05:34 Blood Pressure Mean 121 10/30/24 05:34 Blood Pressure Left Arm 185/81 10/26/24 21:40 Blood Pressure Location Left Arm 10/30/24 05:34 Blood Pressure Position Supine 10/30/24 05:34 O2 Sat by Pulse Oximetry 98 10/30/24 09:27 Oxygen Delivery Method Nasal Cannula 10/30/24 09:27 Oxygen Flow Rate 2 10/30/24 09:27 Height 5 ft 2 in 10/26/24 21:40 Weight 71.2 kg 10/26/24 21:40 Telemetry Type Remote Telemetry 10/28/24 19:00 Telemetry Monitoring Continues 10/28/24 19:00 Telemetry Heart Rate 63 10/28/24 07:00 Telemetry SPO2 100 10/28/24 07:00 EKG ID Interval 0.19 10/28/24 07:00 EKG QRS Interval 0.07 10/28/24 07:00 Telemetry Strip Reading refused 10/28/24 19:00 Imaging: EXAM: CT CHEST WITH CONTRAST History: Abnormal chest x-ray, hypotension Technique: [address] chest following intravenous contrast FINDINGS: Lung windows show moderate emphysema. No nodules, masses or infiltrates. Granulomatous calcification right lower lobe. Atherosclerotic calcification of the aorta and coronary arteries. No mediastinal lymphadenopathy. No acute chest wall abnormality. Prior healed right rib fractures. See abdominal CT for upper abdomen. Impression: No acute cardiopulmonary disease Emphysema EXAM: ABDOMEN AND PELVIS CT WITH CONTRAST HISTORY: Abdominal pain. Hypotension. TECHNIQUE: Axial CT images were obtained through the abdomen and pelvis after t he administration of intravenous contrast. Coronal and sagittal reformatted images were also submitted for interpretation. COMPARISON: Abdomen and pelvis CT dated 05/03/2024. FINDINGS: Motion artifacts are noted in the lower abdomen. The lung bases are clear. The heart is normal in size without pericardial effusion. The liver is normal in size without focal hepatic lesions. Intrahepatic ductal dilatation is seen. The portal veins are patent. There has been prior cholecystectomy. Calcified granulomas are noted in the spleen. The pancreas and adrenal glands are normal in appearance. There are bilateral renal cysts, largest measuring 1.7 cm on the right. There is 5 mm nonobstructing calculus in the lower pole of the right kidney. There is no hydronephrosis. The urinary bladder and reproductive organs are within normal limits. There is no small bowel obstruction. The appendix is not visualized; however, there is no pericecal inflammatory changes to suggest acute appendicitis. There is colonic diverticulosis without definite diverticulitis. No intraperitoneal free air or fluid is visualized. No pathologic lymphadenopathy is seen. Atherosclerotic calcifications are noted along the abdominal aorta and iliac arteries. There is grade 1 anterolisthesis at L3-L4 and L4-L5. IMPRESSION: 1. Motion degraded study. 2. No acute abdominal or pelvic findings. 3. Stable intrahepatic ductal dilatation, likely representing post cholecystectomy changes. 4. Diverticulosis without definite diverticulitis. 5. Atherosclerotic disease. 6. Other findings as above Lab Results Last 24 Hours: 10/30/24 08:36 WBC 6.00 RBC 3.96 L Hgb 11.0 L Hct 37.2 MCV 93.9 MCH 27.8 MCHC 29.6 L RDW Coeff of [place] 14.8 Plt Count 232 Immature Gran % (Auto) 0.2 Neut % (Auto) 63.5 Lymph % (Auto) 27.0 [place] % (Auto) 6.0 Eos % (Auto) 2.8 Baso % (Auto) 0.5 Neut # (Auto) 3.8 Lymph # (Auto) 1.6 [place] # (Auto) 0.4 Eos # (Auto) 0.2 Baso # (Auto) 0.0 Immature Gran # (Auto) 0.0 Sodium 144.3 Potassium 3.31 L Chloride 95.1 L Carbon Dioxide 37.8 H Anion Gap 14.71 BUN 17.6 H Creatinine 1.13 Estimated GFR (MDRD) 46.00 BUN/Creatinine Ratio 15.57 Glucose 146.3 H Calcium 9.61 Total Bilirubin 0.27 AST 45.5 H ALT 15.5 Alkaline Phosphatase 53.2 Total Protein 7.15 Albumin 4.28 Globulin 2.87 Albumin/Globulin Ratio 1.49 Vancomycin Trough 10.348 Discharge Instructions Discharge Planning: Discharge Planning > [address] Sheri Frederick. Discharge Medications: Medications at Discharge (Home Meds & RX) tiotropium 2.5 mcg-olodaterol 2.5 mcg/actuation mist for inhalation (Stiolto Respimat) 2 puff inhalation QAM 12/11/17 meclizine 25 mg tablet 25 mg PO QAM 06/02/18 albuterol sulfate 90 mcg/actuation aerosol inhaler (ProAir HFA) 2 puff inhalation BID PRN Wheezing #8.5 grams 11/10/22 albuterol sulfate 2.5 mg/3 mL (0.083 %) solution for nebulization 2.5 mg (3 mL) inhalation Q4-6H PRN shortness of breath or wheezing #90 mL 10/26/23 pravastatin 40 mg tablet See Rx Instructions .Route .COMPLEX #90 tabs 03/07/24 verapamil 240 mg tablet,extended release See Rx Instructions .Route .COMPLEX #90 tabs 06/06/24 levothyroxine 75 mcg tablet See Rx Instructions .Route .COMPLEX #90 tabs 06/13/24 montelukast 10 mg tablet See Rx Instructions .Route .COMPLEX #90 tabs 06/13/24 gabapentin 600 mg tablet See Rx Instructions .Route .COMPLEX #180 tabs 08/01/24 pantoprazole 40 mg tablet,delayed release (Protonix) 40 mg PO QDAC #90 tabs 08/01/24 lisinopril 10 mg tablet 10 mg PO DAILY #90 tabs 08/29/24 duloxetine 60 mg capsule,delayed release See Rx Instructions .Route .COMPLEX #90 caps 09/12/24 alprazolam 0.5 mg tablet (Xanax) 0.5 mg PO BID PRN anxiety #180 tabs 10/03/24 mupirocin 2 %-lidocaine 2 % topical ointment (Batizia) See Rx Instructions topical BID 10/27/24 levofloxacin 750 mg tablet 750 mg PO DAILY 4 days #4 tabs 10/30/24 Discharge Plan Discharge Discharge Orders: Discharge Patient (ONCE); Ordered 10/30/24 Ordered By: BEVERLY MASSEY Activity Restrictions/Additional Instructions: DISCHARGE TO HOME Dx: Sepsis PHARMACY: [facility]EVAQU[facility] EVERY OTHER DAY FOR A TOTAL OF 7 DAYS RETURN WITH WORSENING SYMPTOMS MONITOR BP AT HOME F/U WITH PCP THIS WEEK RECOMMEND TAKING A P Patient Disposition: HOME SELF-CARE Prescriptions: New levofloxacin 750 mg Tablet 750 mg PO DAILY 4 Days Qty: 4 0RF Rx Instructions: START 10/31/24 Continued albuterol sulfate [ProAir HFA] 90 mcg/actuation HFA aerosol inhaler 2 puff INHALATION BID PRN (Reason: Wheezing) Qty: 8.5 1RF pravastatin 40 mg tablet See Rx Instructions .ROUTE .COMPLEX Qty: 90 1RF Dose Instruction: TAKE ONE TABLET AT BEDTIME Rx Instructions: TAKE ONE TABLET AT BEDTIME verapamil 240 mg tablet extended release See Rx Instructions .ROUTE .COMPLEX Qty: 90 1RF Dose Instruction: TAKE ONE TABLET DAILY Rx Instructions: TAKE ONE TABLET DAILY levothyroxine 75 mcg tablet See Rx Instructions .ROUTE .COMPLEX Qty: 90 1RF Dose Instruction: TAKE ONE TABLET DAILY GENERIC FOR SYNTHROID Rx Instructions: TAKE ONE TABLET DAILY GENERIC FOR SYNTHROID montelukast 10 mg tablet See Rx Instructions .ROUTE .COMPLEX Qty: 90 1RF Dose Instruction: TAKE ONE TABLET EVERY MORNING Rx Instructions: TAKE ONE TABLET EVERY MORNING pantoprazole [Protonix] 40 mg tablet,delayed release (DR/EC) 40 mg PO QDAC Qty: 90 1RF gabapentin 600 mg tablet See Rx Instructions .ROUTE .COMPLEX Qty: 180 1RF Dose Instruction: TAKE TWO TABLETS AT BEDTIME GENERIC FOR NEURONTIN Rx Instructions: TAKE TWO TABLETS AT BEDTIME GENERIC FOR NEURONTIN lisinopril 10 mg tablet 10 mg PO DAILY Qty: 90 1RF duloxetine 60 mg capsule,delayed release(DR/EC) See Rx Instructions .ROUTE .COMPLEX Qty: 90 1RF Dose Instruction: TAKE 1 CAPSULE EVERY MORNING Rx Instructions: TAKE 1 CAPSULE EVERY MORNING alprazolam [Xanax] 0.5 mg tablet 0.5 mg PO BID PRN (Reason: anxiety) Qty: 180 1RF Stiolto Respimat 4 GM mist 2 puff inhalation QAM albuterol sulfate 2.5 mg /3 mL (0.083 %) solution for nebulization 2.5 mg inhalation Q4-6H PRN (Reason: shortness of breath or wheezing) Qty: 90 0RF meclizine 25 MG tablet 25 mg PO QAM Patient Comments: Always take one in the morning, and later if needed. mupirocin-lidocaine [Batizia] 2-2 % ointment See Rx Instructions topical BID Rx Instructions: 1-2 pumps topically twice a day; Clean wound with soap and water and pat dry. Apply 1-2 pumps topically to wound to right lower extremity. Apply telfa and secure with barbara. Did you review [place] [employer] for ALL controlled substances?: Not Applicable Discussed opioids are addictive and Narcan is available by prescription or from pharmacy.: No Condition: Stable Referrals: TESS FREDERICK MD [Primary Care Provider] - 11/03/24 10:40 am
--- NOTE | 2024-10-31 08:34 | ECHO2D ---
Date of Exam: 10/29/2024 Room #: 122 Ordering Physician: DR. FREDERICK (PRIMARY CARE), CALDERON CARO (HOSPITALIST) Reason for Echo: BACTEREMIA, ENLARGED RIGHT VENTRICLE CAVITY, COPD, HYPERTENSION, CHRONIC KIDNEY DISEASE, DYSLIPIDEMIA, CORPULMONALE M-Mode Normal Adult Results LV Dimensions Normal Adult Results AoV Opening excursions >1.6 >1.6 LVEDD-base- 3.5-5.8 4.7 Ao root dimensions 2.0-3.7 3.7 LVESD-base- 3.1-4.6 L. Atrium dimensions 1.9-3.8 3.9 Post. Wall thickness 0.8-1.1 1.1 IV septum (thickness) 0.7-1.2 1.0 Post. Wall excursion 0.72-1.3 NORMAL Septal motion NORMAL Systolic motion R. Ventricular cavity 1.5-2.0 4.0 LVEF 60% 55% Paradoxical septal wall motion NORMAL 2-D : 2-D M Mode Echocardiogram was performed using apical four chamber and left parasternal long and short axis views. ENLARGED RIGHT VENTRICLE AND RIGHT ATRIUM CAVITIES, OTHERWISE NORMAL. Mitral, tricuspid and aortic valves appear to be normal. Contractility of the left ventricle seems to be normal, so is the cavity size. Left atrial cavity size and aortic root appear to be normal. There is no pericardial effusion. There is no thrombus noted in the left ventricle or left atrial cavity. M-MODE: MV: NORMAL AV: NORMAL TV: NORMAL PV: NORMAL CHAMBER SIZE: ENLARGED RIGHT VENTRICLE AND RIGHT ATRIUM CAVITIES WALL MOTION: NORMAL PERICARDIUM: NORMAL INTERPRETATION: 1. NORMAL LEFT VENTRICLE SIZE AND LEFT VENTRICULAR CONTRACTILITY. 2. ENLARGED RIGHT VENTRICLE AND RIGHT ATRIUM CAVITIES. 3. VALVES NORMAL. 4. NO ECHOGENIC AREAS CONSISTENT WITH INFECTIVE ENDOCARDITIS. MTDD
== END 2024-10-30 11:00 | disposition home or self-care (01) | DRG 871 ==
LOC: ED 14:43 → MEDSURG B 21:09
PROVIDERS: ADMIT Hospitalist; ATTEND Physician Assistant

== ENCOUNTER 2025-05-22 11:41 | Inpatient (IN) ==
[2025-05-22] MEDS: DUONEB NEB ONE (12:21)
[2025-05-22 12:26] LABS: IMMATURE GRANULOCYTE # (AUTO) 0.1 (0.0-1.0); IMMATURE GRANULOCYTE % (AUTO) 0.4 % (0.0-5.0); RDW COEFFICIENT OF VARIATION 14.2 % (11.6-14.8)
[2025-05-22] MEDS: SOLU-MEDROL 40 MG IVP ONE (12:29)
[2025-05-22 12:37] LABS: ABG O2 HGB 95.5 % (95-100); ABG PH 7.33 (7.35-7.45); ABG PO2 118.0 mmHg (85-100); BEecf 28.4 (-2.0-3.0); HCO3 54.3 (21-28); TCO2 57.5 (19-24)
[2025-05-22 12:39] LABS: ABG PCO2 103.0 mmHg (35-45)
--- NOTE | 2025-05-22 12:52 | ED.PDOC ---
General [facility] ED Provider: Dr. THIERRY PATEL MD Chief Complaint: Respiratory Complaint Stated Complaint: Patient is an 85-year-old female that is presenting to the emergency department for evaluation of dyspnea. Patient states that has been going on for several days and it feels as though she is having one of her COPD exacerbations. She states that there is some pain when taking deep breaths but otherwise no chest pain. She reports feeling "tight. "She is also been having a productive cough at home for several days but denies any associated fevers or chills. She has been having some mild lightheadedness as well although no syncopal episodes. No edema or orthopnea. Patient is on 2 L nasal cannula baseline at home. Patient's granddaughter who is a healthcare provider here at the hospital states that the patient has been more sleepy over the last several days but has not exhibited any confusion although she does believe that she perhaps is a little slower to respond. No focal deficits though. Time Seen by Provider: 05/22/25 12:05 Mode of Arrival: Walk-In Information Source: Patient and Family Primary Care Provider: KYLEE VILLEDA APRN Nursing and Triage Documentation Reviewed and Agree: Yes Opioid Naive vs. Tolerant What is Opioid Naive?: *Opioid Naive implies the patient is not already taking opioids or not chronically receiving opioids on a daily basis. *PRN dosing is not "usually" associated with tolerance. *Patients are at higher risk of over-sedation and aspiration. What is Opioid Tolerant?: *Opioid Tolerance implies less than the expected response to an opioid. *Acquired tolerance is defined by the patient taking 60mg of oral morphine daily (or equianalgesic dose of another opioid) for 1 week or more. *Often associated with chronic pain. *May take more than usual dose to achieve desired pain control. Review of Systems Review Of Systems Constitutional: Reports No symptoms Respiratory: Reports Cough, Shortness of Breath and Wheezing; Denies Orthopnea Cardiac: Reports Chest pain and Lightheadedness; Denies Palpitations or Syncope GI: Reports No symptoms : Reports No symptoms Musculoskeletal: Reports No symptoms Skin: Reports No symptoms PFSH [facility] Medical History Fracture, femur, distal, open ORIF 02/11/2025 S72.409B - Unspecified fracture of lower end of unspecified femur, initial encounter for open fracture type I or II (ICD-10) Hypothyroidism (acquired) E03.9 - Hypothyroidism, unspecified (ICD-10) Hx of pyelonephritis Z87.448 - Personal history of other diseases of urinary system (ICD-10) Staghorn renal calculus N20.0 - Calculus of kidney (ICD-10) Sciatica of right side M54.31 - Sciatica, right side (ICD-10) Hydronephrosis right N13.30 - Unspecified hydronephrosis (ICD-10) Hx of influenza Z87.09 - Personal history of other diseases of the respiratory system (ICD- 10) Kidney stones (~2021) N20.0 - Calculus of kidney (ICD-10) Influenza A J10.1 - Influenza due to other identified influenza virus with other respiratory manifestations (ICD-10) Melanocarcinoma C43.9 - Malignant melanoma of skin, unspecified (ICD-10) Osteoarthritis M19.90 - Unspecified osteoarthritis, unspecified site (ICD-10) Sciatic leg pain right leg M54.30 - Sciatica, unspecified side (ICD-10) Bronchitis J40 - Bronchitis, not specified as acute or chronic (ICD-10) Shortness of breath R06.02 - SHORTNESS OF BREATH (ICD-10) COPD exacerbation J44.1 - CHRONIC OBSTRUCTIVE PULMONARY DISEASE W (ACUTE) EXACERBATION (ICD- 10) Family History Mother Cancer Brother Cancer FATHER Stroke Social History Smoking and tobacco status: Former smoker Second hand smoke exposure: No Substance use type: does not use Marni/anabaptism: QUAKER Special marni needs: No Agree to transfusion: Yes Adopted: No Caregiver/support person: No Foster care: No Household members: spouse Housing: house Marital status: M Lives independently: Yes Daycare: no daycare service: No group home: No History of recent travel: No Do you think of yourself as: straight/heterosexual Current gender identity: female Seatbelt use: always Drives intoxicated or rides with intoxicated electric pile driver operator: No Water heater temperature set < 120 degrees: Yes Working smoke detector in home: Yes Fire extinguisher in home: Yes Carbon monoxide detector in home: Yes Surgical History H/O total knee replacement bilateral Z96.659 - Presence of unspecified artificial knee joint (ICD-10) H/O knee surgery Z98.89 - Other specified postprocedural states (ICD-10) History of bilateral knee replacement Z96.653 - Presence of artificial knee joint, bilateral (ICD-10) History of appendectomy Z90.49 - Other specified postprocedural states (ICD-10) History of cholecystectomy Z90.49 - Other specified postprocedural states (ICD-10) Female Reproductive History Menstrual Hx Hysterectomy: No Hx Tubal Ligation: No Physical Exam Physical Exam Appearance: Reports Well-appearing Ill-appearing: None Pain Distress: None Neck: Supple Respiratory: Reports Airway patent, Breath sounds equal, Breath sounds diminished, Respirations nonlabored and Wheezes (Wheezing with forced expiratory); Denies Crackles, Rhonchi or Retractions Cardiovascular: Reports RRR and Pulses normal GI/: Reports Soft and Nontender Musculoskeletal: Reports Normal strength; Denies Edema Skin: Reports Warm and Dry Interpretation EKG Interpretation EKG Interpretation By: ED Physician Time of EKG #1: 14:33 Rate: Normal Rhythm: Sinus Ectopy: None Mead: NL ST Segment: Normal Interpretation: Normal sinus rhythm without findings concerning for ACS Radiology Interpretation Radiology Interpretation By: ED Physician Radiology Results: Negative Exam Interpreted: CXR Xray Comments: No evidence of focal consolidation Physician Progress Note Physician Progress Note: Patient is an 85-year-old female with advanced COPD presenting to the emergency department for evaluation of acute dyspnea Overall favor that the patient is having a COPD exacerbation given the physical exam findings detailed above. ACS was considered although of lower clinical likelihood as she not having any significant chest pain associated with this. Pneumonia also considered but she has no infectious symptoms at this time. Patient has a history of advanced COPD and is already on 2 L nasal cannula at baseline. We did have to put her on 4.5 L of supplemental oxygen while here in the emergency department given desaturation to level of 71%. She did maintain adequate oxygenation at this level, however, CBG did show that she was retaining CO2 with a compensated respiratory acidosis. Initial level was around 103 CO2 which did improve somewhat after we initiated BiPAP therapy to around 90. Patient was also given DuoNeb breathing treatments x 3 as well as 40 mg of Solu- Medrol. Chest plain film imaging did not show any findings concerning for an consolidation I would be consistent with pneumonia per my interpretation. ECG detailed above also not having findings that would be concerning for ACS. Troponin was also within normal limits as was the patient's BNP and I am therefore not concerned for ACS or heart exacerbation respectively. Given the patient's increased oxygen requirements as well as significant CO2 retention, I favor that she requires admission to the hospital for further therapy with BiPAP as well as breathing treatments for COPD exacerbation. Patient and family was amenable to this plan. Course Course 05/22/25 12:20 05/22/25 12:51 Orders, Labs, Meds: Lab Review 05/22/25 05/22/25 05/22/25 12:20 12:26 12:29 WBC 14.09 H RBC 4.37 Hgb 11.7 L Hct 42.5 MCV 97.3 MCH 26.8 L MCHC 27.5 L RDW Coeff of [place] 14.2 Plt Count 235 Immature Gran % (Auto) 0.4 Neut % (Auto) 80.7 H Lymph % (Auto) 11.0 [place] % (Auto) 7.7 Eos % (Auto) 0.1 Baso % (Auto) 0.1 Neut # (Auto) 11.4 H Lymph # (Auto) 1.6 [place] # (Auto) 1.1 Eos # (Auto) 0.0 Baso # (Auto) 0.0 Immature Gran # (Auto) 0.1 Hypochromasia 2+ Anisocytosis 3+ Microcytosis 2+ Stomatocytes 3+ Acanthocytes (Spur) Occasional Puncture Site Rbrach Base Excess 28.4 H O2 Saturation 98.4 H ABG pH 7.33 L ABG pCO2 103.0 H ABG pO2 118.0 H ABG HCO3 54.3 H ABG Total CO2 57.5 H Hemoglobin 1.6 H Oxyhemoglobin 95.5 Carboxyhemoglobin 2.1 H Total Hemoglobin 11.3 L O2 Delivery Device Cannula Oxygen Liter Flow 4.00 FiO2 % Sodium Potassium Chloride Carbon Dioxide Anion Gap BUN Creatinine Estimated GFR (MDRD) BUN/Creatinine Ratio Glucose Calcium Magnesium Total Bilirubin AST ALT Alkaline Phosphatase Troponin I NT-Pro-B Natriuret Pep Total Protein Albumin Globulin Albumin/Globulin Ratio Influ A Molecular Assay Negative by naat Influ B Molecular Assay Negative by naat RSV Antigen Negative by naat SARS CoV-2 RNA Rapid TIM Negative 05/22/25 05/22/25 12:51 13:52 WBC RBC Hgb Hct MCV MCH MCHC RDW Coeff of [place] Plt Count Immature Gran % (Auto) Neut % (Auto) Lymph % (Auto) [place] % (Auto) Eos % (Auto) Baso % (Auto) Neut # (Auto) Lymph # (Auto) [place] # (Auto) Eos # (Auto) Baso # (Auto) Immature Gran # (Auto) Hypochromasia Anisocytosis Microcytosis Stomatocytes Acanthocytes (Spur) Puncture Site Rbrach Base Excess 25.5 H O2 Saturation 86.3 L ABG pH 7.34 L ABG pCO2 95.0 H ABG pO2 55.0 L* ABG HCO3 51.3 H ABG Total CO2 54.2 H Hemoglobin 1.6 H Oxyhemoglobin 87.7 L Carboxyhemoglobin 2.2 H Total Hemoglobin 11.1 L O2 Delivery Device Bipap Oxygen Liter Flow FiO2 % 36.0 Sodium 139.9 Potassium 4.44 Chloride 90.8 L Carbon Dioxide 48.3 H* Anion Gap 5.24 BUN 28.1 H Creatinine 1.06 Estimated GFR (MDRD) 50.00 BUN/Creatinine Ratio 26.50 Glucose 205.3 H Calcium 9.37 Magnesium 1.73 Total Bilirubin 0.44 AST 27.8 ALT 13.3 Alkaline Phosphatase 63.4 Troponin I < 0.012 NT-Pro-B Natriuret Pep 95 Total Protein 6.90 Albumin 3.89 Globulin 3.01 Albumin/Globulin Ratio 1.29 Influ A Molecular Assay Influ B Molecular Assay RSV Antigen SARS CoV-2 RNA Rapid TIM Orders Category Date Time Status ADMIT PATIENT INPATIENT .TO [facility] (MONITORED BED) ADMISSION 05/22/25 14:01 Active ABG DRAW REQUEST DAILY@0600 CARDIO 05/23/25 06:00 Ordered ABG DRAW REQUEST DAILY@0600 CARDIO 05/24/25 06:00 Ordered ABG DRAW REQUEST DAILY@0600 CARDIO 05/25/25 06:00 Ordered ABG DRAW REQUEST DAILY@0600 CARDIO 05/26/25 06:00 Ordered ABG DRAW REQUEST Stat CARDIO 05/22/25 12:27 Completed ABG DRAW REQUEST Stat CARDIO 05/22/25 13:46 Completed BIPAP Stat CARDIO 05/22/25 13:24 Completed EKG-(ED & IP/OBS ONLY) Stat CARDIO 05/22/25 12:05 Completed NEBULIZER TREATMENT Stat CARDIO 05/22/25 12:33 Completed INTAKE & OUTPUT Q8HR CARE 05/22/25 14:01 Active IP: INSERT SALINE LOCK ONCE CARE 05/22/25 14:01 Active TELEMETRY MONITORING TELE CARE 05/22/25 14:02 Active VITAL SIGNS Q8HR CARE 05/22/25 14:01 Active ABG COOX DAILY@0600 LAB 05/23/25 06:00 Ordered ABG COOX DAILY@0600 LAB 05/24/25 06:00 Ordered ABG COOX DAILY@0600 LAB 05/25/25 06:00 Ordered ABG COOX DAILY@0600 LAB 05/26/25 06:00 Ordered ABG COOX Stat LAB 05/22/25 13:52 Completed ARTERIAL BLOOD GAS [ABG COOX] Stat LAB 05/22/25 12:29 Completed CBC W/ AUTO DIFF Stat LAB 05/22/25 12:20 Completed CMP [COMPREHENSIVE METABOLIC PANEL] Stat LAB 05/22/25 12:51 Completed COVID [SARS COV-2 RNA RAPID TIM] Stat LAB 05/22/25 12:26 Completed FLU A & B MOLECULAR [FLU A/B MOLECULAR] Stat LAB 05/22/25 12:26 Completed MAGNESIUM Stat LAB 05/22/25 12:51 Completed NT-PROBNP(ED) Stat LAB 05/22/25 12:51 Completed RBC MORPHOLOGY Stat LAB 05/22/25 12:20 Completed RSV Stat LAB 05/22/25 12:26 Completed TROPONIN I Stat LAB 05/22/25 12:51 Completed Alprazolam [Xanax] Meds 05/22/25 14:33 Discontinued 0.25 mg PO ONCE ONE Ipratropium/Albuterol Neb [Duoneb] Meds 05/22/25 12:05 Discontinued 3 ml NEB ONCE ONE Ipratropium/Albuterol Neb [Duoneb] Meds 05/22/25 12:32 Discontinued 3 ml NEB ONCE STA Methylprednisolone Sod Succ/Pf [Solu-Medrol 40 mg] Meds 05/22/25 12:05 Discontinued 40 mg IVP ONCE ONE RESUSCITATION STATUS Routine OTHERS 05/22/25 14:01 Completed CXR [CHEST, 1V AP ONLY] Stat RADS 05/22/25 12:32 Completed Medications Generic Name Dose Route Start Last Admin Trade Name Armin PRN Reason Stop Dose Admin Acetaminophen 650 mg 05/22/25 14:45 Acetaminophen 325 Mg Tablet PO Q4H PRN Mild Pain Albuterol/Ipratropium 3 ml 05/22/25 18:00 05/22/25 16:52 Ipratropium/Albuterol Vial.Neb NEB 3 ml RTQ4H MANN Administration CEFTRIAXONE/D5W 1 GM PREMIX 1 gm in 50 mls @ 100 mls/hr 05/22/25 15:00 05/22/25 16:24 Rocephin 1 Gm/50 Ml D5w IV 05/25/25 14:59 100 mls/hr DAILY MANN Administration Doxycycline Hyclate 100 mg/ 100 mls @ 50 mls/hr 05/22/25 21:00 Sodium Chloride IV 05/25/25 20:59 Q12HR MANN Methylprednisolone Sodium Succinate 40 mg 05/22/25 21:00 Methylprednisolone Sod Succ/Pf 40 Mg/Ml Vial IVP Q8HR MANN Ondansetron HCl 4 mg 05/22/25 14:45 Ondansetron Hcl/Pf 4 Mg/2 Ml Sdv IVP Q6H PRN Nausea / Vomiting Discontinued Medications Generic Name Dose Route Start Last Admin Trade Name Armin PRN Reason Stop Dose Admin Albuterol/Ipratropium 3 ml 05/22/25 12:05 05/22/25 12:21 Ipratropium/Albuterol Vial.Neb NEB 05/22/25 12:06 3 ml ONCE ONE Administration Albuterol/Ipratropium 3 ml 05/22/25 12:32 05/22/25 14:54 Ipratropium/Albuterol Vial.Neb NEB 05/22/25 12:33 Not Given ONCE STA Alprazolam 0.25 mg 05/22/25 14:33 05/22/25 14:39 Alprazolam 0.25 Mg Tablet PO 05/22/25 14:34 0.25 mg ONCE ONE Administration Doxycycline Hyclate 100 mg/ 100 mls @ 50 mls/hr 05/22/25 14:50 05/22/25 16:25 Sodium Chloride IV 05/25/25 14:49 Not Given Q12HR MANN Methylprednisolone Sodium Succinate 40 mg 05/22/25 12:05 05/22/25 12:29 Methylprednisolone Sod Succ/Pf 40 Mg/Ml Vial IVP 05/22/25 12:06 40 mg ONCE ONE Administration Vital Signs: Temp Pulse Resp BP Pulse Ox O2 Del Method O2 Flow Rate 05/22/25 14:00 90 L Nasal Cannula 2 05/22/25 14:00 94 L 05/22/25 13:19 92 L 05/22/25 13:03 93 L 05/22/25 11:47 99.3 F 84 32 H 128/65 71 L Discharge Plan Discharge Patient Disposition: ADMITTED INPATIENT Discharge Problem: COPD (chronic obstructive pulmonary disease) Qualifiers: COPD type: COPD with acute exacerbation Qualified Code(s): J44.1 - Chronic obstructive pulmonary disease with (acute) exacerbation Did you review [place] SOLICITOR PATENT for ALL controlled substances?: Not Applicable ED Provider: THIERRY PATEL
[2025-05-22 13:08] LABS: CREATININE 1.06 mg/dL (0.60-1.30)
[2025-05-22 13:12] LABS: MOLECULAR FLU A NEGATIVE BY NAAT (NEGATIVE); MOLECULAR FLU B NEGATIVE BY NAAT (NEGATIVE); RSV MOLECULAR NEGATIVE BY NAAT (NEGATIVE); SARS COV-2 RNA RAPID NAAT NEGATIVE (NEGATIVE)
--- NOTE | 2025-05-22 13:27 | DI ---
CHEST RADIOGRAPH(S) INDICATION: Productive cough dyspnea COMPARISON: Chest radiograph(s) 10/26/2024 TECHNIQUE: AP portable upright chest radiograph(s). 1 view(s) total. FINDINGS: Spondylosis. Chronic right rib fractures.Lungs are clear with no focal consolidations, pneumothoraces or pleural effusions. Cardiomediastinal silhouette is within normal limits. IMPRESSION: No acute cardiopulmonary process.
[2025-05-22 13:56] LABS: ABG O2 HGB 87.7 % (95-100); ABG PH 7.34 (7.35-7.45); BEecf 25.5 (-2.0-3.0); FI02 36.0 %; HCO3 51.3 (21-28); TCO2 54.2 (19-24)
[2025-05-22 13:57] LABS: ABG PCO2 95.0 mmHg (35-45); ABG PO2 55.0 mmHg (85-100)
[2025-05-22] MEDS: XANAX PO ONE (14:39)
[2025-05-22] MEDS ORDERED: ZOFRAN SDV IVP PRN (14:45)
[2025-05-22] MEDS ORDERED: TYLENOL PO PRN (14:45)
--- NOTE | 2025-05-22 14:48 | PCM ---
Date of Service Date Seen by Provider: 05/22/25 Time Seen by Provider: 14:30 Admit Day/Time Admission Date: 05/22/25 Admission Time: 14:01 Reason for Admission Chief Complaint: COPD EXACERBATION Hospital Provider Hospital Provider: BEVERLY MASSEY [facility]-C, [facility] Primary Care Physician Primary Care Physician: KYLEE VILLEDA APRN History of Present Illness History of Present Illness: Patient is an 85 year old female with a PMH of COPD, dyslipidemia, HTN, asthma, CKD, and GERD. She presented to the ED today due to worsening COPD symptoms. She states she is more short of breath than usual. She has a productive cough. Over the past few days she has also been dealing with a sore throat and nasal congestion. Granddaughter felt she has been more confused than her baseline. She claims she does her breathing treatments/inhalers and wears her O2 at home but historically has not used bipap at home in past. Labs in the ER showed a pCO2 of 103 and a pH of 7.33. her baseline pCO2 is usually around 60-70s. CXR showed no acute findings. She denies fever, chills, ALLRED, or chest pain. Admitted to inpatient. Case Discussed With Case Discussed With: Patient's case was discussed with the ER Physicians, Dr. Fonseca [facility] Medical History Fracture, femur, distal, open ORIF 02/11/2025 S72.409B - Unspecified fracture of lower end of unspecified femur, initial encounter for open fracture type I or II (ICD-10) Hypothyroidism (acquired) E03.9 - Hypothyroidism, unspecified (ICD-10) Hx of pyelonephritis Z87.448 - Personal history of other diseases of urinary system (ICD-10) Staghorn renal calculus N20.0 - Calculus of kidney (ICD-10) Sciatica of right side M54.31 - Sciatica, right side (ICD-10) Hydronephrosis right N13.30 - Unspecified hydronephrosis (ICD-10) Hx of influenza Z87.09 - Personal history of other diseases of the respiratory system (ICD- 10) Kidney stones (~2021) N20.0 - Calculus of kidney (ICD-10) Influenza A J10.1 - Influenza due to other identified influenza virus with other respiratory manifestations (ICD-10) Melanocarcinoma C43.9 - Malignant melanoma of skin, unspecified (ICD-10) Osteoarthritis M19.90 - Unspecified osteoarthritis, unspecified site (ICD-10) Sciatic leg pain right leg M54.30 - Sciatica, unspecified side (ICD-10) Bronchitis J40 - Bronchitis, not specified as acute or chronic (ICD-10) Shortness of breath R06.02 - SHORTNESS OF BREATH (ICD-10) COPD exacerbation J44.1 - CHRONIC OBSTRUCTIVE PULMONARY DISEASE W (ACUTE) EXACERBATION (ICD- 10) Surgical History H/O total knee replacement bilateral Z96.659 - Presence of unspecified artificial knee joint (ICD-10) H/O knee surgery Z98.89 - Other specified postprocedural states (ICD-10) History of bilateral knee replacement Z96.653 - Presence of artificial knee joint, bilateral (ICD-10) History of appendectomy Z90.49 - Other specified postprocedural states (ICD-10) History of cholecystectomy Z90.49 - Other specified postprocedural states (ICD-10) Family History Mother Cancer Brother Cancer FATHER Stroke Social History Smoking and tobacco status: Former smoker Second hand smoke exposure: No Substance use type: does not use Marni/presybeterian: CHRISTIAN Special marni needs: No Agree to transfusion: Yes Adopted: No Caregiver/support person: No Foster care: No Household members: spouse Housing: house Marital status: M Lives independently: Yes Daycare: no daycare service: No intermediate: No History of recent travel: No Do you think of yourself as: straight/heterosexual Current gender identity: female Seatbelt use: always Drives intoxicated or rides with intoxicated route delivery service driver: No Water heater temperature set < 120 degrees: Yes Working smoke detector in home: Yes Fire extinguisher in home: Yes Carbon monoxide detector in home: Yes Allergies Allergies Allergy/AdvReac Type Severity Reaction Status Date / Time cefdinir (From Omnicef) AdvReac Mild headache Verified 05/22/25 11:53 codeine AdvReac Mild Unknown Verified 05/22/25 11:53 erythromycin base AdvReac Mild Vomiting Verified 05/22/25 11:53 Current Medications Home Medications Acetaminophen (Acetaminophen 325 Mg Tablet) 650 mg PO Q4H PRN PRN Reason: Mild Pain Albuterol/Ipratropium (Ipratropium/Albuterol Vial.Neb) 3 ml NEB RTQ4H MANN Last Admin: 05/22/25 16:52 Dose: 3 ml CEFTRIAXONE/D5W 1 GM PREMIX (Rocephin 1 Gm/50 Ml D5w) 1 gm in 50 mls @ 100 mls/hr IV DAILY MANN Stop: 05/25/25 14:59 Last Admin: 05/22/25 16:24 Dose: 100 mls/hr Doxycycline Hyclate 100 mg/ (Sodium Chloride) 100 mls @ 50 mls/hr IV Q12HR MANN Stop: 05/25/25 20:59 Methylprednisolone Sodium Succinate (Methylprednisolone Sod Succ/Pf 40 Mg/Ml Vial) 40 mg IVP Q8HR MANN Ondansetron HCl (Ondansetron Hcl/Pf 4 Mg/2 Ml Sdv) 4 mg IVP Q6H PRN PRN Reason: Nausea / Vomiting albuterol sulfate 90 mcg/actuation aerosol inhaler (ProAir HFA) 2 puff inhalation BID PRN Wheezing #8.5 grams 11/10/22 [Rx Confirmed 05/22/25] albuterol sulfate 2.5 mg/3 mL (0.083 %) solution for nebulization 2.5 mg (3 mL) inhalation Q4-6H PRN shortness of breath or wheezing #90 mL 10/26/23 [Rx Confirmed 05/22/25] pantoprazole 40 mg tablet,delayed release (Protonix) 40 mg PO QDAC #90 tabs 11/03/24 [Rx Confirmed 05/22/25] alprazolam 0.5 mg tablet (Xanax) 0.5 mg PO BID PRN anxiety #180 tabs 12/01/24 [Rx Confirmed 05/22/25] pravastatin 40 mg tablet See Rx Instructions .Route .COMPLEX #90 tabs 12/01/24 [Rx Confirmed 05/22/25] levothyroxine 75 mcg tablet See Rx Instructions .Route .COMPLEX #90 tabs 12/22/24 [Rx Confirmed 05/22/25] verapamil 240 mg tablet,extended release See Rx Instructions .Route .COMPLEX #90 tabs 12/22/24 [Rx Confirmed 05/22/25] acetaminophen 325 mg tablet (Tylenol) 650 mg PO Q4H PRN pain 02/14/25 [History Confirmed 05/22/25] polyethylene glycol 3350 17 gram/dose oral powder (ClearLax) 17 g PO DAILY PRN constipation 02/14/25 [History Confirmed 05/22/25] ascorbic acid (vitamin C) 500 mg tablet,extended release 500 mg PO DAILY 02/15/25 [History Confirmed 05/22/25] cholecalciferol (vitamin D3) 125 mcg (5,000 unit) tablet (Vitamin D3) 125 mcg PO DAILY 02/15/25 [History Confirmed 05/22/25] ipratropium 0.5 mg-albuterol 3 mg (2.5 mg base)/3 mL nebulization soln 3 ml inhalation QID shortness of breath or wheezing 02/15/25 [History Confirmed 05/22/25] montelukast 10 mg tablet See Rx Instructions .Route .COMPLEX 02/15/25 [History Confirmed 05/22/25] arformoterol 15 mcg/2 mL solution for nebulization (Brovana) 2 ml inhalation BID #60 mL 02/28/25 [Rx Confirmed 05/22/25] arformoterol 15 mcg/2 mL solution for nebulization (Brovana) 2 ml inhalation BID #60 mL 02/28/25 [Rx Confirmed 05/22/25] budesonide 0.5 mg/2 mL suspension for nebulization (Pulmicort) 0.5 mg (2 mL) inhalation BID #60 mL 02/28/25 [Rx Confirmed 05/22/25] budesonide 0.5 mg/2 mL suspension for nebulization (Pulmicort) 0.5 mg (2 mL) inhalation BID #60 mL 02/28/25 [Rx Confirmed 05/22/25] gabapentin 300 mg capsule 600 mg (2 x 300 mg) PO BEDTIME #1 cap 02/28/25 [Rx Confirmed 05/22/25] lisinopril 20 mg tablet 20 mg PO DAILY #90 tabs 04/03/25 [Rx Confirmed 05/22/25] duloxetine 60 mg capsule,delayed release See Rx Instructions .Route .COMPLEX #90 caps 04/06/25 [Rx Confirmed 05/22/25] Opioid Naive vs. Tolerant Does Patient Take Opioids?: No Is Patient Opioid Naive?: Yes What is Opioid Naive?: *Opioid Naive implies the patient is not already taking opioids or not chronically receiving opioids on a daily basis. *PRN dosing is not "usually" associated with tolerance. *Patients are at higher risk of over-sedation and aspiration. Is Patient Opioid Tolerant?: No What is Opioid Tolerant?: *Opioid Tolerance implies less than the expected response to an opioid. *Acquired tolerance is defined by the patient taking 60mg of oral morphine daily (or equianalgesic dose of another opioid) for 1 week or more. *Often associated with chronic pain. *May take more than usual dose to achieve desired pain control. Review of Systems Constitutional: Reports Weakness; Denies Fever, Fatigue or Chills Head: Reports Normocephalic and Atraumatic Eyes: Reports No symptoms Nose: Reports Post Nasal Drip and Congestion Throat: Reports Sore Throat Cardiovascular: Denies Chest pain, Chest Pressure or Edema Respiratory: Reports Cough and Shortness of air Gastrointestinal: Denies Nausea, Vomiting, Diarrhea or Constipation Genitourinary: Denies Dysuria or Frequency Neurological: Denies Headache or Dizziness Physical examination Most Recent Vital Signs: Most Recent Vital Signs Temperature 99.3 F 05/22/25 11:47 Temperature Source Infrared 05/22/25 11:47 Pulse Rate 84 05/22/25 11:47 Respiratory Rate 32 H 05/22/25 11:47 Blood Pressure 128/65 05/22/25 11:47 O2 Sat by Pulse Oximetry 92 L 05/22/25 13:19 Fraction of Inspired Oxygen (FIO2) 36 05/22/25 13:19 Height 5 ft 2 in 05/22/25 11:47 Weight 66.6 kg 05/22/25 11:47 Telemetry Heart Rate 63 10/28/24 07:00 Telemetry SPO2 100 10/28/24 07:00 Appearance: Positive No Apparent Distress and Alert and Oriented x3 Skin: Positive Warm and Good Color HEENT: Positive Normocephalic and Atraumatic Neck: Positive Supple Chest/Lungs: Positive Symmetrical With Equal Breath Sounds, Clear to Auscultation Bilaterally and Wheezes (mild diffuse wheezing); Negative Good Air Movement all 4 Lung Rivas (diminished lung sounds and air movement) Heart: Positive RRR GI/: Positive Soft, Nontender, Bowel Sounds Normal and No Distention Extremities: Negative Edema Neurological: Positive Sensation Intact, Motor intact, Cranial Nerves Intact, Alert and Oriented Psychiatric: Positive Oriented x4, Appropriate Mood, Appropriate Affect and Intact Memory Labs This Visit Labs This Visit: Labs This Visit 05/22/25 05/22/25 05/22/25 12:20 12:26 12:29 WBC 14.09 H RBC 4.37 Hgb 11.7 L Hct 42.5 MCV 97.3 MCH 26.8 L MCHC 27.5 L RDW Coeff of [place] 14.2 Plt Count 235 Immature Gran % (Auto) 0.4 Neut % (Auto) 80.7 H Lymph % (Auto) 11.0 [place] % (Auto) 7.7 Eos % (Auto) 0.1 Baso % (Auto) 0.1 Neut # (Auto) 11.4 H Lymph # (Auto) 1.6 [place] # (Auto) 1.1 Eos # (Auto) 0.0 Baso # (Auto) 0.0 Immature Gran # (Auto) 0.1 Hypochromasia 2+ Anisocytosis 3+ Microcytosis 2+ Stomatocytes 3+ Acanthocytes (Spur) Occasional Puncture Site Rbrach Base Excess 28.4 H O2 Saturation 98.4 H ABG pH 7.33 L ABG pCO2 103.0 H ABG pO2 118.0 H ABG HCO3 54.3 H ABG Total CO2 57.5 H Hemoglobin 1.6 H Oxyhemoglobin 95.5 Carboxyhemoglobin 2.1 H Total Hemoglobin 11.3 L O2 Delivery Device Cannula Oxygen Liter Flow 4.00 FiO2 % Sodium Potassium Chloride Carbon Dioxide Anion Gap BUN Creatinine Estimated GFR (MDRD) BUN/Creatinine Ratio Glucose Calcium Magnesium Total Bilirubin AST ALT Alkaline Phosphatase Troponin I NT-Pro-B Natriuret Pep Total Protein Albumin Globulin Albumin/Globulin Ratio Influ A Molecular Assay Negative by naat Influ B Molecular Assay Negative by naat RSV Antigen Negative by naat SARS CoV-2 RNA Rapid TIM Negative 05/22/25 05/22/25 12:51 13:52 WBC RBC Hgb Hct MCV MCH MCHC RDW Coeff of [place] Plt Count Immature Gran % (Auto) Neut % (Auto) Lymph % (Auto) [place] % (Auto) Eos % (Auto) Baso % (Auto) Neut # (Auto) Lymph # (Auto) [place] # (Auto) Eos # (Auto) Baso # (Auto) Immature Gran # (Auto) Hypochromasia Anisocytosis Microcytosis Stomatocytes Acanthocytes (Spur) Puncture Site Rbrach Base Excess 25.5 H O2 Saturation 86.3 L ABG pH 7.34 L ABG pCO2 95.0 H ABG pO2 55.0 L* ABG HCO3 51.3 H ABG Total CO2 54.2 H Hemoglobin 1.6 H Oxyhemoglobin 87.7 L Carboxyhemoglobin 2.2 H Total Hemoglobin 11.1 L O2 Delivery Device Bipap Oxygen Liter Flow FiO2 % 36.0 Sodium 139.9 Potassium 4.44 Chloride 90.8 L Carbon Dioxide 48.3 H* Anion Gap 5.24 BUN 28.1 H Creatinine 1.06 Estimated GFR (MDRD) 50.00 BUN/Creatinine Ratio 26.50 Glucose 205.3 H Calcium 9.37 Magnesium 1.73 Total Bilirubin 0.44 AST 27.8 ALT 13.3 Alkaline Phosphatase 63.4 Troponin I < 0.012 NT-Pro-B Natriuret Pep 95 Total Protein 6.90 Albumin 3.89 Globulin 3.01 Albumin/Globulin Ratio 1.29 Influ A Molecular Assay Influ B Molecular Assay RSV Antigen SARS CoV-2 RNA Rapid TIM Imaging Imaging: CHEST RADIOGRAPH(S) INDICATION: Productive cough dyspnea COMPARISON: Chest radiograph(s) 10/26/2024 TECHNIQUE: AP portable upright chest radiograph(s). 1 view(s) total. FINDINGS: Spondylosis. Chronic right rib fractures.Lungs are clear with no focal consolidations, pneumothoraces or pleural effusions. Cardiomediastinal silhouette is within normal limits. IMPRESSION: No acute cardiopulmonary process. Review Statement Review Statement: I have independently reviewed and interpreted the labs/EKGs/imaging that were ordered by the ER provider. I have reviewed all outside records that are available currently in our EMR including imaging/notes/labs from previous visits. Plan Plan: 1. Acute on chronic hypercapnic and hypoxic respiratory failure due to COPD exacerbation - Start steroids, breathing treatments, antibiotics. Start bipap due to hypercapnia, pt agreeable at this time to wear it, although reluctant. 2L of O2 at baseline. Continue to monitor ABG. 2. Mild anemia of chronic disease - at baseline, continue to monitor. 3. Hyperlipidemia - Cont home meds 4. Hypothyroidism - Cont home meds 5. GERD - Cont home meds 6. Hypertension - Cont home meds 7. Depression - Cont home meds 8. Neuropathy - Cont home meds 9. Anxiety - Cont home meds 10. Right lower ext fracture, previous - Still TTWB per patient and family, sees ortho next week about increasing weight bearing. No longer requires knee immobilizer. DVT Prophylaxis: Ambulation Time Spent: Greater than 80 minutes spent with patient, 50% of the time spent with this patient was devoted to counseling and coordination of care. Advanced Care Plannin minutes spent discussing advance care planning. Pt wishes to be DNR. Disposition: will require > two midnights Admit to: Inpatient Discussed Plan of Care with Dr. Heather Ontiveros Medications Medication Orders: Medications Ordered Category Date Time Status Acetaminophen [Tylenol] Meds 05/22/25 14:45 Active 650 mg PO Q4H PRN Ceftriaxone/D5w 1 gm Premix [Rocephin 1 gm/50 ml D5w] Meds 05/23/25 09:00 Ordered 1 gm in 50 ml IV DAILY Doxycycline Hyclate Inj [Doxy-100] 100 mg Meds 05/22/25 14:50 Ordered 0.9 % Sodium Chloride [Sodium Chloride 100Ml] 100 ml IV Q12HR Ipratropium/Albuterol Neb [Duoneb] Meds 05/22/25 18:00 Ordered 3 ml NEB RTQ4H Methylprednisolone Sod Succ/Pf [Solu-Medrol 40 mg] Meds 05/22/25 21:00 Ordered 40 mg IVP Q8HR Ondansetron HCl/Pf [Zofran Sdv] Meds 05/22/25 14:45 Active 4 mg IVP Q6H PRN
[2025-05-22] MEDS: DUONEB NEB STA (14:54)
[2025-05-22 15:50] VITALS: BMI 26.7
[2025-05-22] MEDS: ROCEPHIN 1 GM/50 ML D5W 1 GM/50 ML BAG IV SCH (16:24)
[2025-05-22] MEDS: DOXY-100 100 MG in SODIUM CHLORIDE 100ML 100 ML IV SCH ×2 (16:25→21:02)
[2025-05-22] MEDS: DUONEB NEB SCH (16:46)
[2025-05-22 18:09] LABS: ABG O2 HGB 89.3 % (95-100); ABG PH 7.36 (7.35-7.45); BEecf 23.2 (-2.0-3.0); HCO3 48.6 (21-28); TCO2 51.2 (19-24)
[2025-05-22 18:10] LABS: ABG PCO2 86.0 mmHg (35-45); ABG PO2 54.0 mmHg (85-100)
[2025-05-22] MEDS: SOLU-MEDROL 40 MG IVP SCH (20:11)
[2025-05-22] MEDS ORDERED: MIRALAX PO PRN (22:01)
[2025-05-22] MEDS: NEURONTIN PO SCH (23:05)
[2025-05-22] MEDS: SINGULAIR PO SCH (23:05)
[2025-05-23 00:16] LABS: ABG O2 HGB 93.3 % (95-100); ABG PH 7.43 (7.35-7.45); ABG PO2 68.0 mmHg (85-100); BEecf 28.1 (-2.0-3.0); FI02 36.0 %; HCO3 52.4 (21-28); TCO2 54.8 (19-24)
[2025-05-23 00:22] LABS: ABG PCO2 79.0 mmHg (35-45)
[2025-05-23] MEDS: PULMICORT 0.5 MG/2 ML NEB SCH ×2 (05:20→09:20)
[2025-05-23] MEDS: SYNTHROID PO SCH (05:38)
[2025-05-23] MEDS: PROTONIX PO SCH (05:38)
[2025-05-23 05:46] LABS: IMMATURE GRANULOCYTE # (AUTO) 0.1 (0.0-1.0); IMMATURE GRANULOCYTE % (AUTO) 0.5 % (0.0-5.0); RDW COEFFICIENT OF VARIATION 14.3 % (11.6-14.8)
[2025-05-23 06:02] LABS: CREATININE 1.0 mg/dL (0.60-1.30)
[2025-05-23] MEDS: CYMBALTA PO SCH (09:16)
[2025-05-23] MEDS: CALAN SR PO SCH (09:16)
[2025-05-23] MEDS: ZESTRIL PO SCH (09:17)
[2025-05-23] MEDS: XANAX PO PRN (10:24)
--- NOTE | 2025-05-23 15:38 | PCM.PROG ---
Date/Time Seen Date Seen by Provider: 05/23/25 Time Seen by Provider: 10:30 Provider Provider: BEVERLY MASSEY PA-C, [facility] Chief Complaint Chief Complaint: COPD EXACERBATION Subjective Subjective: Patient tolerated bipap last night until about [id number]. ABG improved. She is feeling better today. Feels wore out. and granddaughter at bedside. Got a bath today which felt nice she says. Objective Appearance: Positive No Apparent Distress, Alert and Oriented x3, Ill-Appearing and Thin Chest/Lungs: Positive Other (decreased air movement cynthia, mild wheezing ) Heart: Positive RRR GI/: Positive Soft, Nontender, Bowel Sounds Normal and No Distention Neurological: Positive Cranial Nerves Intact, Alert, Oriented and Other (+generally weak and deconditioned ) Vital Signs Vital Signs: Vital Signs: Last 24 Hours 05/22/25 17:00 05/22/25 17:51 05/22/25 18:25 Temperature Temperature Source Pulse Rate Respiratory Rate Blood Pressure Blood Pressure Mean Blood Pressure Location Blood Pressure Position O2 Sat by Pulse Oximetry 93 L 94 L 91 L Oxygen Delivery Method Nasal Cannula Oxygen Flow Rate 2.5 Fraction of Inspired Oxygen (FIO2) 36 36 Telemetry Type Telemetry Monitoring Telemetry Heart Rate Telemetry SPO2 EKG TX Interval EKG QRS Interval Telemetry Strip Reading 05/22/25 19:00 05/22/25 20:00 05/22/25 20:00 Temperature Temperature Source Pulse Rate Respiratory Rate Blood Pressure Blood Pressure Mean Blood Pressure Location Blood Pressure Position O2 Sat by Pulse Oximetry Oxygen Delivery Method Nasal Cannula Nasal Cannula Oxygen Flow Rate 2.5 2.5 Fraction of Inspired Oxygen (FIO2) Telemetry Type Bedside Monitor Telemetry Monitoring Continues Telemetry Heart Rate 83 Telemetry SPO2 92 L EKG TX Interval 0.19 EKG QRS Interval 0.06 Telemetry Strip Reading SR 05/22/25 21:55 05/22/25 22:00 05/23/25 00:27 Temperature 97.1 F L Temperature Source Tympanic Pulse Rate 76 Respiratory Rate 17 Blood Pressure 130/70 Blood Pressure Mean 90 Blood Pressure Location Left Arm Blood Pressure Position Supine O2 Sat by Pulse Oximetry 95 94 L 94 L Oxygen Delivery Method Nasal Cannula Oxygen Flow Rate 2.5 Fraction of Inspired Oxygen (FIO2) 36 36 Telemetry Type Telemetry Monitoring Telemetry Heart Rate Telemetry SPO2 EKG TX Interval EKG QRS Interval Telemetry Strip Reading 05/23/25 01:00 05/23/25 01:37 05/23/25 05:10 Temperature 97.4 F L Temperature Source Temporal Artery Scan Pulse Rate 72 Respiratory Rate 17 Blood Pressure 134/83 Blood Pressure Mean 100 Blood Pressure Location Left Arm Blood Pressure Position Supine O2 Sat by Pulse Oximetry 94 L 95 Oxygen Delivery Method Nasal Cannula Oxygen Flow Rate 2.5 Fraction of Inspired Oxygen (FIO2) 36 Telemetry Type Bedside Monitor Telemetry Monitoring Continues Telemetry Heart Rate 69 Telemetry SPO2 95 EKG TX Interval 0.18 EKG QRS Interval 0.07 Telemetry Strip Reading SR 05/23/25 06:00 05/23/25 07:00 05/23/25 07:38 Temperature Temperature Source Pulse Rate Respiratory Rate Blood Pressure Blood Pressure Mean Blood Pressure Location Blood Pressure Position O2 Sat by Pulse Oximetry 94 L Oxygen Delivery Method Nasal Cannula Nasal Cannula Oxygen Flow Rate 2.5 2.5 Fraction of Inspired Oxygen (FIO2) Telemetry Type Bedside Monitor Telemetry Monitoring Continues Telemetry Heart Rate 84 Telemetry SPO2 93 EKG TX Interval 0.18 EKG QRS Interval 0.08 Telemetry Strip Reading 05/23/25 10:00 05/23/25 14:20 Temperature Temperature Source Pulse Rate Respiratory Rate Blood Pressure Blood Pressure Mean Blood Pressure Location Blood Pressure Position O2 Sat by Pulse Oximetry 92 L 97 Oxygen Delivery Method Nasal Cannula Nasal Cannula Oxygen Flow Rate 2.5 2.5 Fraction of Inspired Oxygen (FIO2) Telemetry Type Telemetry Monitoring Telemetry Heart Rate Telemetry SPO2 EKG TX Interval EKG QRS Interval Telemetry Strip Reading Lab Results Lab Results: Lab Results: Last 24 Hours 05/23/25 05/23/25 05/22/25 05:38 00:00 17:56 WBC 11.98 H RBC 3.87 L Hgb 10.4 L Hct 36.7 L MCV 94.8 MCH 26.9 L MCHC 28.3 L RDW Coeff of [place] 14.3 Plt Count 186 Immature Gran % (Auto) 0.5 Neut % (Auto) 85.6 H Lymph % (Auto) 11.7 [place] % (Auto) 2.1 Eos % (Auto) 0.0 Baso % (Auto) 0.1 Neut # (Auto) 10.3 H Lymph # (Auto) 1.4 [place] # (Auto) 0.3 L Eos # (Auto) 0.0 Baso # (Auto) 0.0 Immature Gran # (Auto) 0.1 Puncture Site Rr Rbrach Base Excess 28.1 H 23.2 H O2 Saturation 93.8 L 86.3 L ABG pH 7.43 7.36 ABG pCO2 79.0 H 86.0 H ABG pO2 68.0 L 54.0 L* ABG HCO3 52.4 H 48.6 H ABG Total CO2 54.8 H 51.2 H Kb Test Pos Hemoglobin 1.3 0.9 Oxyhemoglobin 93.3 L 89.3 L Carboxyhemoglobin 2.3 H 2.6 H Total Hemoglobin 10.9 L 10.7 L O2 Delivery Device Bipap Cannula Oxygen Liter Flow 2.00 FiO2 % 36.0 Sodium 138.3 Potassium 4.20 Chloride 90.9 L Carbon Dioxide 44.4 H* Anion Gap 7.20 BUN 32.0 H Creatinine 1.00 Estimated GFR (MDRD) 53.00 BUN/Creatinine Ratio 32.00 Glucose 170.0 H Calcium 9.82 Total Bilirubin 0.28 AST 25.4 ALT 13.1 Alkaline Phosphatase 57.8 Total Protein 6.83 Albumin 3.83 Globulin 3.00 Albumin/Globulin Ratio 1.27 Additional Comments Additional Comments: I have independently reviewed and interpreted the labs/EKGs/imaging ordered during this hospital stay. I have reviewed outside records that are available in our EMR that pertain to medical stay including imaging/notes/labs from previous visits. Active Medications Active Medications: Medications Generic Name Dose Route Start Last Admin Trade Name Freq PRN Reason Stop Dose Admin Acetaminophen 650 mg 05/22/25 14:45 Acetaminophen 325 Mg Tablet PO Q4H PRN Mild Pain Albuterol/Ipratropium 3 ml 05/22/25 18:00 05/23/25 14:18 Ipratropium/Albuterol Vial.Neb NEB 3 ml RTQ4H MANN Administration Alprazolam 0.5 mg 05/22/25 21:49 05/23/25 10:24 Alprazolam 0.5 Mg Tablet PO 0.5 mg BID PRN Administration Anxiety Budesonide 0.5 mg 05/23/25 06:00 05/23/25 05:20 Budesonide 0.5 Mg/2 Ml Vial.Neb NEB 0.5 mg RTBID MANN Administration Docusate Sodium 100 mg 05/23/25 14:10 Docusate Sodium 100 Mg Capsule PO BID PRN Constipation Duloxetine HCl 60 mg 05/23/25 09:00 05/23/25 09:16 Duloxetine Hcl 30 Mg Capsule.Dr PO 60 mg DAILY MANN Administration Gabapentin 600 mg 05/22/25 21:55 05/22/25 23:05 Gabapentin 300 Mg Capsule PO Not Given BEDTIME MANN CEFTRIAXONE/D5W 1 GM PREMIX 1 gm in 50 mls @ 100 mls/hr 05/22/25 15:00 05/23/25 09:16 Rocephin 1 Gm/50 Ml D5w IV 05/25/25 14:59 100 mls/hr DAILY MANN Administration Doxycycline Hyclate 100 mg/ 100 mls @ 50 mls/hr 05/22/25 21:00 05/23/25 09:16 Sodium Chloride IV 05/25/25 20:59 50 mls/hr Q12HR MANN Administration Levothyroxine Sodium 75 mcg 05/23/25 06:30 05/23/25 05:38 Levothyroxine Sodium 75 Mcg Tablet PO 75 mcg 0630 MANN Administration Lisinopril 20 mg 05/23/25 09:00 05/23/25 09:17 Lisinopril 10 Mg Tablet PO 20 mg DAILY MANN Administration Methylprednisolone Sodium Succinate 40 mg 05/22/25 21:00 05/23/25 13:58 Methylprednisolone Sod Succ/Pf 40 Mg/Ml Vial IVP 40 mg Q8HR MANN Administration Montelukast Sodium 10 mg 05/22/25 22:00 05/22/25 23:05 Montelukast Sodium 10 Mg Tablet PO Not Given BEDTIME MANN Ondansetron HCl 4 mg 05/22/25 14:45 Ondansetron Hcl/Pf 4 Mg/2 Ml Sdv IVP Q6H PRN Nausea / Vomiting Pantoprazole Sodium 40 mg 05/23/25 06:00 05/23/25 05:38 Pantoprazole Sodium 40 Mg Tablet. PO 40 mg QDAC2 MANN Administration Polyethylene Glycol 17 gm 05/22/25 22:01 Polyethylene Glycol 17 Gm Powd.Pack PO DAILY PRN Constipation Pravastatin Sodium 40 mg 05/23/25 21:00 Pravastatin Sodium 40 Mg Tablet PO BEDTIME MANN Verapamil HCl 240 mg 05/23/25 09:00 05/23/25 09:16 Verapamil Hcl 120 Mg Tablet.Er PO 240 mg DAILY MANN Administration Plan Plan: 1. Acute on chronic hypercapnic and hypoxic respiratory failure due to COPD exacerbation - Improved, ABG compensated, cont steroids, breathing treatments, antibiotics. 2L of O2 at baseline. 2. Mild anemia of chronic disease - at baseline, continue to monitor. 3. Hyperlipidemia - Cont home meds 4. Hypothyroidism - Cont home meds 5. GERD - Cont home meds 6. Hypertension - Cont home meds 7. Depression - Cont home meds 8. Neuropathy - Cont home meds 9. Anxiety - Cont home meds 10. Right lower ext fracture, previous - Still TTWB per patient and family, sees ortho next week about increasing weight bearing. No longer requires knee immobilizer. DVT Prophylaxis: Lovenox Discussed with patient, , and granddaughter patients options regarding trying to get bipap at home to mitigate risk of her hypercapnia vs more of a palliative care approach. Patient was back and forth but ultimately decided not to try to get bipap at home. She historically has been noncompliant with wearing any NIV devices. She does not quite seem ready to purse palliative care. Review Statement Review Statement: I have personally discussed and reviewed the patient's visit/currently labs/imaging/decision making with Dr. Ontiveros, my supervising attending. Greater that 50 minutes spent with patient, 50% of the time spent with this patient was devoted to counseling and coordination of care.
[2025-05-23] MEDS: COLACE PO PRN (15:41)
[2025-05-23] MEDS: PRAVACHOL PO SCH (20:25)
[2025-05-24 05:28] LABS: IMMATURE GRANULOCYTE # (AUTO) 0.1 (0.0-1.0); IMMATURE GRANULOCYTE % (AUTO) 0.9 % (0.0-5.0); RDW COEFFICIENT OF VARIATION 14.8 % (11.6-14.8)
[2025-05-24 05:43] LABS: CREATININE 1.16 mg/dL (0.60-1.30)
[2025-05-24] MEDS: LOVENOX SUBCUT SCH (09:04)
[2025-05-24] MEDS: HUMALOG (10 ML VIAL) SUBCUT PRN (09:46)
--- NOTE | 2025-05-24 12:06 | PCM.PROG ---
Date/Time Seen Date Seen by Provider: 05/24/25 Time Seen by Provider: 09:15 Provider Provider: [facility] Chief Complaint Chief Complaint: COPD EXACERBATION Subjective Subjective: Patient is doing better. Has headache on and off. Has dizziness on and off. Breathing is improved. Objective Appearance: Positive No Apparent Distress, Alert and Oriented x3, Ill-Appearing and Thin Chest/Lungs: Positive Other (decreased air movement cynthia but improved overall, mild wheezing) Heart: Positive RRR GI/: Positive Soft, Nontender, Bowel Sounds Normal and No Distention Neurological: Positive Cranial Nerves Intact, Alert, Oriented and Other (+generally weak and deconditioned ) Vital Signs Vital Signs: Vital Signs: Last 24 Hours 05/23/25 14:00 05/23/25 14:20 05/23/25 19:00 Temperature 97.1 F L Temperature Source Temporal Artery Scan Pulse Rate 72 Respiratory Rate 20 Blood Pressure 108/71 Blood Pressure Mean 83 Blood Pressure Location Blood Pressure Position O2 Sat by Pulse Oximetry 90 L 97 Oxygen Delivery Method Nasal Cannula Nasal Cannula Oxygen Flow Rate 2 2.5 Telemetry Type Remote Telemetry Telemetry Monitoring Continues Telemetry Heart Rate 86 Telemetry SPO2 88 L EKG NH Interval 0.18 EKG QRS Interval 0.08 Telemetry Strip Reading sr 05/23/25 19:37 05/23/25 20:00 05/23/25 21:43 Temperature 97.8 F Temperature Source Tympanic Pulse Rate 85 Respiratory Rate 15 Blood Pressure 150/84 H Blood Pressure Mean 106 Blood Pressure Location Right Arm Blood Pressure Position Supine O2 Sat by Pulse Oximetry 94 L 99 Oxygen Delivery Method Nasal Cannula Nasal Cannula Nasal Cannula Oxygen Flow Rate 2 2 2.5 Telemetry Type Telemetry Monitoring Telemetry Heart Rate Telemetry SPO2 EKG NH Interval EKG QRS Interval Telemetry Strip Reading 05/24/25 01:00 05/24/25 05:03 05/24/25 06:00 Temperature 98.2 F Temperature Source Tympanic Pulse Rate 81 Respiratory Rate 20 Blood Pressure 134/90 Blood Pressure Mean 104 Blood Pressure Location Left Arm Blood Pressure Position O2 Sat by Pulse Oximetry 99 97 Oxygen Delivery Method Nasal Cannula Nasal Cannula Oxygen Flow Rate 2 2.5 Telemetry Type Bedside Monitor Telemetry Monitoring Continues Telemetry Heart Rate 70 Telemetry SPO2 99 EKG NH Interval 0.17 EKG QRS Interval 0.09 Telemetry Strip Reading SR 05/24/25 07:00 05/24/25 09:00 05/24/25 10:00 Temperature Temperature Source Pulse Rate Respiratory Rate Blood Pressure Blood Pressure Mean Blood Pressure Location Blood Pressure Position O2 Sat by Pulse Oximetry 96 Oxygen Delivery Method Nasal Cannula Nasal Cannula Oxygen Flow Rate 2 Telemetry Type Bedside Monitor Telemetry Monitoring Continues Telemetry Heart Rate 67 Telemetry SPO2 100 EKG NH Interval 0.16 EKG QRS Interval 0.11 H Telemetry Strip Reading SR w/ BBB Lab Results Lab Results: Lab Results: Last 24 Hours 05/24/25 05:24 WBC 11.64 H RBC 3.76 L Hgb 9.9 L Hct 35.0 L MCV 93.1 MCH 26.3 L MCHC 28.3 L RDW Coeff of [place] 14.8 Plt Count 200 Immature Gran % (Auto) 0.9 Neut % (Auto) 87.9 H Lymph % (Auto) 8.8 L [place] % (Auto) 2.3 Eos % (Auto) 0.0 Baso % (Auto) 0.1 Neut # (Auto) 10.2 H Lymph # (Auto) 1.0 [place] # (Auto) 0.3 L Eos # (Auto) 0.0 Baso # (Auto) 0.0 Immature Gran # (Auto) 0.1 Sodium 138.0 Potassium 4.56 Chloride 93.8 L Carbon Dioxide 39.5 H Anion Gap 9.26 BUN 38.8 H Creatinine 1.16 Estimated GFR (MDRD) 45.00 BUN/Creatinine Ratio 33.44 Glucose 282.7 H D Calcium 9.37 Total Bilirubin 0.29 AST 31.0 ALT 15.1 Alkaline Phosphatase 59.2 Total Protein 6.74 Albumin 3.79 Globulin 2.95 Albumin/Globulin Ratio 1.28 Additional Comments Additional Comments: I have independently reviewed and interpreted the labs/EKGs/imaging ordered during this hospital stay. I have reviewed outside records that are available in our EMR that pertain to medical stay including imaging/notes/labs from previous visits. Active Medications Active Medications: Medications Generic Name Dose Route Start Last Admin Trade Name Freq PRN Reason Stop Dose Admin Acetaminophen 650 mg 05/22/25 14:45 Acetaminophen 325 Mg Tablet PO Q4H PRN Mild Pain Albuterol/Ipratropium 3 ml 05/22/25 18:00 05/24/25 09:28 Ipratropium/Albuterol Vial.Neb NEB 3 ml RTQ4H MANN Administration Alprazolam 0.5 mg 05/22/25 21:49 05/23/25 20:25 Alprazolam 0.5 Mg Tablet PO 0.5 mg BID PRN Administration Anxiety Budesonide 0.5 mg 05/23/25 06:00 05/24/25 05:27 Budesonide 0.5 Mg/2 Ml Vial.Neb NEB 0.5 mg RTBID MANN Administration Docusate Sodium 100 mg 05/23/25 14:10 05/23/25 15:41 Docusate Sodium 100 Mg Capsule PO 100 mg BID PRN Administration Constipation Duloxetine HCl 60 mg 05/23/25 09:00 05/24/25 09:03 Duloxetine Hcl 30 Mg Capsule.Dr PO 60 mg DAILY MANN Administration Enoxaparin Sodium 40 mg 05/24/25 09:00 05/24/25 09:04 Enoxaparin Sodium 40 Mg/0.4 Ml Syr SUBCUT 40 mg DAILY MANN Administration Gabapentin 600 mg 05/22/25 21:55 05/23/25 20:25 Gabapentin 300 Mg Capsule PO 600 mg BEDTIME MANN Administration CEFTRIAXONE/D5W 1 GM PREMIX 1 gm in 50 mls @ 100 mls/hr 05/22/25 15:00 05/24/25 09:14 Rocephin 1 Gm/50 Ml D5w IV 05/25/25 14:59 100 mls/hr DAILY MANN Administration Doxycycline Hyclate 100 mg/ 100 mls @ 50 mls/hr 05/22/25 21:00 05/24/25 10:03 Sodium Chloride IV 05/25/25 20:59 50 mls/hr Q12HR MANN Administration Insulin Human Lispro 0 unit 05/24/25 09:07 05/24/25 09:46 Insulin Lispro 100 Unit/Ml (10 Ml Vial) SUBCUT 10 unit PRN PRN Administration Hyperglycemia Protocol Levothyroxine Sodium 75 mcg 05/23/25 06:30 05/24/25 05:47 Levothyroxine Sodium 75 Mcg Tablet PO 75 mcg 0630 MANN Administration Lisinopril 20 mg 05/23/25 09:00 05/24/25 09:04 Lisinopril 10 Mg Tablet PO 20 mg DAILY MANN Administration Methylprednisolone Sodium Succinate 40 mg 05/22/25 21:00 05/24/25 05:47 Methylprednisolone Sod Succ/Pf 40 Mg/Ml Vial IVP 40 mg Q8HR MANN Administration Montelukast Sodium 10 mg 05/22/25 22:00 05/23/25 20:26 Montelukast Sodium 10 Mg Tablet PO 10 mg BEDTIME MANN Administration Ondansetron HCl 4 mg 05/22/25 14:45 Ondansetron Hcl/Pf 4 Mg/2 Ml Sdv IVP Q6H PRN Nausea / Vomiting Pantoprazole Sodium 40 mg 05/23/25 06:00 05/24/25 05:47 Pantoprazole Sodium 40 Mg Tablet. PO 40 mg QDAC2 MANN Administration Polyethylene Glycol 17 gm 05/22/25 22:01 Polyethylene Glycol 17 Gm Powd.Pack PO DAILY PRN Constipation Pravastatin Sodium 40 mg 05/23/25 21:00 05/23/25 20:25 Pravastatin Sodium 40 Mg Tablet PO 40 mg BEDTIME MANN Administration Verapamil HCl 240 mg 05/23/25 09:00 05/24/25 09:03 Verapamil Hcl 120 Mg Tablet.Er PO 240 mg DAILY MANN Administration Plan Plan: 1. Acute on chronic hypercapnic and hypoxic respiratory failure due to COPD exacerbation - Improved, ABG compensated, cont steroids, breathing treatments, antibiotics. 2L of O2 at baseline. 2. Mild anemia of chronic disease - at baseline, continue to monitor. 3. Hyperlipidemia - Cont home meds 4. Hypothyroidism - Cont home meds 5. GERD - Cont home meds 6. Hypertension - Cont home meds 7. Depression - Cont home meds 8. Neuropathy - Cont home meds 9. Anxiety - Cont home meds 10. Right lower ext fracture, previous - Still TTWB per patient and family, sees ortho next month about increasing weight bearing. No longer requires knee immobilizer. DVT Prophylaxis: Lovenox Dispo: likely discharge tomorrow if still stable Discussed on 05/25 with patient, , and granddaughter patients options regarding trying to get bipap at home to mitigate risk of her hypercapnia vs more of a palliative care approach. Patient was back and forth but ultimately d ecided not to try to get bipap at home. She historically has been noncompliant with wearing any NIV devices. She does not quite seem ready to pursue palliative care. Review Statement Review Statement: I have personally discussed and reviewed the patient's visit/currently labs/imaging/decision making with Dr. Ontiveros, my supervising attending. Greater that 50 minutes spent with patient, 50% of the time spent with this patient was devoted to counseling and coordination of care.
--- NOTE | 2025-05-24 12:09 | DCSUM ---
Hospital Provider Hospital Provider: BEVERLY MASSEY [facility]-C[facility] Primary Care Physician Primary Care Physician: KYLEE VILLEDA APRN Hospital Course Vital Signs: Most Recent Vital Signs Temperature 98.2 F 05/24/25 06:00 Temperature Source Tympanic 05/24/25 06:00 Temperature Source Infrared 05/22/25 11:47 Pulse Rate 81 05/24/25 06:00 Respiratory Rate 20 05/24/25 06:00 Blood Pressure 134/90 05/24/25 06:00 Blood Pressure Mean 104 05/24/25 06:00 Blood Pressure Left Arm 131/64 05/22/25 15:32 Blood Pressure Location Left Arm 05/24/25 06:00 Blood Pressure Position Supine 05/23/25 21:43 O2 Sat by Pulse Oximetry 96 05/24/25 10:00 Oxygen Delivery Method Nasal Cannula 05/24/25 10:00 Oxygen Flow Rate 2 05/24/25 09:00 Fraction of Inspired Oxygen (FIO2) 36 05/23/25 01:37 Height 5 ft 2 in 05/22/25 15:32 Weight 66.4 kg 05/22/25 15:32 Telemetry Type Bedside Monitor 05/24/25 07:00 Telemetry Monitoring Continues 05/24/25 07:00 Telemetry Heart Rate 67 05/24/25 07:00 Telemetry SPO2 100 05/24/25 07:00 EKG MN Interval 0.16 05/24/25 07:00 EKG QRS Interval 0.11 H 05/24/25 07:00 Telemetry Strip Reading SR w/ BBB 05/24/25 07:00 Lab Results Last 24 Hours: 05/24/25 05:24 WBC 11.64 H RBC 3.76 L Hgb 9.9 L Hct 35.0 L MCV 93.1 MCH 26.3 L MCHC 28.3 L RDW Coeff of [place] 14.8 Plt Count 200 Immature Gran % (Auto) 0.9 Neut % (Auto) 87.9 H Lymph % (Auto) 8.8 L [place] % (Auto) 2.3 Eos % (Auto) 0.0 Baso % (Auto) 0.1 Neut # (Auto) 10.2 H Lymph # (Auto) 1.0 [place] # (Auto) 0.3 L Eos # (Auto) 0.0 Baso # (Auto) 0.0 Immature Gran # (Auto) 0.1 Sodium 138.0 Potassium 4.56 Chloride 93.8 L Carbon Dioxide 39.5 H Anion Gap 9.26 BUN 38.8 H Creatinine 1.16 Estimated GFR (MDRD) 45.00 BUN/Creatinine Ratio 33.44 Glucose 282.7 H D Calcium 9.37 Total Bilirubin 0.29 AST 31.0 ALT 15.1 Alkaline Phosphatase 59.2 Total Protein 6.74 Albumin 3.79 Globulin 2.95 Albumin/Globulin Ratio 1.28 Discharge Instructions Discharge Planning: Discharge Planning > 40 minutes If patient is discharged with left ventricular systolic dysfunction: Discharged with a beta shirley? [] If no, why not? [] Discharged with an gordon/arb? [] If no, why not? [] Discharge Medications: Home Medications Acetaminophen (Acetaminophen 325 Mg Tablet) 650 mg PO Q4H PRN PRN Reason: Mild Pain Albuterol/Ipratropium (Ipratropium/Albuterol Vial.Neb) 3 ml NEB RTQ4H [facility] Last Admin: 05/24/25 09:28 Dose: 3 ml Alprazolam (Alprazolam 0.5 Mg Tablet) 0.5 mg PO BID PRN PRN Reason: Anxiety Last Admin: 05/23/25 20:25 Dose: 0.5 mg Budesonide (Budesonide 0.5 Mg/2 Ml Vial.Neb) 0.5 mg NEB RTBID MANN Last Admin: 05/24/25 05:27 Dose: 0.5 mg Docusate Sodium (Docusate Sodium 100 Mg Capsule) 100 mg PO BID PRN PRN Reason: Constipation Last Admin: 05/23/25 15:41 Dose: 100 mg Duloxetine HCl (Duloxetine Hcl 30 Mg Capsule.Dr) 60 mg PO DAILY [facility] Last Admin: 05/24/25 09:03 Dose: 60 mg Enoxaparin Sodium (Enoxaparin Sodium 40 Mg/0.4 Ml Syr) 40 mg SUBCUT DAILY [facility] Last Admin: 05/24/25 09:04 Dose: 40 mg Gabapentin (Gabapentin 300 Mg Capsule) 600 mg PO BEDTIME [facility] Last Admin: 05/23/25 20:25 Dose: 600 mg CEFTRIAXONE/D5W 1 GM PREMIX (Rocephin 1 Gm/50 Ml D5w) 1 gm in 50 mls @ 100 mls/hr IV DAILY [facility] Stop: 05/25/25 14:59 Last Admin: 05/24/25 09:14 Dose: 100 mls/hr Doxycycline Hyclate 100 mg/ (Sodium Chloride) 100 mls @ 50 mls/hr IV Q12HR [facility] Stop: 05/25/25 20:59 Last Admin: 05/24/25 10:03 Dose: 50 mls/hr Insulin Human Lispro (Insulin Lispro 100 Unit/Ml (10 Ml Vial)) 0 unit SUBCUT PRN PRN; Protocol PRN Reason: Hyperglycemia Last Admin: 05/24/25 09:46 Dose: 10 unit Levothyroxine Sodium (Levothyroxine Sodium 75 Mcg Tablet) 75 mcg PO 0630 [facility] Last Admin: 05/24/25 05:47 Dose: 75 mcg Lisinopril (Lisinopril 10 Mg Tablet) 20 mg PO DAILY [facility] Last Admin: 05/24/25 09:04 Dose: 20 mg Methylprednisolone Sodium Succinate (Methylprednisolone Sod Succ/Pf 40 Mg/Ml Vial) 40 mg IVP Q8HR [facility] Last Admin: 05/24/25 05:47 Dose: 40 mg Montelukast Sodium (Montelukast Sodium 10 Mg Tablet) 10 mg PO BEDTIME [facility] Last Admin: 05/23/25 20:26 Dose: 10 mg Ondansetron HCl (Ondansetron Hcl/Pf 4 Mg/2 Ml Sdv) 4 mg IVP Q6H PRN PRN Reason: Nausea / Vomiting Pantoprazole Sodium (Pantoprazole Sodium 40 Mg Tablet.Dr) 40 mg PO QDAC2 [facility] Last Admin: 05/24/25 05:47 Dose: 40 mg Polyethylene Glycol (Polyethylene Glycol 17 Gm Powd.Pack) 17 gm PO DAILY PRN PRN Reason: Constipation Pravastatin Sodium (Pravastatin Sodium 40 Mg Tablet) 40 mg PO BEDTIME [facility] Last Admin: 05/23/25 20:25 Dose: 40 mg Verapamil HCl (Verapamil Hcl 120 Mg Tablet.Er) 240 mg PO DAILY [facility] Last Admin: 05/24/25 09:03 Dose: 240 mg Discharge Plan Discharge Prescriptions: New prednisone 20 mg tablet 20 mg PO BID 3 Days Qty: 6 0RF Continued albuterol sulfate [ProAir HFA] 90 mcg/actuation HFA aerosol inhaler 2 puff INHALATION BID PRN (Reason: Wheezing) Qty: 8.5 1RF pravastatin 40 mg tablet See Rx Instructions .ROUTE .COMPLEX Qty: 90 1RF Dose Instruction: TAKE ONE TABLET AT BEDTIME Rx Instructions: TAKE ONE TABLET AT BEDTIME alprazolam [Xanax] 0.5 mg tablet 0.5 mg PO BID PRN (Reason: anxiety) Qty: 180 1RF lisinopril 20 mg tablet 20 mg PO DAILY Qty: 90 0RF duloxetine 60 mg capsule,delayed release(DR/EC) See Rx Instructions .ROUTE .COMPLEX Qty: 90 1RF Dose Instruction: TAKE 1 CAPSULE EVERY MORNING Rx Instructions: TAKE 1 CAPSULE EVERY MORNING albuterol sulfate 2.5 mg /3 mL (0.083 %) solution for nebulization 2.5 mg inhalation Q4-6H PRN (Reason: shortness of breath or wheezing) Qty: 90 0RF polyethylene glycol 3350 [ClearLax] 17 gram/dose powder 17 g PO DAILY PRN (Reason: constipation) acetaminophen [Tylenol] 325 mg tablet 650 mg PO Q4H PRN (Reason: pain) ascorbic acid (vitamin C) 500 mg tablet extended release 500 mg PO DAILY cholecalciferol (vitamin D3) [Vitamin D3] 125 mcg (5,000 unit) tablet 125 mcg PO DAILY ipratropium-albuterol 0.5 mg-3 mg(2.5 mg base)/3 mL solution for nebulization 3 ml inhalation QID montelukast 10 mg tablet See Rx Instructions .ROUTE .COMPLEX Rx Instructions: TAKE ONE TABLET EVERY NIGHT gabapentin 300 mg Capsule 600 mg PO BEDTIME Qty: 1 0RF arformoterol [Brovana] 15 mcg/2 mL solution for nebulization 2 ml inhalation BID Qty: 60 0RF budesonide [Pulmicort] 0.5 mg/2 mL suspension for nebulization 0.5 mg inhalation BID Qty: 60 0RF verapamil 240 mg tablet extended release See Rx Instructions .ROUTE .COMPLEX Qty: 90 1RF Dose Instruction: TAKE ONE TABLET DAILY Rx Instructions: TAKE ONE TABLET DAILY levothyroxine 75 mcg tablet See Rx Instructions .ROUTE .COMPLEX Qty: 90 1RF Dose Instruction: TAKE ONE TABLET DAILY GENERIC FOR SYNTHROID Rx Instructions: TAKE ONE TABLET DAILY GENERIC FOR SYNTHROID pantoprazole [Protonix] 40 mg tablet,delayed release (DR/EC) 40 mg PO QDAC Qty: 90 1RF Discontinued budesonide [Pulmicort] 0.5 mg/2 mL suspension for nebulization 0.5 mg inhalation BID Qty: 60 0RF arformoterol [Brovana] 15 mcg/2 mL solution for nebulization 2 ml inhalation BID Qty: 60 0RF Rx Instructions: COPD J44.9 Referrals: KYLEE VILLEDA APRN [Primary Care Provider, CARDIOLOGY] - 06/01/25 2:20 pm
[2025-05-24] MEDS: DOXYCYCLINE PO SCH (22:01)
[2025-05-25] MEDS: CEFPODOXIME PROXETIL PO SCH (08:24)
--- NOTE | 2025-05-25 08:47 | DCSUM ---
Admission Date Admission Date: 05/22/25 Discharge Date Discharge Date: 05/25/25 Admission Diagnosis Admission Diagnosis: 1. Acute on chronic hypercapnic and hypoxic respiratory failure due to COPD exacerbation Discharge Diagnosis Discharge Diagnosis: 1. Acute on chronic hypercapnic and hypoxic respiratory failure due to COPD exacerbation -improved, at baseline 2. Mild anemia of chronic disease 3. Hyperlipidemia 4. Hypothyroidism 5. GERD 6. Hypertension 7. Depression 8. Neuropathy 9. Anxiety 10. Right lower ext fracture, previous Hospital Provider Hospital [facility] Phys[facility] Primary Care Physician: KYLEE VILLEDA APRN Summary of History and Physical Summary of History and Physical: Patient is an 85 year old female with a PMH of COPD, dyslipidemia, HTN, asthma, CKD, and GERD. She presented to the ED today due to worsening COPD symptoms. She states she is more short of breath than usual. She has a productive cough. Over the past few days she has also been dealing with a sore throat and nasal congestion. Granddaughter felt she has been more confused than her baseline. She claims she does her breathing treatments/inhalers and wears her O2 at home but historically has not used bipap at home in past. Labs in the ER showed a pCO2 of 103 and a pH of 7.33. her baseline pCO2 is usually around 60-70s. CXR showed no acute findings. She denies fever, chills, ALLRED, or chest pain. Admitted to inpatient. Hospital Course Subjective: Patient was treated with abx/steroids/breathing treatments. She did wear bipap for a few hours the first night. ABG improved to baseline. She has been weaned to her 2L of O2 baseline. Her breathing is improved. She has been alert and oriented. She feels better overall. Glucose has been running high with the steroids requiring sliding scale humalog. We discussed plans going forward including trying to get bipap at home, palliative care, etc. Ultimately she still doesn't want to wear bipap. "When it's my time, it's my time". However she's not quite ready to change to a more palliative approach at this time. Will continue her home health agency upon discharge. F/u with pcp. Abx/steroids prescribed upon discharge. She states she has neb medication. and granddaughter present and agreeable to plan of care. Appearance: Pleasant, No Apparent Distress, Alert and Other (deconditioned, thin ) HEENT: MMM CVS: Other (RRR) Abdomen: Soft and Non-Tender Respiratory: Other (non labored breathing, speaks full sentences, moving much better air cynthia ) Extremities: No Edema Vital Signs: Most Recent Vital Signs Temperature 98.4 F 05/25/25 06:00 Temperature Source Tympanic 05/25/25 06:00 Temperature Source Infrared 05/22/25 11:47 Pulse Rate 79 05/25/25 06:00 Respiratory Rate 16 05/25/25 06:00 Blood Pressure 185/106 H 05/25/25 06:00 Blood Pressure Mean 132 05/25/25 06:00 Blood Pressure Left Arm 131/64 05/22/25 15:32 Blood Pressure Location Left Arm 05/25/25 06:00 Blood Pressure Position Supine 05/25/25 06:00 O2 Sat by Pulse Oximetry 98 05/25/25 06:00 Oxygen Delivery Method Nasal Cannula 05/25/25 06:00 Oxygen Flow Rate 2 05/25/25 06:00 Fraction of Inspired Oxygen (FIO2) 36 05/23/25 01:37 Height 5 ft 2 in 05/22/25 15:32 Weight 66.4 kg 05/22/25 15:32 Telemetry Type Remote Telemetry 05/25/25 01:00 Telemetry Monitoring Continues 05/25/25 01:00 Telemetry Heart Rate 62 05/25/25 01:00 Telemetry SPO2 98 05/25/25 01:00 EKG RI Interval 0.15 05/25/25 01:00 EKG QRS Interval 0.09 05/25/25 01:00 Telemetry Strip Reading SR 05/25/25 01:00 Imaging: CHEST RADIOGRAPH(S) INDICATION: Productive cough dyspnea COMPARISON: Chest radiograph(s) 10/26/2024 TECHNIQUE: AP portable upright chest radiograph(s). 1 view(s) total. FINDINGS: Spondylosis. Chronic right rib fractures.Lungs are clear with no focal consolidations, pneumothoraces or pleural effusions. Cardiomediastinal silhouet te is within normal limits. IMPRESSION: No acute cardiopulmonary process. Lab Results Last 24 Hours: Laboratory Results - last 24 hr 05/25/25 08:47 Sodium 140.0 Potassium 3.89 Chloride 95.1 L Carbon Dioxide 38.2 H Anion Gap 10.59 BUN 35.8 H Creatinine 1.13 Estimated GFR (MDRD) 46.00 BUN/Creatinine Ratio 31.68 Glucose 210.0 H Calcium 9.72 Discharge Instructions Discharge Planning: Discharge Planning > [address] Sheri Ontiveros. Discharge Medications: Medications at Discharge (Home Meds & RX) albuterol sulfate 90 mcg/actuation aerosol inhaler (ProAir HFA) 2 puff inhalation BID PRN Wheezing #8.5 grams 11/10/22 albuterol sulfate 2.5 mg/3 mL (0.083 %) solution for nebulization 2.5 mg (3 mL) inhalation Q4-6H PRN shortness of breath or wheezing #90 mL 10/26/23 pantoprazole 40 mg tablet,delayed release (Protonix) 40 mg PO QDAC #90 tabs 11/03/24 alprazolam 0.5 mg tablet (Xanax) 0.5 mg PO BID PRN anxiety #180 tabs 12/01/24 pravastatin 40 mg tablet See Rx Instructions .Route .COMPLEX #90 tabs 12/01/24 levothyroxine 75 mcg tablet See Rx Instructions .Route .COMPLEX #90 tabs 12/22/24 verapamil 240 mg tablet,extended release See Rx Instructions .Route .COMPLEX #90 tabs 12/22/24 acetaminophen 325 mg tablet (Tylenol) 650 mg PO Q4H PRN pain 02/14/25 polyethylene glycol 3350 17 gram/dose oral powder (ClearLax) 17 g PO DAILY PRN constipation 02/14/25 ascorbic acid (vitamin C) 500 mg tablet,extended release 500 mg PO DAILY 02/15/25 cholecalciferol (vitamin D3) 125 mcg (5,000 unit) tablet (Vitamin D3) 125 mcg PO DAILY 02/15/25 ipratropium 0.5 mg-albuterol 3 mg (2.5 mg base)/3 mL nebulization soln 3 ml inhalation QID shortness of breath or wheezing 02/15/25 montelukast 10 mg tablet See Rx Instructions .Route .COMPLEX 02/15/25 arformoterol 15 mcg/2 mL solution for nebulization (Brovana) 2 ml inhalation BID #60 mL 02/28/25 budesonide 0.5 mg/2 mL suspension for nebulization (Pulmicort) 0.5 mg (2 mL) inhalation BID #60 mL 02/28/25 gabapentin 300 mg capsule 600 mg (2 x 300 mg) PO BEDTIME #1 cap 02/28/25 lisinopril 20 mg tablet 20 mg PO DAILY #90 tabs 04/03/25 duloxetine 60 mg capsule,delayed release See Rx Instructions .Route .COMPLEX #90 caps 04/06/25 cefpodoxime 200 mg tablet 200 mg PO BID 2 days #4 tabs 05/24/25 doxycycline monohydrate 100 mg capsule 100 mg PO BID 2 days #4 caps 05/24/25 prednisone 20 mg tablet 20 mg PO BID 3 days #6 tabs 05/24/25 Discharge Plan Discharge Discharge Orders: Discharge Patient (ONCE); Ordered 05/25/25 Ordered By: BEVERLY MASSEY Activity Restrictions/Additional Instructions: DISCHARGE TO HOME DX: COPD EXACERBATION PHARMACY: [facility] F/U WITH PCP DIET: NORMAL ACTIVITY: TOLERATED, TTWB RLE A resumption of care was sent to [facility] to resume your prior therapy. They will be in contact with you to resume care. If you have any questions or need to speak with them, their contact number is [phone]. Instructions: Doxycycline (By mouth), Prednisone (By mouth), Cefpodoxime Proxetil (By mouth), COPD (Chronic Obstructive Pulmonary Disease) (DC) Patient Disposition: HOME WITH FAMILY CARE Prescriptions: New prednisone 20 mg tablet 20 mg PO BID 3 Days Qty: 6 0RF doxycycline monohydrate 100 mg capsule 100 mg PO BID 2 Days Qty: 4 0RF cefpodoxime 200 mg tablet 200 mg PO BID 2 Days Qty: 4 0RF Rx Instructions: must administer with a meal/food Continued albuterol sulfate [ProAir HFA] 90 mcg/actuation HFA aerosol inhaler 2 puff INHALATION BID PRN (Reason: Wheezing) Qty: 8.5 1RF pravastatin 40 mg tablet See Rx Instructions .ROUTE .COMPLEX Qty: 90 1RF Dose Instruction: TAKE ONE TABLET AT BEDTIME Rx Instructions: TAKE ONE TABLET AT BEDTIME alprazolam [Xanax] 0.5 mg tablet 0.5 mg PO BID PRN (Reason: anxiety) Qty: 180 1RF lisinopril 20 mg tablet 20 mg PO DAILY Qty: 90 0RF duloxetine 60 mg capsule,delayed release(DR/EC) See Rx Instructions .ROUTE .COMPLEX Qty: 90 1RF Dose Instruction: TAKE 1 CAPSULE EVERY MORNING Rx Instructions: TAKE 1 CAPSULE EVERY MORNING albuterol sulfate 2.5 mg /3 mL (0.083 %) solution for nebulization 2.5 mg inhalation Q4-6H PRN (Reason: shortness of breath or wheezing) Qty: 90 0RF polyethylene glycol 3350 [ClearLax] 17 gram/dose powder 17 g PO DAILY PRN (Reason: constipation) acetaminophen [Tylenol] 325 mg tablet 650 mg PO Q4H PRN (Reason: pain) ascorbic acid (vitamin C) 500 mg tablet extended release 500 mg PO DAILY cholecalciferol (vitamin D3) [Vitamin D3] 125 mcg (5,000 unit) tablet 125 mcg PO DAILY ipratropium-albuterol 0.5 mg-3 mg(2.5 mg base)/3 mL solution for nebulization 3 ml inhalation QID montelukast 10 mg tablet See Rx Instructions .ROUTE .COMPLEX Rx Instructions: TAKE ONE TABLET EVERY NIGHT gabapentin 300 mg Capsule 600 mg PO BEDTIME Qty: 1 0RF arformoterol [Brovana] 15 mcg/2 mL solution for nebulization 2 ml inhalation BID Qty: 60 0RF budesonide [Pulmicort] 0.5 mg/2 mL suspension for nebulization 0.5 mg inhalation BID Qty: 60 0RF verapamil 240 mg tablet extended release See Rx Instructions .ROUTE .COMPLEX Qty: 90 1RF Dose Instruction: TAKE ONE TABLET DAILY Rx Instructions: TAKE ONE TABLET DAILY levothyroxine 75 mcg tablet See Rx Instructions .ROUTE .COMPLEX Qty: 90 1RF Dose Instruction: TAKE ONE TABLET DAILY GENERIC FOR SYNTHROID Rx Instructions: TAKE ONE TABLET DAILY GENERIC FOR SYNTHROID pantoprazole [Protonix] 40 mg tablet,delayed release (DR/EC) 40 mg PO QDAC Qty: 90 1RF Discontinued budesonide [Pulmicort] 0.5 mg/2 mL suspension for nebulization 0.5 mg inhalation BID Qty: 60 0RF arformoterol [Brovana] 15 mcg/2 mL solution for nebulization 2 ml inhalation BID Qty: 60 0RF Rx Instructions: COPD J44.9 Did you review [place] [employer] for ALL controlled substances?: Not Applicable Discussed opioids are addictive and Narcan is available by prescription or from pharmacy.: No Condition: Stable Referrals: KYLEE VILLEDA APRN [Primary Care Provider, CARDIOLOGY] - 06/01/25 2:20 pm
[2025-05-25 09:05] LABS: CREATININE 1.13 mg/dL (0.60-1.30)
[2025-05-25 11:47] VITALS: RESP 22
[2025-05-25 11:58] VITALS: BP 164/84; PULSE 82; TEMP 97.4
== END 2025-05-25 10:45 | disposition home or self-care (01) | DRG 190 ==
LOC: ED 11:41 → SCU 14:44
PROVIDERS: ADMIT Hospitalist; ATTEND Physician Assistant